=== PATIENT | female | born 1945 | race Caucasian/White ===

== ENCOUNTER → 2017-09-18 10:50 | Outpatient (CLI) | payer MEDICARE, SELFPAY ==
--- NOTE | 2017-09-18 10:55 | MM_ITS ---
MM Dig screening mamm BI w/CAD CAD Screening ORDERING PHYSICIAN : Giuseppe Ken MD PATIENT AGE: 72 years GENDER: Female COMPARISON: Previous mammograms: July 2015, June 2014, August 2016, June 2013 INDICATION: Routine screening. No hormones. No new complaints. Previous stereotactic biopsy left breast. Family history. Maternal grandmother breast cancer TECHNIQUE: Standard CC and MLO images were obtained. R2 CAD reviewed. FINDINGS: Moderate density breast for age. Fibroglandular elements most evident at the central breast extending superiorly. No dominant mass nor suspicious calcifications. No architectural distortion or significant interval change. Small vascular calcifications bilaterally typical for this age patient noted bilateral follow-up one year recommended IMPRESSION: Stable bilateral mammogram. No new areas of significant concern . Moderate breast density for age BI-RADS Category: 2 Benign Finding(s) RECOMMENDED FOLLOW-UP: 1YR - 1 YEAR FOLLOW-UP (A letter has been sent to the patient regarding results of the study.)
== END ==
PROVIDERS: PCP Internal Medicine Adolescent Medicine; Visit Provider Nurse Practitioner Obstetrics & Gynecology
DX: Z12.31 Encounter for screening mammogram for malignant neoplasm of breast (principal)
CPT/HCPCS: 77067

== ENCOUNTER 2018-01-13 21:37 | Observation (INO) ==
--- NOTE | 2018-01-13 22:01 | Emergency Department Note ---
ED Disposition Clinical Impression: Chest pain Qualifiers: Chest pain type: precordial pain Qualified Code(s): R07.2 - Precordial pain Disposition: Admitted as Observation Condition on Discharge: Good Referrals: Ren Armas MD [Primary Care Provider] - - Critical Care Critical Care Time: No Attestation: On 01/13/18, the high probability of a clinically significant, sudden or life threatening deterioration of the following system(s) required my full and direct attention, intervention and personal management. The time I documented below is in addition to time spent performing reported procedures but includes the following listed in this critical care notation. Medical Decision Making - Medical Records Medical records reviewed: Yes: I reviewed the patient's medical records. - Juan J Inquiry Pt receiving controlled substance: No Vital Signs: 01/13/18 21:39 Temperature 98.1 F Temperature Source Oral Pulse Rate [Left Radial] 61 Respiratory Rate 12 Blood Pressure [Right Arm] 156/83 Blood Pressure Mean [Right Arm] 107 Blood Pressure Source [Right Arm] Automatic Cuff Blood Pressure Position [Right Arm] Sitting 02 Sat by Pulse Oximetry 99 Oxygen Delivery Method Room Air - Lab Data Lab results reviewed: Yes: I reviewed the patient's lab results. Lab Results 01/13/18 22:27: WBC 5.7, RBC 4.23, Hgb 12.6, Hct 39.1, MCV 92.4, MCH 29.8, MCHC 32.3, RDW 13.4, Plt Count 311, MPV 6.8 L, Neut % (Auto) 68.9, Lymph % (Auto) 23.1, [place] % (Auto) 3.3, Eos % (Auto) 4.2, Baso % (Auto) 0.5, Neut # (Auto) 4.0 , Lymph # (Auto) 1.3, [place] # (Auto) 0.2, Eos # (Auto) 0.2, Baso # (Auto) 0.0 01/13/18 22:27: Sodium 137, Potassium 4.0, Chloride 102, Carbon Dioxide 29, Anion Gap 10.0, BUN 17, Creatinine 0.77, Estimated Creat Clear 41, Estimated GFR 74, Est GFR ( Amer) 89, Glucose 106, Calcium 9.0, Total Bilirubin 0.1 L, AST 20, ALT 20, Alkaline Phosphatase 67, Troponin I < 0.02, Total Protein 7.2, Albumin 3.1 L, Globulin 4.1 H, Albumin/Globulin Ratio 0.8 L, Amylase 35, Lipase 208 Result diagrams: 01/13/18 22:27 01/13/18 22:27 Orders (Tests/Meds): ED MEDICATIONS Generic Name Dose Route Start Last Admin Trade Name Freq PRN Reason Stop Dose Admin Nitroglycerin 0.4 mg 01/13/18 21:57 01/13/18 22:15 Nitrostat 0.4mg Sl Tablet SL 02/12/18 21:56 0.4 mg [id number] PRN Administration Chest Pain Discontinued Medications Generic Name Dose Route Start Last Admin Trade Name Freq PRN Reason Stop Dose Admin Aspirin 324 mg 01/13/18 21:57 01/13/18 22:26 Aspirin 81mg Chewable Tablet PO 01/13/18 21:58 324 mg ONCE ONE Administration Nitroglycerin 1 gm 01/13/18 22:35 01/13/18 22:40 Nitroglycerin 1 Inch Oint Udp TD 01/13/18 22:36 1 gm ONCE ONE Administration ORDERS Category Date Time Status XR chest portable Stat Exams 01/13/18 21:57 Ordered - ECG Data Tracing #1 I reviewed this ECG and interpreted as documented below: Normal Sinus Rhythm: Yes Ischemic changes: non-specific ST-T wave changes - Physician Consults Physician Consulted: tessie Reason -: Admission Chest Pain HPI - General Chief Complaint: Chest Pain Stated Complaint: chest pain Time Seen by Provider: 01/13/18 21:59 Mode of Arrival: Ambulatory Source of Information: Patient, Spouse, Medical Record Limitations: No Limitations Description of Symptoms (Recalled from ER Triage Doc. by RN): pt reports sternal pain intermittent since she woke up in the am. no aspirin, radiates to left shoulder - History of Present Illness HPI narrative: new onset of lt sided chest pain which has been intermittant today MD complaint: chest pain indicative of cardiac Onset (ago): day(s) Duration: intermittent Activity at onset: during rest Pain location: left chest Severity: moderate Quality: dull Pain radiation: LUE Treatments prior to or on arrival for Cardiac Chest Pain: none - LASHON Score Non-Stemi Age of patient: 65 yrs or more Number of risk factors for CAD: Presence of 3 or more Prior coronary artery stenosis(seen in coronary angiography): Less than 50% ST-Segment deviation on ECG (more than 1 min): Absent Prior aspirin intake: No ASA in the last 7 days Severe anginal chest pain: Two or more episodes in last 24 hours Elevated cardiac markers(CK-MB or troponin): Absent Non-Stemi Risk Score: 3 - Related Data Prior Cardiac Testing/Procedures: Stress Test On Oral Contraceptives: No Home Medications Medication Instructions Recorded Confirmed Duloxetine HCl [Cymbalta 30mg 1 tab PO DAILY 01/13/18 01/13/18 capsule] Ibuprofen [Ibuprofen 600mg Tab] 1 tab PO NEEDED PRN 01/13/18 01/13/18 LORazepam [Ativan 1mg tablet] 0.5 mg PO BID 01/13/18 01/13/18 Allergies Allergy/AdvReac Type Severity Reaction Status Date / Time iodine Allergy Unknown Verified 09/17/17 10:08 Anesthesia Allergy Unknown Uncoded 09/17/17 10:08 Penicillin Allergy Unknown Uncoded 09/17/17 10:08 sulfa drugs Allergy Unknown Uncoded 09/17/17 10:08 [facility] History I have reviewed the patient's past medical history: Yes Medical History: Denies:: Cancer, Diabetes Mellitus Type 1, Diabetes Mellitus Type 2, MRSA Amputation: No Fractures: No - Social History Smoking Status: Never smoker Alcohol Intake: current Alcohol Intake Frequency:: a few times a week - Psychiatric History Expresses thoughts of harming self/others: None Suicide Plan Description: No Plan ROS Obtained: Yes All systems reviewed & no additional complaints - Constitutional Constitutional: Denies fever(s) - Eyes Eyes: Denies change in vision - ENT Ears, Nose, Mouth, and Throat: Denies sore throat - Cardiovascular Cardiovascular: Reports chest pain, Denies dyspnea - Respiratory Respiratory: Yes cough - Gastrointestinal Gastrointestingal: Denies: abdominal pain - Genitourinary Female Genitourinary: Denies hematuria - Musculoskeletal Musculoskeletal: Denies joint pain - Integumentary/Breasts Skin/Breast: Denies rash - Neurologic Neurologic: Denies seizure-like activity Physical Exam - General General appearance: alert, in no apparent distress - Head Head exam: normocephalic - Eye Eye exam: Present: PERRL, EOMI - ENT ENT exam: Present: mucous membranes moist - Neck Neck exam: Present: trachea midline - Respiratory Respiratory exam: Present: normal lung sounds bilaterally, respiratory distress - Cardiovascular Cardiovascular exam: Present: regular rate, systolic murmur, +S4 - Abdominal Exam Abdominal exam: Present: soft - Extremities Exam Extremities exam: Present: normal inspection. Absent: pedal edema - Back Exam Back exam: Present: normal inspection - Neurological Exam Neurological exam: Present: alert, oriented X3, CN II-XII intact - Psychiatric Psychiatric exam: Present: normal affect - Skin Skin exam: Absent: rash
[2018-01-13 22:35] LABS: Basophils % 0.5 % (0.1-2.0); Eosinophils # 0.2 K/mm3 (0.0-0.4); Eosinophils % 4.2 % (0.1-12.0); Hematocrit 39.1 % (37.0-47.0); Hemoglobin 12.6 g/dL (12.2-16.2); Lymphocytes # 1.3 K/mm3 (0.7-4.5); Lymphocytes % 23.1 K/mm3 (10-50); Mean Corpuscular HGB Conc 32.3 g/dL (31.8-35.4); Mean Corpuscular Hemoglobin 29.8 pg (27.0-31.2); Mean Corpuscular Volume 92.4 fl (81-99); Mean Platelet Volume 6.8 fl (7.4-10.4); Monocytes # 0.2 K/mm3 (0.1-1.0); Monocytes % 3.3 % (1.7-9.3); Neutrophils % 68.9 % (37.0-80.0); Platelet Count 311 K/mm3 (142-424); Red Blood Count 4.23 M/mm3 (4.20-5.40); Red Cell Distribution Width 13.4 % (11.5-17.5); White Blood Count 5.7 K/mm3 (4.8-10.8)
[2018-01-13 22:52] LABS: Alanine Aminotransferase 20 U/L (12-78); Albumin Level 3.1 gm/dL (3.4-5.0); Albumin/Globulin Ratio 0.8 (1.1-1.8); Alkaline Phosphatase 67 U/L (46-116); Amylase 35 U/L (25-125); Aspartate Amino Transferase 20 U/L (15-37); Bilirubin,Total 0.1 mg/dL (0.2-1.0); Blood Urea Nitrogen 17 mg/dL (7-18); Carbon Dioxide 29 mmol/L (21.0-32.0); Chloride 102 mmol/L (98-107); Globulin 4.1 gm/dl (1.3-3.2); Glucose 106 mg/dL (74-106); Lipase 208 u/L (73-393); Sodium 137 mmol/L (136-145); Total Protein,Serum 7.2 gm/dL (6.4-8.2)
[2018-01-14 06:59] LABS: Anion Gap 7.9 mEq/L (5-15); Blood Urea Nitrogen 14 mg/dL (7-18); Carbon Dioxide 31 mmol/L (21.0-32.0); Chloride 107 mmol/L (98-107); Chol/HDL Ratio 2.8 (1-3.5); Cholesterol 164 mg/dL (140-200); Glucose 106 mg/dL (74-106); HDL Cholesterol 59 mg/dL (29-89); LDL Cholesterol 87 mg/dL (0-130); Potassium 3.9 mmoL/L (3.5-5.1); Sodium 142 mmol/L (136-145); Triglycerides 88 mg/dL (30-200); VLDL Cholesterol 18 mg/dL (0-40)
[2018-01-14 07:16] LABS: Basophils % 0.8 % (0.1-2.0); Eosinophils # 0.1 K/mm3 (0.0-0.4); Eosinophils % 3.3 % (0.1-12.0); Hematocrit 38.1 % (37.0-47.0); Hemoglobin 12.4 g/dL (12.2-16.2); Lymphocytes # 0.8 K/mm3 (0.7-4.5); Lymphocytes % 19.7 K/mm3 (10-50); Mean Corpuscular HGB Conc 32.4 g/dL (31.8-35.4); Mean Corpuscular Hemoglobin 30.2 pg (27.0-31.2); Mean Platelet Volume 6.6 fl (7.4-10.4); Monocytes # 0.2 K/mm3 (0.1-1.0); Monocytes % 4.2 % (1.7-9.3); Neutrophils # 2.7 K/mm3 (1.8-7.8); Platelet Count 295 K/mm3 (142-424); Red Cell Distribution Width 13.3 % (11.5-17.5); White Blood Count 3.8 K/mm3 (4.8-10.8)
--- NOTE | 2018-01-14 07:21 | Pharmacy Consult Notes ---
[facility] Pharmacy VTE Monitoring - Patient Demographics Admission date: 01/13/18 Report Date: 01/14/18 Time: 07:21 Allergies/Adverse Reactions: Patient Allergies etodolac [From Lodine] Allergy (Intermediate, Verified 01/13/18 23:53) iodine Allergy (Unknown, Verified 09/17/17 10:08) Anesthesia Allergy (Unknown, Uncoded 09/17/17 10:08) Penicillin Allergy (Unknown, Uncoded 09/17/17 10:08) sulfa drugs Allergy (Unknown, Uncoded 09/17/17 10:08) Height: 1.63 m Weight: 51.795 kg Patient Problems: Current Active Problems Chest pain (Acute) - VTE Risk Labs: VTE Related Lab Results Hgb 12.4 g/dL (12.2-16.2) 01/14/18 06:07 Hct 38.1 % (37.0-47.0) 01/14/18 06:07 Plt Count 295 K/mm3 (142-424) 01/14/18 06:07 BUN 14 mg/dL (7-18) 01/14/18 06:07 Creatinine 0.68 mg/dL (0.55-1.02) 01/14/18 06:07 Estimated Creat Clear 42 mL/min (0-300) 01/14/18 06:07 Was VTE Risk Assessment Performed: Yes VTE Score: 1 VTE Risk Level: Very Low Risk - Prophylaxis VTE Prophylaxis Ordered?: Yes Types of VTE Prophylaxis: TEDS Knee High Location of Applied Device: Bilateral Lower Extremeties - VTE Diagnosis Confirmed Treatment or plan recommended: Continue Current Treatment
--- NOTE | 2018-01-14 08:41 | History & Physical Report ---
*Admission Date: 01/13/18 *Chief complaint: Accelerating angina *History of present illness: 72-year-old white female with strong family history of cardiac disease who presented to the emergency department last night after having some chain with exertion that transitioned into some rest pain. Pain was left-sided, radiated to the shoulder and associated with some pressure. Relieved with nitroglycerin in the ER and has not returned since that time. This morning feels comfortable. [facility] History I have reviewed the patient's past medical history: Yes Medical History: Denies:: Cancer, Diabetes Mellitus Type 1, Diabetes Mellitus Type 2, MRSA Other Surgeries: Yes: Cholecystectomy Amputation: No Fractures: No - *Social History Educational Level: Completed College Smoking Status: Never smoker Alcohol Intake: current Alcohol Intake Frequency:: holidays/special occasions only Occupational Status: retired Housing: house Household Members: significant other - Psychiatric History Expresses thoughts of harming self/others: None Suicide Plan Description: No Plan *Family Hx:: Heart Attack Review of Systems - Review of Systems Review of systems:: pertinent systems reviewed and negative unless documented below - *Neurologic Denies seizure-like activity Meds Home Medications Medication Instructions Recorded Confirmed Type Duloxetine HCl [Cymbalta 30mg 30 mg PO HS 01/13/18 01/14/18 History capsule] LORazepam [Ativan 1mg tablet] 0.5 mg PO BID 01/13/18 01/14/18 History Ibuprofen [Ibu] 400 mg PO NEEDED PRN 01/14/18 01/14/18 History Allergies Allergy/AdvReac Type Severity Reaction Status Date / Time etodolac [From Lodine] Allergy Intermediate Verified 01/13/18 23:53 iodine Allergy Unknown Verified 09/17/17 10:08 Anesthesia Allergy Unknown Uncoded 09/17/17 10:08 Penicillin Allergy Unknown Uncoded 09/17/17 10:08 sulfa drugs Allergy Unknown Uncoded 09/17/17 10:08 Exam Vital signs and Labs for Last 24 Hours: Temp Pulse Resp BP Pulse Ox 98.0 F 60 18 133/58 95 01/14/18 07:45 01/14/18 07:45 01/14/18 07:45 01/14/18 07:45 01/14/18 07:45 Laboratory Results - last 24 hr 01/13/18 22:27: WBC 5.7, RBC 4.23, Hgb 12.6, Hct 39.1, MCV 92.4, MCH 29.8, MCHC 32.3, RDW 13.4, Plt Count 311, MPV 6.8 L, Neut % (Auto) 68.9, Lymph % (Auto) 23.1, [place] % (Auto) 3.3, Eos % (Auto) 4.2, Baso % (Auto) 0.5, Neut # (Auto) 4.0 , Lymph # (Auto) 1.3, [place] # (Auto) 0.2, Eos # (Auto) 0.2, Baso # (Auto) 0.0 01/13/18 22:27: Sodium 137, Potassium 4.0, Chloride 102, Carbon Dioxide 29, Anion Gap 10.0, BUN 17, Creatinine 0.77, Estimated Creat Clear 41, Estimated GFR 74, Est GFR ( Amer) 89, Glucose 106, Calcium 9.0, Total Bilirubin 0.1 L, AST 20, ALT 20, Alkaline Phosphatase 67, Troponin I < 0.02, Total Protein 7.2, Albumin 3.1 L, Globulin 4.1 H, Albumin/Globulin Ratio 0.8 L, Amylase 35, Lipase 208 01/13/18 23:54: Troponin I < 0.02 01/14/18 02:54: Troponin I < 0.02 01/14/18 06:07: WBC 3.8 L D, RBC 4.10 L, Hgb 12.4, Hct 38.1, MCV 93.0, MCH 30.2 , MCHC 32.4, RDW 13.3, Plt Count 295, MPV 6.6 L, Neut % (Auto) 72.0, Lymph % ( Auto) 19.7, [place] % (Auto) 4.2, Eos % (Auto) 3.3, Baso % (Auto) 0.8, Neut # (Auto ) 2.7, Lymph # (Auto) 0.8, [place] # (Auto) 0.2, Eos # (Auto) 0.1, Baso # (Auto) 0.0 01/14/18 06:07: Sodium 142, Potassium 3.9, Chloride 107, Carbon Dioxide 31, Anion Gap 7.9, BUN 14, Creatinine 0.68, Estimated Creat Clear 42, Estimated GFR 85, Est GFR ( Amer) 103, Glucose 106, Magnesium 2.2, Troponin I < 0.02, Triglycerides 88, Cholesterol 164, LDL Cholesterol 87, VLDL Cholesterol 18, HDL Cholesterol 59, Cholesterol/HDL Ratio 2.8 I & O for Last 24 hours: Intake & Output 01/11/18 01/12/18 01/13/18 01/14/18 11:59 11:59 11:59 11:59 Intake Total 0 / 0 Balance 0 / 0 Weight 114 lb 3.015 oz - Constitutional no acute distress - *Routine HEENT Exam Head: Present: normocephalic - *Routine Neck Exam Present: supple. Absent: JVD, carotid bruit - *Routine Respiratory Exam Present: CTA bilaterally. Absent: accessory muscle use - *Routine Cardiovascular Exam Present: RRR, Normal S1, Normal S2. Absent: murmur - *Routine Abdominal Exam Present: soft, normoactive bowel sounds - *Routine Extremities Exam Present: full ROM. Absent: cyanosis, clubbing, edema H&P: Result - Labs Labs: Short CBC 01/13/18 01/14/18 Range/Units 22:27 06:07 WBC 5.7 3.8 L D (4.8-10.8) K/mm3 Hgb 12.6 12.4 (12.2-16.2) g/dL Hct 39.1 38.1 (37.0-47.0) % Plt Count 311 295 (142-424) K/mm3 [facility] 01/13/18 01/14/18 22:27 06:07 Sodium 137 142 Potassium 4.0 3.9 Chloride 102 107 Carbon Dioxide 29 31 BUN 17 14 Creatinine 0.77 0.68 Glucose 106 106 Calcium 9.0 Cardiac Enzymes 01/13/18 01/13/18 01/14/18 Range/Units 22:27 23:54 02:54 Troponin I < 0.02 < 0.02 < 0.02 (0.00-0.06) ng/ml 01/14/18 Range/Units 06:07 Troponin I < 0.02 (0.00-0.06) ng/ml Liver Function 01/13/18 Range/Units 22:27 Total Bilirubin 0.1 L (0.2-1.0) mg/dL AST 20 (15-37) U/L ALT 20 (12-78) U/L Alkaline Phosphatase 67 (46-116) U/L Albumin 3.1 L (3.4-5.0) gm/dL Assessment and Plan (1) Chest pain Current visit: Yes Status: Acute Qualifiers: Chest pain type: precordial pain Qualified Code(s): R07.2 - Precordial pain Category: Medical Code(s): R07.9 - Chest pain, unspecified - Assessment and plan all Dx Assessment and Plan for all problems:: Significant risk factors. Close observation. Agree with admission for rule out NV. Cardiology consultation to evaluate for left heart cath.
--- NOTE | 2018-01-14 09:44 | Consult Report ---
History of Present Illness Consult date: 01/14/18 Requesting physician: Ren Armas Consult reason: chest pain Chief complaint: chest pain Additional Medical History:: 1. Irritable bowel syndrome with planned colonoscopy tomorrow 2. Chest pain, 01/13/18 History of present illness: 72-year-old white female with history of irritable bowel syndrome presented to the hospital after recurrent episodes of substernal chest discomfort/ indigestion with radiation of symptoms to the left shoulder and back that were worse with exertion and improved with rest. Antacids had no effect on the symptoms. The symptoms were different than her previous GI symptoms associated with her irritable bowel syndrome. She does have a strong family history of coronary artery disease in her siblings and her father. Patient denies tobacco use, diabetes, hypertension or hyperlipidemia. She was admitted for observation. She did receive sublingual nitroglycerin in the emergency department with gradual relief of symptoms thereafter. He does relate a great deal of stress due to her daughter undergoing chemotherapy for slow-growing brain tumor. EKG is sinus without acute changes. Troponins have remained within normal limits. Cardiology consulted for evaluation recommendations. [facility] History Medical History: Denies:: Cancer, Diabetes Mellitus Type 1, Diabetes Mellitus Type 2, MRSA Other Surgeries: Yes: Cholecystectomy Amputation: No Fractures: No - *Social History Educational Level: Completed College Smoking Status: Never smoker Alcohol Intake: current Alcohol Intake Frequency:: holidays/special occasions only Occupational Status: retired Housing: house Household Members: significant other - Psychiatric History Expresses thoughts of harming self/others: None Suicide Plan Description: No Plan *Family Hx:: Heart Attack Meds Home Medications Medication Instructions Recorded Confirmed Type Duloxetine HCl [Cymbalta 30mg 30 mg PO HS 01/13/18 01/14/18 History capsule] LORazepam [Ativan 1mg tablet] 0.5 mg PO BID 01/13/18 01/14/18 History Ibuprofen [Ibu] 400 mg PO NEEDED PRN 01/14/18 01/14/18 History Allergies Allergy/AdvReac Type Severity Reaction Status Date / Time etodolac [From Lodine] Allergy Intermediate Verified 01/13/18 23:53 iodine Allergy Unknown Verified 09/17/17 10:08 Anesthesia Allergy Unknown Uncoded 09/17/17 10:08 Penicillin Allergy Unknown Uncoded 09/17/17 10:08 sulfa drugs Allergy Unknown Uncoded 09/17/17 10:08 Review of Systems - *Cardiovascular Reports chest pain - *Respiratory Denies shortness of breath - *Gastrointestinal Denies abdominal pain - *Genitourinary Denies abnormal periods - *Musculoskeletal Denies abnormal walking - *Neurologic Denies seizure-like activity Exam Vital signs and Labs for Last 24 Hours: Temp Pulse Resp BP Pulse Ox 98.0 F 60 18 133/58 95 01/14/18 07:45 01/14/18 09:00 01/14/18 09:00 01/14/18 07:45 01/14/18 09:00 Laboratory Results - last 24 hr 01/13/18 22:27: WBC 5.7, RBC 4.23, Hgb 12.6, Hct 39.1, MCV 92.4, MCH 29.8, MCHC 32.3, RDW 13.4, Plt Count 311, MPV 6.8 L, Neut % (Auto) 68.9, Lymph % (Auto) 23.1, [place] % (Auto) 3.3, Eos % (Auto) 4.2, Baso % (Auto) 0.5, Neut # (Auto) 4.0 , Lymph # (Auto) 1.3, [place] # (Auto) 0.2, Eos # (Auto) 0.2, Baso # (Auto) 0.0 01/13/18 22:27: Sodium 137, Potassium 4.0, Chloride 102, Carbon Dioxide 29, Anion Gap 10.0, BUN 17, Creatinine 0.77, Estimated Creat Clear 41, Estimated GFR 74, Est GFR ( Amer) 89, Glucose 106, Calcium 9.0, Total Bilirubin 0.1 L, AST 20, ALT 20, Alkaline Phosphatase 67, Troponin I < 0.02, Total Protein 7.2, Albumin 3.1 L, Globulin 4.1 H, Albumin/Globulin Ratio 0.8 L, Amylase 35, Lipase 208 01/13/18 23:54: Troponin I < 0.02 01/14/18 02:54: Troponin I < 0.02 01/14/18 06:07: WBC 3.8 L D, RBC 4.10 L, Hgb 12.4, Hct 38.1, MCV 93.0, MCH 30.2 , MCHC 32.4, RDW 13.3, Plt Count 295, MPV 6.6 L, Neut % (Auto) 72.0, Lymph % ( Auto) 19.7, [place] % (Auto) 4.2, Eos % (Auto) 3.3, Baso % (Auto) 0.8, Neut # (Auto ) 2.7, Lymph # (Auto) 0.8, [place] # (Auto) 0.2, Eos # (Auto) 0.1, Baso # (Auto) 0.0 01/14/18 06:07: Sodium 142, Potassium 3.9, Chloride 107, Carbon Dioxide 31, Anion Gap 7.9, BUN 14, Creatinine 0.68, Estimated Creat Clear 42, Estimated GFR 85, Est GFR ( Amer) 103, Glucose 106, Magnesium 2.2, Troponin I < 0.02, Triglycerides 88, Cholesterol 164, LDL Cholesterol 87, VLDL Cholesterol 18, HDL Cholesterol 59, Cholesterol/HDL Ratio 2.8 I & O for Last 24 hours: Intake & Output 01/11/18 01/12/18 01/13/18 01/14/18 11:59 11:59 11:59 11:59 Intake Total 0 / 0 Output Total 1000 / 1000 Balance -1000 / -1000 Weight 114 lb 3.015 oz - *Routine Neck Exam Absent: JVD, carotid bruit - *Routine Respiratory Exam Present: CTA bilaterally. Absent: rhonchi, wheezes - *Routine Cardiovascular Exam Present: RRR. Absent: murmur, gallop - *Routine Abdominal Exam Present: soft. Absent: tenderness - *Routine Extremities Exam Absent: edema - *Routine Neurological Exam Present: alert, oriented X3, moving all extremities Assessment and Plan (1) Chest pain Current visit: Yes Status: Acute Qualifiers: Chest pain type: precordial pain Qualified Code(s): R07.2 - Precordial pain Category: Medical Code(s): R07.9 - Chest pain, unspecified (2) Family history of atherosclerosis Current visit: Yes Status: Acute Category: Medical Code(s): Z82.49 - Family history of ischemic heart disease and other diseases of the circulatory system - Assessment and plan all Dx Assessment and Plan for all problems:: 1. Recurrent chest pain resolved with sublingual nitroglycerin with a LASHON score of 2 with strong family history of coronary artery disease and a patient that we will need preop evaluation. Would recommend proceeding with left heart catheterization. 2. Further recommendations to follow.
--- NOTE | 2018-01-14 17:31 | Discharge Summary ---
General - General Admission date:: 01/13/18 Discharge date: 01/14/18 HPI HPI: 72-year-old white female with strong family history of cardiac disease who presented to the emergency department last night after having some chain with exertion that transitioned into some rest pain. Pain was left-sided, radiated to the shoulder and associated with some pressure. Relieved with nitroglycerin in the ER and has not returned since that time. This morning feels comfortable. Hospital Course Hospital Course: Patient was admitted to hospital, ruled out for myocardial infarction but given the accelerating nature of her pain she was subjected to left heart cath which revealed significant coronary disease and she received 2 stents. The interested reader is referred to the cardiology documentation for details. She tolerated the procedure well, the procedure was done through her right radial artery. She is doing well this afternoon, no further pain, interestingly her left shoulder pain is completely resolved. She will be discharged home on Brilinta, aspirin, atorvastatin and close follow- up. Objective Vital signs: Temp Pulse Resp BP Pulse Ox 98.0 F 62 18 149/80 97 01/14/18 07:45 01/14/18 17:10 01/14/18 17:10 01/14/18 17:10 01/14/18 17:10 Narrative: Alert, oriented 3. Lungs are clear. Heart rate regular. No edema. Radial cath site looks great no acute distress Results Labs on day of discharge: Labs from last 24 hours 01/14/18 01/14/18 01/14/18 12:40 12:24 06:07 WBC RBC Hgb Hct MCV MCH MCHC RDW Plt Count MPV Neut % (Auto) Lymph % (Auto) Addison % (Auto) Eos % (Auto) Baso % (Auto) Neut # (Auto) Lymph # (Auto) Addison # (Auto) Eos # (Auto) Baso # (Auto) Activated Clotting Time 272 H* 230 H* Sodium 142 Potassium 3.9 Chloride 107 Carbon Dioxide 31 Anion Gap 7.9 BUN 14 Creatinine 0.68 Estimated Creat Clear 42 Estimated GFR 85 Est GFR ( Amer) 103 Glucose 106 Calcium Magnesium 2.2 Total Bilirubin AST ALT Alkaline Phosphatase Troponin I < 0.02 Total Protein Albumin Globulin Albumin/Globulin Ratio Triglycerides 88 Cholesterol 164 LDL Cholesterol 87 VLDL Cholesterol 18 HDL Cholesterol 59 Cholesterol/HDL Ratio 2.8 Amylase Lipase 01/14/18 01/14/18 01/13/18 06:07 02:54 23:54 WBC 3.8 L D RBC 4.10 L Hgb 12.4 Hct 38.1 MCV 93.0 MCH 30.2 MCHC 32.4 RDW 13.3 Plt Count 295 MPV 6.6 L Neut % (Auto) 72.0 Lymph % (Auto) 19.7 Addison % (Auto) 4.2 Eos % (Auto) 3.3 Baso % (Auto) 0.8 Neut # (Auto) 2.7 Lymph # (Auto) 0.8 Addison # (Auto) 0.2 Eos # (Auto) 0.1 Baso # (Auto) 0.0 Activated Clotting Time Sodium Potassium Chloride Carbon Dioxide Anion Gap BUN Creatinine Estimated Creat Clear Estimated GFR Est GFR ( Amer) Glucose Calcium Magnesium Total Bilirubin AST ALT Alkaline Phosphatase Troponin I < 0.02 < 0.02 Total Protein Albumin Globulin Albumin/Globulin Ratio Triglycerides Cholesterol LDL Cholesterol VLDL Cholesterol HDL Cholesterol Cholesterol/HDL Ratio Amylase Lipase 01/13/18 01/13/18 22:27 22:27 WBC 5.7 RBC 4.23 Hgb 12.6 Hct 39.1 MCV 92.4 MCH 29.8 MCHC 32.3 RDW 13.4 Plt Count 311 MPV 6.8 L Neut % (Auto) 68.9 Lymph % (Auto) 23.1 Addison % (Auto) 3.3 Eos % (Auto) 4.2 Baso % (Auto) 0.5 Neut # (Auto) 4.0 Lymph # (Auto) 1.3 Addison # (Auto) 0.2 Eos # (Auto) 0.2 Baso # (Auto) 0.0 Activated Clotting Time Sodium 137 Potassium 4.0 Chloride 102 Carbon Dioxide 29 Anion Gap 10.0 BUN 17 Creatinine 0.77 Estimated Creat Clear 41 Estimated GFR 74 Est GFR ( Amer) 89 Glucose 106 Calcium 9.0 Magnesium Total Bilirubin 0.1 L AST 20 ALT 20 Alkaline Phosphatase 67 Troponin I < 0.02 Total Protein 7.2 Albumin 3.1 L Globulin 4.1 H Albumin/Globulin Ratio 0.8 L Triglycerides Cholesterol LDL Cholesterol VLDL Cholesterol HDL Cholesterol Cholesterol/HDL Ratio Amylase 35 Lipase 208 DS: Diagnosis - Discharge Diagnosis (1) Chest pain Status: Acute (2) Family history of atherosclerosis Status: Acute (3) Coronary atherosclerosis Status: Acute Discharge Plan - Patient Discharge Instructions ACTIVITY: Limited activity DIET: cardiac Patient Instructions: DI for Cardiac Catheterization, DI for Chest Pain - Follow up Plan Follow up with: Korey Menchaca MD [Staff Physician] - 1 week Ren Armas MD [Primary Care Provider] - 2 weeks Disposition: Home, Self-Shelter Medications: Home Medications Medication Instructions Recorded Confirmed Type Duloxetine HCl [Cymbalta 30mg 30 mg PO HS 01/13/18 01/14/18 History capsule] LORazepam [Ativan 1mg tablet] 0.5 mg PO BID 01/13/18 01/14/18 History Ibuprofen [Ibu] 400 mg PO NEEDED PRN 01/14/18 01/14/18 History Prescriptions/Medication Reconciliation: New Aspirin [Aspirin 81mg chewable tab] 81 mg PO DAILY #30 tab.chew Atorvastatin Calcium [Atorvastatin 40mg Tab] 40 mg PO DAILY 30 Days #30 tab Ticagrelor [Brilinta 90mg Tablet] 90 mg PO BID #60 tab Continue Duloxetine HCl [Cymbalta 30mg capsule] 30 mg PO HS Ibuprofen [Ibu] 400 mg PO NEEDED PRN PRN Reason: PAIN LORazepam [Ativan 1mg tablet] 0.5 mg PO BID
--- NOTE | 2018-01-14 21:48 | Cardiology Report ---
PROCEDURE: 2-D M-mode and color Doppler study INDICATIONS FOR THE TEST: Chest pain X COPD Heart Murmur Tobacco Smoking Palpitations Fatigue Syncope Edema Hypertension Diabetes Mellitus Rheumatic Fever SOB BAILEY Obesity Hyperlipidemia Family History HD Additional History PATIENT INFORMATION HEIGHT: 64 WEIGHT:112 GENDER: Female B/P:156/83 2-D/M-MODE INTERPRETATION: 2-D MEASUREMENTS OBSERVED VALUES IN CMS Right Ventricular Dimension (RVDd) 1.5 Interventricular Septum (Thickness)(IVsd) 1.0 Left Ventricular Internal Dimensions(LVIDd) 4.6 Left Ventricular Posterior Wall (Thickness)(LVPWd) 1.1 Aortic Root 2.8 Aortic Cusp Separation 1.8 Left Atrial Dimensions (LAD) 3.2 2D 1. Left atrium is mildly enlarged, left ventricle is normal size, mild concentric left ventricular hypertrophy, visually estimated ejection fraction 55% with no obvious regional wall motion abnormality. 2. The right atrium and right ventricle are normal size and contractility. 3. The aortic valve is minimally thickened and fibrosed. 4. 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 There is no mitral stenosis. 5. The tricuspid valve is grossly normal. 6. The pulmonic valve is poorly visualized 7. No significant pericardial effusion noted. DOPPLER INTERROGATION: Doppler interrogation of the aortic, mitral and tricuspid valvular presence of mild mitral and tricuspid regurgitation, tricuspid and jet velocity insufficient for calculation of the right ventricular systolic pressure, grade 1 diastolic dysfunction seen without tissue Doppler evidence of raised left atrial pressure. CONCLUSION: 1. Mildly enlarged left atrium, normal left ventricular size, mild concentric left ventricular hypertrophy, visually estimated ejection fraction 55% no signal wall motion abnormality, grade 1 diastolic dysfunction seen without tissue Doppler evidence of raised left atrial pressure. 2. 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 3. Mild tricuspid regurgitation 4. No significant pericardial effusion noted.
== END 2018-01-14 18:25 | disposition home or self-care (01) ==
LOC: ER 21:37 → 2ND 21:37
PROVIDERS: ADMIT Family Medicine; ATTEND Internal Medicine Adolescent Medicine

== ENCOUNTER 2018-01-22 14:00 | Outpatient (RCR) | payer MEDICARE, SELFPAY | END 2018-01-22 14:01 | disposition home or self-care (01) | LOC: PT 14:00 | PROVIDERS: PCP Internal Medicine Adolescent Medicine; Visit Provider Internal Medicine | DX: Z95.5 Presence of coronary angioplasty implant and graft (principal) | CPT/HCPCS: 93798 ==

== ENCOUNTER → 2018-04-23 10:33 | Outpatient (CLI) | payer MEDICARE, SELFPAY ==
[2018-04-23 10:37] LABS: Adenovirus F 40/41, stool Not Detected (NotDetected); Astrovirus Not Detected (NotDetected); Campylobacter Not Detected (NotDetected); Clostridium Difficile A/B, PCR Not Detected (NotDetected); Cryptosporidium Not Detected (NotDetected); Cyclospora Cayetanesis Not Detected (NotDetected); Entamoeba histolytica Not Detected (NotDetected); Enteroaggregative E coli Not Detected (NotDetected); Enterotoxigenic E coli Not Detected (NotDetected); Giardia lamblia Not Detected (NotDetected); Norovirus Not Detected (NotDetected); Plesimonas Shigalloides, PCR Not Detected (NotDetected); Rotavirus A Not Detected (NotDetected); Salmonella, PCR Not Detected (NotDetected); Sapovirus Not Detected (NotDetected); Shiga-like toxin E coli Not Detected (NotDetected); Shigella Enterovasive E coli Not Detected (NotDetected); Vibrio Cholerae Not Detected (NotDetected); Vibrio, PCR Not Detected (NotDetected); Yersinia Entercolitica, PCR Not Detected (NotDetected)
[2018-04-23 13:30] LABS: Enteropathogenic E coli Detected (NotDetected)
== END ==
PROVIDERS: Visit Provider Internal Medicine Gastroenterology
DX: R19.7 Diarrhea, unspecified (principal)
CPT/HCPCS: 87507

== ENCOUNTER → 2018-08-19 06:46 | Outpatient (CLI) | payer MEDICARE, SELFPAY ==
--- NOTE | 2018-08-19 06:48 | NM_ITS ---
History and Indications: Coronary artery disease, family history, chest pain and fatigue Procedure: Patient exercised on Vernon protocol 9 minutes and 30 seconds, resting heart rate was 60 bpm resting blood pressure 146/78, with exercise maximum heart rate achieved was 1 48 bpm which is greater than 85% of the maximum predicted heart rate and a blood pressure was 190/88. Test was started due to shortness of breath and fatigue patient denied any complained of chest pain. Patient has good exercise capacity achieved 10.1mets of workload on treadmill, the blood pressure response to exercise was adequate. Electrocardiogram: Resting electrocardiogram showed sinus rhythm, with exercise there is less than 1.[address] segment depression noted from the baseline EKG. Is no premature ventricular complexes were also present. The EKG portion of the exercise Myoview is negative for ischemia. Cardiac stress and resting SPECT images: Cardiac stress and resting SPECT images were obtained using technetium 99 Myoview 32.6 mCi stress and 10.5 mCi at rest. Gated SPECT further analysis of segmental wall motion and calculation of the ejection fraction also done. Cardiac stress and the suspect images show uniform myocardial activity without segmental perfusion abnormality, computer derived ejection fraction is over 65% with no regional wall motion abnormality, right ventricle is normal size and contractility. Conclusion: 1. The EKG portion of the exercise Myoview is negative for ischemia. Patient has good exercise capacity achieved 10.1 mets of workload on treadmill, the blood pressure response to exercise was adequate, there was no exercise-induced chest discomfort. 2. No scintigraphic evidence of reversible ischemia seen. Computer derived ejection fraction is over 65% with no regional wall motion abnormality, right ventricle is normal size and contractility. 3. Normal exercise Myoview study.
--- NOTE | 2018-08-19 07:18 | HMH.ITSHM ---
Current Home Medications as stated by this patient Elizabeth Bustamante (Betsy) or area representative. []PLAVIX ROSUVASTATIN ASA DOMPARDONE ADAVAN DULOXITINE
== END ==
PROVIDERS: PCP Internal Medicine Adolescent Medicine; Visit Provider Internal Medicine
DX: E78.5 Hyperlipidemia, unspecified (principal); I11.9 Hypertensive heart disease without heart failure; I25.10 Atherosclerotic heart disease of native coronary artery without angina pectoris; K21.9 Gastro-esophageal reflux disease without esophagitis; R07.89 Other chest pain; Z95.5 Presence of coronary angioplasty implant and graft
CPT/HCPCS: 78452; 93017; A9502

== ENCOUNTER → 2018-10-07 09:33 | Outpatient (CLI) | payer MEDICARE, SELFPAY ==
--- NOTE | 2018-10-07 09:36 | MM_ITS ---
MM Dig screening mamm BI w/CAD ORDERING PHYSICIAN : Giuseppe Ken MD PATIENT AGE: 73 years GENDER: Female COMPARISON: September 2017, August 2016, July 2015. INDICATION: Routine screening mammogram. No hormones. No new complaints. Previous percutaneous or stereotactic biopsy left breast. Family history. Maternal grandmother. TECHNIQUE: Standard CC and MLO images were obtained. R2 CAD reviewed. Additional axillary cc view bilaterally and CC nipple profile view bilateral FINDINGS: Fairly Dense breast bilaterally for this age patient but no dominant mass nor suspicious calcifications either breast. No new areas of significant concern.. Minimal vascular calcifications bilateral.. . IMPRESSION: . No new areas of concern. Stable mammogram. Moderately dense breasts for age Follow-up in one year suggested BI-RADS Category: 2 Benign Finding(s) RECOMMENDED FOLLOW-UP: 1YR 1 YEAR FOLLOW-UP (A letter has been sent to the patient regarding results of the study.)
== END ==
PROVIDERS: PCP Internal Medicine Adolescent Medicine; Visit Provider Nurse Practitioner Obstetrics & Gynecology
DX: Z12.31 Encounter for screening mammogram for malignant neoplasm of breast (principal)
CPT/HCPCS: 77067

== ENCOUNTER → 2019-01-17 08:47 | Outpatient (CLI) | payer MEDICARE, SELFPAY ==
--- NOTE | 2019-01-17 09:01 | XR_ITS ---
XR DEXA axial skeleton HISTORY: ITS.REASON: OSTEOPOROSIS ORDERING PHYSICIAN: Christen Shen APRN PATIENT AGE: 73 years COMPARISON: 10/23/2016 FINDINGS: The BMD measured at the Right femoral neck is 0.686 g/cm squared with a T score of -2.5. This is considered Osteoporotic according to the World Health Organization criteria. Fracture risk is High. Treatment is advised. The L1-L4 density has a T score of 0.3 decreased by 1%. The hip density has decreased by 3.4%. The scanogram images show moderate lumbar scoliosis convex left IMPRESSION: Osteoporosis with high fracture risk. Treatment is advised. Suggest follow-up examination january 2020
== END ==
PROVIDERS: PCP Internal Medicine Adolescent Medicine; Visit Provider Nurse Practitioner Family
DX: Z13.820 Encounter for screening for osteoporosis (principal); M81.0 Age-related osteoporosis without current pathological fracture
CPT/HCPCS: 77080

== ENCOUNTER → 2019-01-27 08:32 | Outpatient (CLI) | payer MEDICARE, SELFPAY ==
[2019-01-27 08:43] LABS: Basophils % 0.5 % (0.1-2.0); Eosinophils # 0.1 K/mm3 (0.0-0.4); Eosinophils % 2.1 % (0.1-12.0); Hematocrit 40.5 % (37.0-47.0); Hemoglobin 13.2 g/dL (12.2-16.2); Lymphocytes % 21.1 % (10-50); Mean Corpuscular HGB Conc 32.6 g/dL (31.8-35.4); Mean Corpuscular Hemoglobin 29.6 pg (27.0-31.2); Mean Corpuscular Volume 90.7 fl (81-99); Mean Platelet Volume 6.5 fl (7.4-10.4); Monocytes # 0.2 K/mm3 (0.1-1.0); Monocytes % 3.3 % (1.7-9.3); Neutrophils # 3.4 K/mm3 (1.8-7.8); Platelet Count 295 K/mm3 (142-424); Red Blood Count 4.47 M/mm3 (4.20-5.40); Red Cell Distribution Width 13.4 % (11.5-17.5); White Blood Count 4.7 K/mm3 (4.8-10.8)
[2019-01-27 10:53] LABS: Alanine Aminotransferase 23 U/L (12-78); Albumin Level 3.6 gm/dL (3.4-5.0); Albumin/Globulin Ratio 0.9 (1.1-1.8); Alkaline Phosphatase 71 U/L (46-116); Anion Gap 11.4 mEq/L (5-15); Aspartate Amino Transferase 16 U/L (15-37); Bilirubin,Total 0.3 mg/dL (0.2-1.0); Blood Urea Nitrogen 9 mg/dL (7-18); Calcium 8.8 mg/dL (8.5-10.1); Carbon Dioxide 28 mmol/L (21.0-32.0); Chloride 102 mmol/L (98-107); Chol/HDL Ratio 2.3 (1-3.5); Cholesterol 142 mg/dL (140-200); Creatinine,Serum 0.69 mg/dL (0.55-1.02); Estimated Glomerular Filt Rate 83 ml/min (>60); GFR (African American) 101 ML/MIN (>60); Globulin 4.2 gm/dl (1.3-3.2); Glucose 92 mg/dL (74-106); HDL Cholesterol 63 mg/dL (29-89); LDL Cholesterol 63 mg/dL (0-130); Potassium 4.4 mmoL/L (3.5-5.1); Sodium 137 mmol/L (136-145); Thyroid Stimulating Hormone 1.21 uIU/ml (0.358-3.740); Total Protein,Serum 7.8 gm/dL (6.4-8.2); Triglycerides 81 mg/dL (30-200); VLDL Cholesterol 16 mg/dL (0-40)
[2019-01-28 08:51] LABS: Vitamin B12 856 pg/mL (232-1245)
[2019-01-28 08:52] LABS: Vitamin D 25 Hydroxy 40.6 ng/mL (30.0-100.0)
== END ==
PROVIDERS: Visit Provider Nurse Practitioner Family
DX: I25.10 Atherosclerotic heart disease of native coronary artery without angina pectoris (principal); R53.81 Other malaise; M81.0 Age-related osteoporosis without current pathological fracture
CPT/HCPCS: 36415; 80053; 80061; 82607; 82652; 84443; 85025

== ENCOUNTER → 2019-02-04 13:36 | Outpatient (CLI) | payer MEDICARE, SELFPAY ==
[2019-02-06 15:19] LABS: Albumin 3.6 g/dL (2.9-4.4); Alpha-1-Globulin 0.3 g/dL (0.0-0.4); Alpha-2-Globulin 0.8 g/dL (0.4-1.0); Gamma Globulin 1.5 g/dL (0.4-1.8); Protein, Total 7.1 g/dL (6.0-8.5)
[2019-02-06 16:37] LABS: Albumin, U 19.8 % (.); Alpha-1-Globulin, U 5.8 % (.); Alpha-2-Globulin, U 18.3 % (.); Beta Globulin, U 28.2 % (.); Gamma Globulin, U 27.9 % (.); Protein,Total,Urine 14.7 mg/dL (Not Estab.)
[2019-02-07 07:32] LABS: M-Spike, % Comment: % (Not Observed)
== END ==
PROVIDERS: Visit Provider Internal Medicine Adolescent Medicine
DX: R77.9 Abnormality of plasma protein, unspecified (principal); D72.9 Disorder of white blood cells, unspecified
CPT/HCPCS: 36415; 84155; 84156; 84165; 84166

== ENCOUNTER → 2019-02-18 13:20 | Outpatient (POV) | payer MEDICARE, SELFPAY | PROVIDERS: Visit Provider Dermatology | DX: Z00.00 Encounter for general adult medical examination without abnormal findings (principal) ==

== ENCOUNTER 2019-03-05 13:15 | Outpatient (CLI) | payer MEDICARE, SELFPAY ==
[2019-03-05 13:14] VITALS: BMI 21.4
[2019-03-05 13:40] LABS: Albumin Level 3.5 gm/dL (3.4-5.0); Calcium 8.5 mg/dL (8.5-10.1); Creatinine Clearance Estimated 42 mL/min (50-200); Creatinine,Serum 0.71 mg/dL (0.55-1.02); Estimated Glomerular Filt Rate 81 ml/min (>60); GFR (African American) 98 ML/MIN (>60)
[2019-03-05 14:12] VITALS: BP 136/77; PULSE 77; RESP 16; O2SAT 97
[2019-03-05 14:35] VITALS: BP 151/71; PULSE 62; RESP 18; O2SAT 97
== END 2019-03-05 14:35 | disposition home or self-care (01) ==
LOC: INF 13:15
PROVIDERS: Visit Provider Nurse Practitioner Family
DX: M81.0 Age-related osteoporosis without current pathological fracture (principal)
CPT/HCPCS: 82040; 82310; 82565; 96374; J3489

== ENCOUNTER → 2019-09-11 11:45 | Outpatient (CLI) | payer MEDICARE, SELFPAY ==
[2019-09-11 14:18] LABS: Alanine Aminotransferase 18 U/L (12-78); Albumin Level 3.6 gm/dL (3.4-5.0); Alkaline Phosphatase 70 U/L (46-116); Anion Gap 14.4 mEq/L (5-15); Aspartate Amino Transferase 13 U/L (15-37); Bilirubin,Direct 0.1 mg/dL (0.0-0.2); Bilirubin,Indirect 0.1 mg/dL (0.0-0.9); Bilirubin,Total 0.2 mg/dL (0.2-1.0); Blood Urea Nitrogen 15 mg/dL (7-18); Calcium 8.9 mg/dL (8.5-10.1); Carbon Dioxide 27 mmol/L (21.0-32.0); Chloride 102 mmol/L (98-107); Chol/HDL Ratio 2.3 (1-3.5); Cholesterol 167 mg/dL (140-200); Creatine Kinase 64 U/L (26-192); Estimated Glomerular Filt Rate 98 ml/min (>60); GFR (African American) 118 ML/MIN (>60); Glucose 77 mg/dL (74-106); HDL Cholesterol 74 mg/dL (29-89); LDL Cholesterol 76 mg/dL (0-130); Potassium 4.4 mmoL/L (3.5-5.1); Sodium 139 mmol/L (136-145); Total Protein,Serum 7.4 gm/dL (6.4-8.2); Triglycerides 83 mg/dL (30-200); VLDL Cholesterol 17 mg/dL (0-40)
== END ==
PROVIDERS: Visit Provider Nurse Practitioner Family
DX: I25.10 Atherosclerotic heart disease of native coronary artery without angina pectoris (principal); E78.5 Hyperlipidemia, unspecified; I34.0 Nonrheumatic mitral (valve) insufficiency; R00.2 Palpitations; R42 Dizziness and giddiness
CPT/HCPCS: 36415; 80048; 80061; 80076; 82550

== ENCOUNTER → 2019-09-22 10:10 | Outpatient (CLI) | payer MEDICARE, SELFPAY ==
--- NOTE | 2019-09-22 10:11 | CA_ITS ---
APPROVED REPORT EXAM: Comprehensive 2D, Doppler, and color-flow Echocardiogram Diabetes Trainer: Eula Funez RT(R) Ht: 5 ft 3 in Wt: 114lbs BSA: 1.52 BP: 113/74 mmHg Indications: Mitral Valve Prolapse, Murmur, Palpitations, CAD, Hyperlipidemia, Hypertension/HDD 2D Dimensions LVOT 1.83 cm (M/F) 1.5-2.5 M-Mode Dimensions RVDd 2.36 cm (0.9-2.6) LVDd 4.27 cm (3.5-5.7) LVDs 2.89 cm (3.5-5.7) IVSd 0.85 cm (0.6-1.1) PWd 0.76 cm (0.6-1.1) EF (Teich) 61.00% FS 32.30% EDV (Teich) 81.70 mL ESV (Teich) 31.90 mL LV Diastology E/A Ratio 0.70 Mitral Valve MV A Velocity 101.00 (40-130 cm/s) Left Ventricle Left atrium is mildly enlarged, left ventricle is normal size, mild concentric left ventricular hypertrophy, septum is sigmoid configuration, visually estimated ejection fraction 55% with no regional wall motion abnormality. Grade 1 diastolic dysfunction seen without tissue Doppler evidence of raise left atrial pressure. Right Ventricle Right atrium and right ventricular normal size and contractility. Aortic Valve Aortic valve is minimally thickened and fibrosed, there is no aortic stenosis, there is trace aortic insufficiency. Mitral Valve Mitral valve is is minimally thickened, there is mild buckling of the both anterior and posterior mitral leaflet, without actual mitral valve prolapse. There is no mitral stenosis, there is mild mitral regurgitation. Tricuspid Valve Tricuspid valve is grossly normal, there is mild tricuspid regurgitation, tricuspid regurgitation jet velocity is inadequate for calculation of the right ventricular systolic pressure. Pulmonic Valve Pulmonic valve is poorly visualized. Great Vessels Aortic root is normal size. Pericardium No significant pericardial effusion noted. Conclusion 1. Mildly enlarged left atrium, normal left ventricular size, mild concentric left ventricular hypertrophy, septum is sigmoid configuration, visually estimated ejection fraction 55% with no regional wall motion abnormality, grade 1 diastolic dysfunction seen without tissue Doppler evidence of raise left atrial pressure. 2. Trace aortic, mild mitral and tricuspid regurgitation. 3. No significant pericardial effusion noted. Electronically signed by : Paco Castano, 09/23/2019 06:29:19
== END ==
PROVIDERS: PCP Internal Medicine Adolescent Medicine; Visit Provider Physician Assistant
DX: I25.10 Atherosclerotic heart disease of native coronary artery without angina pectoris (principal); I34.1 Nonrheumatic mitral (valve) prolapse; R00.2 Palpitations; R42 Dizziness and giddiness
CPT/HCPCS: 93306

== ENCOUNTER → 2019-10-17 10:10 | Outpatient (CLI) | payer MEDICARE, SELFPAY ==
--- NOTE | 2019-10-17 10:10 | MM_ITS ---
PROCEDURE: MM DIG SCREENING MAMM BI W/CAD CLINICAL INDICATION: Routine Screening Mammogram There is a history of breast cancer patient's maternal grandmother. COMPARISON: [facility] DIG MAMM-SCREEN [facility] from 08/22/2016 [facility] MM Dig screening mamm BI w/CAD from 09/18/2017 [facility] MM Dig screening mamm BI w/CAD from 10/07/2018 TECHNIQUE: Standard CC and MLO images and 3D Tomosynthesis was obtained. R2 CAD reviewed. FINDINGS: Moderate scattered fibroglandular densities are seen throughout both breasts and the findings of bilateral and symmetrical. There is no suspicious lesion in either breast and no suspicious microcalcifications. IMPRESSION: Fibrofatty parenchyma with no suspicious lesions seen BI-RAD Category: 1 Negative FOLLOW-UP: 1YR 1 Year Follow-up (A letter has been sent to the patient regarding results of the study.) Dictated by: Dr. Phil Nicole MD 10/20/2019 19:[address] Phil Nicole MD in [place] 10/20/2019 19:16
== END ==
PROVIDERS: PCP Internal Medicine Adolescent Medicine; Visit Provider Nurse Practitioner Obstetrics & Gynecology
DX: Z12.31 Encounter for screening mammogram for malignant neoplasm of breast (principal)
CPT/HCPCS: 77063; 77067

== ENCOUNTER → 2019-10-31 12:37 | Outpatient (CLI) | payer MEDICARE, SELFPAY ==
[2019-10-31 12:40] LABS: Adenovirus F 40/41, stool Not Detected (NotDetected); Astrovirus Not Detected (NotDetected); Campylobacter Not Detected (NotDetected); Clostridium Difficile A/B, PCR Not Detected (NotDetected); Cryptosporidium Not Detected (NotDetected); Cyclospora Cayetanesis Not Detected (NotDetected); Entamoeba histolytica Not Detected (NotDetected); Enteroaggregative E coli Not Detected (NotDetected); Enteropathogenic E coli Not Detected (NotDetected); Enterotoxigenic E coli Not Detected (NotDetected); Giardia lamblia Not Detected (NotDetected); Norovirus Not Detected (NotDetected); Plesimonas Shigalloides, PCR Not Detected (NotDetected); Rotavirus A Not Detected (NotDetected); Salmonella, PCR Not Detected (NotDetected); Sapovirus Not Detected (NotDetected); Shiga-like toxin E coli Not Detected (NotDetected); Shigella Enterovasive E coli Not Detected (NotDetected); Vibrio Cholerae Not Detected (NotDetected); Vibrio, PCR Not Detected (NotDetected); Yersinia Entercolitica, PCR Not Detected (NotDetected)
== END ==
PROVIDERS: Visit Provider Internal Medicine Gastroenterology
DX: R19.7 Diarrhea, unspecified (principal)
CPT/HCPCS: 87506

== ENCOUNTER → 2020-02-23 09:26 | Outpatient (CLI) | payer MEDICARE, SELFPAY ==
--- NOTE | 2020-02-23 09:46 | XR_ITS ---
PROCEDURE: XR DEXA AXIAL SKELETON CLINICAL HISTORY: OSTEOPOROSIS COMPARISON: No exams were available for comparison FINDINGS: Right hip density is 0.594 grams/centimeter sq with a T-score of -2.3, osteopenia Left hip density is 0.643 grams/centimeters sq with a T-score -2 point consistent with osteoporosis L1-L4 density is 1.004 grams/centimeters sq with a T-score of -0.4. This is within normal limits IMPRESSION: Osteoporosis with high fracture risk. Treatment advised. Recommend follow-up exam in 1 year Dictated by: Guido Aguilar MD 02/23/2020 16:26 Electronically signed by Guido Aguilar MD in [place] 02/23/2020 16:26
== END ==
PROVIDERS: PCP Internal Medicine Adolescent Medicine; Visit Provider Internal Medicine Adolescent Medicine
DX: M81.0 Age-related osteoporosis without current pathological fracture (principal)
CPT/HCPCS: 77080

== ENCOUNTER → 2020-02-26 07:13 | Outpatient (CLI) | payer MEDICARE, SELFPAY ==
--- NOTE | 2020-02-26 07:13 | NM_ITS ---
APPROVED REPORT Exam: Nuclear Stress Test Indication: Chest pain, Fatigue, CAD, Family history Patient Location: Outpatient Stress Tech: Ara Lara [place] Tech:Adejesus Hinson ARRT, RT (R)(N) Ht: 5 ft 2 in Wt: 112 lbs Bra Size: 36A HR: 74 bpm BP: 144/77 mmHg BSA: 1.49 m2 BMI: 20.4 History: Chest pain, Fatigue, CAD, Family history Procedure: Patient exercised on Vernon protocol 9:15 minutes and sec, resting heart rate 74 bpm, resting blood pressure 144/77 mmHg, with exercise maximum heart rate achived was 150 bpm which is % of the maximum predicted heart rate and blood pressure was 165/80 mmHg. Test was stopped due to SOA and fatigue. Patient denied any complaint of chest pain. Patient has exercise capacity, achieved 10.1 METs of workload on treadmill, the blood pressure response to exercise was . Cardiac Stress and Resting SPECT Images: Cardiac Stress and Resting SPECT images were obtained using technetium 99m Myoview 32.6 mCi stress and 10.32 mCi at rest. Ejection fraction is normal at 72% with no wall motion abnormalities apparent. There is decreased activity involving the inferoseptal region on the stress images becoming normal on the delayed images consistent with an area of ischemia.. No fixed defects Conclusion: Normal ejection fraction. Reversible region in the inferoseptal wall consistent with an area of ischemia Electronically signed by : Guido Aguilar MD 02/27/2020 15:01:35
--- NOTE | 2020-02-26 07:49 | HMH.ITSHM ---
Current Home Medications as stated by this patient Elizabeth Bustamante (Betsy) or environmental marketing representative. []DONPERIDONE CRESTOR ADAVAN ASA DULOXETINE
--- NOTE | 2020-02-26 09:00 | CA_ITS ---
APPROVED REPORT Exam: Exercise Treadmill Technologist: Ara Lara, Ht: 5 ft 2 in Wt: 112 lbs BSA: 1.49 m2 Indications: CP Medical History Medical History: Hyperlipidemia Medications: Lorazepam,,,,, Omeprazole,,,,, Aspirin,,,,, Ibuprofen,,,,, DulOXETINE,,,,, RoSUVASTATIN,,,,, Fluconazole,,,,, Nitrofurantion,,,,, Cardiac Risk Factors: Hyperlipidemia, FHX of CAD Stress Test Details Test: Vernon HR Resting HR: 81 bpm Max Heart Rate (APMHR): 146 bpm Max HR Achieved: 154 bpm Target HR (85% APMHR): 124 bpm % of APMHR: 105 BP Resting BP: 144/77 mmHg Max BP: 165/80 mmHg ECG Clinical Exercise duration: 09:15 min Highest Stage Achieved: Exercise capacity: 10.1 METs Stress ECG Conclusion Exercised 9:15 on Vernon Protocol No CP Occ PVC, .3 ventricular couplets in very early recovery, Occ fusion beat Allowing for motion artifact the ST response to exercise is within normal Normal GXT Myoview images reported separetely. Excellent exercise tolerance. Test Summary RECOVERY 04:00 0.0 0.0 89 . 161/ 61 . . REST . . . . . . . Sitting REST 03:43 0.0 0.0 81 . 144/ 77 . . Stage 1 01:00 10.0 1.7 90 . . . . Stage 1 02:00 10.0 1.7 94 . . . . Stage 1 03:00 10.0 1.7 99 . 156/ 80 . . Stage 2 01:00 12.0 2.5 115 . . . . Stage 2 02:00 12.0 2.5 115 . . . . Stage 2 03:00 12.0 2.5 120 . 165/ 80 . . Stage 3 01:00 14.0 3.4 138 . . . . Stage 3 02:00 14.0 3.4 142 . . . . Stage 3 . . . . . . . Cardiolite injected Stage 3 03:00 14.0 3.4 146 . . . . Stage 4 00:15 16.0 4.2 150 . . . Stop exercise at 09:15 RECOVERY 01:00 0.0 0.0 138 . . . . RECOVERY 02:00 0.0 0.0 110 . 156/ 81 . . RECOVERY 03:00 0.0 0.0 105 . 156/ 81 . . RECOVERY 04:00 0.0 0.0 89 . 161/ 61 . . RECOVERY 05:00 0.0 0.0 87 . 125/ 77 . . RECOVERY 05:30 0.0 0.0 87 . 137/ 77 . . Electronically signed by : Korey Menchaca, 02/27/2020 11:25:00
== END ==
PROVIDERS: PCP Internal Medicine Adolescent Medicine; Visit Provider Internal Medicine Cardiovascular Disease
DX: I34.1 Nonrheumatic mitral (valve) prolapse; I20.8 Other forms of angina pectoris
CPT/HCPCS: 78452; 93017; A9502

== ENCOUNTER 2020-03-02 08:44 | Day surgery (SDC) | payer MEDICARE, SELFPAY ==
[2020-03-02] VITALS (11 sets, daily range): BP systolic 98–142; BP diastolic 50–89; PULSE 62–86; RESP 16–20; TEMP 36.8; O2SAT 91–96; BMI 19.6
--- NOTE | 2020-03-02 | IR_ITS ---
APPROVED REPORT Patient Location: Outpatient PROCEDURES Left heart catheterization Left ventriculogram Selective coronary angiogram INDICATION Abnormal Myoview Informed consent was obtained prior to the procedure. COMPLICATIONS None Estimated Blood Loss: less than 10 ml TECHNIQUE One percent lidocaine used to anesthetize the right anterior aspect of the wrist. The right radial artery was accessed via the Seldinger technique. A 6 Greenlandic sheath was placed in the right radial artery. 2.5 mg of verapamil, 800 mcg of nitroglycerin, 1mg Lidocaine and 5000 U Heparin were given through the arterial sheath. The trap catheter was also used to perform left heart catheterization, left ventriculogram and selective coronary angiogram. At the end of the procedure the sheath was removed good hemostasis was achieved using Traclet band, patient was transferred to the postop holding area in stable condition. ANGIOGRAPHIC RESULTS The left main artery Normal The left anterior descending artery Normal The circumflex artery Normal The right coronary artery Dominant normal The CHISHOLM ventriculogram reveals Normal 65% The left ventricular end-diastolic pressure 10 mmHg IMPRESSION Normal coronary arteries Normal ejection fraction Normal left ventricular end-diastolic pressure PLAN 1. Medical management Electronically signed by : Korey Menchaca, 03/02/2020 13:24:59
[2020-03-02 09:29] LABS: Basophils % 0.8 % (0.1-2.0); Eosinophils # 0.1 K/mm3 (0.0-0.4); Hematocrit 43.4 % (37.0-47.0); Hemoglobin 14.5 g/dL (12.2-16.2); Lymphocytes # 1.1 K/mm3 (0.7-4.5); Mean Corpuscular HGB Conc 33.5 g/dL (31.8-35.4); Mean Corpuscular Hemoglobin 30.4 pg (27.0-31.2); Mean Corpuscular Volume 90.7 fl (81-99); Mean Platelet Volume 6.6 fl (7.4-10.4); Monocytes # 0.2 K/mm3 (0.1-1.0); Monocytes % 4.7 % (1.7-9.3); Neutrophils # 2.5 K/mm3 (1.8-7.8); Neutrophils % 63.4 % (37.0-80.0); Platelet Count 416 K/mm3 (142-424); Red Blood Count 4.78 M/mm3 (4.20-5.40); Red Cell Distribution Width 13.6 % (11.5-17.5); White Blood Count 3.9 K/mm3 (4.8-10.8)
[2020-03-02 09:36] LABS: Chloride 100 mmol/L (98-107); Potassium 3.4 mmoL/L (3.5-5.1); Sodium 138 mmol/L (136-145)
[2020-03-02 09:39] LABS: Anion Gap 12.4 mEq/L (5-15); Blood Urea Nitrogen 16 mg/dl (7-17); Carbon Dioxide 29 mmol/L (22.0-30.0); Creatinine Clearance Estimated 39 mL/min (50-200); Estimated Glomerular Filt Rate 70 ml/min (>60); GFR (African American) 85 ML/MIN (>60)
[2020-03-02 09:40] LABS: Calcium 9.3 mg/dl (8.4-10.2); Glucose 112 mg/dl (74-100)
== END 2020-03-02 16:13 | disposition home or self-care (01) ==
PROVIDERS: PCP Internal Medicine Adolescent Medicine; Visit Provider Internal Medicine
DX: I25.118 Atherosclerotic heart disease of native coronary artery with other forms of angina pectoris (principal); I11.9 Hypertensive heart disease without heart failure; I34.1 Nonrheumatic mitral (valve) prolapse; Z95.5 Presence of coronary angioplasty implant and graft; Z88.8 Allergy status to other drugs, medicaments and biological substances; Z88.0 Allergy status to penicillin; Z88.2 Allergy status to sulfonamides; Z79.899 Other long term (current) drug therapy
CPT/HCPCS: 80048; 85025; 93458; 99152; C1725; C1769; J1644; Q9967

== ENCOUNTER → 2020-04-06 10:43 | Outpatient (CLI) | payer MEDICARE, SELFPAY ==
[2020-04-06 11:35] LABS: Basophils % 0.4 % (0.1-2.0); Eosinophils % 0.6 % (0.1-12.0); Hematocrit 47.7 % (37.0-47.0); Hemoglobin 15.5 g/dL (12.2-16.2); Lymphocytes # 1.2 K/mm3 (0.7-4.5); Lymphocytes % 24.5 % (10-50); Mean Corpuscular HGB Conc 32.5 g/dL (31.8-35.4); Mean Corpuscular Hemoglobin 29.4 pg (27.0-31.2); Mean Corpuscular Volume 90.5 fl (81-99); Monocytes # 0.3 K/mm3 (0.1-1.0); Monocytes % 5.3 % (1.7-9.3); Neutrophils # 3.3 K/mm3 (1.8-7.8); Neutrophils % 69.1 % (37.0-80.0); Platelet Count 482 K/mm3 (142-424); Red Blood Count 5.27 M/mm3 (4.20-5.40); Red Cell Distribution Width 13.7 % (11.5-17.5); White Blood Count 4.8 K/mm3 (4.8-10.8)
[2020-04-06 12:26] LABS: Chloride 91 mmol/L (98-107)
[2020-04-06 12:27] LABS: Potassium 3.6 mmoL/L (3.5-5.1); Sodium 136 mmol/L (136-145)
[2020-04-06 12:29] LABS: Alanine Aminotransferase 15 U/L (12-78); Alkaline Phosphatase 86 U/L (38-126); Anion Gap 15.6 mEq/L (5-15); Aspartate Amino Transferase 27 U/L (14-36); Bilirubin,Total 0.4 mg/dl (0.2-1.3); Blood Urea Nitrogen 20 mg/dl (7-17); Carbon Dioxide 33 mmol/L (22.0-30.0); Estimated Glomerular Filt Rate 61 ml/min (>60); GFR (African American) 74 ML/MIN (>60)
[2020-04-06 12:30] LABS: Albumin Level 4.2 g/dl (3.5-5.0); Albumin/Globulin Ratio 1.3 (1.1-1.8); Calcium 10.2 mg/dl (8.4-10.2); Globulin 3.3 g/dL (1.3-3.2); Glucose 116 mg/dl (74-100); Iron 30 ug/dL (37-170); Total Protein,Serum 7.5 g/dl (6.3-8.2)
[2020-04-06 12:39] LABS: Total Iron Binding Capacity 291 ug/dL (265-497)
[2020-04-06 12:47] LABS: 25-OH Vitamin D, Total 46.6 ng/mL (30-100)
[2020-04-06 15:33] LABS: Adenovirus F 40/41, stool Not Detected (NotDetected); Astrovirus Not Detected (NotDetected); Campylobacter Not Detected (NotDetected); Clostridium Difficile A/B, PCR Not Detected (NotDetected); Cryptosporidium Not Detected (NotDetected); Cyclospora Cayetanesis Not Detected (NotDetected); Entamoeba histolytica Not Detected (NotDetected); Enteroaggregative E coli Not Detected (NotDetected); Enteropathogenic E coli Not Detected (NotDetected); Enterotoxigenic E coli Not Detected (NotDetected); Giardia lamblia Not Detected (NotDetected); Norovirus Not Detected (NotDetected); Plesimonas Shigalloides, PCR Not Detected (NotDetected); Rotavirus A Not Detected (NotDetected); Salmonella, PCR Not Detected (NotDetected); Sapovirus Not Detected (NotDetected); Shiga-like toxin E coli Not Detected (NotDetected); Shigella Enterovasive E coli Not Detected (NotDetected); Vibrio Cholerae Not Detected (NotDetected); Vibrio, PCR Not Detected (NotDetected); Yersinia Entercolitica, PCR Not Detected (NotDetected)
[2020-04-07 20:02] LABS: Vitamin B12 1273 pg/mL (232-1245)
== END ==
PROVIDERS: Visit Provider Internal Medicine Gastroenterology
DX: R19.7 Diarrhea, unspecified (principal); R11.0 Nausea; D50.9 Iron deficiency anemia, unspecified
CPT/HCPCS: 36415; 80053; 82306; 82607; 82728; 83540; 83550; 85025; 87205; 87506

== ENCOUNTER 2020-04-08 13:43 | Observation (INO) | payer MEDICARE, SELFPAY ==
[2020-04-08] VITALS (7 sets, daily range): BP systolic 115–136; BP diastolic 54–77; PULSE 69–88; RESP 17–20; TEMP 36.6–36.8; O2SAT 95–98; BMI 19.5; BMI 19.3
[2020-04-08 14:29] LABS: Basophils % 0.3 % (0.1-2.0); Eosinophils # 0.1 K/mm3 (0.0-0.4); Eosinophils % 0.6 % (0.1-12.0); Hematocrit 43.5 % (37.0-47.0); Hemoglobin 15.1 g/dL (12.2-16.2); Lymphocytes # 0.9 K/mm3 (0.7-4.5); Mean Corpuscular HGB Conc 34.8 g/dL (31.8-35.4); Mean Corpuscular Hemoglobin 30.6 pg (27.0-31.2); Mean Corpuscular Volume 88.2 fl (81-99); Mean Platelet Volume 7.1 fl (7.4-10.4); Monocytes # 0.3 K/mm3 (0.1-1.0); Monocytes % 4.5 % (1.7-9.3); Neutrophils # 6.2 K/mm3 (1.8-7.8); Neutrophils % 82.6 % (37.0-80.0); Platelet Count 568 K/mm3 (142-424); Red Blood Count 4.93 M/mm3 (4.20-5.40); Red Cell Distribution Width 13.4 % (11.5-17.5); White Blood Count 7.5 K/mm3 (4.8-10.8)
[2020-04-08 14:31] LABS: Chloride 88 mmol/L (98-107); Sodium 135 mmol/L (136-145)
[2020-04-08 14:34] LABS: Alanine Aminotransferase 23 U/L (12-78); Albumin Level 4.3 g/dl (3.5-5.0); Alkaline Phosphatase 126 U/L (38-126); Anion Gap 16.5 mEq/L (5-15); Aspartate Amino Transferase 33 U/L (14-36); Bilirubin,Total 0.4 mg/dl (0.2-1.3); Blood Urea Nitrogen 21 mg/dl (7-17); Calcium 10.7 mg/dl (8.4-10.2); Carbon Dioxide 33 mmol/L (22.0-30.0); Creatinine Clearance Estimated 38 mL/min (50-200); Estimated Glomerular Filt Rate 70 ml/min (>60); GFR (African American) 85 ML/MIN (>60); Globulin 4.1 g/dL (1.3-3.2); Glucose 106 mg/dl (74-100); Potassium 2.5 mmoL/L (3.5-5.1); Total Protein,Serum 8.4 g/dl (6.3-8.2)
--- NOTE | 2020-04-08 14:34 | PC.NURSE ---
MD aware of potassium 2.5.
[2020-04-08 14:35] LABS: Lipase 84 U/L (23-300)
--- NOTE | 2020-04-08 14:35 | CT_ITS ---
PROCEDURE: CT ABDOMEN PELVIS W CON CLINICAL INDICATION: abdominal pain Diarrhea for 2 weeks. COMPARISON: No exams were available for comparison TECHNIQUE: IV Contrast: 75ML OPTIRAY 350 Oral Contrast None Axial images obtained with sagittal and coronal reformats. All CT scans at the facility use one or more dose reduction, viz: automated exposure control, ma/kV adjustment per patient size (including targeted exams where dose is matched to indication, i.e. head), or iterative reconstruction technique. FINDINGS: LOWER THORAX: Lung bases: No acute finding. Posteriorly there is minimal dependent atelectasis. ABDOMEN & PELVIS: Hepatobiliary: The liver has a normal size with a smooth surface. The gallbladder is surgically absent. There is ex vacuo intrahepatic/extrahepatic mildly dilated biliary ductal system. Pancreas: There is decrease in visible pancreatic tissue, consistent with glandular atrophy. A mildly dilated pancreatic duct. Spleen: Multiple small calcified granulomata of the spleen. The spleen is not enlarged. Adrenals: The adrenal glands are normal. Kidneys, ureters and bladder: Both kidneys have a normal size and morphology. There is no enhancing renal mass or hydronephrosis. Both ureters have normal course and caliber. The urinary bladder is unremarkable. Gastrointestinal: The stomach appears normal. Gas and fluid filled up to 3.3 centimeter dilated small bowel loops are seen throughout the abdomen. Liquid stool is seen in the entire ascending, descending and rectosigmoid colon, consistent with diarrheal condition. There is no pericolonic inflammatory significant stranding is demonstrated. Reproductive organs: Atrophic anteverted uterus. Lymphatic system: No significant adenopathy demonstrated in the abdomen/pelvis. Vasculature: There is atherosclerotic elongation/tortuosity of the abdominal aorta but no aneurysm. Peritoneum: No free fluid or free intraperitoneal air is seen. Abdominal wall and musculoskeletal: Unremarkable soft tissues. There is a severe S-shaped thoracolumbar scoliosis with the lumbar dextroscoliosis. There is significant bilateral facet arthrosis with grade 1 L5 spondylolisthesis. Moderately advanced degenerative disc/endplate disease changes are seen at L4-L5 and L5-S1 levels. No acute bony abnormality noted. IMPRESSION: 1. Gas and fluid filled dilated small bowel loops are seen throughout the abdomen. Liquid stool is seen in the ascending, descending colon and mixed with formed stool in the rectosigmoid, compatible with enterocolitis/diarrheal state. 2. Severe scoliosis of the thoracolumbar spine. Grade 1 spondylolisthesis of L5. Moderately advanced degenerative spondylitic changes are seen at L4-L5 and L5-S1. Dictated by: Sherron Wyatt 04/08/2020 15:36 Electronically signed by Sherron Wyatt in [place] 04/08/2020 15:36
--- NOTE | 2020-04-08 14:37 | HMH.EDGENADL ---
ED Disposition Clinical Impression: Hypokalemia, Weakness, Dehydration Diarrhea Qualifiers: Diarrhea type: unspecified type Qualified Code(s): R19.7 - Diarrhea, unspecified Disposition: Admitted as Observation Condition on Discharge: Fair - Critical Care Critical Care Time: No Attestation: On 04/08/20, the high probability of a clinically significant, sudden or life threatening deterioration of the following system(s) required my full and direct attention, intervention and personal management. The time I documented below is in addition to time spent performing reported procedures but includes the following listed in this critical care notation. Medical Decision Making - Medical Records Medical records reviewed: Yes: I reviewed the patient's medical records. - Juan J Inquiry Pt receiving controlled substance: No Vital Signs: 04/08/20 13:45 04/08/20 15:30 04/08/20 16:18 Temperature 97.8 F Temperature Source Oral Pulse Rate Pulse Rate [Left Radial] 88 69 73 Respiratory Rate 18 20 20 Blood Pressure Blood Pressure [Right Arm] 127/74 115/54 L 136/76 Blood Pressure Mean [Right Arm] 91 74 96 Blood Pressure Source Blood Pressure Source [Right Arm] Automatic Cuff Automatic Cuff Automatic Cuff Blood Pressure Position Blood Pressure Position [Right Arm] Sitting Supine Supine 02 Sat by Pulse Oximetry 98 98 98 Oxygen Delivery Method Room Air Room Air Room Air 04/08/20 17:05 Temperature 98.1 F Temperature Source Oral Pulse Rate 73 Pulse Rate [Left Radial] Respiratory Rate 20 Blood Pressure 136/76 Blood Pressure [Right Arm] Blood Pressure Mean [Right Arm] Blood Pressure Source Automatic Cuff Blood Pressure Source [Right Arm] Blood Pressure Position Sitting Blood Pressure Position [Right Arm] 02 Sat by Pulse Oximetry Oxygen Delivery Method Room Air - Lab Data Lab Results 04/08/20 14:15: WBC 7.5 D, RBC 4.93, Hgb 15.1, Hct 43.5, MCV 88.2, MCH 30.6, MCHC 34.8, RDW 13.4, Plt Count 568 H, MPV 7.1 L, Neut % (Auto) 82.6 H, Lymph % (Auto) 12.0, [place] % (Auto) 4.5, Eos % (Auto) 0.6, Baso % (Auto) 0.3, Neut # (Auto) 6.2, Lymph # (Auto) 0.9, [place] # (Auto) 0.3, Eos # (Auto) 0.1, Baso # (Auto) 0.0 04/08/20 14:15: Sodium 135 L, Potassium 2.5 L* D, Chloride 88 L, Carbon Dioxide 33 H, Anion Gap 16.5 H, BUN 21 H, Creatinine 0.80, Estimated Creat Clear 38, Estimated GFR 70, Est GFR ( Amer) 85, Glucose 106 H, Calcium 10.7 H, Total Bilirubin 0.4, AST 33, ALT 23 D, Alkaline Phosphatase 126, Total Protein 8.4 H, Albumin 4.3, Globulin 4.1 H, Albumin/Globulin Ratio 1.0 L 04/08/20 14:15: Lipase 84 04/08/20 15:53: Urine Color Yellow, Urine Appearance Clear, Urine pH 7.0, Ur Specific [place] <= 1.005, Urine Protein Negative, Urine Glucose (UA) Negative, Urine Ketones Negative, Urine Blood Trace-i, Urine Nitrate Negative, Urine Bilirubin Negative, Urine Urobilinogen 0.2, Ur Leukocyte Esterase Negative, Urine WBC Occasional, Ur Squamous Epith Cells Occasional, Urine Bacteria Trace Result diagrams: 04/08/20 14:15 04/08/20 14:15 Orders (Tests/Meds): ED MEDICATIONS Generic Name Dose Route Start Last Admin Trade Name Freq PRN Reason Stop Dose Admin Aspirin 81 mg 04/09/20 09:00 Aspirin 81mg Chewable Tablet PO 05/09/20 08:59 DAILY STEVE Duloxetine HCl 30 mg 04/08/20 21:00 Cymbalta 30mg Capsule PO 05/08/20 20:59 HS STEVE Lactated Ringer's 1,000 mls @ 125 mls/hr 04/08/20 16:48 Lactated Ringer's 1000 Ml Bag IV 05/08/20 16:47 .Q8H STEVE Lorazepam 1 mg 04/08/20 21:00 Ativan 1mg Tablet PO 05/08/20 20:59 BID STEVE Non-Formulary Medication 40 mg 04/09/20 09:00 Omeprazole PO 05/09/20 08:59 DAILY STEVE Non-Formulary Medication 10 mg 04/09/20 09:00 Rosuvastatin Calcium PO 05/09/20 08:59 DAILY STEVE Non-Formulary Medication 650 mg 04/08/20 16:48 Acetaminophen [Acetaminophen Er] PO Q12H PRN pain Discontinued Medications Generic Name
--- NOTE | 2020-04-08 15:13 | ECG_ITS ---
APPROVED REPORT Exam: Resting ECG HR:73 bpm ECG Measurements Heart Rate 73 AXES [place] 178 P 55 QRSd 86 QRS -16 QT 430 T 95 QTc 473 <Conclusion> Normal sinus rhythm Nonspecific ST and T wave abnormality Prolonged QT Abnormal ECG Electronically signed by : Ren Armas, 04/11/2020 21:19:00
[2020-04-08 16:04] LABS: Microscopic, Urine URINE MICROSCOPIC (MICROSCOPIC)
[2020-04-08 16:10] LABS: Appearance,Urine CLEAR (Clear); Bilirubin,Urine Negative (Negative); Blood, Urine TRACE-I (Negative); Color,Urine YELLOW (Yellow); Glucose,Urine (UA) Negative (Negative); Ketones,Urine Negative (Negative); Leukocyte Esterase,Urine Negative (Negative); Nitrate,Urine Negative (Negative); Protein,Urine Negative (Negative); Specific Gravity, Urine <= 1.005 (1.005-1.030); Urobilinogen,Urine 0.2 EU/dl (0.2)
--- NOTE | 2020-04-08 16:18 | PC.NURSE ---
PAGING AT THIS TIME
--- NOTE | 2020-04-08 16:21 | PC.NURSE ---
ER DOC SPEAKING TO AT THIS TIME
--- NOTE | 2020-04-08 16:26 | PC.NURSE ---
SPOKE TO [employer]ITCHER FOR BED PLACEMENT
[2020-04-08 16:32] LABS: Bacteria,Urine Trace /lpf; Squamous Epithelial Cell,Urine Occasional #/hpf (0-5); WBC,Urine Occasional #/hpf (0-3)
--- NOTE | 2020-04-08 16:45 | PC.NURSE ---
PT ADMITTED TO 2ND FLOOR ROOM 217
--- NOTE | 2020-04-08 17:13 | PC.NURSE ---
Pt arrived to the floor at this time via w/c
--- NOTE | 2020-04-08 17:13 | PC.NURSE ---
Addendum entered by Eula Ruiz, ANISHA 04/08/20 17:14: at 4:58 Original Note: late entry; spoke with Miki in pre-op to notify her about consult on pt.
[2020-04-08 17:43] LABS: Lactic Acid 1.3 mmol/L (0.7-2.1)
--- NOTE | 2020-04-08 18:22 | HMH.HP ---
*Admission Date: 04/08/20 *Chief complaint: dehydration, diarrhea *History of present illness: Ms. Bustamante is a 75-year-old female who presented to the ER due to worsening fatigue, dizziness, near syncopal event after experiencing diarrhea for the past 2 to 3 weeks. She has a history of IBS and sees Dr. Bear for GI. She states 2 to 3 weeks ago she started having multiple loose stools a day. Denies any fever, vomiting, blood in her stool. Has had significant cramping of her abdomen. Has had work-up including recent stool sample that showed no infectious etiology. Initial lab work-up in the ER was significant for hypokalemia, hypochloremia, and left shift of her white cells. Vitals stable. Afebrile. CT of her abdomen concerning for enterocolitis, air and fluid-filled loops of small bowel. Presentation concerning for acute diarrheal illness, acute kidney injury, electrolyte derangement. I do have concern that patient's symptoms are not consistent with her traditional IBS but more indicative of an inflammatory or infectious process. She was admitted to medicine for further management. Initiated on IV fluids and electrolyte replacement. Consult for GI placed. Further management pending response to treatment and consult. [facility] History I have reviewed the patient's past medical history: Yes Medical History: Reports:: Coronary Artery Disease, Hyperlipidemia, Hypertension Denies:: Cancer, Diabetes Mellitus Type 1, Diabetes Mellitus Type 2, MRSA, Seizures *Have you ever received a pneumonia vaccine?: Yes *Have you received a flu vaccine this season?: Yes Other Surgeries: Yes: Cardiac Catheterization, Cholecystectomy, Coronary Stent Amputation: No Fractures: No - *Social History Last grade of school completed: Advanced degree Smoking Status: Never smoker Alcohol Intake: never Alcohol Intake Frequency:: holidays/special occasions only Substance Use Type: denies use *Occupational Status:: retired Housing: house Household Members: spouse *Travel in the last 8 weeks: None Family Hx:: Coronary Artery Disease, Heart Attack, Hyperlipidemia, Hypertension Review of Systems - Review of Systems Review of systems:: pertinent systems reviewed and negative unless documented below (14 point review of systems performed, pertinent positives and negatives as per HPI) - *Neurologic Reports weakness, Denies localized weakness, Denies frequent falls, Denies numbness Meds Home Medications Medication Instructions Recorded Confirmed Type Duloxetine HCl [Cymbalta 30mg 30 mg PO HS 01/13/18 04/08/20 History capsule] rosuvastatin 10 mg tablet 10 mg PO DAILY 30 Days #30 tab 08/12/18 04/08/20 History acetaminophen 650 mg 650 mg PO Q12H PRN 02/20/19 04/08/20 History tablet,extended release lorazepam 1 mg tablet 1 mg PO BID tab 02/20/20 04/08/20 History Aspirin [Aspirin 81mg chewable 81 mg PO DAILY 04/08/20 04/08/20 History tab] Omeprazole 40 mg PO DAILY 04/08/20 04/08/20 History Allergies Allergy/AdvReac Type Severity Reaction Status Date / Time etodolac [From [facility]] Allergy Intermediate Verified 03/01/20 10:13 Penicillins Allergy Unknown Verified 03/01/20 10:13 Sulfa (Sulfonamide Allergy Unknown Verified 03/01/20 10:13 Antibiotics) Exam Vital signs and Labs for Last 24 Hours: Temp Pulse Resp BP Pulse Ox 98.2 F 76 17 133/77 97 04/08/20 17:47 04/08/20 17:47 04/08/20 17:47 04/08/20 17:47 04/08/20 17:47 Laboratory Results - last 24 hr 04/08/20 14:15: WBC 7.5 D, RBC 4.93, Hgb 15.1, Hct 43.5, MCV 88.2, MCH 30.6, MCHC 34.8, RDW 13.4, Plt Count 568 H, MPV 7.1 L, Neut % (Auto) 82.6 H, Lymph % (Auto) 12.0, [place] % (Auto) 4.5, Eos % (Auto) 0.6, Baso % (Auto) 0.3, Neut # (Auto) 6.2, Lymph # (Auto) 0.9, [place] # (Auto) 0.3, Eos # (Auto) 0.1, Baso # (Auto) 0.0 04/08/20 14:15: Sodium 135 L, Potassium 2.5 L* D, Chloride 88 L, Carbon Dioxide 33 H, Anion Gap 16.5 H, BUN 21 H, Creatinine 0.80, Estimated Creat Clear 38, Est
[2020-04-08 20:50] LABS: Chloride 94 mmol/L (98-107); Sodium 135 mmol/L (136-145)
[2020-04-08 20:53] LABS: Blood Urea Nitrogen 16 mg/dl (7-17); Creatinine Clearance Estimated 38 mL/min (50-200); Estimated Glomerular Filt Rate 82 ml/min (>60); GFR (African American) 99 ML/MIN (>60)
[2020-04-08 20:54] LABS: Anion Gap 10.9 mEq/L (5-15); Carbon Dioxide 33 mmol/L (22.0-30.0); Glucose 118 mg/dl (74-100)
[2020-04-08 21:16] LABS: Adenovirus F 40/41, stool Not Detected (NotDetected); Astrovirus Not Detected (NotDetected); Campylobacter Not Detected (NotDetected); Clostridium Difficile A/B, PCR Not Detected (NotDetected); Cryptosporidium Not Detected (NotDetected); Cyclospora Cayetanesis Not Detected (NotDetected); Entamoeba histolytica Not Detected (NotDetected); Enteroaggregative E coli Not Detected (NotDetected); Enteropathogenic E coli Not Detected (NotDetected); Enterotoxigenic E coli Not Detected (NotDetected); Giardia lamblia Not Detected (NotDetected); Norovirus Not Detected (NotDetected); Plesimonas Shigalloides, PCR Not Detected (NotDetected); Rotavirus A Not Detected (NotDetected); Salmonella, PCR Not Detected (NotDetected); Sapovirus Not Detected (NotDetected); Shiga-like toxin E coli Not Detected (NotDetected); Shigella Enterovasive E coli Not Detected (NotDetected); Vibrio Cholerae Not Detected (NotDetected); Vibrio, PCR Not Detected (NotDetected); Yersinia Entercolitica, PCR Not Detected (NotDetected)
[2020-04-08 21:34] LABS: Potassium 2.9 mmoL/L (3.5-5.1)
[2020-04-08 22:00] LABS: Calcium 8.8 mg/dl (8.4-10.2)
--- NOTE | 2020-04-09 02:27 | PC.NURSE ---
2200 critical K+ of 2.9 called, Dr. Arana notified, new orders received, read back and verified
--- NOTE | 2020-04-09 02:29 | PC.NURSE ---
0215 pt called out requesting something for multiple loose stools, Dr. Arana notified, new orders received and carried out
--- NOTE | 2020-04-09 03:01 | PC.NURSE ---
2200 received negative diarrhea panel results, isolation removed, pt placed in standard precautions
[2020-04-09 04:00] VITALS: BP 112/53; PULSE 74; RESP 16; TEMP 37; O2SAT 93
[2020-04-09 05:00] VITALS: BMI 19.8
[2020-04-09 05:47] LABS: Basophils % 0.7 % (0.1-2.0); Eosinophils # 0.1 K/mm3 (0.0-0.4); Eosinophils % 1.7 % (0.1-12.0); Hematocrit 35.5 % (37.0-47.0); Lymphocytes % 26.2 % (10-50); Mean Corpuscular HGB Conc 32.5 g/dL (31.8-35.4); Mean Corpuscular Hemoglobin 29.7 pg (27.0-31.2); Mean Corpuscular Volume 91.3 fl (81-99); Mean Platelet Volume 6.9 fl (7.4-10.4); Monocytes # 0.2 K/mm3 (0.1-1.0); Monocytes % 6.4 % (1.7-9.3); Neutrophils # 2.4 K/mm3 (1.8-7.8); Platelet Count 391 K/mm3 (142-424); Red Blood Count 3.89 M/mm3 (4.20-5.40); Red Cell Distribution Width 13.6 % (11.5-17.5); White Blood Count 3.7 K/mm3 (4.8-10.8)
[2020-04-09 05:51] LABS: Chloride 101 mmol/L (98-107); Sodium 134 mmol/L (136-145)
[2020-04-09 05:52] LABS: Potassium 3.2 mmoL/L (3.5-5.1)
[2020-04-09 05:53] LABS: Hemoglobin 11.6 g/dL (12.2-16.2)
[2020-04-09 05:54] LABS: Alanine Aminotransferase 13 U/L (12-78); Albumin Level 2.9 g/dl (3.5-5.0); Alkaline Phosphatase 71 U/L (38-126); Anion Gap 5.2 mEq/L (5-15); Aspartate Amino Transferase 20 U/L (14-36); Bilirubin,Total 0.2 mg/dl (0.2-1.3); Blood Urea Nitrogen 10 mg/dl (7-17); Calcium 8.5 mg/dl (8.4-10.2); Carbon Dioxide 31 mmol/L (22.0-30.0); Creatinine Clearance Estimated 39 mL/min (50-200); Estimated Glomerular Filt Rate 97 ml/min (>60); GFR (African American) 118 ML/MIN (>60); Globulin 2.9 g/dL (1.3-3.2); Glucose 99 mg/dl (74-100); Total Protein,Serum 5.8 g/dl (6.3-8.2)
[2020-04-09 05:55] LABS: Magnesium 2.3 mg/dl (1.6-2.3)
--- NOTE | 2020-04-09 07:06 | HMH.ACPN2 ---
Internal Medicine - PN: Subj *Date: 04/09/20 *Time: 08:14 Interval history: Patient did well overnight. No acute events. Fluids and electrolytes replaced. Multiple loose watery stools overnight. No usama blood or melena in her stools. Cramping better however. Denies nausea, shortness of breath, palpitations, fever. P.o. at this time pending GI consult Exam Vital signs and Labs for Last 24 Hours: Temp Pulse Resp BP Pulse Ox 98.6 F 74 16 112/53 L 93 L 04/09/20 04:00 04/09/20 04:00 04/09/20 04:00 04/09/20 04:00 04/09/20 04:00 Laboratory Results - last 24 hr 04/08/20 14:15: WBC 7.5 D, RBC 4.93, Hgb 15.1, Hct 43.5, MCV 88.2, MCH 30.6, MCHC 34.8, RDW 13.4, Plt Count 568 H, MPV 7.1 L, Neut % (Auto) 82.6 H, Lymph % (Auto) 12.0, [place] % (Auto) 4.5, Eos % (Auto) 0.6, Baso % (Auto) 0.3, Neut # (Auto) 6.2, Lymph # (Auto) 0.9, [place] # (Auto) 0.3, Eos # (Auto) 0.1, Baso # (Auto) 0.0 04/08/20 14:15: Sodium 135 L, Potassium 2.5 L* D, Chloride 88 L, Carbon Dioxide 33 H, Anion Gap 16.5 H, BUN 21 H, Creatinine 0.80, Estimated Creat Clear 38, Estimated GFR 70, Est GFR ( Amer) 85, Glucose 106 H, Calcium 10.7 H, Total Bilirubin 0.4, AST 33, ALT 23 D, Alkaline Phosphatase 126, Total Protein 8.4 H, Albumin 4.3, Globulin 4.1 H, Albumin/Globulin Ratio 1.0 L 04/08/20 14:15: Lipase 84 04/08/20 15:53: Urine Color Yellow, Urine Appearance Clear, Urine pH 7.0, Ur Specific [place] <= 1.005, Urine Protein Negative, Urine Glucose (UA) Negative, Urine Ketones Negative, Urine Blood Trace-i, Urine Nitrate Negative, Urine Bilirubin Negative, Urine Urobilinogen 0.2, Ur Leukocyte Esterase Negative, Urine WBC Occasional, Ur Squamous Epith Cells Occasional, Urine Bacteria Trace 04/08/20 17:25: Lactate 1.3 04/08/20 20:35: Sodium 135 L, Potassium 2.9 L*, Chloride 94 L, Carbon Dioxide 33 H, Anion Gap 10.9, BUN 16, Creatinine 0.70, Estimated Creat Clear 38, Estimated GFR 82, Est GFR ( Amer) 99, Glucose 118 H, Calcium 8.8 D 04/08/20 21:00: Stl Aeromonas (PCR) Not detected, Stl C. cayetanensis PCR Not detected, Stool Rotavirus (PCR) Not detected, Stl Adenov F 40/41 PCR Not detected, Stool Astrovirus (PCR) Not detected, Stool Campylobacter PCR Not detected, Stl C.difficile Tox PCR Not detected, Stool Cryptosporidium PCR Not detected, Stl E.coli Shiga Tox PCR Not detected, Stool E coli O157 PCR Not detected, Stl Enterotoxigenic E PCR Not detected, Stool EPEC (PCR) Not detected, Stool EAEC (PCR) Not detected, Stl E. histolytica PCR Not detected, Stool Giardia Lamblia PCR Not detected, Stool Salmonella PCR Not detected, Stool Sapovirus (PCR) Not detected, Stl P. shigelloides PCR Not detected, Stl Shigella/EIEC PCR Not detected, St Y.enterocolitica PCR Not detected, Stool Vibrio (PCR) Not detected, Stl Vibrio cholerae PCR Not detected, Stl Norovirus GI/GII PCR Not detected 04/09/20 05:36: WBC 3.7 L D, RBC 3.89 L, Hgb 11.6 L D, Hct 35.5 L, MCV 91.3, MCH 29.7, MCHC 32.5, RDW 13.6, Plt Count 391 D, MPV 6.9 L, Neut % (Auto) 65.0, Lymph % (Auto) 26.2, [place] % (Auto) 6.4, Eos % (Auto) 1.7, Baso % (Auto) 0.7, Neut # (Auto) 2.4, Lymph # (Auto) 1.0, [place] # (Auto) 0.2, Eos # (Auto) 0.1, Baso # (Auto) 0.0 04/09/20 05:36: Sodium 134 L, Potassium 3.2 L, Chloride 101, Carbon Dioxide 31 H, Anion Gap 5.2, BUN 10 D, Creatinine 0.60, Estimated Creat Clear 39, Estimated GFR 97, Est GFR ( Amer) 118, Glucose 99, Calcium 8.5, Magnesium 2.3, Total Bilirubin 0.2, AST 20 D, ALT 13 D, Alkaline Phosphatase 71, Total Protein 5.8 L D, Albumin 2.9 L D, Globulin 2.9, Albumin/Globulin Ratio 1.0 L I & O for Last 24 hours: Intake & Output 04/06/20 04/07/20 04/08/20 04/09/20 23:59 23:59 23:59 23:59 Intake Total 1266 / 1266 Output Total Balance 1261 / 1261 Weight 49.583 kg 50.859 kg Narrative: - Constitutional no acute distress - *Routine HEENT Exam Head: Present: normocephalic Eye: Present: EOMI, PERRL ENT: Present: mucous membranes moist - *Routine Neck E
[2020-04-09 07:30] LABS: Erythrocyte Sedimentation Rate 63 mm/hr (0-30)
--- NOTE | 2020-04-09 07:44 | P.CONPHA_ITS ---
[facility] Pharmacy VTE Monitoring - Patient Demographics Admission date: 04/08/20 Report Date: 04/09/20 Time: 07:44 Allergies/Adverse Reactions: Patient Allergies etodolac [From [place]] Allergy (Intermediate, Verified 03/01/20 10:13) Penicillins Allergy (Unknown, Verified 03/01/20 10:13) Sulfa (Sulfonamide Antibiotics) Allergy (Unknown, Verified 03/01/20 10:13) Height: 1.6 m Weight: 50.859 kg Patient Problems: Current Active Problems Hypokalemia (Acute) Diarrhea (Acute) Weakness (Acute) Dehydration (Acute) Hypochloremia (Acute) Anemia (Acute) - VTE Risk Labs: VTE Related Lab Results Hgb 11.6 g/dL (12.2-16.2) L D 04/09/20 05:36 Hct 35.5 % (37.0-47.0) L 04/09/20 05:36 Plt Count 391 K/mm3 (142-424) D 04/09/20 05:36 BUN 10 mg/dl (7-17) D 04/09/20 05:36 Creatinine 0.60 mg/dl (0.52-1.04) 04/09/20 05:36 Estimated Creat Clear 39 mL/min (50-200) 04/09/20 05:36 Was VTE Risk Assessment Performed: Yes VTE Score: 2 VTE Risk Level: Very Low Risk Clinical Trial Participant: No - Prophylaxis VTE Prophylaxis Ordered?: Yes Types of VTE Prophylaxis: TEDS Knee High
[2020-04-09 08:00] VITALS: BP 97/56; PULSE 70; RESP 19; TEMP 36.9; O2SAT 95
--- NOTE | 2020-04-09 14:11 | PC.NURSE ---
PT IS RESTING IN BED. NO COMPLAINTS OF DISCOMFORT. PT IS STILL WAITING TO SEE . POTASSIUM IS RUNNING CONCURRENT WITH IVF AT THIS TIME. IV ACCESS NOTED TO RFA. LUNG SOUNDS CLEAR. BOWEL SOUNDS NORMAL. PT HAS HAD 1 LOOSE STOOL SINCE DOSE OF IMMODIUM THIS MORNING. SHOWER AND BED CHANGE THIS SHIFT. WILL CONTINUE TO MONITOR.
--- NOTE | 2020-04-09 15:06 | P.CONS_ITS ---
Gastroenterology Consult Consult:: S: Mrs. Bustamante is a well-known 75-year-old female with a long history of lymphocytic (microscopic) colitis and irritable bowel syndrome. She does controlled the colitis with Entocort. She did run out of this 10 days ago when she was out of town. She developed more significant diarrhea. This was associated with crampy abdominal discomfort. She did call our office and did have a stool panel that was PCR negative. She had negative C. difficile as well as other microbial pathogens. Her lab work showed a slightly increased anion gap but no hypokalemia. Her fecal leukocytes were negative. She did however have evidence of early iron deficiency with an iron level of 30 and an iron saturation of 10.3. She does not have a history of iron deficiency. The patient states that she has had some chills, weakness and cramps. She reports no rectal bleeding or fever. She does note mucus with her bowel movements. Her CT scan of the abdomen on arrival showed liquid filled loops of small and large intestine consistent with enterocolitis. She also had hypokalemia. She is still having diarrhea but her pain is improved. O: Physical Examination: Gen.: The patient is a well-developed well-nourished individual in no acute distress HEENT: Normocephalic/atraumatic extraocular movements are intact anicteric Neck: Supple no lymphadenopathy Chest: Clear to auscultation Cardiovascular: Regular rate and rhythm Abdomen: Normoactive bowel sounds, possibly mildly hyperactive with tenderness in the mid and lower quadrants, nondistended, no masses, no rebound or guarding no hepatosplenomegaly Extremities: No edema Labs/CT scan: See chart A/P: 1. Acute on chronic diarrhea with marked electrolyte disturbances. The patient also has thrombocytosis and low iron levels. Her CAT scan showed evidence of enterocolitis but her PCR panel was negative. I am concerned that she has either exacerbation with inflammatory bowel disease or she has an acute self- limited colitis. I am going to initiate prednisone 40 mg with tapering. As an outpatient I will have her transition to Entocort. I would like to obtain fecal calprotectin and fecal lactoferrin. I am also going to do fecal Hemoccult. The patient's last colonoscopy was July 2018 and was normal but the biopsies of the colon were consistent with lymphocytic colitis. In addition to the prednisone, I am going to add Cipro and Flagyl empirically with the addition of probiotic (Florastor). I am going to have her undergo diagnostic colonoscopy as an outpatient. I will try to advance to low residue diet.
[2020-04-09 15:23] VITALS: BMI 19.9
[2020-04-09 16:00] VITALS: BP 96/57; PULSE 68; RESP 20; TEMP 36.8; O2SAT 97
[2020-04-09 17:07] LABS: Occult Blood,Stool Positive (Negative)
--- NOTE | 2020-04-09 19:12 | PC.NURSE ---
report given to lisandro
[2020-04-09 20:00] VITALS: BP 94/52; PULSE 73; RESP 20; TEMP 36.9; O2SAT 99
[2020-04-09 23:58] VITALS: BP 101/52
--- NOTE | 2020-04-10 03:37 | PC.NURSE ---
Pt has rested well this shift. was at bedside at beginning of shift but has since gone home. Reports he will be back first thing in the morning. Call light placed within reach. No complaints at this time. Will continue to monitor.
[2020-04-10 03:54] VITALS: BP 106/51; PULSE 63; RESP 16; TEMP 36.4; O2SAT 95
[2020-04-10 05:00] VITALS: BMI 20.2
[2020-04-10 06:39] LABS: Basophils % 0.2 % (0.1-2.0); Eosinophils % 0.7 % (0.1-12.0); Hematocrit 33.8 % (37.0-47.0); Lymphocytes # 0.6 K/mm3 (0.7-4.5); Lymphocytes % 15.8 % (10-50); Mean Corpuscular HGB Conc 32.6 g/dL (31.8-35.4); Mean Corpuscular Hemoglobin 29.6 pg (27.0-31.2); Mean Corpuscular Volume 90.7 fl (81-99); Mean Platelet Volume 7.3 fl (7.4-10.4); Monocytes # 0.1 K/mm3 (0.1-1.0); Monocytes % 2.4 % (1.7-9.3); Neutrophils # 2.8 K/mm3 (1.8-7.8); Neutrophils % 80.9 % (37.0-80.0); Platelet Count 383 K/mm3 (142-424); Red Blood Count 3.73 M/mm3 (4.20-5.40); Red Cell Distribution Width 13.4 % (11.5-17.5); White Blood Count 3.5 K/mm3 (4.8-10.8)
[2020-04-10 07:05] LABS: Chloride 103 mmol/L (98-107); Potassium 3.7 mmoL/L (3.5-5.1); Sodium 137 mmol/L (136-145)
[2020-04-10 07:07] LABS: Alanine Aminotransferase 41 U/L (12-78); Aspartate Amino Transferase 51 U/L (14-36); Blood Urea Nitrogen 9 mg/dl (7-17); Creatinine Clearance Estimated 40 mL/min (50-200); Estimated Glomerular Filt Rate 156 ml/min (>60); GFR (African American) 188 ML/MIN (>60)
[2020-04-10 07:08] LABS: Albumin Level 2.7 g/dl (3.5-5.0); Albumin/Globulin Ratio 1.1 (1.1-1.8); Alkaline Phosphatase 151 U/L (38-126); Anion Gap 7.7 mEq/L (5-15); Bilirubin,Total 0.2 mg/dl (0.2-1.3); Calcium 8.1 mg/dl (8.4-10.2); Carbon Dioxide 30 mmol/L (22.0-30.0); Globulin 2.5 g/dL (1.3-3.2); Glucose 110 mg/dl (74-100); Magnesium 2.2 mg/dl (1.6-2.3); Total Protein,Serum 5.2 g/dl (6.3-8.2)
[2020-04-10 08:00] VITALS: BP 118/74; PULSE 79; RESP 19; TEMP 36.6; O2SAT 95
--- NOTE | 2020-04-10 09:05 | HMH.DCSUM ---
General - General Admission date:: 04/08/20 Discharge date: 04/10/20 HPI HPI: Ms. Bustamante is a 75-year-old female who presented to the ER due to worsening fatigue, dizziness, near syncopal event after experiencing diarrhea for the past 2 to 3 weeks. She has a history of IBS and sees Dr. Bear for GI. She states 2 to 3 weeks ago she started having multiple loose stools a day. Denies any fever, vomiting, blood in her stool. Has had significant cramping of her abdomen. Has had work-up including recent stool sample that showed no infectious etiology. Initial lab work-up in the ER was significant for hypokalemia, hypochloremia, and left shift of her white cells. Vitals stable. Afebrile. CT of her abdomen concerning for enterocolitis, air and fluid-filled loops of small bowel. Presentation concerning for acute diarrheal illness, acute kidney injury, electrolyte derangement. I do have concern that patient's symptoms are not consistent with her traditional IBS but more indicative of an inflammatory or infectious process. She was admitted to medicine for further management. Initiated on IV fluids and electrolyte replacement. Consult for GI placed. Further management pending response to treatment and consult. Hospital Course Hospital Course: Ms. Bustamante is a 75-year-old lady who was admitted for hypokalemia, mild dehydration, persistent watery diarrhea suspected to be secondary to infectious versus microscopic colitis. Responded well to fluid repletion and electrolyte replacement. GI was consulted with the following recommendations: I am concerned that she has either exacerbation with inflammatory bowel disease or she has an acute self-limited colitis. I am going to initiate prednisone 40 mg with tapering. As an outpatient I will have her transition to Entocort. I would like to obtain fecal calprotectin and fecal lactoferrin. I am also going to do fecal Hemoccult. The patient's last colonoscopy was July 2018 and was normal but the biopsies of the colon were consistent with lymphocytic colitis. In addition to the prednisone, I am going to add Cipro and Flagyl empirically with the addition of probiotic (Florastor). I am going to have her undergo diagnostic colonoscopy as an outpatient. I will try to advance to low residue diet. Stool study was performed that showed no infectious etiology. Additional stool labs were obtained, calprotectin and lactoferrin are both send outs so they are not back at this time however stool occult was positive. Electrolytes resolved/normalized. Anemia stable. Tolerating oral intake with a low residue diet and oral therapy with steroids and antibiotics. Plan to continue this course with close follow-up with GI for further management in the outpatient setting. Meeting criteria for going home. Denies abdominal pain, nausea, vomiting. Stools improved to less than 4 a day. Afebrile and hemodynamically stable Objective Vital signs: Temp Pulse Resp BP Pulse Ox 97.8 F 79 19 118/74 95 04/10/20 08:00 04/10/20 08:00 04/10/20 08:00 04/10/20 08:00 04/10/20 08:00 Narrative: - Constitutional no acute distress - *Routine HEENT Exam Head: Present: normocephalic Eye: Present: EOMI, PERRL ENT: Present: mucous membranes moist - *Routine Neck Exam Present: supple. Absent: lymphadenopathy - *Routine Respiratory Exam Present: CTA bilaterally - *Routine Cardiovascular Exam Present: RRR - *Routine Abdominal Exam Present: soft. Absent: tenderness Comments: Hyperactive bowel sounds - *Routine Extremities Exam Absent: cyanosis, clubbing, edema - *Routine Skin Exam Present: warm. Absent: rash - *Routine Neurological Exam Present: alert, oriented X3 Results Labs on day of discharge: Labs from last 24 hours 04/10/20 04/10/20 04/09/20 05:55 05:55 17:00 WBC 3.5 L RBC 3.73 L Hgb 11.0 L Hct 33.8 L MCV 90.7 MCH 29.6 MCHC 32.6 RDW 1
--- NOTE | 2020-04-10 10:17 | HMH.PHAINT ---
DISCHARGE COUNSELING COMPLETED ON PATIENT. NEW PRESCRIPTIONS INCLUDE A PROBIOTIC, BUDESONIDE, CIPROFLOXACIN, IMODIUM, AND FLAGYL. ALL NEW PRESCRIPTIONS WERE SENT TO CLINIC PHARMACY. PATIENT IS TO CONTINUE ALL OTHER HOME MEDICATIONS. PATIENT AND PATIENT'S VERBALIZED UNDERSTANDING AND HAD NO QUESTIONS AT THIS TIME. -ROSARIO OVERTON, LAURIED
[2020-04-20 09:35] LABS: Calprotectin, Fecal 572 ug/g (0-120); Lactoferrin, Fecal, Quant. 73.65 ug/mL(g) (0.00-7.24)
== END 2020-04-10 11:14 | disposition home or self-care (01) ==
LOC: ER 14:09 → 2ND 17:11
PROVIDERS: Internal Medicine Gastroenterology; Admitting Provider Internal Medicine Adolescent Medicine; Emergency Provider Emergency Medicine; PCP Internal Medicine Adolescent Medicine; Referring Provider Internal Medicine Adolescent Medicine; Visit Provider Internal Medicine Adolescent Medicine
DX: E86.0 Dehydration (principal); K52.9 Noninfective gastroenteritis and colitis, unspecified; E87.8 Other disorders of electrolyte and fluid balance, not elsewhere classified; E87.6 Hypokalemia; I10 Essential (primary) hypertension; E78.5 Hyperlipidemia, unspecified; Z95.5 Presence of coronary angioplasty implant and graft; I25.10 Atherosclerotic heart disease of native coronary artery without angina pectoris; Z79.899 Other long term (current) drug therapy; Z79.82 Long term (current) use of aspirin; Z88.0 Allergy status to penicillin; Z88.2 Allergy status to sulfonamides
CPT/HCPCS: 36415; 74177; 80048; 80053; 81001; 82272; 83605; 83630; 83690; 83735; 83993; 85025; 85651; 87507; 93005; 96365; 96367; 96375; 99285; G0328; G0378; J2405; Q9967

== ENCOUNTER → 2020-04-27 10:08 | Outpatient (CLI) | payer MEDICARE, SELFPAY ==
[2020-04-27 10:29] LABS: Basophils % 0.8 % (0.1-2.0); Eosinophils # 0.1 K/mm3 (0.0-0.4); Eosinophils % 2.1 % (0.1-12.0); Hemoglobin 13.8 g/dL (12.2-16.2); Lymphocytes # 1.1 K/mm3 (0.7-4.5); Lymphocytes % 23.4 % (10-50); Mean Corpuscular HGB Conc 32.8 g/dL (31.8-35.4); Mean Corpuscular Hemoglobin 30.3 pg (27.0-31.2); Mean Corpuscular Volume 92.4 fl (81-99); Mean Platelet Volume 6.8 fl (7.4-10.4); Monocytes # 0.2 K/mm3 (0.1-1.0); Monocytes % 3.3 % (1.7-9.3); Neutrophils # 3.3 K/mm3 (1.8-7.8); Neutrophils % 70.4 % (37.0-80.0); Platelet Count 319 K/mm3 (142-424); Red Blood Count 4.54 M/mm3 (4.20-5.40); Red Cell Distribution Width 14.3 % (11.5-17.5); White Blood Count 4.7 K/mm3 (4.8-10.8)
[2020-04-27 10:59] LABS: Alanine Aminotransferase 16 U/L (12-78); Albumin Level 4.3 g/dl (3.5-5.0); Albumin/Globulin Ratio 1.4 (1.1-1.8); Alkaline Phosphatase 101 U/L (38-126); Anion Gap 13.5 mEq/L (5-15); Aspartate Amino Transferase 30 U/L (14-36); Bilirubin,Total 0.4 mg/dl (0.2-1.3); Blood Urea Nitrogen 16 mg/dl (7-17); Calcium 9.4 mg/dl (8.4-10.2); Carbon Dioxide 27 mmol/L (22.0-30.0); Chloride 100 mmol/L (98-107); Erythrocyte Sedimentation Rate 18 mm/hr (0-30); Estimated Glomerular Filt Rate 97 ml/min (>60); GFR (African American) 118 ML/MIN (>60); Globulin 3.1 g/dL (1.3-3.2); Glucose 102 mg/dl (74-100); Magnesium 2.4 mg/dl (1.6-2.3); Potassium 4.5 mmoL/L (3.5-5.1); Sodium 136 mmol/L (136-145); Total Protein,Serum 7.4 g/dl (6.3-8.2)
== END ==
PROVIDERS: Visit Provider Internal Medicine Adolescent Medicine
DX: D64.9 Anemia, unspecified (principal)
CPT/HCPCS: 36415; 80053; 83735; 85025; 85651

== ENCOUNTER → 2020-04-29 09:17 | Outpatient (CLI) | payer MEDICARE, SELFPAY ==
[2020-04-29 10:41] LABS: Coronavirus 19 IgG Antibody Negative (Negative); Coronavirus 19 IgM Antibody Negative (Negative)
== END ==
PROVIDERS: Visit Provider Internal Medicine Gastroenterology
DX: Z01.818 Encounter for other preprocedural examination (principal); Z12.11 Encounter for screening for malignant neoplasm of colon
CPT/HCPCS: 36415; 86328

== ENCOUNTER 2020-04-30 09:07 | Day surgery (SDC) | payer MEDICARE, SELFPAY ==
[2020-04-28 14:27] VITALS: BMI 19.5
[2020-04-30] VITALS (7 sets, daily range): BP systolic 81–128; BP diastolic 52–86; PULSE 57–75; RESP 18; TEMP 36.2–36.9; O2SAT 96–98
--- NOTE | 2020-04-30 10:03 | HMH.ANESCL ---
[facility] Anesthesia Checklist - Patient Identification Patient Identification: Arm Band - Structural Data Admitted From: Home Planned Operative Procedure/s: egd/colonoscopy Consent for Planned Operative Procedure(s) Verified: Yes Verified Documents: Surgical Consent, History and Physical - NPO Status Verified Time NPO: 00:00 - Additional verifications Anesthesia Reactions: No - Airway Assessment C-Spine Mobility Assessed: Yes (mp2) TMJ Mobility Assessed: Yes Dentition: Good Dentition - Neurological Assessment Level of Consciousness: Awake, Alert - Anesthesia Plan Anesthesia Risk discussed: Yes Anesthesia Plan: Verified ASA Class: III Anesthesia Type: MAC [facility] History I have reviewed the patient's past medical history: Yes Medical History: Reports:: Coronary Artery Disease, Hyperlipidemia, Hypertension Denies:: Cancer, Diabetes Mellitus Type 1, Diabetes Mellitus Type 2, Internal Pacemaker, MRSA, Seizures *Have you ever received a pneumonia vaccine?: Yes *Have you received a flu vaccine this season?: No (2019) Anesthesia experience/problems:: nac Other Surgeries: Yes: Cardiac Catheterization, Cholecystectomy, Coronary Stent. No: Pacemaker Amputation: No Fractures: No - *Social History Last grade of school completed: Advanced degree Smoking Status: Never smoker Alcohol Intake: current Alcohol Intake Frequency:: holidays/special occasions only Substance Use Type: denies use *Occupational Status:: retired Housing: house Household Members: spouse *Travel in the last 8 weeks: None Family Hx:: Unable to obtain
--- NOTE | 2020-04-30 10:16 | HMH.PROC ---
[facility] Procedure Note Procedure Note:: Upper Endoscopy Procedure Report: Esophagogastroduodenoscopy with cold biopsies Endoscopost: Lele Bear II, MD Referring Physician: Ren Armas M.D. Date of Procedure: April 30, 2020 Equipment: Olympus GIF 180 standard upper endoscope Sedation: MAC sedation Indications: Mrs. Bustamante is a 75-year-old female who recently was admitted to [facility] with enterocolitis. She had a CAT scan that showed fluid-filled loops of small and large intestine with mild dilation of the small intestine. She also had iron deficiency anemia. She had been taking some Advil. She was placed on prednisone and antibiotics (Cipro and Flagyl). The Flagyl resulted in some headaches which prompted her to use Advil. She is markedly improved. Her last upper endoscopy was several years ago. The patient reports no heartburn, reflux, dyspepsia or dysphagia. Procedure: Prior to the procedure, a history and physical exam was performed, and patient's medications and allergies were reviewed. The risks, benefits and alternatives of the sedation and procedure were discussed with the patient. All questions were answered and informed consent was obtained. The patient was brought to the procedure room. Patient identification and proposed procedure were verified by the physician and the nurse. The patient was placed in a left lateral decubitus position and the scope was passed under direct vision. Throughout the procedure, the patient's blood pressure, pulse, and oxygen saturations were monitored continuously. The upper GI endoscopy was accomplished without difficulty. The patient tolerated the procedure well. Findings: The scope was passed directly into the upper esophagus and advanced to the third portion of the duodenum. The post bulbar duodenum and duodenal bulb were normal with normal mucosa and conniventes. Cold biopsies were obtained from the post bulbar duodenum and duodenal bulb. The scope was withdrawn through a normal duodenal bulb and pylorus into the stomach. There was bile reflux with mild to moderate linear reactive gastropathy of the antrum and body of the stomach. The remainder of the antrum, body and fundus of the stomach were grossly normal. Upon retroflexion there was a very small sliding hiatal hernia. 2 biopsies were taken in the antrum and along the lesser curvature for histology to rule out gastritis and/or H pylori. There was a small fundic polyp at the cardia region of the stomach that was also biopsied. The scope was then withdrawn into the esophagus. There was no evidence of reflux esophagitis or Sheridan's. The remainder of the esophageal mucosa was normal. Impression: 1. Bile reflux with linear reactive gastropathy Plan: I will follow-up the biopsies and proceed with colonoscopy for further evaluation. I will discuss the findings with the patient and family.
--- NOTE | 2020-04-30 10:45 | P.PCN_ITS ---
[facility] Procedure Note Procedure Note:: Colonoscopy Procedure Report: Colonoscopy with cold biopsies Endoscopist: Lele Bear II, MD Referring physician: Ren Armas M.D. Date of Procedure: April 30, 2020 Equipment: Olympus 180 variable stiffness pediatric colonoscope Sedation: MAC sedation Indication: Mrs. Bustamante is a 75-year-old female who is here for diagnostic colonoscopy. She does have a long history of microscopic (lymphocytic) colitis and irritable bowel syndrome. Her lymphocytic colitis is controlled with Entocort. She recently was hospitalized at [facility] with acute enterocolitis. She did have anemia with iron deficiency. Her iron saturation was 10.3. She also was Hemoccult positive. She did have negative PCR gastrointestinal panel. She was treated with prednisone and antibiotics. She had used Advil briefly. Her stool studies showed no fecal leukocytes. Her last colonoscopy was July 23, 2018 and was essentially normal. She reports no family history of colon cancer. The patient is markedly improved presently from her hospitalization. She does state that when she takes higher doses of Entocort, she develops constipation. Procedure: Prior to the procedure, a history and physical exam was performed, and patient's medications and allergies were reviewed. The risks, benefits and alternatives of the sedation and procedure were discussed with the patient. All questions were answered and informed consent was obtained. The patient was brought to the procedure room. Patient identification and proposed procedure were verified by the physician and the nurse. The patient was placed in a left lateral decubitus position and the scope was passed under direct vision. Throughout the procedure, the patient's blood pressure, pulse, and oxygen saturations were monitored continuously. The colonoscopy was accomplished without difficulty. The patient tolerated the procedure well. Findings: On digital rectal examination there was normal rectal tone. There were no external hemorrhoids. The colonoscope was introduced through the anal canal to the rectum and advanced to the cecum. The ileocecal valve and appendiceal orifice were identified. The scope was advanced a short distance into the ileum which appeared grossly normal. The scope was then withdrawn into the colon. The cecum, ascending, transverse, descending, sigmoid and rectum were grossly normal. There was some colonic redundancy/colonic dysmotility. Cold biopsies were taken from the right colon to rule out microscopic colitis. There were no mucosal abnormalities identified. Upon retroflexion within the rectum there were grade 1 internal hemorrhoids.The preparation was excellent throughout with [place] Preparation Score of 9. The cecal time was 12 minutes. Impression: 1. Normal colonoscopy with intubation of the terminal ileum 2. Grade 1 internal hemorrhoids Plan: The patient does have longstanding microscopic/lymphocytic colitis and I would continue Entocort as maintenance therapy. She also has longstanding IBS which can sometimes alternate. I will discuss the findings with the patient and family. There was no etiology for the patient's iron deficiency anemia or Hemoccult positive stool. I would consider repeating Hemoccult testing.
== END 2020-04-30 11:45 | disposition home or self-care (01) ==
LOC: OUTP 09:09
PROVIDERS: PCP Internal Medicine Adolescent Medicine; Visit Provider Internal Medicine Gastroenterology
PROC: 0DJ08ZZ Inspection of Upper Intestinal Tract, Via Natural or Artificial Opening Endoscopic (ICD-10-PCS; CPT 43235; principal; 2020-04-30 10:00)
DX: K64.0 First degree hemorrhoids (principal); Z87.19 Personal history of other diseases of the digestive system; D50.9 Iron deficiency anemia, unspecified; K52.9 Noninfective gastroenteritis and colitis, unspecified; Z79.899 Other long term (current) drug therapy; K21.9 Gastro-esophageal reflux disease without esophagitis; K31.9 Disease of stomach and duodenum, unspecified; I25.10 Atherosclerotic heart disease of native coronary artery without angina pectoris; Z95.818 Presence of other cardiac implants and grafts; I10 Essential (primary) hypertension; E78.5 Hyperlipidemia, unspecified; Z90.49 Acquired absence of other specified parts of digestive tract
CPT/HCPCS: 43239; 45380; 88305

== ENCOUNTER 2020-06-15 09:55 | Outpatient (CLI) | payer MEDICARE, SELFPAY ==
[2020-06-15 09:57] VITALS: BMI 20.5
[2020-06-15 10:00] VITALS: BP 112/63; PULSE 70; RESP 20; TEMP 36.9; O2SAT 97
[2020-06-15 10:20] VITALS: BP 112/63; PULSE 68; RESP 20; TEMP 36.9; O2SAT 95
[2020-06-15 10:21] LABS: Albumin Level 4.1 g/dl (3.5-5.0); Calcium 9.6 mg/dl (8.4-10.2); Creatinine Clearance Estimated 39 mL/min (50-200); Estimated Glomerular Filt Rate 70 ml/min (>60); GFR (African American) 85 ML/MIN (>60)
== END 2020-06-15 10:45 | disposition home or self-care (01) ==
LOC: INF 09:55
PROVIDERS: Visit Provider Internal Medicine Adolescent Medicine
DX: M81.0 Age-related osteoporosis without current pathological fracture (principal)
CPT/HCPCS: 82040; 82310; 82565; 96365; J3489

== ENCOUNTER → 2020-07-15 15:13 | Outpatient (CLI) | payer MEDICARE, SELFPAY ==
--- NOTE | 2020-07-15 15:18 | XR_ITS ---
PROCEDURE: XR MULTIPLE SPINE 6+V CLINICAL INDICATION: LOW BACK PAIN COMPARISON: No exams were available for comparison FINDINGS: Multilevel degenerative changes are present in the thoracic spine with levoscoliosis at 22 degrees. Degenerative changes thoracolumbar junction with thoracolumbar scoliosis convex right at 30 degrees. Degenerative disc disease is present in the mid and lower thoracic spine and within the lumbar spine. There is 8 mm anterolisthesis of L5 on S1. Multilevel facet arthritic changes are present from L3-S1. There is degenerative disc disease at C5-C6 and C6-C7. No definite fracture or dislocation. No lytic or blastic change. IMPRESSION: Multilevel thoracic and lumbar spondylosis with scoliosis. Dictated by: Guido Aguilar MD 07/15/2020 15:54 Guido Aguilar MD in [place] 07/15/2020 15:54
== END ==
PROVIDERS: PCP Internal Medicine Adolescent Medicine; Visit Provider Internal Medicine Adolescent Medicine
DX: M54.5 Low back pain (principal)
CPT/HCPCS: 72084

== ENCOUNTER → 2020-08-23 09:00 | Outpatient (POV) | payer MEDICARE, SELFPAY ==
[2020-08-23 09:14] VITALS: BP 143/77; PULSE 74; RESP 18; TEMP 36.8; O2SAT 98; BMI 20.1
--- NOTE | 2020-08-23 12:38 | HMH.PMCON ---
Assessment and Plan (1) Degenerative disc disease Status: Chronic Qualifiers: Spinal region: lumbar Qualified Code(s): M51.36 - Other intervertebral disc degeneration, lumbar region Category: Medical (2) Sacroiliitis Status: Chronic Category: Medical Code(s): M46.1 - Sacroiliitis, not elsewhere classified - Assessment and plan all Dx Assessment and Plan for all problems:: We will schedule the patient for right SI joint injection. I believe given her symptomology that this will be beneficial for her I will follow-up with her afterwards reassess her symptoms at that time she has been instructed to call the office if she has any issues prior to her next appointment. Dr. Alan has reviewed this note and agrees with this plan of care. This note was dictated using voice recognition software and may contain errors or omissions HPI - Data of Consult Patient: new to practice Consult date: 08/23/20 Requesting Physician: Leigh Charles APRN Primary Care Provider: Ren Armas MD - Consult Narrative Reason for consult: Back pain History of present illness: Ms. Bustamante is a 75 year old female who presents today for consultation regards her low back pain. Patient has right-sided low back pain. Patient has a positive Arlene sign SI joint compression sign and Nancy's test along with a positive distraction test on the right side. Patient and I discussed SI joint dysfunction and SI joint pain. Patient is interested in interventional means of treatment. She has tried and failed physical therapy and anti-inflammatories. The pain is now causing her to have issues with her activity level. She likes to do yoga, walking. Patient rates her pain a 4 out of 10 today. Patient has done both physical therapy and massage therapy with minimal relief. CC: Leigh Charles APRN [facility] History I have reviewed the patient's past medical history: Yes Medical History: Reports:: Coronary Artery Disease, Hyperlipidemia, Hypertension Denies:: Cancer, Diabetes Mellitus Type 1, Diabetes Mellitus Type 2, Internal Pacemaker, MRSA, Seizures *Have you ever received a pneumonia vaccine?: Yes *Have you received a flu vaccine this season?: Yes Other Medical History: Reports: Arthritis Other Surgeries: Yes: Cardiac Catheterization, Cholecystectomy, Coronary Stent. No: Pacemaker Amputation: No Fractures: No - *Social History Smoking Status: Never smoker Alcohol Intake: never Alcohol Intake Frequency:: holidays/special occasions only Substance Use Type: denies use *Occupational Status:: other Housing: house Household Members: other *Travel in the last 8 weeks: None Family Hx:: Unable to obtain Review of Systems - Review of Systems ROS General: no recent weight change, no fever, no sleep disturbances Respiratory: no cough, no shortness of air, no recurring pulmonary infections Cardiovascular/Peripheral Vascular: No chest pain, No palpitations, no edema, no shortness of breath. Gastrointestinal: no new onset incontinence, normal bowel movements reported Genitourinary: no new onset incontinence Musculoskeletal: [SI joint pain on the right side Psychiatric: normal mood/ affect, Neurological: [denies new onset weakness in extremities], [denies new onset balance issues] Meds Home Medications Medication Instructions Recorded Confirmed Type Duloxetine HCl [Cymbalta 30mg 30 mg PO HS 01/13/18 06/15/20 History capsule] rosuvastatin 10 mg tablet 10 mg PO HS 30 Days #30 tab 08/12/18 06/15/20 History lorazepam 1 mg tablet 1 mg PO BID tab 02/20/20 06/15/20 History Aspirin [Aspirin 81mg chewable 81 mg PO DAILY 04/08/20 06/15/20 History tab] Omeprazole 40 mg PO DAILY 04/08/20 06/15/20 History Budesonide [Entocort EC] 9 mg PO DAILY 04/28/20 06/15/20 History L. Acidophilus/Strept/LA P-Brian 1 cap PO AC 04/28/20 06/15/20 History [Susu-Q Probiotic Capsule] Allergies Allergy/AdvReac Type Severity Reacti
== END ==
PROVIDERS: PCP Internal Medicine Adolescent Medicine; Visit Provider Clinical Nurse Specialist Family Health
DX: M51.36 Other intervertebral disc degeneration, lumbar region (principal); M46.1 Sacroiliitis, not elsewhere classified
CPT/HCPCS: 99202

== ENCOUNTER 2020-08-30 14:58 | Day surgery (SDC) | payer MEDICARE, SELFPAY ==
[2020-08-30 15:00] VITALS: BP 146/60; PULSE 71; RESP 18; TEMP 36.6; O2SAT 98; BMI 20.1
[2020-08-30 15:36] VITALS: BP 112/74; PULSE 85; RESP 18
[2020-08-30 15:37] VITALS: BP 116/74; PULSE 85; RESP 18; O2SAT 98
--- NOTE | 2020-08-30 15:40 | HMH.PMPROC ---
- Procedure Date: 08/30/20 Time: 15:40 Anesthesiologist:: Leigh Charles APRN Complications:: None Pre-procedure Diagnosis:: Sacroiliitis Post-procedure Diagnosis:: Same Indications for Procedure:: Patient is a pleasant 75-year-old white female presents today for a right SI joint injection. Patient is a positive Arlene sign, SI joint compression sign, Nancy's, positive distraction test on the right side. Patient states that since her last visit she has been able to look into sacroiliitis and has been doing much better. She likes to do yoga and walking. She rates her pain today 4 out of 10. She is done physical therapy and massage therapy with minimal relief. Procedure Details:: Informed consent was obtained and the risks and benefits of the procedure were explained to the patient. Patient was taken to the procedure room. Patient was placed prone on the procedure table. The [right] hip was prepped using ChloraPrep as a cleansing solution. The skin and subcutaneous tissues were anesthetized using lidocaine. Using fluoroscopic guidance I placed a 22-gauge spinal needle into the inferior aspect of the [right] SI joint. After this I injected 5 mL bupivacaine 0.25% and Depo-Medrol 40 mg into the [right] SI joint. The patient tolerated the procedure well with no complication. Plan and Disposition:: I will follow-up with the patient several weeks reassess her symptoms at that time she has been instructed to call the office if she has any issues prior to her next appointment. Dr. Alan has reviewed this note and agrees with this plan of care. This note was dictated using voice recognition software and may contain errors or omissions
[2020-08-30 15:50] VITALS: BP 158/70; PULSE 66; RESP 20; O2SAT 97
== END 2020-08-30 15:51 | disposition home or self-care (01) ==
LOC: SC.PAINP 15:00
PROVIDERS: PCP Internal Medicine Adolescent Medicine; Visit Provider Clinical Nurse Specialist Family Health
DX: M46.1 Sacroiliitis, not elsewhere classified (principal)
CPT/HCPCS: 27096; G0260; J1040; Q9966

== ENCOUNTER → 2020-09-23 14:42 | Outpatient (POV) | payer MEDICARE, SELFPAY ==
[2020-09-23 14:49] VITALS: BP 123/65; PULSE 71; RESP 18; TEMP 36.8; O2SAT 98; BMI 20.5
--- NOTE | 2020-09-23 15:21 | P.CONS_ITS ---
[facility] Pain Management SOAP Note Subjective:: Patient is a pleasant 75-year-old white female who presents today for follow-up after right SI joint injection. Patient is doing extremely well she rates her pain a 1 out of 10 her only complaint is some stiffness in the morning. She is starting to resume her normal activity. Overall patient is doing well. ROS General: no recent weight change, no fever, no sleep disturbances Respiratory: no cough, no shortness of air, no recurring pulmonary infections Cardiovascular/Peripheral Vascular: No chest pain, No palpitations, no edema, no shortness of breath. Gastrointestinal: no new onset incontinence, normal bowel movements reported Genitourinary: no new onset incontinence Musculoskeletal: SI joint pain at times Psychiatric: normal mood/ affect Neurological: [denies new onset weakness in extremities], [denies new onset balance issues] Objective:: Physical Exam General: Alert and oriented x3, no acute distress, pleasant and cooperative, [on room air] Lungs: Resps E/U, Symmetrical chest expansion, Eyes: PERRL Musculoskeletal: Flexion and extension of lumbar spine somewhat guarded secondary to pain, deep tendon reflexes normal, strength in upper and lower extremities [5/5], normal gait noted Neurological: speech clear, professor 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 Dr. Alan has reviewed this note and agrees with this plan of care. This note was dictated using voice recognition software and may contain errors or omissions [facility] History I have reviewed the patient's past medical history: Yes Medical History: Reports:: Coronary Artery Disease, Hyperlipidemia, Hypertension, Valvular Heart Disease Denies:: Cancer, Diabetes Mellitus Type 1, Diabetes Mellitus Type 2, Internal Pacemaker, MRSA, Seizures *Have you ever received a pneumonia vaccine?: Yes *Have you received a flu vaccine this season?: Yes Other Medical History: Reports: Arthritis. Denies: Blood Transfusion Reaction Other Surgeries: Yes: Cardiac Catheterization, Cholecystectomy, Coronary Stent. No: Pacemaker Amputation: No Fractures: No - *Social History Smoking Status: Never smoker Alcohol Intake: never Alcohol Intake Frequency:: holidays/special occasions only Substance Use Type: denies use *Occupational Status:: other Housing: house Household Members: spouse *Travel in the last 8 weeks: None Family Hx:: Unable to obtain
== END ==
PROVIDERS: PCP Internal Medicine Adolescent Medicine; Visit Provider Clinical Nurse Specialist Family Health
DX: M46.1 Sacroiliitis, not elsewhere classified (principal)
CPT/HCPCS: 99212; G0463

== ENCOUNTER → 2020-12-20 09:24 | Outpatient (POV) | payer MEDICARE, SELFPAY ==
[2020-12-20 10:08] VITALS: BP 118/69; PULSE 68; RESP 18; O2SAT 98; BMI 22.4
--- NOTE | 2020-12-20 10:13 | P.CONS_ITS ---
[facility] Pain Management SOAP Note Subjective:: Patient is a pleasant 75-year-old white female who presents today for follow-up. Patient had a right SI joint injection over 3 months ago. Her pain is beginning to return she rates it a 5 out of 10 over her right SI. She has a positive Arlene test Nancy's test SI joint compression test and distraction test on that side. Patient also wanted to discuss medications for her arthritis flares. Patient overall doing well. Patient was able to go to [place] and play tennis on her return her pain begins to return. Patient had 80% relief for over 3 months. ROS General: no recent weight change, no fever, no sleep disturbances Respiratory: no cough, no shortness of air, no recurring pulmonary infections Cardiovascular/Peripheral Vascular: No chest pain, No palpitations, no edema, no shortness of breath. Gastrointestinal: no new onset incontinence, normal bowel movements reported Genitourinary: no new onset incontinence Musculoskeletal: SI joint pain Psychiatric: normal mood/ affect, [denies depression], [denies anxiety] Neurological: [denies new onset weakness in extremities], [denies new onset balance issues] Objective:: Physical Exam General: Alert and oriented x3, no acute distress, pleasant and cooperative, Lungs: Resps E/U, Symmetrical chest expansion, Eyes: PERRL Musculoskeletal: Flexion and extension of lumbar spine somewhat guarded secondary to pain, deep tendon reflexes normal, strength in upper and lower extremities [5/5], slightly antalgic gait noted Neurological: speech clear, processing spec equal, no gross sensory deficits Assessment:: Sacroiliitis Plan:: We will start her on Celebrex 200 mg daily if needed. I discussed with her not taking additional NSAIDs with this. Patient understands and agrees. She does take ibuprofen but will not take it with this medication. We will also set her up for an repeat right SI joint injection given the efficacy of this in the past I do believe it would benefit her. She has been instructed to call the office if she has any issues prior to her next appointment. Dr. Alan has reviewed this note and agrees with this plan of care. This note was dictated using voice recognition software and may contain errors or omissions [facility] History I have reviewed the patient's past medical history: Yes Medical History: Reports:: Coronary Artery Disease, Hyperlipidemia, Hypert ension, Valvular Heart Disease Denies:: Cancer, Diabetes Mellitus Type 1, Diabetes Mellitus Type 2, Internal Pacemaker, MRSA, Seizures *Have you ever received a pneumonia vaccine?: Yes *Have you received a flu vaccine this season?: Yes Other Medical History: Reports: Arthritis. Denies: Blood Transfusion Reaction Other Surgeries: Yes: Cardiac Catheterization, Cholecystectomy, Coronary Stent. No: Pacemaker Amputation: No Fractures: No - *Social History Smoking Status: Never smoker Alcohol Intake: never Alcohol Intake Frequency:: holidays/special occasions only Substance Use Type: denies use *Occupational Status:: other Housing: house Household Members: spouse *Travel in the last 8 weeks: None Family Hx:: Unable to obtain
== END ==
PROVIDERS: PCP Internal Medicine Adolescent Medicine; Visit Provider Clinical Nurse Specialist Family Health
DX: M46.1 Sacroiliitis, not elsewhere classified (principal)
CPT/HCPCS: 99212; G0463

== ENCOUNTER 2020-12-31 09:10 | Day surgery (SDC) | payer MEDICARE, SELFPAY ==
[2020-12-31 09:14] VITALS: BP 140/74; PULSE 69; RESP 18; TEMP 36.6; O2SAT 98; BMI 19.8
[2020-12-31 09:31] VITALS: BP 163/85; PULSE 72; RESP 18; TEMP 36.8; O2SAT 98
[2020-12-31 09:33] VITALS: BP 160/88; PULSE 77; RESP 18; O2SAT 99
--- NOTE | 2020-12-31 09:37 | HMH.PMPROC ---
- Procedure Date: 12/31/20 Time: 09:37 Anesthesiologist:: Romeo Alan MD Complications:: None Pre-procedure Diagnosis:: Sacroiliitis Post-procedure Diagnosis:: Same Indications for Procedure:: Patient is a pleasant 75-year-old white female who we have been treating for right-sided hip pain. She has been tender over the right SI joint. She has a positive Nancy's test on the right side. She is positive Arlene test on the right side. She is positive SI joint compression test on the right side. She has positive distraction test on the right side. We will plan a right SI joint injections under fluoroscopy to help with her pain symptoms. She did have a previous right SI joint injection which gave her 80% relief for 3 to 4 months. Procedure Details:: Right SI joint injection under fluoroscopy Informed consent was obtained and the risks and benefits of the procedure was going to the patient. Patient was taken to the procedure room. Patient was placed prone on the procedure table. The right hip was prepped using ChloraPrep. The skin and subcutaneous tissues were anesthetized using lidocaine. I placed a 22-gauge spinal needle into the inferior aspect of the right SI joint. Needle placement was confirmed with dye. After this we injected 5 mL bupivacaine 0.25% and Depo-Medrol 40 mg into the right SI joint. The patient tolerated the procedure well with no complication. Plan and Disposition:: We will follow-up with her in 2 weeks. Will reevaluate symptoms at that time.
[2020-12-31 09:45] VITALS: BP 128/71; PULSE 70; RESP 20; O2SAT 98
== END 2020-12-31 09:46 | disposition home or self-care (01) ==
LOC: SC.PAINP 09:11
PROVIDERS: PCP Internal Medicine Adolescent Medicine; Visit Provider Anesthesiology
DX: M46.1 Sacroiliitis, not elsewhere classified (principal); I25.10 Atherosclerotic heart disease of native coronary artery without angina pectoris; I10 Essential (primary) hypertension; M19.90 Unspecified osteoarthritis, unspecified site; Z88.0 Allergy status to penicillin; Z88.2 Allergy status to sulfonamides; Z88.8 Allergy status to other drugs, medicaments and biological substances; Z79.82 Long term (current) use of aspirin; Z79.899 Other long term (current) drug therapy
CPT/HCPCS: 27096; G0260; J1040; Q9966

== ENCOUNTER → 2021-01-20 09:34 | Outpatient (POV) | payer MEDICARE, SELFPAY ==
[2021-01-20 10:33] VITALS: BP 132/74; PULSE 74; RESP 18; O2SAT 98; BMI 19.8
--- NOTE | 2021-01-24 08:33 | P.CONS_ITS ---
[facility] Pain Management SOAP Note Subjective:: Patient is a pleasant 75-year-old white female who presents today for follow-up after right SI joint injection. Patient states that she did not get much relief from it. She is quite disheartened today. She rates her pain a 5 out of 10. Patient and I did discuss potential facet joint injections however she would like to be more conservative in her treatment. We discussed a chiropractor. She would like to move forward with seeing 1 prior to making a decision about injective therapy. Patient is using compounding cream. ROS General: no recent weight change, no fever, no sleep disturbances Respiratory: no cough, no shortness of air, no recurring pulmonary infections Cardiovascular/Peripheral Vascular: No chest pain, No palpitations, no edema, no shortness of breath. Gastrointestinal: no new onset incontinence, normal bowel movements reported Genitourinary: no new onset incontinence Musculoskeletal: Back pain, SI joint pain Psychiatric: normal mood/ affect Neurological: [denies new onset weakness in extremities], [denies new onset balance issues] Objective:: Physical Exam General: Alert and oriented x3, no acute distress, pleasant and cooperative, [on room air] Lungs: Resps E/U, Symmetrical chest expansion, Eyes: PERRL Musculoskeletal: Flexion and extension of lumbar spine somewhat guarded secondary to pain, deep tendon reflexes normal, strength in upper and lower extremities [5/5], antalgic gait noted Neurological: speech clear, manager technical sales equal, no gross sensory deficits Assessment:: Facet arthropathy, sacroiliitis Plan:: We will continue the patient's compounding cream. We will also move forward with sending her to a chiropractor. We will follow up with her afterwards reassess her symptoms at that time she has been instructed to call the office if she has any issues prior to her next appointment. Dr. Alan has reviewed this note and agrees with this plan of care. This note was dictated using voice recognition software and may contain errors or omissions [facility] History I have reviewed the patient's past medical history: Yes Medical History: Reports:: Coronary Artery Disease, Hyperlipidemia, Hypertensio n, Valvular Heart Disease Denies:: Cancer, Diabetes Mellitus Type 1, Diabetes Mellitus Type 2, Internal Pacemaker, MRSA, Seizures *Have you ever received a pneumonia vaccine?: Yes *Have you received a flu vaccine this season?: Yes Other Medical History: Reports: Arthritis. Denies: Blood Transfusion Reaction Other Surgeries: Yes: Cardiac Catheterization, Cholecystectomy, Coronary Stent. No: Pacemaker Amputation: No Fractures: No - *Social History Smoking Status: Never smoker Alcohol Intake: never Alcohol Intake Frequency:: holidays/special occasions only Substance Use Type: denies use *Occupational Status:: other Housing: house Household Members: spouse *Travel in the last 8 weeks: None Family Hx:: Unable to obtain
== END ==
PROVIDERS: PCP Internal Medicine Adolescent Medicine; Visit Provider Clinical Nurse Specialist Family Health
DX: M54.00 Panniculitis affecting regions of neck and back, site unspecified (principal); M46.1 Sacroiliitis, not elsewhere classified
CPT/HCPCS: 99212; G0463

== ENCOUNTER 2021-01-28 14:24 | Day surgery (SDC) | payer MEDICARE, SELFPAY ==
[2021-01-28 14:49] VITALS: BP 148/68; PULSE 78; RESP 18; TEMP 36.4; O2SAT 95; BMI 19.8
[2021-01-28 15:11] VITALS: BP 133/74; PULSE 74
[2021-01-28 15:12] VITALS: BP 139/85; PULSE 92; RESP 18; O2SAT 98
--- NOTE | 2021-01-28 15:14 | HMH.PMPROC ---
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 She did not get much relief from the right SI joint injection. She does have significant scoliosis concave to the right. She does have significant facet arthropathy of L4-5 and L5-S1. We will do right-sided L4-5 and L5-S1 medial branch blocks today to see if this gives her relief of her pain symptoms. Procedure Details:: Lumbar medial branch block Informed consent was obtained and the risks and benefits of the procedure was explained to the patient. The back was prepped using ChloraPrep. The skin and subcutaneous tissues were anesthetized using lidocaine. I placed 22-gauge spinal needles into the facet joint/medial branches of L4-L5 and L5-S1 on the right side. Needle placement was confirmed with dye. After this we injected 3 mL bupivacaine 0.25% and Depo-Medrol 20 mg into each facet joint/medial branch of L3-L4, L4-L5 on the right side. We used a total of 40 mg Depo-Medrol for both levels on the right side. The patient tolerated the procedure well with no complications. Plan and Disposition:: We will follow-up with her in 2 weeks. Will reevaluate symptoms at that time.
[2021-01-28 15:27] VITALS: BP 138/71; PULSE 68; RESP 18; O2SAT 95
== END 2021-01-28 15:28 | disposition home or self-care (01) ==
LOC: SC.PAINP 14:25
PROVIDERS: PCP Internal Medicine Adolescent Medicine; Visit Provider Anesthesiology
DX: M51.36 Other intervertebral disc degeneration, lumbar region (principal); M54.06 Panniculitis affecting regions of neck and back, lumbar region; M41.9 Scoliosis, unspecified; I25.10 Atherosclerotic heart disease of native coronary artery without angina pectoris; I10 Essential (primary) hypertension; E78.5 Hyperlipidemia, unspecified; K21.9 Gastro-esophageal reflux disease without esophagitis; F41.9 Anxiety disorder, unspecified; K58.9 Irritable bowel syndrome, unspecified; Z95.818 Presence of other cardiac implants and grafts; Z88.0 Allergy status to penicillin; Z88.2 Allergy status to sulfonamides
CPT/HCPCS: 64493; 64494; J1040; Q9966

== ENCOUNTER → 2021-02-17 13:30 | Outpatient (POV) | payer MEDICARE, SELFPAY ==
[2021-02-17 14:00] VITALS: BP 120/74; PULSE 75; RESP 18; O2SAT 97; BMI 23.8
--- NOTE | 2021-02-17 16:55 | HMH.PAINSOAP ---
[facility] Pain Management SOAP Note Subjective:: Patient is a 75-year-old white female who presents today after lumbar medial branch block. She has been treated for degenerative disc disease lumbar spine with lumbar radiculopathy symptoms as well as facet arthropathy and scoliosis. Patient has had medial branch block as well as SI injections in the past. She complains of pain primarily in her low back area bilaterally radiating into her bilateral buttock, hips and groin. Patient says that the pain is intense in nature and worsens with standing and walking. The pain is also radiating down into bilateral legs intermittently now. Patient says after her last injection of lumbar medial branch block, she had severe numbness for which she did have to contact Dr. Vela. She is very concerned because she was not aware of the side effects of corticosteroids. She also reported to have a severe headache along with dizziness and right foot numbness. Those symptoms have subsided. She is currently seeing a chiropractor and has undergone physical therapy in the past. We did discuss returning to physical therapy which she would like to do. She has tried anti-inflammatories of ibuprofen which she says she takes 3 times a day and that has helped with her pain significantly. Today she rates her pain as 7 out of 10. She is very tearful because she feels that she has not been heard in the clinic . She feels that no one has taken time to really discuss or explain injections or procedures to her. Review of Systems General: No recent weight changes, no fever, no sleep disturbances Respiratory: No cough, no shortness of air, no recurring pulmonary infections Cardiovascular/peripheral vascular: No chest pain, no palpitations, no edema, no shortness of breath Gastrointestinal: No new onset incontinence, normal bowel movements reported Genitourinary: No new onset incontinence Musculoskeletal: Bilateral low back pain with radiation into bilateral buttock, bilateral hips and groin, and intermittent radiation into bilateral lower extremities Psychiatric: Normal mood/affect Neurological: [Denies weakness in extremities], [denies balance issues] Objective:: Physical exam General: Alert and oriented x3, no acute distress, pleasant and cooperative, [on room air] Lungs: Respirations even and unlabored, symmetrical chest expansion Eyes: PERRL Musculoskeletal: Flexion and extension of lumbar spine somewhat guarded secondary to pain, deep tendon reflexes normal, strength in upper and lower extremities [5/5], [abnormal gait noted], positive Nancy's test, positive distraction test, positive compression test Neurological: Speech clear, administrative library assistant equal, no gross sensory deficit Assessment:: Degenerative disc disease lumbar spine, sacroiliitis bilateral Plan:: Unfortunately, the patient did not get any relief with the medial branch block. She did have side effects to the corticosteroids. She reported to have severe numbness for which she did have to contact Dr. Vela due to concern. She also reported to have headaches, dizziness and right foot numbness after the procedure. Patient's pain is primarily in her bilateral low back with radiation into her hips, buttocks, and intermittently into her bilateral lower extremities. She does have some occasional paresthesia into her lower extremities. She is taking ibuprofen 3 times a day which is helped her about 30 to 40%. She is seeing a chiropractor as well. We discussed physical therapy after her injections. She would like to proceed with bilateral SI joint injections and then resume physical therapy once again to see if this gives her relief. We will see her back after her injections for reevaluation of her symptoms. At the patient's last visit with her injections, she felt that the provider did not thoroughly inform her of possible side effects. Patient has been reassured today and any questions that the patient had were a
== END ==
PROVIDERS: PCP Internal Medicine Adolescent Medicine; Visit Provider Clinical Nurse Specialist Family Health
DX: M51.36 Other intervertebral disc degeneration, lumbar region (principal); M46.1 Sacroiliitis, not elsewhere classified
CPT/HCPCS: 99212; G0463

== ENCOUNTER → 2021-02-18 09:09 | Day surgery (SDC) | payer MEDICARE, SELFPAY ==
[2021-02-18 09:38] VITALS: BP 135/63; PULSE 67; RESP 18; TEMP 36.1; O2SAT 97; BMI 19.8
[2021-02-18 10:03] VITALS: BP 148/65; PULSE 58; RESP 18; O2SAT 98
[2021-02-18 10:05] VITALS: BP 149/81; PULSE 67; RESP 18; O2SAT 98
--- NOTE | 2021-02-18 13:02 | HMH.PMPROC ---
- Procedure Date: 02/18/21 Time: 13:02 Anesthesiologist:: Sue Johnson MD Complications:: None Pre-procedure Diagnosis:: Sacroiliitis bilateral Post-procedure Diagnosis:: Same Indications for Procedure:: Is a very pleasant 75-year-old white female who presents today with low back pain. She has previously undergone a lumbar medial branch block with minimal pain relief. She has trialed and failed served of treatment including oral pain medications and her home stretching program. Plan for today is for her to undergo bilateral SI joint injections #1 Procedure Details:: Informed consent was obtained and the risks and benefits of the procedure was explained to the patient. The patient was taken to the procedure room and placed prone on the procedure table. The patient was prepped using ChloraPrep. The skin and subcutaneous tissues overlying the SI joints were anesthetized using lidocaine. I placed a 22-gauge needle first in the left SI joint and second in the right SI joint. Needle placement was confirmed with dye. After this we injected 5 mL bupivacaine 0.25% and Depo-Medrol 40 mg into each SI joint. Patient tolerated the procedure well with no complication. Plan and Disposition:: Follow-up with the patient in 2 weeks. Will reevaluate pain symptoms at that time.
== END ==
PROVIDERS: PCP Internal Medicine Adolescent Medicine; Visit Provider Anesthesiology Pain Medicine
DX: M46.1 Sacroiliitis, not elsewhere classified (principal)
CPT/HCPCS: 27096; G0260; J1030; Q9966

== ENCOUNTER → 2021-03-10 11:17 | Outpatient (POV) | payer MEDICARE, SELFPAY ==
[2021-03-10 11:30] VITALS: BP 130/63; PULSE 74; RESP 18; O2SAT 97; BMI 19.8
--- NOTE | 2021-03-10 13:05 | P.CONS_ITS ---
[facility] Pain Management SOAP Note Subjective:: Patient is a 75-year-old white female who presents today for follow-up after bilateral SI injections. Patient says that she got about 30 to 40% relief on the injections. She is being treated in the clinic for low back pain with sacroiliitis. Patient says that following the injection she did travel to [place]. She says that her pain has worsened since then. She has had medial branch blocks with minimal relief. She is also had bilateral SI injections. She did try and failed conservative therapies of oral pain medications as well as home stretching. Today she will be undergoing physical therapy. Patient says she has not had any recent imaging of her lumbar spine. She does rate her pain a 5 out of 10. Her pain previously was on the left side only, however, her pain is now right side. She says she has pain on the left side, however, it is at its worse on the right side. Review of Systems General: No recent weight changes, no fever, no sleep disturbances Respiratory: No cough, no shortness of air, no recurring pulmonary infections Cardiovascular/peripheral vascular: No chest pain, no palpitations, no edema, no shortness of breath Gastrointestinal: No new onset incontinence, normal bowel movements reported Genitourinary: No new onset incontinence Musculoskeletal: Low back pain, worse to right side Psychiatric: Normal mood/affect Neurological: [Denies weakness in extremities], [denies balance issues] Objective:: Physical exam General: Alert and oriented x3, no acute distress, pleasant and cooperative, [on room air] Lungs: Respirations even and unlabored, symmetrical chest expansion Eyes: PERRL Musculoskeletal: Flexion and extension of lumbar spine somewhat guarded secondary to pain, deep tendon reflexes normal, strength in upper and lower extremities [5/5], [abnormal gait noted] Neurological: Speech clear, nursing department chairperson equal, no gross sensory deficit Assessment:: Low back pain, sacroiliitis Plan:: We will schedule patient for an MRI of her lumbar spine. She has tried and freddy led conservative therapies of physical therapy which she is continuing with, home stretching, anti-inflammatories as well as opiates. The patient has also tried medial branch blocks and SI injections. We will see her back after her MRI to discuss a further plan of care. Patient has been instructed to contact the clinic with any concerns before the next appointment. Dr. Alan has reviewed this note and agrees with this plan of care. This note was dictated using voice recognition software and make contain errors or omissions. [facility] History I have reviewed the patient's past medical history: Yes Medical History: Reports:: Coronary Artery Disease, Hyperlipidemia, Hypertension, Valvular Heart Disease Denies:: Cancer, Diabetes Mellitus Type 1, Diabetes Mellitus Type 2, Internal Pacemaker, MRSA, Seizures *Have you ever received a pneumonia vaccine?: Yes *Have you received a flu vaccine this season?: Yes Other Medical History: Reports: Arthritis. Denies: Blood Transfusion Reaction Other Surgeries: Yes: Cardiac Catheterization, Cholecystectomy, Coronary Stent. No: Pacemaker Amputation: No Fractures: No - *Social History Smoking Status: Never smoker Alcohol Intake: never Alcohol Intake Frequency:: holidays/special occasions only Substance Use Type: denies use *Occupational Status:: unemployed Housing: house Household Members: spouse *Travel in the last 8 weeks: None Family Hx:: Unable to obtain
== END ==
PROVIDERS: Visit Provider Clinical Nurse Specialist Family Health
DX: M54.5 Low back pain (principal); M46.1 Sacroiliitis, not elsewhere classified
CPT/HCPCS: 99212; G0463

== ENCOUNTER → 2021-03-17 13:24 | Outpatient (CLI) | payer MEDICARE, SELFPAY ==
--- NOTE | 2021-03-17 13:32 | MR_ITS ---
PROCEDURE: MR LUMBAR SPINE WO CON CLINICAL INDICATION: BACK PAIN LBP xyrs. Rt leg pain. Hx back injections. No injury or trauma. No prior. COMPARISON: No exams were available for comparison TECHNIQUE: Standard multiplanar multiecho sequences are performed without contrast. 3-D MIP and myelographic images are also rendered and reviewed FINDINGS: Upper lumbar scoliosis convex right at 34 degrees. There is 9 mm right lateral translation of L2 on L3. The spinal cord ends at the L2-L3 level. T11-T12: Degenerative disc disease. Mild left-sided facet hypertrophic change with left-sided lateral recess and foraminal narrowing. T12-L1: Degenerative disc disease with mild concentric bulging disc. L1-L2: Degenerative disc disease with mild bulging disc and mild left lateral recess narrowing from facet hypertrophy. L2-L3: Degenerative disc disease with facet hypertrophic change and 9 mm right lateral translation of L2. Right lateral recess narrowing. L3-L4: Degenerative disc disease with mild right lateral recess narrowing from facet hypertrophy. L4-5: Degenerative disc disease with facet hypertrophy and severe right-sided foraminal narrowing and moderate left foraminal narrowing from the facet hypertrophy. L5-S1: 6 mm anterolisthesis of L5. Degenerative disc disease with bulging disc with canal stenosis. Severe facet hypertrophic changes. Severe right-sided foraminal narrowing from the facet hypertrophy and the spondylolisthesis with impingement upon the exiting L5 nerve root. Moderate to severe left-sided foraminal narrowing from the facet hypertrophy. 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 IMPRESSION: Scoliosis with multilevel lumbar spondylosis most severe at the L5-S1 level with lateral recess and foraminal narrowing and canal stenosis. Please see above for detailed description at each level. Dictated by: Guido Aguilar MD 03/18/2021 06:14 Guido Aguilar MD in [place] 03/18/2021 06:14
== END ==
PROVIDERS: PCP Internal Medicine Adolescent Medicine; Visit Provider Clinical Nurse Specialist Family Health
DX: M54.5 Low back pain (principal)
CPT/HCPCS: 72148; 76376

== ENCOUNTER 2021-04-08 14:00 | Outpatient (RCR) | payer MEDICARE, SELFPAY ==
--- NOTE | 2021-04-08 15:17 | HMH.RHREAS ---
Rehab Reassessment Rehab OP Re-assessment Start: 04/08/21 14:48 Freq: Status: Active Protocol: Document 04/08/21 14:48 ELVIA (Rec: 04/08/21 15:07 ELVIA [id number]) Electronically Signed By Barrington Soni, PT 04/08/21 14:48 Rehab Re-assessment Subjective Subjective Patient reports no significant improvement since start of care. I thought I was getting better the first couple of weeks, but now I'm back to where I was before. Objective Objective Notes AROM: WNL MMT: WNL TTP: R SIJ 2/4 Neuro: intermittent pain to L5 /S1 dermatomes R>L; DTR's WNL Pain: 5/10 today; 9/10 at worst over past week. Assessment Progress Assessment Slower Than Expected Assessment Notes Treatment has consisted of BLE /LS stretching, mechanical traction, dry needling, patient education and modalities for pain/anti- inflammatory purposes. Patient initially reacted with to introduction of stretching exercises and light mechanical traction. Then she began to revert to having same symptoms as prior to starting PT. She experiences intermittent symptom relief, usually followed by exacerbation the following day . SI special test in supine appear to be normal, but in standing the left illeum is elevated. Introduce heel lift today to assess if there were resultant improvements. Symptoms continue to cause functional limitations with all standing, ambulatory, bending and lifting activities . Patient goals met STG 1 Goals Not Met All others Revised Goals NA Plan Plan Continue with current POC. Frequency of Therapy 2x/week Duration of therapy 4 weeks Time and Billing Re-Eval Time
== END 2021-04-08 14:05 | disposition home or self-care (01) ==
LOC: PT 14:00
PROVIDERS: PCP Internal Medicine Adolescent Medicine; Visit Provider Anesthesiology Pain Medicine
DX: M54.5 Low back pain (principal); M25.552 Pain in left hip; M25.551 Pain in right hip
CPT/HCPCS: 20561; 97012; 97014; 97033; 97035; 97110; 97140; 97163; 97164; 97535; G0283

== ENCOUNTER → 2021-04-19 10:16 | Outpatient (CLI) | payer MEDICARE, SELFPAY ==
[2021-04-19 10:30] LABS: Adenovirus F 40/41, stool Not Detected (NotDetected); Astrovirus Not Detected (NotDetected); Campylobacter Not Detected (NotDetected); Clostridium Difficile A/B, PCR Not Detected (NotDetected); Cryptosporidium Not Detected (NotDetected); Cyclospora Cayetanesis Not Detected (NotDetected); Entamoeba histolytica Not Detected (NotDetected); Enteroaggregative E coli Not Detected (NotDetected); Enteropathogenic E coli Not Detected (NotDetected); Enterotoxigenic E coli Not Detected (NotDetected); Giardia lamblia Not Detected (NotDetected); Norovirus Not Detected (NotDetected); Plesimonas Shigalloides, PCR Not Detected (NotDetected); Rotavirus A Not Detected (NotDetected); Salmonella, PCR Not Detected (NotDetected); Sapovirus Not Detected (NotDetected); Shiga-like toxin E coli Not Detected (NotDetected); Shigella Enterovasive E coli Not Detected (NotDetected); Vibrio Cholerae Not Detected (NotDetected); Vibrio, PCR Not Detected (NotDetected); Yersinia Entercolitica, PCR Not Detected (NotDetected)
== END ==
PROVIDERS: Visit Provider Nurse Practitioner Family
DX: K52.89 Other specified noninfective gastroenteritis and colitis (principal)
CPT/HCPCS: 87506

== ENCOUNTER → 2021-04-19 10:50 | Outpatient (CLI) | payer MEDICARE, SELFPAY ==
[2021-04-19 12:10] LABS: Alanine Aminotransferase 12 U/L (12-78); Aspartate Amino Transferase 21 U/L (14-36)
[2021-04-19 12:11] LABS: Albumin Level 4.2 g/dl (3.5-5.0); Alkaline Phosphatase 80 U/L (38-126); Bilirubin,Direct 0.3 mg/dl (0.0-0.4); Bilirubin,Total 0.3 mg/dl (0.2-1.3); Chol/HDL Ratio 2.7 (1-3.5); Cholesterol 162 mg/dl (140-200); HDL Cholesterol 59 mg/dl (40-60); Total Protein,Serum 7.3 g/dl (6.3-8.2); Triglycerides 103 mg/dl (30-150); VLDL Cholesterol 21 mg/dL (0-40)
[2021-04-19 12:22] LABS: Direct LDL Cholesterol 65.61 mg/dL (100-129)
== END ==
PROVIDERS: Visit Provider Physician Assistant
DX: E78.5 Hyperlipidemia, unspecified (principal); I11.9 Hypertensive heart disease without heart failure; I25.10 Atherosclerotic heart disease of native coronary artery without angina pectoris; I34.1 Nonrheumatic mitral (valve) prolapse; R00.2 Palpitations; Z95.5 Presence of coronary angioplasty implant and graft; K52.89 Other specified noninfective gastroenteritis and colitis; R19.7 Diarrhea, unspecified
CPT/HCPCS: 36415; 80061; 80076; 87506

== ENCOUNTER 2021-07-24 10:47 | Emergency (ER) | payer MEDICARE, SELFPAY ==
[2021-07-24 11:00] VITALS: BP 165/74; BP 168/67; PULSE 76; PULSE 80; RESP 18; TEMP 37.5; O2SAT 95; O2SAT 96; BMI 19.5
[2021-07-24 11:12] LABS: Coronavirus 19, PCR Not Detected (NotDetected); Influenza A, PCR Not Detected (NotDetected); Influenza B, PCR Not Detected (NotDetected)
--- NOTE | 2021-07-24 11:38 | HMH.EDGENADL ---
ED Disposition Clinical Impression: Gastroenteritis, Viral syndrome Disposition: Home Health Service Condition on Discharge: Good Instructions: DI for Nausea -- Adult Prescriptions: Ondansetron [Zofran 4mg ODT] 4 mg PO BIDP PRN #10 tab PRN Reason: Nausea Transmission Status: Pending to Clinic Pharmacy [facility] Referrals: Ren Armas MD [Primary Care Provider] - - Critical Care Critical Care Time: No Attestation: On 07/24/21, the high probability of a clinically significant, sudden or life threatening deterioration of the following system(s) required my full and direct attention, intervention and personal management. The time I documented below is in addition to time spent performing reported procedures but includes the following listed in this critical care notation. Medical Decision Making - Medical Records Medical records reviewed: Yes: I reviewed the patient's medical records. - Juan J Inquiry Pt receiving controlled substance: No Vital Signs: 07/24/21 11:00 07/24/21 12:35 Temperature 99.5 F Temperature Source Oral Pulse Rate 76 107 H Pulse Rate [Right Radial] 80 Respiratory Rate 18 Blood Pressure 168/67 H 162/75 H Blood Pressure [Right Arm] 165/74 H Blood Pressure Mean [Right Arm] 104 Blood Pressure Source [Right Arm] Automatic Cuff Blood Pressure Position [Right Arm] Supine 02 Sat by Pulse Oximetry 96 91 L Oxygen Delivery Method Room Air - Lab Data Lab Results 07/24/21 10:58: SARS-CoV-2 (PCR) Not detected, Influenza A Untype (PCR) Not detected, Influenza Type B (PCR) Not detected 07/24/21 12:00: WBC 9.2, RBC 4.82, Hgb 14.2, Hct 44.9, MCV 93.1, MCH 29.5, MCHC 31.7 L, RDW 14.2, Plt Count 305, MPV 8.3, Neut % (Auto) 88.4 H, Lymph % (Auto) 7.1 L, Jasper % (Auto) 2.0, Eos % (Auto) 1.1, Baso % (Auto) 1.3, Neut # (Auto) 8.2 H, Lymph # (Auto) 0.7, Jasper # (Auto) 0.2, Eos # (Auto) 0.1, Baso # (Auto) 0.1, Total Counted 100, Neutrophils % (Manual) 89 H, Lymphocytes % (Manual) 7 L, Monocytes % (Manual) 2, Eosinophils % (Manual) 1, Basophils % (Manual) 1.0, Platelet Estimate Normal, RBC Morphology Normal 07/24/21 12:00: Sodium 135 L, Potassium 4.3, Chloride 99, Carbon Dioxide 28, Anion Gap 12.3, BUN 9, Creatinine 0.50 L, Estimated Creat Clear 38, Estimated GFR 120, Est GFR ( Amer) 145, Glucose 135 H, Calcium 9.3, Total Bilirubin 0.1 L, AST 68 H, ALT 36, Alkaline Phosphatase 95, Troponin I < 0.01, Total Protein 7.8, Albumin 4.5, Globulin 3.3 H, Albumin/Globulin Ratio 1.4 Result diagrams: 07/24/21 12:00 07/24/21 12:00 Orders (Tests/Meds): ED MEDICATIONS Discontinued Medications Generic Name Dose Route Start Last Admin Trade Name Freq PRN Reason Stop Dose Admin Acetaminophen 1,000 mg 07/24/21 11:15 07/24/21 11:26 Acetaminophen 500mg Tab PO 07/24/21 11:16 1,000 mg ONCE ONE Administration Sodium Chloride 1,000 mls @ 999 mls/hr 07/24/21 11:15 07/24/21 12:23 Sod Chlor 0.9% 1000ml Bag IV 07/24/21 12:15 999 mls/hr .Q1H1M STEVE Administration Promethazine HCl 25 mg 07/24/21 11:08 07/24/21 12:22 Promethazine Hcl 25mg/Ml 1ml Vial IV 07/24/21 11:09 25 mg ONCE ONE Administration Sodium Chloride 25 ml 07/24/21 11:08 07/24/21 12:22 Sodium Chloride 0.9% 25ml Bag IV 07/24/21 11:09 25 ml ONCE ONE Administration ORDERS Category Date Time Status Troponin I Q3H Lab 07/24/21 14:15 Ordered Troponin I Q3H Lab 07/24/21 17:15 Ordered - Radiology Data #1 Image(s): Chest Image Reviewed: Yes I reviewed the patient's radiology results, Yes I reviewed the patient's radiology image, Yes I have reviewed radiologist's interpretation Preliminary Findings: Normal/NAD - Reevaluation(s) Time: 13:44 Reevaluation #1: On reevaluation, the patient is feeling much better. She is now tolerating oral intake. Repeat abdominal examination is benign. Hemodynamically stable. Patient needs follow-up with PCP in 48 hours. Given strict return precautions
--- NOTE | 2021-07-24 11:45 | XR_ITS ---
PROCEDURE INFORMATION: Exam: XR Chest Exam date and time: 07/24/2021 11:45 AM Age: 76 years old Clinical indication: Cough TECHNIQUE: Imaging protocol: XR of the chest. Views: 1 view. COMPARISON: CT CXR1VP XR chest portable 01/13/2018 11:39 PM FINDINGS: Lungs: Unremarkable. No consolidation. Pleural spaces: Unremarkable. No pleural effusion. No pneumothorax. Heart/Mediastinum: Unremarkable. No cardiomegaly. Bones/joints: Unremarkable. IMPRESSION: No acute findings.
[2021-07-24 12:05] LABS: Basophils # 0.1 K/mm3 (0-0.2); Basophils % 1.3 % (0.1-2.0); Eosinophils # 0.1 K/mm3 (0.0-0.4); Eosinophils % 1.1 % (0.1-12.0); Hematocrit 44.9 % (37.0-47.0); Hemoglobin 14.2 g/dL (12.2-16.2); Lymphocytes # 0.7 K/mm3 (0.7-4.5); Lymphocytes % 7.1 % (10-50); Mean Corpuscular HGB Conc 31.7 g/dL (31.8-35.4); Mean Corpuscular Hemoglobin 29.5 pg (27.0-31.2); Mean Corpuscular Volume 93.1 fl (81-99); Mean Platelet Volume 8.3 fl (7.4-10.4); Monocytes # 0.2 K/mm3 (0.1-1.0); Neutrophils # 8.2 K/mm3 (1.8-7.8); Neutrophils % 88.4 % (37.0-80.0); Platelet Count 305 K/mm3 (142-424); Red Blood Count 4.82 M/mm3 (4.20-5.40); Red Cell Distribution Width 14.2 % (11.5-17.5); White Blood Count 9.2 K/mm3 (4.8-10.8)
[2021-07-24 12:11] LABS: MANUAL DIFFERENTIAL MANUAL DIFFERENTIAL (MANUAL DIFF)
[2021-07-24 12:17] LABS: Chloride 99 mmol/L (98-107); Potassium 4.3 mmoL/L (3.5-5.1); Sodium 135 mmol/L (136-145)
[2021-07-24 12:20] LABS: Alanine Aminotransferase 36 U/L (12-78); Albumin Level 4.5 g/dl (3.5-5.0); Albumin/Globulin Ratio 1.4 (1.1-1.8); Alkaline Phosphatase 95 U/L (38-126); Anion Gap 12.3 mEq/L (5-15); Aspartate Amino Transferase 68 U/L (14-36); Bilirubin,Total 0.1 mg/dl (0.2-1.3); Blood Urea Nitrogen 9 mg/dl (7-17); Carbon Dioxide 28 mmol/L (22.0-30.0); Creatinine Clearance Estimated 38 mL/min (50-200); Estimated Glomerular Filt Rate 120 ml/min (>60); GFR (African American) 145 ML/MIN (>60); Globulin 3.3 g/dL (1.3-3.2); Total Protein,Serum 7.8 g/dl (6.3-8.2)
[2021-07-24 12:21] LABS: Calcium 9.3 mg/dl (8.4-10.2); Glucose 135 mg/dl (74-100)
[2021-07-24 12:34] LABS: Eosinophils % 1 % (0-3); Lymphocytes % 7 % (10-50); Monocytes % 2 % (2-9); Neutrophils % 89 % (42-76); Total Cells Counted 100
[2021-07-24 12:35] VITALS: BP 162/75; PULSE 107; O2SAT 91
[2021-07-24 12:35] LABS: Platelet Estimate Normal; RBC Morphology Normal
[2021-07-24 12:51] LABS: Troponin I < 0.01 ng/ml (0.00-0.034)
[2021-07-24 13:00] VITALS: BP 168/83; RESP 18
[2021-07-24 13:31] VITALS: BP 142/77; RESP 18
[2021-07-24 14:39] VITALS: BP 139/56; PULSE 89; RESP 18; TEMP 37.9; O2SAT 94
== END 2021-07-24 14:39 | disposition home health service (06) ==
PROVIDERS: Emergency Provider Emergency Medicine; PCP Internal Medicine Adolescent Medicine
DX: K52.9 Noninfective gastroenteritis and colitis, unspecified (principal); B34.9 Viral infection, unspecified; Z20.822 Contact with and (suspected) exposure to COVID-19; I25.10 Atherosclerotic heart disease of native coronary artery without angina pectoris; E78.5 Hyperlipidemia, unspecified; I10 Essential (primary) hypertension
CPT/HCPCS: 71045; 80053; 84484; 85007; 85025; 96365; 99283; C9803; U0003; U0005

== ENCOUNTER → 2021-07-27 18:36 | Outpatient (CLI) | payer MEDICARE, SELFPAY | PROVIDERS: Visit Provider Internal Medicine Adolescent Medicine | DX: R10.30 Lower abdominal pain, unspecified (principal) | CPT/HCPCS: 87086 ==

== ENCOUNTER → 2021-07-30 10:16 | Outpatient (CLI) | payer MEDICARE, SELFPAY ==
[2021-07-30 10:41] LABS: Basophils # 0.1 K/mm3 (0-0.2); Basophils % 1.1 % (0.1-2.0); Eosinophils % 0.3 % (0.1-12.0); Hematocrit 41.1 % (37.0-47.0); Hemoglobin 13.3 g/dL (12.2-16.2); Lymphocytes % 16.8 % (10-50); Mean Corpuscular HGB Conc 32.4 g/dL (31.8-35.4); Mean Corpuscular Hemoglobin 29.1 pg (27.0-31.2); Mean Corpuscular Volume 89.7 fl (81-99); Mean Platelet Volume 7.9 fl (7.4-10.4); Monocytes # 0.2 K/mm3 (0.1-1.0); Monocytes % 2.9 % (1.7-9.3); Neutrophils # 4.8 K/mm3 (1.8-7.8); Neutrophils % 78.9 % (37.0-80.0); Platelet Count 478 K/mm3 (142-424); Red Blood Count 4.58 M/mm3 (4.20-5.40); Red Cell Distribution Width 14.2 % (11.5-17.5)
[2021-07-30 11:08] LABS: Chloride 98 mmol/L (98-107); Sodium 140 mmol/L (136-145)
[2021-07-30 11:09] LABS: Potassium 4.3 mmoL/L (3.5-5.1)
[2021-07-30 11:11] LABS: Alanine Aminotransferase 29 U/L (12-78); Alkaline Phosphatase 146 U/L (38-126); Anion Gap 14.3 mEq/L (5-15); Aspartate Amino Transferase 34 U/L (14-36); Bilirubin,Total 0.2 mg/dl (0.2-1.3); Blood Urea Nitrogen 10 mg/dl (7-17); Carbon Dioxide 32 mmol/L (22.0-30.0); Estimated Glomerular Filt Rate 97 ml/min (>60); GFR (African American) 118 ML/MIN (>60)
[2021-07-30 11:12] LABS: Albumin Level 3.8 g/dl (3.5-5.0); Albumin/Globulin Ratio 1.2 (1.1-1.8); Calcium 9.3 mg/dl (8.4-10.2); Globulin 3.3 g/dL (1.3-3.2); Glucose 105 mg/dl (74-100); Total Protein,Serum 7.1 g/dl (6.3-8.2)
[2021-07-30 11:17] LABS: C-Reactive Protein 261.2 mg/L (0-4)
[2021-07-30 11:42] LABS: Erythrocyte Sedimentation Rate 51 mm/hr (0-30)
[2021-08-01 13:09] LABS: EBV Ab VCA, IgG >600.0 U/mL (0.0-17.9); EBV Ab VCA, IgM <36.0 U/mL (0.0-35.9); EBV Nuclear Antigen Ab, IgG >600.0 U/mL (0.0-17.9)
== END ==
PROVIDERS: Visit Provider Internal Medicine Adolescent Medicine
DX: R50.9 Fever, unspecified (principal)
CPT/HCPCS: 36415; 80053; 85025; 85651; 86140; 86664; 86665; 87040

== ENCOUNTER → 2021-08-10 11:16 | Outpatient (CLI) | payer MEDICARE, SELFPAY ==
[2021-08-10 11:24] LABS: Microscopic, Urine URINE MICROSCOPIC (MICROSCOPIC)
[2021-08-10 11:58] LABS: Basophils % 0.8 % (0.1-2.0); Eosinophils # 0.1 K/mm3 (0.0-0.4); Hematocrit 41.1 % (37.0-47.0); Lymphocytes # 1.3 K/mm3 (0.7-4.5); Lymphocytes % 34.5 % (10-50); Mean Corpuscular HGB Conc 31.7 g/dL (31.8-35.4); Mean Corpuscular Hemoglobin 28.6 pg (27.0-31.2); Mean Corpuscular Volume 90.1 fl (81-99); Mean Platelet Volume 7.9 fl (7.4-10.4); Monocytes # 0.1 K/mm3 (0.1-1.0); Monocytes % 3.6 % (1.7-9.3); Neutrophils # 2.2 K/mm3 (1.8-7.8); Neutrophils % 59.1 % (37.0-80.0); Platelet Count 584 K/mm3 (142-424); Red Blood Count 4.56 M/mm3 (4.20-5.40); Red Cell Distribution Width 14.3 % (11.5-17.5); White Blood Count 3.8 K/mm3 (4.8-10.8)
[2021-08-10 12:27] LABS: Appearance,Urine CLEAR (Clear); Bilirubin,Urine Negative (Negative); Blood, Urine Negative (Negative); Color,Urine YELLOW (Yellow); Glucose,Urine (UA) Negative (Negative); Ketones,Urine Negative (Negative); Leukocyte Esterase,Urine Negative (Negative); Nitrate,Urine Negative (Negative); Protein,Urine Negative (Negative); Specific Gravity, Urine <= 1.005 (1.005-1.030); Urobilinogen,Urine 0.2 EU/dl (0.2)
[2021-08-10 13:05] LABS: Chloride 99 mmol/L (98-107); Potassium 4.5 mmoL/L (3.5-5.1); Sodium 136 mmol/L (136-145)
[2021-08-10 13:07] LABS: Blood Urea Nitrogen 12 mg/dl (7-17); Estimated Glomerular Filt Rate 97 ml/min (>60); GFR (African American) 118 ML/MIN (>60)
[2021-08-10 13:08] LABS: Alanine Aminotransferase 6 U/L (12-78); Albumin Level 4.1 g/dl (3.5-5.0); Albumin/Globulin Ratio 1.4 (1.1-1.8); Alkaline Phosphatase 98 U/L (38-126); Anion Gap 12.5 mEq/L (5-15); Aspartate Amino Transferase 25 U/L (14-36); Bilirubin,Total 0.3 mg/dl (0.2-1.3); Calcium 9.2 mg/dl (8.4-10.2); Carbon Dioxide 29 mmol/L (22.0-30.0); Glucose 91 mg/dl (74-100); Total Protein,Serum 7.1 g/dl (6.3-8.2)
[2021-08-10 14:28] LABS: Coronavirus 19 IgG Antibody Positive (Negative); Coronavirus 19 IgM Antibody Negative (Negative)
[2021-08-11 08:29] LABS: HIV Screen 4th Generation wRfx Non Reactive (Non Reactive)
[2021-08-11 09:16] LABS: Cytomegalovirus (CMV) Ab, IgG >10.00 U/mL (0.00-0.59); Cytomegalovirus (CMV) Ab, IgM <30.0 AU/mL (0.0-29.9)
== END ==
PROVIDERS: Visit Provider Internal Medicine Adolescent Medicine
DX: U07.1 COVID-19 (principal); R50.9 Fever, unspecified; J02.9 Acute pharyngitis, unspecified; R31.21 Asymptomatic microscopic hematuria; Z11.4 Encounter for screening for human immunodeficiency virus [HIV]
CPT/HCPCS: 36415; 80053; 81001; 85025; 86328; 86644; 86645; 86703; 87070; G0432

== ENCOUNTER → 2021-11-28 11:17 | Outpatient (CLI) | payer MEDICARE, SELFPAY ==
--- NOTE | 2021-11-28 11:24 | XR_ITS ---
FINAL REPORT CLINICAL HISTORY: POST OP FINDINGS: 4 views were obtained. There is posterior fusion of the lower lumbar spine. There is vacuum disc phenomenon at L3-L4. There is interbody fusion graft at L5-S1. There is no acute fracture. There is no malalignment. The disc spaces are maintained. There is 40 degrees of lumbar scoliosis convex to the right. IMPRESSION: Fusion of L5-S1. Reviewed, Interpreted and Dictated by Irvin Patterson MD Transcribed by Gael Kaplan Authenticated by Irvin Patterson MD on 11/28/2021 02:30:[address] [facility]
== END ==
PROVIDERS: PCP Internal Medicine Adolescent Medicine; Visit Provider Neurological Surgery
DX: Z98.890 Other specified postprocedural states (principal); M54.50 Low back pain, unspecified
CPT/HCPCS: 72110

== ENCOUNTER 2021-12-21 11:00 | Outpatient (RCR) | payer MEDICARE, SELFPAY | END 2021-12-21 11:05 | disposition home or self-care (01) | LOC: PT 11:00 | PROVIDERS: PCP Internal Medicine Adolescent Medicine; Visit Provider Neurological Surgery | DX: M54.50 Low back pain, unspecified (principal); Z98.890 Other specified postprocedural states | CPT/HCPCS: 97010; 97014; 97110; 97163; 97535; G0283 ==

== ENCOUNTER → 2022-01-20 10:52 | Outpatient (CLI) | payer MEDICARE, SELFPAY ==
--- NOTE | 2022-01-20 10:52 | MM_ITS ---
PROCEDURE INFORMATION: Exam: MG Bilateral Screening 3D Mammography Exam date and time: 01/20/2022 10:58 AM Age: 76 years old Clinical indication: Screening examination TECHNIQUE: Imaging protocol: Bilateral Screening tomosynthesis and 2D mammography including computer-aided detection (CAD) when performed. COMPARISON: 1. MG MM DIG SCREENING MAMM BI W/CAD 10/17/2019 10:25 AM 2. MG SCBI MM Dig screening mamm BI w/CAD 10/07/2018 9:46 AM FINDINGS: MAMMOGRAPHY: Breast composition: The breasts are heterogeneously dense, which may obscure small masses. Mass: None. Architectural distortion: None. Calcifications: No suspicious calcifications. Asymmetric density: None. Skin thickening: None. Axillary adenopathy: None. IMPRESSION: No mammographic evidence of malignancy. Annual screening is recommended unless otherwise clinically indicated. ASSESSMENT: BI-RADS Category 1: Negative
== END ==
PROVIDERS: PCP Internal Medicine Adolescent Medicine; Visit Provider Nurse Practitioner Obstetrics & Gynecology
DX: Z12.31 Encounter for screening mammogram for malignant neoplasm of breast (principal)
CPT/HCPCS: 77063; 77067

== ENCOUNTER → 2022-03-09 10:17 | Outpatient (CLI) | payer MEDICARE, SELFPAY ==
[2022-03-09 10:37] LABS: Basophils % 0.4 % (0.1-2.0); Hematocrit 42.3 % (37.0-47.0); Hemoglobin 13.5 g/dL (12.2-16.2); Lymphocytes # 1.2 K/mm3 (0.7-4.5); Lymphocytes % 26.4 % (10-50); Mean Corpuscular HGB Conc 31.9 g/dL (31.8-35.4); Mean Corpuscular Hemoglobin 27.8 pg (27.0-31.2); Mean Platelet Volume 6.3 fl (7.4-10.4); Monocytes # 0.2 K/mm3 (0.1-1.0); Neutrophils % 68.2 % (37.0-80.0); Platelet Count 364 K/mm3 (142-424); Red Blood Count 4.86 M/mm3 (4.20-5.40); White Blood Count 4.5 K/mm3 (4.8-10.8)
[2022-03-09 10:44] LABS: Chloride 103 mmol/L (98-107); Sodium 137 mmol/L (136-145)
[2022-03-09 10:47] LABS: Alanine Aminotransferase 16 U/L (12-78); Albumin Level 4.4 g/dl (3.5-5.0); Albumin/Globulin Ratio 1.3 (1.1-1.8); Alkaline Phosphatase 89 U/L (38-126); Anion Gap 8.7 mEq/L (5-15); Aspartate Amino Transferase 34 U/L (14-36); Bilirubin,Total 0.3 mg/dl (0.2-1.3); Blood Urea Nitrogen 14 mg/dl (7-17); Carbon Dioxide 30 mmol/L (22.0-30.0); Estimated Glomerular Filt Rate 81 ml/min (>60); GFR (African American) 98 ML/MIN (>60); Globulin 3.5 g/dL (1.3-3.2); Potassium 4.7 mmoL/L (3.5-5.1); Total Protein,Serum 7.9 g/dl (6.3-8.2)
[2022-03-09 10:48] LABS: Calcium 9.7 mg/dl (8.4-10.2); Glucose 119 mg/dl (74-100)
== END ==
PROVIDERS: PCP Nurse Practitioner Family; Visit Provider Nurse Practitioner Family
DX: K52.9 Noninfective gastroenteritis and colitis, unspecified (principal); R53.81 Other malaise; R53.83 Other fatigue
CPT/HCPCS: 36415; 80053; 85025

== ENCOUNTER → 2022-03-10 11:07 | Outpatient (CLI) | payer MEDICARE, SELFPAY ==
--- NOTE | 2022-03-10 11:12 | XR_ITS ---
FINAL REPORT TECHNIQUE: 3 views CLINICAL HISTORY: ARTHRODESIS STATUS,SPONDYLOLITHESIS COMPARISON: November 28, 2021 FINDINGS: LUMBAR SPINE Three views were obtained. There is no acute fracture. There has been fusion of L5-S1. There is stable mild anterolisthesis of L5 on S1. There are moderate degenerative changes. There is disc space narrowing that is worse at L4-L5. There is dextroscoliosis that is stable. There is no soft tissue abnormality. IMPRESSION: Stable mild anterolisthesis of L5 on S1 with fusion at this level. Disc space narrowing, worse at L4-L5. Moderate degenerative changes. Reviewed, Interpreted and Dictated by Lebron Kimball III, MD Transcribed by Hiral Henry Authenticated and . [facility]
== END ==
PROVIDERS: PCP Internal Medicine Adolescent Medicine; Visit Provider Neurological Surgery
DX: M43.16 Spondylolisthesis, lumbar region (principal); Z98.1 Arthrodesis status
CPT/HCPCS: 72100

== ENCOUNTER → 2022-03-15 15:01 | Outpatient (CLI) | payer MEDICARE, SELFPAY ==
[2022-03-15 15:07] LABS: Adenovirus F 40/41, stool Not Detected (NotDetected); Astrovirus Not Detected (NotDetected); Campylobacter Not Detected (NotDetected); Clostridium Difficile A/B, PCR Not Detected (NotDetected); Cryptosporidium Not Detected (NotDetected); Cyclospora Cayetanesis Not Detected (NotDetected); Entamoeba histolytica Not Detected (NotDetected); Enteroaggregative E coli Not Detected (NotDetected); Enteropathogenic E coli Not Detected (NotDetected); Enterotoxigenic E coli Not Detected (NotDetected); Giardia lamblia Not Detected (NotDetected); Norovirus Not Detected (NotDetected); Plesimonas Shigalloides, PCR Not Detected (NotDetected); Rotavirus A Not Detected (NotDetected); Salmonella, PCR Not Detected (NotDetected); Sapovirus Not Detected (NotDetected); Shiga-like toxin E coli Not Detected (NotDetected); Shigella Enterovasive E coli Not Detected (NotDetected); Vibrio Cholerae Not Detected (NotDetected); Vibrio, PCR Not Detected (NotDetected); Yersinia Entercolitica, PCR Not Detected (NotDetected)
[2022-03-19 20:10] LABS: Calprotectin, Fecal 210 ug/g (0-120)
== END ==
PROVIDERS: PCP Internal Medicine Adolescent Medicine; Visit Provider Internal Medicine Gastroenterology
DX: R19.7 Diarrhea, unspecified (principal); R15.2 Fecal urgency; K52.89 Other specified noninfective gastroenteritis and colitis
CPT/HCPCS: 83993; 87506

== ENCOUNTER → 2022-06-22 12:48 | Outpatient (CLI) | payer MEDICARE, SELFPAY ==
--- NOTE | 2022-06-22 12:57 | XR_ITS ---
FINAL REPORT CLINICAL HISTORY: S/P BACK SURGERY, AP, LATERAL , FLEXION AND EXTENSION COMPARISON: MARCH 2022 FINDINGS: Four views were obtained. There is 40 degrees of thoracolumbar scoliosis convex to the right. There is posterior fusion of l5-s1. There is grade 1 spondylolisthesis of l5 on s1. There is no abnormal movement with flexion or extension. IMPRESSION: Stable postoperative changes and scoliosis. Reviewed, Interpreted and Dictated by Irvin Patterson MD Transcribed by Gael Kaplan Authenticated and [facility]
== END ==
PROVIDERS: PCP Internal Medicine Adolescent Medicine; Visit Provider Neurological Surgery
DX: Z98.890 Other specified postprocedural states (principal)
CPT/HCPCS: 72110

== ENCOUNTER 2022-08-26 12:36 | Emergency (ER) | payer MEDICARE, SELFPAY ==
[2022-08-26 14:14] VITALS: BP 154/71; PULSE 77; RESP 16; TEMP 37.4; O2SAT 98; BMI 19.8
[2022-08-26 14:21] LABS: UTC Influenza A Antigen Negative (Negative); UTC Influenza B Antigen Negative (Negative)
--- NOTE | 2022-08-26 15:00 | EXP.UTC ---
Discharge Plan Disposition Patient Disposition: Home, Self-Care Condition: Good Prescriptions Prescriptions: New benzonatate 100 mg capsule 100 mg PO TID PRN (Reason: cough) Qty: 30 0RF loratadine 10 mg tablet 10 mg PO DAILY Qty: 30 0RF No Action rosuvastatin 10 mg tablet 10 mg PO HS 30 Days Qty: 30 gabapentin 100 mg capsule 100 mg PO DAILY PRN Label Comments: TAKE ONE CAPSULE BY MOUTH THREE TIMES DAILY MAY CAUSE DROWSINESS fluconazole [Diflucan] 150 mg tablet 150 mg PO ONCE Qty: 2 0RF Rx Instructions: may repeat second dose 72 hrs after first dose if symptoms persist nystatin 100,000 unit/gram cream 1 applic TP TID PRN (Reason: itching) Qty: 30 2RF omeprazole 20 mg capsule,delayed release(DR/EC) 20 mg PO DAILY Label Comments: TAKE ONE CAPSULE BY MOUTH EVERY DAY duloxetine 60 mg capsule,delayed release(DR/EC) 60 mg PO DAILY hydrocortisone 2.5 % cream 1 applic TP BID PRN (Reason: itching) Qty: 30 5RF estradiol [Estrace] 0.01 % (0.1 mg/gram) cream 1 gm VG DAILY Qty: 42.5 3RF doxycycline hyclate 100 mg capsule 100 mg PO BID 7 Days Qty: 14 0RF lorazepam 1 mg tablet 1 mg PO BID aspirin 81 MG tablet,chewable 81 mg PO DAILY budesonide 3 mg capsule,delayed,extend.release 3 mg PO DAILY Referrals Follow up/Referrals: Ren Armas MD [Primary Care Provider] - See instructions Clinical Impressions Clinical Impression: Upper respiratory tract infection Instructions Patient Instructions: DI for Viral Upper Respiratory Infection -- Adult Discharge ED Provider: Chayito Moreno [facility] General Stated complaint: headache,fever,cough Mode of Arrival: Ambulatory Source of Information: Patient Limitations: No Limitations Time Seen by Provider: 08/26/22 15:01 Description of Symptoms (Recalled from Triage Doc. by RN): pt comes in with c/o headache, cough, body aches, fever. symptoms began yesterday HEENT Symptoms (Recalled from RN notes): Yes Resp Symptoms (Recalled from RN notes): Yes Skin Symptoms (Recalled from RN notes): No MS Symptoms (Recalled from RN notes): No Functional Status (Recalled from RN notes): n/a History of Present Illness Provider Complaint: Pt reports that yesterday she started coughing and then today she woke up with a low grade fever, body aches, cough, and headache. She states that she has heard a whoosing sound in her ears like she did when she had Covid. Related Data Home Medications Medication Instructions Recorded Confirmed rosuvastatin 10 mg tablet 10 mg PO HS Cholesterol 30 days 08/12/18 06/28/22 #30 tabs lorazepam 1 mg tablet 1 mg PO BID Anxiety 02/20/20 06/28/22 aspirin 81 mg chewable tablet 81 mg PO DAILY heart health 04/08/20 06/28/22 budesonide 3 mg 3 mg PO DAILY stomach 10/19/20 06/28/22 capsule,delayed,extended release gabapentin 100 mg capsule 100 mg PO DAILY PRN 12/27/21 06/28/22 duloxetine 60 mg capsule,delayed 60 mg PO DAILY 04/24/22 06/28/22 release omeprazole 20 mg capsule,delayed 20 mg PO DAILY 04/24/22 06/28/22 release Previous Rx's Medication Instructions Recorded doxycycline hyclate 100 mg capsule 100 mg PO BID 7 days #14 caps 04/13/22 fluconazole 150 mg tablet 150 mg PO ONCE #2 tabs 04/21/22 (Diflucan) nystatin 100,000 unit/gram topical 1 applic topical TID PRN itching 04/21/22 cream #30 grams estradiol 0.01% (0.1 mg/gram) 1 gm vaginal DAILY vaginal atrophy 04/24/22 vaginal cream (Estrace) #42.5 grams hydrocortisone 2.5 % topical cream 1 applic topical BID PRN itching 04/24/22 #30 grams benzonatate 100 mg capsule 100 mg PO TID PRN cough #30 caps 08/26/22 loratadine 10 mg tablet 10 mg PO DAILY #30 tabs 08/26/22 Allergies Allergy/AdvReac Type Severity Reaction Status Date / Time etodolac [From [facility] [place]] Allergy Intermediate Verified 08/26/22 14:17 Penicillins Allergy Unknown Verified 08/26/22 14:17 Sulfa (Sulfonamide Allergy Unknown Ve
[2022-08-26 15:14] VITALS: BP 154/71; PULSE 77; RESP 16; TEMP 37.4
== END 2022-08-26 15:17 | disposition home or self-care (01) ==
PROVIDERS: Emergency Provider Nurse Practitioner Family; PCP Internal Medicine Adolescent Medicine
DX: U07.1 COVID-19 (principal)
CPT/HCPCS: 87804; 99212; C9803; G0463; U0003; U0005

== ENCOUNTER → 2022-09-13 06:54 | Outpatient (CLI) | payer MEDICARE, SELFPAY ==
--- NOTE | 2022-09-13 06:56 | CA_ITS ---
APPROVED REPORT Exam: Exercise Treadmill Technologist: Joanna Jean Baptiste Ht: 5 ft 3 in Wt: 112 lbs BSA: 1.51 m2 HR: 68 bpm BP: 139/64 mmHg Indications: Hypertension, Shortness of Air Medical History Medications: Lorazepam,,,,, Omeprazole,,,,, Aspirin,,,,, Gabapentin,,,,, DulOXETINE,,,,, LoraTidine,,,,, Estrodiol,,,,, RoSUVASTATIN,,,,, DOxycycline,,,,, Budesonide,,,,, NYstatin,,,,, Stress Test Details Test: Vernon HR Resting HR: 74 bpm Max Heart Rate (APMHR): 143.407019 bpm Max HR Achieved: 141 bpm Target HR (85% APMHR): 121.801464 bpm % of APMHR: 98.60 Recovery HR: 78 bpm BP Resting BP: 139.0/64.0 mmHg Max BP: 175.0/78.0 mmHg Recovery BP: 145.0/68.0 mmHg ECG Resting ECG: Normal sinus rhythm Clinical Exercise duration: 08:30 min Highest Stage Achieved: Exercise capacity: 10.1 METs Stress ECG Conclusion Patient walked 8:30 into stage III of Vernon Protocol. Test stopped due to shortness of air, fatigue. Symptoms: No chest pain. Arrhythmias/Ectopy: Occasional PVC, 2 ventricular couplets[address] Occasional PAC. ST-T Changes: 0.5-[address] depression laterally. Approximately 0.[address] depression inferiorly. Conclusion: Equivocal EKG changes. Myoview images reported separately. Test Summary REST . . . . . . . Resting REST . . . . . . . Standing REST 05:08 0.0 0.0 74 . 139/ 64 . . Stage 1 01:00 10.0 1.7 87 . . . . Stage 1 02:00 10.0 1.7 91 . . . . Stage 1 03:00 10.0 1.7 95 . 160/ 80 . . Stage 2 01:00 12.0 2.5 112 . . . . Stage 2 02:00 12.0 2.5 116 . . . . Stage 2 03:00 12.0 2.5 120 . 170/ 80 . . Stage 3 01:00 14.0 3.4 134 . . . . Stage 3 . . . . . . . Myoview Injected Stage 3 02:00 14.0 3.4 138 . . . . Stage 3 02:30 14.0 3.4 140 . . . Stop exercise at 08:30 RECOVERY 01:00 0.0 0.0 124 . . . . RECOVERY 02:00 0.0 0.0 102 . 175/ 78 . . RECOVERY 03:00 0.0 0.0 92 . 152/ 79 . . RECOVERY 04:00 0.0 0.0 84 . 152/ 79 . . RECOVERY 05:00 0.0 0.0 77 . 145/ 68 . . RECOVERY 05:36 0.0 0.0 80 . 145/ 68 . . Electronically signed by : Paco Castano MD 09/13/2022 20:43:55
--- NOTE | 2022-09-13 06:56 | CA_ITS ---
APPROVED REPORT EXAM: Comprehensive 2D, Doppler, and color-flow Echocardiogram Mission Assessment Specialist: Bela Whiting, MIRANDA, RVS Ht: 5 ft 3 in Wt: 112lbs BSA: 1.51 BP: 150/89 mmHg Indications: HTN, SOA, CAD-stent, MVP, Hx-covid, HHD 2D Dimensions IVSd 0.85 cm LVEF (Visual) 80.90 % PWd 0.99 cm LA Volume 31.40 mL LVDd 4.85 cm LA Volume Index 20.899366 mL/m2 (M/F) 16-34 LVDs 2.44 cm Aortic Root 2.58 cm Left Atrium 3.44 cm LVOT 1.86 cm (M/F) 1.5-2.5 M-Mode Dimensions LA Diam 3.46 cm (1.9-4.0) LVDd 3.57 cm (3.5-5.7) Ao Diam 3.03 cm (2.0-3.7) LVDs 2.22 cm (3.5-5.7) EF (Teich) 68.90% EPSs 0.20 cm FS 37.80% EDV (Teich) 53.30 mL TAPSE 1.90 (<1.7) ESV (Teich) 16.60 mL LV Diastology E Decel Time 257.00 (160-240 msec) E/A Ratio 0.67 MED E' 6.20 (< 7 cm/sec) MED A' 14.80 cm/s E'/MED E' Ratio 11.27 (>14) LAT E' 6.50 (<10 cm/sec) LAT A' 13.70 cm/s E/LAT E' Ratio 10.75 (>14) Aortic Valve LVOT Max 115.00 (70-110 cm/s) LVOT VTI 23.53 cm AoV Peak Bandar. 103.00 (50-130 cm/s) AO Peak GR. 4.30 mmHg AO Mean GR. 2.10 (<5 mmHg) AO VTI 20.98 (18-25 cm) LILLY (VTI) 3.05 (2.5-4.5 cm2) Mitral Valve MV A Velocity 104.00 (40-130 cm/s) E/A Ratio 0.67 MV Decel. Time 257.00 (160-240 ms) MV PHT 73.00 ms Pulmonary Valve PV Peak Velocity 73.00 (50-150 cm/s) MI End VMAX 158.00 cm/s Tricuspid Valve TR P. Velocity 217.00 cm/s RAP Estimate 10.00 mmHg RVSP 28.90 mmHg Left Ventricle Left atrium is mildly enlarged, left ventricle is normal size mild concentric left ventricular hypertrophy, estimated ejection fraction 55% with no regional wall motion abnormality, grade 1 diastolic dysfunction seen without tissue Doppler evidence of raise left atrial pressure. Right Ventricle Right atrium and right ventricle are normal size and contractility. Aortic Valve Aortic valve is minimally thickened and calcified without aortic stenosis or aortic insufficiency. Mitral Valve Mitral valve leaflets are minimally thickened, there is mild prolapse of the posterior mitral leaflet, there is no mitral stenosis, there is mild mitral regurgitation. Tricuspid Valve Tricuspid valve grossly normal, there is mild tricuspid regurgitation, tricuspid regurgitation jet velocity is inadequate for calculation of the right ventricular systolic pressure. Pulmonic Valve Pulmonic valve is poorly visualized. Great Vessels Aortic root is normal size. Inferior vena cava is poorly visualized. Pericardium No significant pericardial effusion noted. Conclusion 1. Mildly enlarged left atrium, normal left ventricular size mild concentric left ventricular hypertrophy, estimated ejection fraction 55% with no regional wall motion abnormality, grade 1 diastolic dysfunction seen without tissue Doppler evidence of raise left atrial pressure. 2. Mild prolapse of the posterior mitral leaflet associated with mild mitral regurgitation. 3. Mild tricuspid regurgitation. 4. No significant pericardial effusion. 5. Inferior vena cava is poorly visualized. Electronically signed by : Paco Castano MD 09/13/2022 20:12:52
--- NOTE | 2022-09-13 06:56 | NM_ITS ---
APPROVED REPORT Exam: Nuclear Stress Test Indication: CAD, HTN, Family history Patient Location: Outpatient Stress Tech: Joanna Jean Baptiste ID Tech:Ade Hinson, ARRT, RT (R)(N) Ht: 5 ft 2 in Wt: 111 lbs Bra Size: 34B HR: 74 bpm BP: 139/64 mmHg BSA: 1.49 m2 TID: 0.82 BMI: 20.2 History: CAD, HTN, Family history Procedure: Patient exercised on Vernon protocol 8:30 minutes and sec, resting heart rate 74 bpm, resting blood pressure 139/64 mmHg, with exercise maximum heart rate achived was 141 bpm which is 99 % of the maximum predicted heart rate and blood pressure was 175/78 mmHg. Test was stopped due to SOB. Patient denied any complaint of chest pain. Patient has Good exercise capacity, achieved 10.1 METs of workload on treadmill, the blood pressure response to exercise was Adequate. Electrocardiogram Resting electrocardiogram shows sinus rhythm, with exercise there is less than 1.[address] segment depression noted from the baseline EKG. The EKG portion of the exercise Myoview is negative for ischemia. Cardiac Stress and Resting SPECT Images: Cardiac Stress and Resting SPECT images were obtained using technetium 99m Myoview 32.2 mCi stress and 10.69 mCi at rest. Gated SPECT analysis of segmental wall motion and calculation of the ejection fraction also done. Prone images were also obtained. Cardiac stress and resting SPECT images show uniform myocardial activity without segmental perfusion abnormality, computer derived ejection fraction is over 65% with no regional wall motion abnormality, right ventricle is normal size and contractility. Conclusion: 1. The EKG portion of the exercise Myoview is negative for ischemia. Patient has good exercise capacity achieved 10.1 METs of workload on treadmill, the blood pressure response to exercise was adequate, there was no exercise-induced chest discomfort. 2. No scintigraphic evidence of reversible ischemia seen, computer derived ejection fraction is over 65% with no regional wall motion abnormality, right ventricle is normal size and contractility 3. Normal exercise Myoview study. Electronically signed by : Paco Castano MD 09/13/2022 20:46:40
--- NOTE | 2022-09-13 08:24 | HMH.ITSHM ---
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 []ROSUVASTATIN OMEPRAZOLE NYSTATIN LOSARTAN LORAZEPAM GABAPENTIN FLUCONAZOLE ESTRAIOL DULOXETINE DOXYCYCLINE BUDESONIDE ASA
== END ==
PROVIDERS: PCP Internal Medicine Adolescent Medicine; Visit Provider Nurse Practitioner
DX: E78.2 Mixed hyperlipidemia (principal); I11.9 Hypertensive heart disease without heart failure; I25.10 Atherosclerotic heart disease of native coronary artery without angina pectoris; Z95.5 Presence of coronary angioplasty implant and graft; R06.02 Shortness of breath; U09.9 Post COVID-19 condition, unspecified
CPT/HCPCS: 78452; 93017; 93306; A9502

== ENCOUNTER → 2022-09-18 09:25 | Outpatient (CLI) | payer MEDICARE, SELFPAY ==
[2022-09-18 09:56] LABS: Basophils # 0.1 K/mm3 (0-0.2); Basophils % 1.3 % (0.1-2.0); Eosinophils # 0.1 K/mm3 (0.0-0.4); Eosinophils % 1.5 % (0.1-12.0); Hematocrit 45.2 % (37.0-47.0); Hemoglobin 14.1 g/dL (12.2-16.2); Lymphocytes # 0.9 K/mm3 (0.7-4.5); Lymphocytes % 17.3 % (10-50); Mean Corpuscular HGB Conc 31.1 g/dL (31.8-35.4); Mean Corpuscular Hemoglobin 29.1 pg (27.0-31.2); Mean Corpuscular Volume 93.4 fl (81-99); Mean Platelet Volume 7.5 fl (7.4-10.4); Monocytes # 0.2 K/mm3 (0.1-1.0); Monocytes % 2.9 % (1.7-9.3); Neutrophils % 76.9 % (37.0-80.0); Platelet Count 345 K/mm3 (142-424); Red Blood Count 4.84 M/mm3 (4.20-5.40); Red Cell Distribution Width 14.4 % (11.5-17.5); White Blood Count 5.2 K/mm3 (4.8-10.8)
[2022-09-18 10:43] LABS: Alanine Aminotransferase 15 U/L (12-78); Albumin Level 4.1 g/dl (3.5-5.0); Alkaline Phosphatase 87 U/L (38-126); Anion Gap 7.8 mEq/L (5-15); Aspartate Amino Transferase 23 U/L (14-36); Bilirubin,Direct 0.1 mg/dl (0.0-0.4); Bilirubin,Indirect 0.1 mg/dL (0.0-0.9); Bilirubin,Total 0.2 mg/dl (0.2-1.3); Bilirubin,Unconjugated 0.1 mg/dL (0.0-1.1); Blood Urea Nitrogen 12 mg/dl (7-17); Calcium 8.7 mg/dl (8.4-10.2); Carbon Dioxide 28 mmol/L (22.0-30.0); Chloride 103 mmol/L (98-107); Chol/HDL Ratio 2.9 (1-3.5); Cholesterol 174 mg/dl (140-200); Estimated Glomerular Filt Rate 97 ml/min (>60); GFR (African American) 117 ML/MIN (>60); Glucose 94 mg/dl (74-100); HDL Cholesterol 59 mg/dl (40-60); Magnesium 2.3 mg/dl (1.6-2.3); Potassium 3.8 mmoL/L (3.5-5.1); Sodium 135 mmol/L (136-145); Total Protein,Serum 7.2 g/dl (6.3-8.2); Triglycerides 105 mg/dl (30-150); VLDL Cholesterol 21 mg/dL (0-40)
[2022-09-18 10:53] LABS: Direct LDL Cholesterol 70.37 mg/dL (100-129)
[2022-09-18 10:58] LABS: 25-OH Vitamin D, Total 25.1 ng/mL (30-100)
[2022-09-18 10:59] LABS: Free T4 (Free Thyroxine) 1.04 ng/dl (0.78-2.19)
[2022-09-18 11:55] LABS: Folate > 20.00 ng/mL
[2022-09-18 15:27] LABS: Thyroid Stimulating Hormone 1.42 uIU/mL (0.465-4.68)
[2022-09-18 15:46] LABS: Vitamin B12 801 pg/mL (239-931)
== END ==
PROVIDERS: PCP Internal Medicine Adolescent Medicine; Visit Provider Nurse Practitioner
DX: E78.2 Mixed hyperlipidemia (principal); I11.9 Hypertensive heart disease without heart failure; I25.10 Atherosclerotic heart disease of native coronary artery without angina pectoris; M79.10 Myalgia, unspecified site; R53.83 Other fatigue; U09.9 Post COVID-19 condition, unspecified; Z95.5 Presence of coronary angioplasty implant and graft; M81.0 Age-related osteoporosis without current pathological fracture
CPT/HCPCS: 36415; 80048; 80061; 80076; 82306; 82607; 82746; 83735; 84439; 84443; 85025

== ENCOUNTER → 2022-12-21 10:21 | Outpatient (CLI) | payer MEDICARE, SELFPAY ==
--- NOTE | 2022-12-21 10:25 | US_ITS ---
FINAL REPORT CLINICAL HISTORY: ABDOMINAL PAIN FINDINGS: Sonographic images were obtained of the area of interest in the right lower quadrant. A 3 cm structure was identified at the area of interest which likely represents an inguinal hernia. IMPRESSION: 3 cm structure in the right lower quadrant likely represents an inguinal hernia. Reviewed, Interpreted and Dictated by Lebron Kimball III, MD Transcribed by Ivelisse Hernández Authenticated and [facility]
--- NOTE | 2022-12-21 10:55 | US_ITS ---
FINAL REPORT CLINICAL HISTORY: LOWER ABD PAIN FINDINGS: Transabdominal sonographic images of the pelvis were obtained. The uterus is small and measures 5.1 x 3.2 x 1.3 cm. The endometrium measures 2 mm, which is within normal limits. No uterine mass is identified. The right ovary measures 1.8 cm in length and left ovary is not visualized. Normal blood flow seen to the ovaries. There is no evidence of free fluid. IMPRESSION: Uterus is small. Left ovary not visualized. Reviewed, Interpreted and Dictated by Lebron Kimball III, MD Transcribed by Ivelisse Hernández Authenticated and [facility]
== END ==
PROVIDERS: PCP Internal Medicine Adolescent Medicine; Visit Provider Nurse Practitioner Family
DX: R10.30 Lower abdominal pain, unspecified (principal); R10.32 Left lower quadrant pain
CPT/HCPCS: 76705; 76856

== ENCOUNTER → 2023-01-24 10:16 | Outpatient (CLI) | payer MEDICARE, SELFPAY ==
--- NOTE | 2023-01-24 10:16 | MM_ITS ---
PROCEDURE INFORMATION: Exam: MG Bilateral Screening 3D Mammography Exam date and time: 01/24/2023 10:35 AM Age: 77 years old Clinical indication: Screening mammogram TECHNIQUE: Imaging protocol: Bilateral Screening tomosynthesis and 2D mammography including computer-aided detection (CAD) when performed. COMPARISON: 1. MG MM DIG SCREENING MAMM BI W/CAD 01/20/2022 10:58 AM 2. MG MM DIG SCREENING MAMM BI W/CAD 10/17/2019 10:25 AM 3. MG SCBI MM Dig screening mamm BI w/CAD 10/07/2018 9:46 AM 4. MG SCBI MM Dig screening mamm BI w/CAD 09/18/2017 11:09 AM FINDINGS: MAMMOGRAPHY: Breast composition: The breast is heterogeneously dense, which may obscure small masses. Mass: None. Architectural distortion: No new or suspicious architectural distortion. Calcifications: No new or suspicious calcifications are present Asymmetric density: No new or suspicious asymmetric density is present Skin thickening: None. Axillary adenopathy: None. IMPRESSION: No mammographic evidence of malignancy. Recommend annual screening mammography unless otherwise clinically indicated. ASSESSMENT: BI-RADS category 1: Negative
== END ==
PROVIDERS: PCP Internal Medicine Adolescent Medicine; Visit Provider Nurse Practitioner Obstetrics & Gynecology
DX: Z12.31 Encounter for screening mammogram for malignant neoplasm of breast (principal)
CPT/HCPCS: 77063; 77067

== ENCOUNTER → 2023-06-12 14:47 | Outpatient (CLI) | payer MEDICARE, SELFPAY ==
[2023-06-12 15:18] LABS: Basophils % 0.4 % (0.1-2.0); Eosinophils # 0.1 K/mm3 (0.0-0.4); Eosinophils % 2.1 % (0.1-12.0); Hematocrit 40.2 % (37.0-47.0); Hemoglobin 12.2 g/dL (12.2-16.2); Lymphocytes # 1.6 K/mm3 (0.7-4.5); Lymphocytes % 37.5 % (10-50); Mean Corpuscular HGB Conc 30.3 g/dL (31.8-35.4); Mean Corpuscular Hemoglobin 27.3 pg (27.0-31.2); Mean Platelet Volume 7.6 fl (7.4-10.4); Monocytes # 0.1 K/mm3 (0.1-1.0); Monocytes % 2.8 % (1.7-9.3); Neutrophils # 2.4 K/mm3 (1.8-7.8); Neutrophils % 57.2 % (37.0-80.0); Platelet Count 356 K/mm3 (142-424); Red Blood Count 4.46 M/mm3 (4.20-5.40); Red Cell Distribution Width 14.7 % (11.5-17.5); White Blood Count 4.2 K/mm3 (4.8-10.8)
[2023-06-12 15:31] LABS: Chloride 103 mmol/L (98-107); Potassium 3.8 mmoL/L (3.5-5.1); Sodium 138 mmol/L (136-145)
[2023-06-12 15:34] LABS: Alanine Aminotransferase 20 U/L (12-78); Albumin Level 3.7 g/dl (3.5-5.0); Albumin/Globulin Ratio 1.1 (1.1-1.8); Alkaline Phosphatase 78 U/L (38-126); Anion Gap 8.8 mEq/L (5-15); Aspartate Amino Transferase 29 U/L (14-36); Blood Urea Nitrogen 12 mg/dl (7-17); Carbon Dioxide 30 mmol/L (22.0-30.0); Estimated Glomerular Filt Rate 81 ml/min (>60); GFR (African American) 98 ML/MIN (>60); Globulin 3.3 g/dL (1.3-3.2)
[2023-06-12 15:35] LABS: Bilirubin,Total 0.1 mg/dl (0.2-1.3); Calcium 9.1 mg/dl (8.4-10.2); Glucose 92 mg/dl (74-100)
[2023-06-12 16:05] LABS: Thyroid Stimulating Hormone 1.33 uIU/mL (0.465-4.68)
== END ==
PROVIDERS: PCP Nurse Practitioner Family; Visit Provider Nurse Practitioner Family
DX: R53.83 Other fatigue (principal)
CPT/HCPCS: 36415; 80053; 84443; 85025

== ENCOUNTER 2023-11-09 08:56 | Outpatient (CLI) | payer MEDICARE, SELFPAY ==
--- NOTE | 2023-11-09 09:01 | XR_ITS ---
FINAL REPORT TECHNIQUE: Bone densitometry calculations of the lumbar spine and left hip were obtained. CLINICAL HISTORY: SCREENING COMPARISON: 02/23/2020 FINDINGS: Using the right hip, the bone mineral density of the femoral neck is 0.555 g/cm?, corresponding to a T-score of -2.7 and a Z-score of -0.4. This is within the range of osteoporosis. Using the left hip, the bone mineral density of the femoral neck is 0.61 g/cm2, corresponding to a T-score of -2.2 and a Z-score of 0. This is within the range of osteoporosis. NOTE: T-score: Standard deviation compared with peak bone mass of young adult mean. *Following the recommendations of the International Society of Bone densitometry, classification of hip BMD is based on the lower of two T-scores; total hip or femoral neck. IMPRESSION: 1. Bone mineral density of the right femoral neck within the range of osteoporosis. 2. Bone mineral density of the left femoral neck within the range of osteoporosis. Reviewed, Interpreted and Dictated by Carmella Obrien MD Transcribed by Melba Estrada Authenticated and [facility]
== END 2023-11-09 23:59 ==
PROVIDERS: PCP Nurse Practitioner Family; Visit Provider Nurse Practitioner Family
DX: Z13.820 Encounter for screening for osteoporosis (principal); M81.0 Age-related osteoporosis without current pathological fracture
CPT/HCPCS: 77080

== ENCOUNTER 2023-11-26 10:58 | Outpatient (CLI) | payer MEDICARE, SELFPAY ==
[2023-11-26] MEDS: 0.9 % SODIUM CHLORIDE 50 ML 100 ML IV (11:14)
[2023-11-26] MEDS: ZOLEDRONIC ACID/MANNITOL-WATER 5 MG/100 ML PGGYBK.BTL 400 MG IV (11:14)
[2023-11-26 11:22] VITALS: BP 141/84; PULSE 66; RESP 17; O2SAT 98
[2023-11-26 11:50] VITALS: BP 153/79; PULSE 68; RESP 18; O2SAT 99
== END 2023-11-26 11:50 | disposition home or self-care (01) ==
PROVIDERS: PCP Nurse Practitioner Family; Visit Provider Nurse Practitioner Family
DX: M81.0 Age-related osteoporosis without current pathological fracture (principal)
CPT/HCPCS: 96374; J3489

== ENCOUNTER 2023-12-14 12:36 | Outpatient (CLI) | payer MEDICARE, SELFPAY ==
--- NOTE | 2023-12-14 12:39 | XR_ITS ---
FINAL REPORT CLINICAL HISTORY: Left foot pain FINDINGS: LEFT FOOT Three views of the left foot demonstrate no acute fracture or dislocation. There are mild degenerative changes. The soft tissues are unremarkable. IMPRESSION: No acute bony abnormality. Reviewed, Interpreted and Dictated by Lebron Kimball III, MD Transcribed by Nikki Franco Authenticated and [facility]
--- NOTE | 2023-12-14 12:39 | XR_ITS ---
FINAL REPORT CLINICAL HISTORY: foot pain, right worse than left. bone spur on top of foot FINDINGS: RIGHT FOOT 3 views of the right foot were obtained. There is no acute fracture. There is medial subluxation and angulation of the second digit at the metatarsophalangeal joint. Mild degenerative changes are noted. There are small plantar calcaneal spurs. Soft tissues are unremarkable. IMPRESSION: Degenerative changes. Medial subluxation and angulation of the second digit at the metatarsophalangeal joint. Reviewed, Interpreted and Dictated by Lebron Kimball III, MD Transcribed by Nikki Franco Authenticated and [facility]
== END 2023-12-14 23:59 ==
LOC: RAD 12:37
PROVIDERS: PCP Nurse Practitioner Family; Visit Provider Podiatrist
DX: M79.672 Pain in left foot (principal); M79.671 Pain in right foot
CPT/HCPCS: 73630

== ENCOUNTER 2024-02-06 10:52 | Outpatient (CLI) | payer MEDICARE, SELFPAY ==
--- NOTE | 2024-02-06 10:56 | MM_ITS ---
PROCEDURE INFORMATION: Exam: MG Bilateral Screening 3D Mammography Exam date and time: 02/06/2024 10:43 AM Age: 78 years old Clinical indication: Screening examination TECHNIQUE: Imaging protocol: Bilateral Screening tomosynthesis and 2D mammography including computer-aided detection (CAD) when performed. COMPARISON: 1. MG MM DIG SCREENING MAMM BI W/CAD 01/24/2023 10:35 AM 2. MG MM DIG SCREENING MAMM BI W/CAD 01/20/2022 10:58 AM FINDINGS: MAMMOGRAPHY: Breast composition: The breasts are heterogeneously dense, which may obscure small masses. Mass: None. Architectural distortion: None. Calcifications: No suspicious calcifications. Asymmetric density: None. Skin thickening: None. Axillary adenopathy: None. IMPRESSION: No mammographic evidence of malignancy. Annual screening is recommended unless otherwise clinically indicated. ASSESSMENT: BI-RADS Category 1: Negative
== END 2024-02-06 23:59 | disposition home or self-care (01) ==
LOC: RAD 10:52
PROVIDERS: PCP Internal Medicine Adolescent Medicine; Visit Provider Internal Medicine Adolescent Medicine
DX: Z12.31 Encounter for screening mammogram for malignant neoplasm of breast (principal)
CPT/HCPCS: 77063; 77067

== ENCOUNTER 2024-04-23 08:57 | Day surgery (SDC) | payer MEDICARE, SELFPAY ==
[2024-04-23] VITALS (12 sets, daily range): BP systolic 124–159; BP diastolic 67–75; PULSE 55–68; RESP 15–19; TEMP 36.9; O2SAT 93–98; BMI 19.1
--- NOTE | 2024-04-23 07:19 | IR_ITS ---
APPROVED REPORT Patient Location: Outpatient Exhibit Preparator: STEFFANIE Foy RT (R) PROCEDURES Left heart catheterization Left ventriculogram Selective coronary angiogram INDICATION Known coronary artery disease, Worsening angina pectoris, Informed consent was obtained prior to the procedure. COMPLICATIONS None Estimated Blood Loss: Less than 10 mls TECHNIQUE One percent lidocaine used to anesthetize the right anterior aspect of the wrist. The right radial artery was accessed via the Seldinger technique. A 6 Guyanese sheath was placed in the right radial artery. 2.5 mg of Verapamil, 800 mcg of nitroglycerin, 1mg Lidocaine and 5000 U Heparin were given through the arterial sheath. The papa catheter was also used to perform left heart catheterization, left ventriculogram and selective coronary angiogram. At the end of the procedure the sheath was removed good hemostasis was achieved using Traclet band, patient was transferred to the postop holding area in stable condition. ANGIOGRAPHIC RESULTS The left main artery Normal The left anterior descending artery Has a stent in the proximal segment which is widely patent free of in-stent restenosis with excellent proximal distal transitioning. There is a noncontiguous stent in the mid LAD which is also widely patent with mild 10 to 20% concentric in-stent restenosis with excellent proximal distal transitioning. The remaining LAD is widely patent. Large ramus intermedius is widely patent and normal. The circumflex artery Is nondominant yet still large caliber and normal The right coronary artery Dominant and normal The CHISHOLM ventriculogram reveals Normal 65% The left ventricular end-diastolic pressure 10 to 15 mmHg IMPRESSION Widely patent coronary arteries as described above Normal ejection fraction Normal LVEDP PLAN 1. Evaluation of noncardiac symptoms Electronically signed by : Korey Menchaca MD 04/23/2024 10:57:03
[2024-04-23 09:30] LABS: Basophils % 0.7 % (0.1-2.0); Eosinophils # 0.1 K/mm3 (0.0-0.4); Eosinophils % 2.8 % (0.1-12.0); Hematocrit 39.8 % (37.0-47.0); Lymphocytes % 23.9 % (10-50); Mean Corpuscular HGB Conc 30.2 g/dL (31.8-35.4); Mean Corpuscular Hemoglobin 27.6 pg (27.0-31.2); Mean Corpuscular Volume 91.5 fl (81-99); Mean Platelet Volume 7.3 fl (7.4-10.4); Monocytes # 0.1 K/mm3 (0.1-1.0); Monocytes % 2.6 % (1.7-9.3); Neutrophils # 2.9 K/mm3 (1.8-7.8); Platelet Count 321 K/mm3 (142-424); Red Blood Count 4.35 M/mm3 (4.20-5.40); Red Cell Distribution Width 15.2 % (11.5-17.5); White Blood Count 4.2 K/mm3 (4.8-10.8)
[2024-04-23 09:34] LABS: Chloride 107 mmol/L (98-107); Potassium 5.6 mmoL/L (3.5-5.1); Sodium 137 mmol/L (136-145)
[2024-04-23 09:37] LABS: Anion Gap 6.6 mEq/L (5-15); Blood Urea Nitrogen 20 mg/dl (7-17); Calcium 8.2 mg/dl (8.4-10.2); Carbon Dioxide 29 mmol/L (22.0-30.0); Creatinine Clearance Estimated 35 mL/min (50-200); Estimated Glomerular Filt Rate 96 ml/min (>60); GFR (African American) 117 ML/MIN (>60); Glucose 86 mg/dl (74-100)
[2024-04-23] MEDS: HEPARIN 1,000 UNITS/ML 10ML VIAL (CATH LAB) 10000 UNIT IV (10:24)
[2024-04-23] MEDS: VERAPAMIL 2.5MG/ML 2ML VIAL 2.5 MG IV (10:24)
[2024-04-23] MEDS: LIDOCAINE 1% 10ML MDV 20 ML IJ (10:24)
[2024-04-23] MEDS: HEPARIN 1,000 UNITS/500ML NS (CATH LAB) 3000 UNIT IV (10:24)
[2024-04-23] MEDS: diphenhydrAMINE 50MG/ML VIAL 50 MG IV (10:25)
[2024-04-23] MEDS: 0.9 % SODIUM CHLORIDE 500 ML 25 ML IV (10:25)
[2024-04-23] MEDS: MIDAZOLAM 2MG/2ML VIAL 1 MG IV (10:48)
[2024-04-23] MEDS: FENTANYL 100MCG/2ML VIAL 50 MCG IV (10:48)
[2024-04-23] MEDS: IOPAMIDOL-370 (76%);100ML BOTTLE 50 ML IV (11:18)
== END 2024-04-23 14:16 | disposition home or self-care (01) ==
PROVIDERS: PCP Internal Medicine Adolescent Medicine; Visit Provider Internal Medicine
DX: I25.118 Atherosclerotic heart disease of native coronary artery with other forms of angina pectoris (principal); M89.8X1 Other specified disorders of bone, shoulder; Z79.899 Other long term (current) drug therapy
CPT/HCPCS: 80048; 85025; 93458; 99152; C1725; C1769; J1200; J1644; J2250; J3010; Q9967

== ENCOUNTER 2025-01-13 18:34 | Emergency (ER) | payer MEDICARE, SELFPAY ==
--- NOTE | 2025-01-13 18:43 | ECG_ITS ---
APPROVED REPORT Exam: Resting ECG HR:69 bpm ECG Measurements Heart Rate 69 AXES MD 179 P 64 QRSd 76 QRS -3 QT 379 T 46 QTc 398 Conclusion Sinus rhythm No acute ischemic changes Electronically signed by : CONCHITA GRAY, 01/13/2025 23:10:56
[2025-01-13 18:45] VITALS: BP 197/86; PULSE 70; RESP 18; TEMP 36.9; O2SAT 98; BMI 20.5
--- NOTE | 2025-01-13 19:02 | HMH.EDGENADL ---
Discharge Plan Disposition Patient Disposition: Home, Self-Care Chief Complaint: Skin/Abscess/Foreign Body Prescriptions Prescriptions: No Action duloxetine 60 mg capsule,delayed release(DR/EC) 60 mg PO DAILY nitroglycerin 0.4 mg tablet, sublingual 0.4 mg sublingual Q5-15M PRN (Reason: chest pain) Qty: 30 1RF Rx Instructions: do not exceed 3 doses per episode losartan 50 mg tablet 50 mg PO DAILY Qty: 90 3RF lorazepam 1 mg tablet 1 mg PO BID PRN (Reason: pain, moderate) Qty: 60 5RF Rx Instructions: Please take 1 tablet p.o. twice daily as needed budesonide 3 mg capsule,delayed,extend.release 3 mg PO DAILY Qty: 90 6RF Rx Instructions: Take 3 capsules by mouth every night aspirin 81 MG tablet,chewable 81 mg PO DAILY Referrals Follow up/Referrals: Ren Armas MD [Primary Care Provider] - See instructions Activity Restrictions/Add. Instructions Additional Instructions/Restrictions: Call your family doctor to establish care for this visit to the emergency department and schedule follow-up within 48 hours to ensure improvement. If you have any worsening of your condition or any other concerning signs or symptoms, return to the emergency department or your primary care doctor for further evaluation. Take Tylenol 1000 mg every 6 hours (4 times daily) and ibuprofen 400 mg every 6 hours (4 times daily) as needed with food and water to prevent GI upset and kidney damage. Lidocaine ointment can be applied up to 4 times daily Clinical Impressions Clinical Impression: Superficial burn of back Qualifiers: Encounter type: initial encounter Qualified Code(s): T21.14XA - Burn of first degree of lower back, initial encounter Instructions Patient Instructions: DI for Skin Abscess Print Language Print Language: Romanian Discharge ED Provider: William Warren General Adult HPI General Chief complaint: Skin/Abscess/Foreign Body Stated complaint: Electric shock from back massager Time Seen by Provider: 01/13/25 18:40 Mode of Arrival: Ambulatory Source of Information: Patient Description of Symptoms (Recalled from ER Triage Doc. by RN): pt presents to ED with c/o right sided lower back burn . pt was using a portable back massager in her chair at home. pt reports that while she was using it she began to feeling a burning sensation in her back. pt reports extreme pain and sensitivity to the area. 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 History of Present Illness HPI narrative: Please note that above description of symptoms, in this electronic medical record under categorization of recalled from ER triage doctor by RN are reflective of an initial nursing assessment, however, is not reflective of my full history and physical exam that was personally taken and clarified. Consequentially, this preceding description of symptoms, which may include the patient's categorized chief complaint in the EMR, do not reflect my personal clinical impression, and the ultimate description of history of present illness and patient stated complaints should be deferred to this section of the note. Unless stated otherwise or congruent with this section of the note, additional signs, symptoms, or incongruence should be interpreted as inaccurate with my clinical impression. Related Data Home Medications ?Medication ?Instructions ?Recorded ?Confirmed aspirin 81 mg chewable tablet 81 mg PO DAILY heart health 04/08/20 12/30/24 duloxetine 60 mg capsule,delayed 60 mg PO DAILY 04/24/22 12/30/24 release Previous Rx's ?Medication ?Instructions ?Recorded nitroglycerin 0.4 mg sublingual 0.4 mg sublingual Q5-15M PRN chest 04/09/24 tablet pain #30 tabs losartan 50 mg tablet 50 mg PO DAILY #90 tabs 05/06/24 lorazepam 1 mg tablet 1 mg PO BID PRN pain, moderate #60 11/26/24 tabs budesonide 3 mg 3 mg PO DAILY #90 ea 12/22/24 capsule,delayed,extended release Allergies Allergy/AdvReac Type Severity Reaction Status Date / Time etodolac (From [facility]) Allergy Intermediate Verified 12/30/24 13:15 Penicillins Allergy Unknown Verified 12/30/24 13:15 Sulfa (Sulfonamide Allergy Unknown Verified 12/30/24 13:15 Antibiotics) [facility] Disclaimer: The information contained in this section may have been updated after the patient was seen, as this information can be updated by other users. Medical History Mitral valve prolapse Fatigue Shoulder blade pain Atypical angina Vaginal atrophy Gastroenteritis HLD (hyperlipidemia) Sacroiliitis Degenerative disc disease Colitis Suspected acute on chronic versus infectious. Continue antibiotics and steroids. Follow-up with GI in the outpatient setting. Hypochloremia Fatigue HHD (hypertensive heart disease) Coronary atherosclerosis Surgical History History of back surgery History of cholecystectomy Stented coronary artery Social History Smoking Status: Former smoker alcohol intake: never substance use type: denies use current occupational status: unemployed Travel in the last 8 weeks?: None household members: spouse housing: house current occupational exposures/hazards: No caffeine: Yes Have you lived/traveled outside US in past 30 days?: No Contact w/someone who lives/traveled outside US past 30 days?: No Exposure to someone with infectious disease in past 14 days?: No Do you have a fever (greater than 100.4 F or 38 C)?: No Have you tested positive for COVID-19?: No Exposed to someone with COVID-19 in past 14 days?: No Do you have a sore throat?: No Do you have a cough?: No Do you have any weakness?: No Do you have any diarrhea?: No Are you experiencing any unusual bleeding?: No Do you have any muscle aches/pain?: No Do you have any abdominal pain?: No Are you experiencing loss of taste or smell?: No Other Medical History Have you received the Flu Vaccine for this season: No Have you received the Pneumonia Vaccine: Yes ROS Obtained: Yes All systems reviewed & no additional complaints except as documented Physical Exam General General appearance: alert Head Head exam: atraumatic and normocephalic Eye Eye exam: Present normal appearance, PERRL and EOMI Neck Neck exam: Present normal inspection, full ROM and trachea midline Respiratory Respiratory exam: Absent respiratory distress, wheezes, stridor, accessory muscle use or prolonged expiratory phase Cardiovascular Cardiovascular exam: Present other (Pulses equal symmetric in upper and lower extremities) Abdominal Exam Abdominal exam: Present soft; Absent distention, tenderness or pulsatile mass Extremities Exam Extremities exam: Absent edema Back Exam Back exam: Present CVA tenderness (R) (Superficial CVA tenderness overlying the flank with associated erythema. No evidence of blistering or skin sloughing.); Absent CVA tenderness (L) Neurological Exam Neurological exam: Present alert, oriented X3 and CN II-XII intact; Absent motor sensory deficit Skin Skin exam: Present warm and dry; Absent diaphoresis or erythema Medical Decision Making Medical Records Medical records reviewed: Yes I reviewed the patient's medical records. Screening: Per USPSTF and CDC recommendations, given the prevalence of disease in our region, it is our hospital?s policy to screen for HIV and viral Hepatitis for all patients aged 18 and over and those with ongoing risk factors. Juan J Inquiry Pt receiving controlled substance: No Juan J was queried for this patient: No Vital Signs: 01/13/25 18:45 Temperature 98.4 F Temperature Source Oral Pulse Rate [Left Radial] 70 Respiratory Rate 18 Blood Pressure [Right Arm] 197/86 H Blood Pressure Mean [Right Arm] 123 02 Sat by Pulse Oximetry 98 Oxygen Delivery Method Room Air Orders (Tests/Meds): ED MEDICATIONS Discontinued Medications Generic Name Dose Route Start Last Admin Trade Name Freq PRN Reason Stop Dose Admin Dexamethasone 10 mg 01/13/25 18:51 01/13/25 19:09 Dexamethasone 4mg Tablet PO 01/13/25 18:52 10 mg ONCE ONE Administration Ketorolac Tromethamine 15 mg 01/13/25 18:51 01/13/25 19:09 Ketorolac 30mg/Ml Vial IV 01/13/25 18:52 15 mg ONCE ONE Administration Lidocaine 35 gm 01/13/25 18:51 01/13/25 19:30 Lidocaine 5% Ointment 35gm Tube TP 01/13/25 18:52 35 gm ONCE ONE Administration ORDERS Category Date Time Status HIV Combo Stat Lab 01/13/25 18:49 Ordered Hepatitis C Ab Qual. W/ RFX Stat Lab 01/13/25 18:49 Ordered Medical Decision Narrative: This is a 79-year-old female no relevant medical history presenting with concern for thermal versus electrical burn. She states that she was using a back massager that was not heating pad/heating device just prior to arrival. She felt a sudden/crescendo burning sensation in her right flank that was severe in intensity and rapid in onset. States that since that time it has been stabbing, burning, like knives, in her right flank. Made worse with motion. She tried to put ice on it and a wet rag. This seemed to make it worse. Tried to wait it out at home, but came in for further evaluation given continued pain. Never had anything like this before. Pain does not radiate, no palpitations, chest pain, lightheadedness, syncope, etc. History was obtained via conversation with patient and significant other. On arrival, patient hemodynamically stable, alert, oriented x4, appropriate, GCS 15, moving all extremities spontaneously, pupils equal and reactive to light. Full physical exam performed and significant for well-appearing female no acute distress, but she does appear to be in pain when moving about. Tearful when trying to stand up and change positions. She does have superficial erythema and tenderness on the right flank that does not radiate when applying pressure. No blistering, skin sloughing, blanching, etc. Appears to be very superficial. Differential includes thermal versus electrical burn, peripheral neuropathy, among others. Patient placed on continuous cardiac monitoring and continuous pulse ox with initial blood pressure 197/86, heart rate 70, saturation 98% on room air. Sinus rhythm 69 bpm with PA interval 179, QRS 76, QTc 398 with no acute ischemic change. Normal axis on independent interpretation of EKG. Patient was given lidocaine ointment, Toradol and Decadron for symptomatic management and correction of underlying abnormalities. On reevaluation, patient feeling moderately better. Still having pain with changes of motion and direct pressure, but states that she is feeling a lot better, able to mobilize better and feels comfortable going home. I feel this is likely the result of a thermal burn secondary to direct thermal contact versus potential electrical short in back massager. Because patient at baseline without signs or symptoms of clinical decompensation, deemed appropriate for discharge. Results were relayed to patient who voiced understanding and were agreeable to outpatient management and follow up. I discussed my clinical impression with patient and answered all questions. At this time, the evidence for any other entities in the differential is insufficient to warrant any further testing or ED observation. This was explained as well. Advisory was given that persistent or worsening symptoms require further evaluation. I confirmed the understanding of this discussion. Elder Counselor disclaimer Much of this encounter note is an electronic sports medicine specialist spoken language to printed text. Electronic sports medicine specialist of the spoken language may permit errors. Although I have reviewed the note, some errors may still exist. Critical Care Critical Care Time Critical Care Time: No
[2025-01-13] MEDS: DEXAMETHASONE 4MG TABLET 10 MG PO (19:09)
[2025-01-13] MEDS: KETOROLAC 30MG/ML VIAL 15 MG IV (19:09)
--- NOTE | 2025-01-13 19:14 | PC.NURSE ---
evelyn torre contacted and aware of need for topical lidocaine from another department
[2025-01-13] MEDS: LIDOCAINE 5% OINTMENT 35GM TUBE 35 GM TP (19:30)
--- NOTE | 2025-01-13 19:30 | PC.NURSE ---
small area of redness and tenderness noted to right lower back, no blisters noted.
[2025-01-13 20:32] VITALS: BP 171/89; PULSE 59; RESP 16; TEMP 36.6; O2SAT 98
== END 2025-01-13 20:33 | disposition home or self-care (01) ==
PROVIDERS: Emergency Provider Emergency Medicine; PCP Internal Medicine Adolescent Medicine
DX: T21.14XA Burn of first degree of lower back, initial encounter (principal); X19.XXXA Contact with other heat and hot substances, initial encounter
CPT/HCPCS: 93005; 96374; 99284; J1885; J8540

== ENCOUNTER 2025-02-19 16:13 | Outpatient (CLI) | payer MEDICARE, SELFPAY ==
--- OUTSIDE RECORDS SUMMARY | 2025-01-29 08:15 | XMS_ITS ---
Author Organization [facility] Address [address] [place] [address] Care Team Providers Care Manager Of Sustainability Name Role Phone Christen Shen Primary Care Provider CHRISTEN SHEN Unavailable Unavaila Ren Naylor Unavailable [phone] Allergies Allergen (clinical drug ingredient) Drug/Non Drug Allergy documented on EMR Reaction Allergy Type Onset Date Status SULFA DRUGS (uncoded) Unknown Allergy Active etodolac Lodine Unknown Drug Allergy Active Penicillin Unknown Drug Allergy Active REASON FOR VISIT got electric burn 2 wk ago seen at [facility] er, stomachache Medications Medication SIG (Take, Route, Frequency, Duration) Notes Start Date End Date Status Aspirin 81 MG 1 TAB(S) ORALLY ONCE A DAY *Please review and pick correct strength-formulati on from [employer] options. If intended option is not shown, discontinue and re-order from Quick Search* Active Multivitamin - 1 tab(s) orally once a day Active Linzess 72 MCG 1 capsule at least 30 minutes before the first meal of the day on an empty stomach Orally Once a day for 30 day(s) 01/07/2025 Active Ativan 1 MG 1 tab(s) orally bid 05/14/2013 Active Budesonide 3 MG 1 capsule Orally for 30 day(s) 01/07/2025 Active DULoxetine HCl 60 MG 1 cap(s) orally onc e a day for 30 day(s) Active Gabapentin 100 MG 1-2 caps Orally at bedtime for 30 days 01/29/2025 Active Rosuvastatin Calcium 10 MG 1 tab(s) orally once a day for 90 days Active Ubrelvy 100 MG 1 tab(s) orally once 11/05/2024 Active OSTEO-BIOFLEX 1 TAB ORALLY ONCE DAILY *Please review for potential replacement for e-prescription and drug interaction check* Active Reclast 5 MG/100ML as directed intravenously once yearly 02/26/2020 Active Losartan Potassium 100 MG 1 tab(s) orally daily for 90 days Active Vital Signs Temperature 98 degrees Fahrenheit 01/29/2025 Heart Rate 74 /min 01/29/2025 Blood pressure systolic 118 mm Hg 01/30/20 25 Blood pressure diastolic 78 mm Hg 025 Height 5 ft 2 in in 01/29/2025 Weight 113 lbs 01/29/2025 BMI 20.67 kg/m2 01/29/2025 Encounters Encounter Location Date Provider Diagnosis [facility] [address] [address] 01/29/2025 Ren Armas Electrocution and nonfatal effects of electric current, subsequent encounter T75.4XXD ; Epigastric pain R10.13 and Hospital discharge follow-up Z09 Assessments Encounter Date Diagnosis (ICD Code) Assessment Notes Treatment Notes Treatment Clinical Notes Section Notes 01/29/2025 Electrocution and nonfatal effects of electric current, subsequent encounter (ICD-10 - T75.4XXD) -120v shock w/o dermatologic burn -residual neuropathic pain for 1w in the region, now w/back pain as below -EKG in ED; no active palpitations, CP/shoulder pain, no exertional component -No change in vision or hearing -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, HTNsive afterward and they increased losartan to 100mg daily 01/29/2025 Epigastric pain (ICD-10 - R10.13) -Occuring ISO electric shock above -no GERD sx, denies exertional component, was not associated with shoulder/jaw pain nor chest pain or pressure (vasculopath w/2PCI in the past noted), minimal TTP, Tupelo negative, no N/V/hemoptysis -Atypical pain sensation per Pt- noted to have IBS and Microscopic colitis but sx do not feel like either -Primary concern for sequelae of electric shock- will trial gabapentin for diagnostic and therapeutic benefit w/close RTC 01/29/2025 Hospital discharge follow-up (ICD-10 - Z09) I reviewed ER notes available from emergency department. Reviewed labs, reviewed discharge plan, personally reconciled medication. Plan Of Treatment Medication Medication Name Sig Start Date Stop Date Notes Gabapentin 100 MG 1-2 caps Orally at bedtime for 30 days 0 01/29/2025 Treatment Notes Assessment Notes Electrocution and nonfatal e ffects of electric current, subsequent encounter -120v shock w/o dermatologic burn -residual neuropathic pain for 1w in the region, now w/back pain as below -EKG in ED; no active palpitations, CP/shoulder pain, no exertional component -No change in vision or hearing -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, HTNsive afterward and they increased losartan to 100mg daily Epigastric pain -Occuring ISO electric shock above -no GERD sx, denies exertional component, was not associated with shoulder/jaw pain nor chest pain or pressure (vasculopath w/2PCI in the past noted), minimal TTP, Tupelo negative, no N/V/hemoptysis -Atypical pain sensation per Pt- noted to have IBS and Microscopic colitis but sx do not feel like either -Primary concern for sequelae of electric shock- will trial gabapentin for diagnostic and therapeutic benefit w/close RTC Hospital discharge follow-up I reviewed ER notes available from emergency department. Reviewed labs, reviewed discharge plan, personally reconciled medication. Next Appt Details Follow Up: prn, Reason: Provider Name:Ren Armas, 03/09/2025 12:15:00 PM, [address] [facility] [address] [facility], [address], [place], [address], Progress Notes * Elizabeth AGUILAR MDOB:1944 (79 yo F)Acc No.[id number]:01/29/2025 Progress Notes Patient: Elizabeth MEJIA Provider: Ortiz Armas MD :1945 A ge:79 Y S ex:Female Date:01/29/2025 Address:[address] [place] [address], [place], [id number] Pcp:Christen Shen Subjective: * Chief Complaints: * 1 . got electric burn 2 wk ago seen at [facility] er. 2. Stomachache. * HPI: g en: Pt states that she was in a massage chair at home and received electric shock 2w prior Notes that she felt a burning sensation deep to the back that made her jump up--had a sweatshirt on and experienced 120v shock Had minimal erythema but severe burning pain ED concerned for a superficial burn--HTN noted on admit--doubled losartan to 100mg via cards NO visual chnages, no cardiac change, no hearing change Pain was neuropathic in character--has had ongoing abdominal pain since; intermittent epigatric pain; f luctuating sensation; different than her IBS sensation. Has been fatigued, and sore. Aching, strong sharp pain. Since pain onset, BMs have been regular requiring miralax and off budesonide. Lidocaine gel helped some. * Medical History: I rritable bowel syndrome, Low back pain, Microscopic colitis, colonoscopy January 2015 with hyperplastic polyp - repeated 07/28 and was normal. Again normal C-scope in 04/29, Osteoporosis -takes calcium with D daily and Reclast started 2013 - DEXA repeated in February 2020 - continued reclast recommended, Mitral Valve Prolapse, 2 cardiac stents, January 2018, Anxiety, SBO with EGD 04/2020 with bile reflux - o/w normal egd, Normal mammogram 01/2023 and 03/03, Dyspepsia. * Medications: T aking Ativan 1 MG Tablet 1 tab(s) orally bid , Taking Aspirin 81 MG TABLET 1 TAB(S) ORALLY ONCE A DAY , Notes to Pharmacist: *Please review and pick correct strength-formulation from [employer] options. If intended option is not shown, discontinue and re-order from Quick Search*, Taking Multivitamin - Tablet 1 tab(s) orally once a day , Taking OSTEO-BIOFLEX 1 TAB ORALLY ONCE DAILY , Notes to Pharmacist: *Please review for potential replacement for e-prescription and drug interaction check*, Taking Reclast 5 MG/100ML Solution as directed intravenously once yearly , Taking Losartan Potassium 100 MG Tablet 1 tab(s) orally daily , Taking Ubrelvy 100 MG Tablet 1 tab(s) orally once , Taking Rosuvastatin Calcium 10 MG Tablet 1 tab(s) orally once a day , Taking DULoxetine HCl 60 MG Capsule Delayed Release Particles 1 cap(s) orally once a day , Taking Linzess 72 MCG Capsule 1 capsule at least 30 minutes before the first meal of the day on an empty stomach Orally Once a day , Taking Budesonide 3 MG Capsule Delayed Release Particles 1 capsule Orally , Discontinued Ciprofloxacin-dexAMETHasone 0.3-0.1 % Suspension 4 gtt in each affected ear 2 times a day , Medication List reviewed and reconciled with the patient * Allergies: S ULFA DRUGS, Lodine, Penicillin. Objective: * Vitals: N urse: dw, Pain: 0, Temp: 98, RR: 18, HR: 74, BP: 118/78, Ht: 5 ft 2 in, Wt: 113, BMI:20.67. * Examination: G eneral Examination: General P leasant and Cooperative, NAD on RA,. Lungs: L CTAB, No wheezes, crackles or rhonchi, Good air movement,. Abdomen: M inimal TTP overlying epigastrium; Tupelo Neg, costochondral pain under LUQ. Neurologic Exam: n o focal signs,, normal sensation, , Alert and oriented x 3. Skin: M inor TTP overlying the R paraspinal region at site of shock, no rash.. Psych N ormal Mood/Affect. Assessment: * Assessment: 1. E lectrocution and nonfatal effects of electric current, subsequent encounter - T75.4XXD (Primary) 2 . E pigastric pain - R10.13 3 . H ospital discharge follow-up - Z09 Plan: * Treatment: 2. E pigastric pain Notes: -Occuring ISO electric shock above -no GERD sx, denies exertional component, was not associated with shoulder/jaw pain nor chest pain or pressure (vasculopath w/2PCI in the past noted), minimal TTP, Tupelo negative, no N/V/hemoptysis -Atypical pain sensation per Pt- noted to have IBS and Microscopic colitis but sx do not feel like either -Primary concern for sequelae of electric shock- will trial gabapentin for diagnostic and therapeutic benefit w/close RTC 3. H ospital discharge follow-up Notes: I reviewed ER notes available from emergency department. Reviewed labs, reviewed discharge plan, personally reconciled medication. * Follow Up: p rn * * Sign off status: Completed true * Provider: Ortiz Armas MD Date: 0 01/29/2025 Generated for Darya mei/Betsy/Sumanitting on: 0 02/19/2025 04:16 PM EDT History and Physical Notes * HPI (History of Present Illness) Category Sub-Category Detail Notes Category Not es gen Pt states that she was in a massage chair at home and received electric shock 2w prior Notes that she felt a burning sensation deep to the back that made her jump up--had a sweatshirt on and experienced 120v shock Had minimal erythema but severe burning pain ED concerned for a superficial burn--HTN noted on admit--doubled losartan to 100mg via cards NO visual chnages, no cardiac change, no hearing change Pain was neuropathic in character--has had ongoing abdominal pain since; intermittent epigatric pain; fluctuating sensation; different than her IBS sensation. Has been fatigued, and sore. Aching, strong sharp pain. Since pain onset, BMs have been regular requiring miralax and off budesonide. Lidocaine gel helped some. Examination Category Sub-Category Detail Notes Category Not es General Examination Lungs: LCTAB, No wh eezes, crackles or rhonchi, Good air movement, Abdomen: Minimal TTP overlyin g epigastrium; Tupelo Neg, costochondral pain under LUQ Skin: Minor TTP overlying the R paraspinal region at site of shock, no rash. Neurologic Exam: no focal signs,, nor mal sensation, , Alert and oriented x 3 General Pleasant and Coopera tive, NAD on RA, Psych Normal Mood/Affect
--- OUTSIDE RECORDS SUMMARY | 2025-02-09 07:00 | XMS_ITS ---
Author Organization formerly [facility] Address [address] [place] [address] Care Team Providers Care Electrical Continuity Tester Name Role Phone Merna Shen Primary Care Provider [phone] MERNA SHEN Unavailable UnavailRen Camacho Unavailable [phone] Allergies Allergen (clinical drug ingredient) Drug/Non Drug Allergy documented on EMR Reaction Allergy Type Onset Date Status SULFA DRUGS (uncoded) Unknown Allergy Active etodolac Lodine Unknown Drug Allergy Active Penicillin Unknown Drug Allergy Active REASON FOR VISIT Discuss Medication Medications Medication SIG (Take, Route, Frequency, Duration) Notes Start Date End Date Status Reclast 5 MG/100ML as directed intravenously once yearly 02/26/2020 Active Losartan Potassium 100 MG 1 tab(s) orally daily for 90 days Active Ubrelvy 100 MG 1 tab(s) orally once 11/05/2024 Not-Taking Rosuvastatin Calcium 10 MG 1 tab(s) orally once a day for 90 days Active DULoxetine HCl 60 MG 1 cap(s) orally once a day for 30 day(s) Active OSTEO-BIOFLEX 1 TAB ORALLY ONCE DAILY *Please review for potential replacement for e-prescription and drug interaction check* Active Ativan 1 MG 1 tab(s) orally bid 05/14/2013 Active Pantoprazole Sodium 20 MG 1 tablet 1/2 to 1 hour before morning meal Orally Once a day for 30 day(s) 02/09/2025 Active Aspirin 81 MG 1 TAB(S) ORALLY ONCE A DAY *Please review and pick correct strength-formulat ion from Medispan options. If intended option is not shown, discontinue and re-order from Quick Search* Active Multivitamin - 1 tab(s) orally once a day Active Linzess 72 MCG 1 capsule at least 30 minutes before the first meal of the day on an empty stomach Orally Once a day for 30 day(s) 01/07/2025 Not-Taking Budesonide 3 MG 1 capsule Orally for 30 day(s) 01/07/2025 Active Gabapentin 300 MG 1 cap Orally at bedtime for 30 days 02/09/2025 Active Vital Signs Temperature 97.7 degrees Fahrenheit 02/10/20 25 Heart Rate 70 /min 02/09/2025 Blood pressure systolic 100 mm Hg 02/10/20 25 Blood pressure diastolic 68 mm Hg 025 Height 5 ft 2 in in 02/09/2025 Weight 115 lbs 02/09/2025 BMI 21.03 kg/m2 02/09/2025 Encounters Encounter Location Date Provider Diagnosis [facility] [address] [place], [place] [address] 02/09/2025 Ren Armas Epigastric pain R10.13 Assessments Encounter Date Diagnosis (ICD Code) Assessment Notes Treatment Notes Treatment Clinical Notes Section Notes 02/09/2025 Epigastric pain (ICD-10 - R10.13) -Occuring ISO hx of IBS and microscopic colitis but worsened/change in quality following electric shock to mid back. 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 but w/o resolution- back continues to burn and ache intermittently and abdominal pain is largely epigastric but decribes as diffuse, states that overall she doesnt feel well/like herself -No evidence of Zoster/skin changes -Increase neurontin to 200mg qHS, cautioning on risks given BEERS criteria -Given epigastric regionality will also trial short course of PPI but will monitor closely- hx of osteoporosis and warned of side effects -RTC 1 mo- if sx continue/worsen may need to consider sending back to GI vs Neuro Plan Of Treatment Medication Medication Name Sig Start Date Stop Date Notes Pantoprazole Sodium 20 MG 1 tablet 1/2 t o 1 hour before morning meal Orally Once a day for 30 day(s) 02/09/2025 Gabapentin 300 MG 1 cap Orally at bedt cindy for 30 days 02/09/2025 Treatment Notes Assessment Notes Epigastric pain -Occuring ISO hx of IBS and microscopic colitis but worsened/change in quality following electric shock to mid back. 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 but w/o resolution- back continues to burn and ache intermittently and abdominal pain is largely epigastric but decribes as diffuse, states that overall she doesnt feel well/like herself -No evidence of Zoster/skin changes -Increase neurontin to 200mg qHS, cautioning on risks given BEERS criteria -Given epigastric regionality will also trial short course of PPI but will monitor closely- hx of osteoporosis and warned of side effects -RTC 1 mo- if sx continue/worsen may need to consider sending back to GI vs Neuro Next Appt Details Follow Up: prn, Reason: Provider Name:Ren Armas, 03/09/2025 12:15:00 PM, [address] [facility] [address], [place], [address], Progress Notes * Elizabeth AGUILAR MDOB:1944 (79 yo F)Acc No.[id number]:02/09/2025 Progress Notes Patient: Artur Elizabeth HARKINS Provider: Ortiz Armas MD :1945 A ge:79 Y S ex:Female Date:02/09/2025 Address:[address] [place] [address] [place], [place], [place] Pcp:Merna Shen Subjective: * Chief Complaints: * 1 . Discuss Medication. * HPI: g en: Following up after electric shock and subsequent abdominal pain that was concerning for neuropathic quality. Overall feels that her abdominal pain has overall improved on neurontin b ut has not resolved. Has had 3-4 days in the past 2 weeks where pain was back again but less severe than prior. Pain is generally diffuse, localized at epigastrium and boring through to abck occasionally. I t did seem to radiate along one rib once this week but otherwise has been fairly non specific. No clear associates, thought worse today after a cheeseburger last night and coffee this AM. No change in bowel patterns recently and abdominal pain continues to be atypical in character vs prior bouts of IBS and Microscopic colitis. * Medical History: I rritable bowel syndrome, [...] Normal mammogram 01/2023 and 03/03, Dyspepsia. * Surgical History: G all Bladder Removal 2000, 2 cardiac stents 01/2018, place removed lt side of face-dermatology 10/2018, back surgery 10/2021. * Hospitalization/Major Diagno stic Procedure: C hild , Viral infection , Kidney Infection , heart issues 01/2018, [facility]- colitis, hypokalemia, syncope 04/08/2020, back surgery 10/2021. * Family History: F ather: . M other: . P aternal Grand Father: . P aternal Grand Mother: . M aternal Grand Father: . M aternal Grand Mother: . Paternal uncle: . P aternal aunt: . S iblings: alive, 1 brother open heart surgery (3 by passes)another brother with stents. C hildren: alive, daughter-brain tumor.?2 brother(s) . 2 daughter(s) . . * Social History: S moking A re you a:: nonsmoker. R ecreational drug use: no. Exercise: no. Home smoke detector use: yes. Caffeine: yes, coffee 3-4 cups daily. Living Will: No. Alcohol: socially. Sexually active: yes. Travel outside [place]: no. Occupation: retired. * Medications: T aking Ativan 1 MG Tablet 1 tab(s) orally bid , Taking Aspirin 81 MG TABLET 1 TAB(S) ORALLY ONCE A DAY , Notes to Pharmacist: *Please review and pick correct strength-formulation from Medispan options. If intended option is not shown, [...] Tablet 1 tab(s) orally daily , Taking Rosuvastatin Calcium 10 MG Tablet 1 tab(s) orally once a day , Taking DULoxetine HCl 60 MG Capsule Delayed Release Particles 1 cap(s) orally once a day , Taking Budesonide 3 MG Capsule Delayed Release Particles 1 capsule Orally , Taking Gabapentin 100 MG Capsule 1-2 caps Orally at bedtime , Not-Taking Ubrelvy 100 MG Tablet 1 tab(s) orally once , Not-Taking Linzess 72 MCG Capsule 1 capsule at least 30 minutes before the first meal of the day on an empty stomach Orally Once a day , Medication List reviewed and reconciled with the patient * Allergies: S ULFA DRUGS, Lodine, Penicillin. Objective: * Vitals: N urse:sw, Pain:0, Temp:97.7, RR:18, HR:70, BP:100/68, Ht: 5 ft 2 in, Wt:115, BMI:21.03. * Examination: G eneral Examination: General P leasant and Cooperative, NAD on RA, thin, healthy appearing. Heart: R egular Rate and Rhythm, no murmur, rubs or gallops. Lungs: L CTAB, No wheezes, crackles or rhonchi, Good air movement. Abdomen: S oft, NTND. Peripheral pulses: n ormal (2+) bilaterally. Extremities: n ormal ROM,, no clubbing, no edema,, no foot lesions,. Psych N ormal Mood/Affect. Assessment: * Assessment: 1. E pigastric pain - R10.13 (Primary) Plan: * Treatment: * Follow Up: p rn * * Sign off status: Completed true * Provider: Ortiz Armas MD Date: 02/09/2025 Generated for Evangelinai sigifredo/Faxing/eTransmitting on: 0 02/19/2025 04:16 PM EDT History and Physical Notes * HPI (History of Present Illness) Category Sub-Category Detail Notes Category Not es gen Following up after electric shock and subsequent abdominal pain that was concerning for neuropathic quality. Overall feels that her abdominal pain has overall improved on neurontin but has not resolved. Has had 3-4 days in the past 2 weeks where pain was back again but less severe than prior. Pain is generally diffuse, localized at epigastrium and boring through to abck occasionally. It did seem to radiate along one rib once this week but otherwise has been fairly non specific. No clear associates, thought worse today after a cheeseburger last night and coffee this AM. No change in bowel patterns recently and abdominal pain continues to be atypical in character vs prior bouts of IBS and Microscopic colitis. Examination Category Sub-Category Detail Notes Category Not es General Examination Heart: Regular Rate and Rhythm, no murmur, rubs or gallops Lungs: LCTAB, No wheezes, c rackles or rhonchi, Good air movement Abdomen: Soft, NTND Extremities: normal ROM,, no club ana, no edema,, no foot lesions, Peripheral pulses: normal (2+) bilatera lly General Pleasant and Coopera tive, NAD on RA, thin, healthy appearing Psych Normal Mood/Affect
--- OUTSIDE RECORDS SUMMARY | 2025-02-10 07:51 | XMS_ITS ---
Author Organization [facility] Address [address] [place], [place] [address] Care Team Providers Care Commercial Makeup Artist Name Role Phone Christen Shen Primary Care Provider [phone] [place] [place] Unavailable Unavaila Ren Nalyor Unavailable [phone] REASON FOR VISIT mammogram order Encounters Encounter Location Date Provider Diagnosis [facility] [address] [place], [place] [address] 02/10/2025 Ren Armas Breast cancer screening by mammogram Z12.31 Assessments Encounter Date Diagnosis (ICD Code) Assessment Notes Treatment Notes Treatment Clinical Notes Section Notes 02/10/2025 Breast cancer screening by mammogram (ICD-10 - Z12.31) Plan Of Treatment Pending Test Test Name Order Date Mammogram : Bilateral 02/10/2025 Next Appt Details Provider Name:Ren Armas, 03/09/2025 12:15:00 PM, [address], [address], [place], [place], [address], Progress Notes * Elizabeth AGUILAR MDOB:1944 (79 yo F)Acc No.[id number]:02/10/2025 Patient: Elizabeth MEJIA :1945 A ge:79 Y S ex:Female Address:[address], [place] [address] Subjective: * Chief Complaints: * M ammogram order * Medical History: * Surgical History: * Hospitalization/Major Diagno stic Procedure: * Medications: Objective: * Vitals: * Physical Examination: Assessment: * Assessment: 1. B reast cancer screening by mammogram - Z12.31 Plan: * Treatment: * Procedure Codes: * true * Date: Generated for Darya mei/Betsy/Sumanitting on: 0 02/19/2025 04:16 PM EDT
--- OUTSIDE RECORDS SUMMARY | 2025-02-19 16:16 | XMS_ITS | Clinical Summary ---
Author Organization [facility] Address [address] [place] [address] Phone Care Team Providers Care Dot Etcher Name Role Phone Ren Armas MD Primary Care Provider [phone] Allergies Active Allergy Reactions Criticality Noted Date Comments Etodolac Rash 10/20/2021 Penicillins Itching 10/24/2021 Sulfa (Sulfonamide Antibiotics) Hives Medium 07/11 Medications DULoxetine (CYMBALTA) 60 mg Oral Capsule, Delayed Release(E.C.) Take 60 mg by mouth nightly. 1 Active LORazepam (ATIVAN) 1 mg Oral Tablet Take 1 mg by mouth 2 times daily. 1 Active budesonide (ENTOCORT EC) 3 mg Oral Capsule, Delayed & Ext.Release Take 3 mg by mouth nightly. 1 Active rosuvastatin (CRESTOR) 10 mg Oral Tablet Take 10 mg by mouth nightly. at bedtime 1 Active DOMPERIDONE, BULK, MISCIndications :1 tablet prior to meals by Misc.(Non-Drug; Combo Route) route. Indications: 1 tablet prior to meals Active CALCIUM-MAGNESI UM ORAL Take by mouth daily. Active multivit-min/fe rrous fumarate (MULTI VITAMIN ORAL) Take by mouth daily. Active glucosamine/cho ndr krishnamurthy A sod (OSTEO BI-FLEX ORAL)Indication s:RESUME ON 10/30/21 Take by mouth daily. Active aspirin 81 mg Oral Tablet, Chewable Take 81 mg by mouth daily. Active omeprazole (PRILOSEC) 20 mg Oral Capsule, Delayed Release(E.C.) Take by mouth every morning (before breakfast). Active methocarbamoL (ROBAXIN) 750 mg Oral Tablet Take 1 Tablet by mouth 4 times daily as needed. 2 Active Additional Information Patient not taking.Reason: Therapy Completed, Reported on 12/28/2023 losartan (COZAAR) 25 mg Oral Tablet Take 25 mg by mouth 2 times daily. 4 Active Active Problems Problem Noted Date Diagnosed Date Spondylolisthesis, lumbar region 10/24/2021 CAD (coronary artery disease) Hyperlipidemia Immunizations Immunization Administration Dates Next Due Tdap 12/28/2023 Surgical History Surgery Date Site/Laterality Comments CARDIAC SURGERY 01/08/2018 - 02/07/2018 stents CHOLECYSTECTOMY CARDIAC CATHETERIZATION COLONOSCOPY UPPER GASTROINTESTINAL ENDOSCOPY LUMBAR FUSION 10/24/2021 Right TRANSFORAMINAL LUMBAR INTERBODY FUSION AT L5-S1 ON THE RIGHT SIDE; Surgeon: Hector Lara MD; Location: [facility] MAIN OR; Service: Neurosurgery Medical devices from this surgery are in the Medical Devices section. Medical History Medical History Date Comments CAD (coronary artery disease) Heartburn Irritable bowel syndrome Hyperlipidemia Family History Medical History Relation Name Comments Heart Disease Father Stroke Father mom Mother natural causes Anesth Problems Neg Hx Relation Name Status Comments Father Mother Social History Tobacco Use Types Packs/Day Years Used Date Smoking Tobacco: Never Smokeless Tobacco: Never Alcohol Use Standard Drinks/Week Comments Yes 0 (1 standard drink = 0.6 oz pur e alcohol) occassionally Overall Financial Resource Strain (CARDIA) Answe r Date Recorded How hard is it for you to pa y for the very basics like food, housing, medical care, and heating? Not hard at all 10/25/2021 Hunger Vital Sign Answer Date Recorded Within the past 12 months, y ou worried that your food would run out before you got the money to buy more. Never true 10/25/19 22 Within the past 12 months, t he food you bought just didn't last and you didn't have money to get more. Never true 10/25/2021 PRAPARE - Transportation Answer Date Re corded In the past 12 months, has l ack of transportation kept you from medical appointments or from getting medications? No 10/11 In the past 12 months, has l ack of transportation kept you from meetings, work, or from getting things needed for daily living? No 10/25/2021 Comments No Sex and Gender Information Value Date Recorded Sex Assigned at Not on file Legal Sex Female 7:17 AM EDT Gender Identity Not on file Sexual Orientation Not on file Obstetrics History Last Filed Vital Signs Vital Sign Reading Time Taken Comments Blood Pressure 135/79 12/28/2023 4:00 PM EDT Pulse 68 12/28/2023 4:00 PM EDT Temperature 36.6 C (97.9 F) 12/28/2023 4:00 PM EDT Respiratory Rate 16 12/28/2023 4:00 PM EDT Oxygen Saturation 98% 12/28/2023 3:59 PM EDT Inhaled Oxygen Concentration - - Weight 49.4 kg (109 lb) 12/28/2023 4:00 PM EDT Height 157.5 cm (5' 2 ) 12/28/2023 4:00 PM EDT Body Mass Index 19.94 12/28/2023 4:00 PM EDT Plan of Treatment Health Maintenance Due Date Last Done Comments Wellness Exam Medicare 1948 Hepatitis C Screening 1963 Pneumococcal Vaccine 50+ (1 of 1 - PCV) 1995 Bone Density Screening 2010 Zoster (2 of 3) 07/27/2016 06/01/2016 RSV or 60+ (1 - 1-dose 75+ series) 2020 COVID-19 Vaccine ( - season) 2024 10/19/2020, 09/21/2020 Influenza Vaccine (Season Ended) 2025 07/17/2022, 08/31/2021, 07/15/2020, Additional history exists DTaP/TDaP/Td (2 - Td or Tdap) 12/27/2033 12/28/2023 Hepatitis B Vaccine Aged Out No longe r eligible based on patient's age to complete this topic Meningococcal B Vaccine Aged Out No l onger eligible based on patient's age to complete this topic Medical Devices Implanted Type Area Sr. Strategic Sourcing Manager Device Identifier Shelf Expiration Date Model / Serial / Lot Cardiac Stents Kt Graft 2.8ml Infs Sm Valentin Matrx 2-Tn Bnd 5ml Strl H2o - [id number] Implanted:Qty: 1 on 10/24/2021 by Hector Lara MD at [facility] Right: Spine Lumbar [employer]:SOFAM OR DANEK 05/10/2023 [id number] / / [id number] Cage Capstone 8mm X 22mm Vertestak - [id number] Implanted:Qty: 1 on 10/24/2021 by Hector Lara MD at [facility] Right: Spine Lumbar [employer]:SOFAM OR DANEK 02/10/2029 [id number] / / [id number] Screw Voyager Solera 6.5 X 35mm - 5.5/6.0 - [id number] Implanted:Qty: 2 on 10/24/2021 by Hector Lara MD at [facility] Right: Spine Lumbar [employer]:SOFAM OR DANEK [id number] / / Screw Voyager Solera 6.5 X 40mm - 5.5/6.0 - [id number] Implanted:Qty: 2 on 10/24/2021 by Hector Lara MD at [facility] Right: Spine Lumbar [employer]:SOFAM OR DANEK [id number] / / Set Screw 5.5/6.0 Solera Voyager - [id number] Implanted:Qty: 4 on 10/24/2021 by Hector Lara MD at [facility] Right: Spine Lumbar [employer]:SOFAM OR DANEK [id number] / / Xu Percutaneous 5.5mm X 35mm - [id number] Implanted:Qty: 1 on 10/24/2021 by Hector Lara MD at [facility] Right: Spine Lumbar [employer]:SOFAM OR DANEK [id number] / / Xu Percutaneous 5.5mm X 40mm - [id number] Implanted:Qty: 1 on 10/24/2021 by Hector Lara MD at [facility] Right: Spine Lumbar [employer]:SOFAM OR DANEK [id number] / / Cage Capstone 8mm X 22mm Vertestak - [id number] Implanted:Qty: 1 on 10/24/2021 by Hector Lara MD at [facility] Right: Spine Lumbar [employer]:JEFF OR JAYJAY [id number] / / Insurance MEDICARE [place] PART A AND B SUPPLEMENTAL MEDICARE [place] PART A [place] B SUPPLE[place]AL Advance Directives For more information, please contact: [phone] * Full Code (Latest Code Status on File) Date Activated Date Inactivated Comments 10/24/2021 1:57 PM 10/25/2021 7:16 PM Care Teams Dot Etcher Relationship Specialty Start Date End Date Ren Armas MD [address] [place] [phone] PCP - General Internal Medicine-Adolescent Medicine 07/20/21
--- NOTE | 2025-02-19 16:17 | MM_ITS ---
PROCEDURE INFORMATION: Exam: MG Bilateral Screening 3D Mammography Exam date and time: 02/19/2025 4:22 PM Age: 79 years old Clinical indication: Screening examination. Her maternal grandmother had breast cancer. TECHNIQUE: Imaging protocol: Bilateral Screening tomosynthesis and 2D mammography including computer-aided detection (CAD) when performed. COMPARISON: 1. MG MM DIG SCREENING MAMM BI W/CAD 02/06/2024 10:43 AM 2. MG MM DIG SCREENING MAMM BI W/CAD 01/24/2023 10:35 AM 3. MG MM DIG SCREENING MAMM BI W/CAD 01/20/2022 10:58 AM 4. MG MM DIG SCREENING MAMM BI W/CAD 10/17/2019 10:25 AM FINDINGS: MAMMOGRAPHY: Breast composition: The breasts are heterogeneously dense, which may obscure small masses. Mass: None. Architectural distortion: None. Calcifications: No suspicious calcifications. Asymmetric density: None. Skin thickening: None. Axillary adenopathy: None. IMPRESSION: No mammographic evidence of malignancy. Annual screening is recommended unless otherwise clinically indicated. ASSESSMENT: BI-RADS Category 1: Negative.
--- OUTSIDE RECORDS SUMMARY | 2025-02-19 16:17 | XMS_ITS | Clinical Summary ---
Author Organization [facility] Address [address] [place] [address] Care Team Providers Care It Application Support Analyst Name Role Phone Ren Armas MD Primary Care Provider [phone] Encounters Date Type Department Care Team Description 01/27/2025 Travel from Last 3 Months Social History Tobacco Use Types Packs/Day Years Used Date Smoking Tobacco: Never Assessed Comments Unknown Sex and Gender Information Value Date Recorded Sex Assigned at Not on file Legal Sex Female 8:37 PM EDT Gender Identity Not on file Sexual Orientation Not on file Plan of Treatment Upcoming Encounters Date Type Department Care Team (Late st Contact Info) Description 03/04/2026 11:00 AM EDT Ovarian Cancer Screening [facility] Gynecology [address] [place] [address] Health Maintenance Due Date Last Done Comments [facility]-Bone Density Scan 1945 [facility]-Depression Screening 1945 [facility]-Hepatitis C Screening 1945 [facility]-/Child/Adol SDOH Screenings 1945 [facility]- SDOH Screenings 1963 [facility]-Adult SDOH Screenings 1963 [facility]-Zoster Vaccines (2 of 3) 07/27/2016 06/01/2016 [facility]-RSV Vaccine: 60+ Years or (1 - 1-dose 75+ series) 2020 [facility]-MIZIC-34 Vaccine (3 - season) 2024 10/19/2020, 09/21/2020 [facility]-Influenza Vaccine (Season Ended) 2025 07/17/2022, 08/31/2021, 07/15/2020, Additional history exists [facility]-DTaP,Tdap,and Td Vaccines (3 - Td or Tdap) 12/27/2033 12/28/2023, 02/23/2015 [facility]-Pneumococcal Vaccine: 50+ Years Completed 08/09/2016, 08/20/2014 HPV Vaccines Aged Out No longer eligi ble based on patient's age to complete this topic [facility]-HIB Vaccines Aged Out No longer e ligible based on patient's age to complete this topic [facility]-Hepatitis A Vaccines Aged Out No longer eligible based on patient's age to complete this topic [facility]-IPV Vaccines Aged Out No longer e ligible based on patient's age to complete this topic [facility]-Rotavirus Vaccines Aged Out No lo nger eligible based on patient's age to complete this topic Insurance [facility] Care Teams It Application Support Analyst Relationship Specialty Start Date End Date Ren Armas MD [address] [place] [address] PCP - General 01/21/21
--- OUTSIDE RECORDS SUMMARY | 2025-02-19 16:17 | XMS_ITS | Encounter Summary ---
Author Organization [facility] Address [address] [place] [address] Care Team Providers Care Drum Carrier Name Role Phone Ren Armas MD Primary Care Provider [phone] Encounter Details Date Type Department Care Team (Latest Contact Info) Description 01/27/2025 Travel Social History Tobacco Use Types Packs/Day Years Used Date Smoking Tobacco: Never Assessed Comments Unknown Sex and Gender Information Value Date Recorded Sex Assigned at Not on file Legal Sex Female 8:37 PM EDT Gender Identity Not on file Sexual Orientation Not on file documented as of this encounter Plan of Treatment Upcoming Encounters Date Type Department Care Team (Late st Contact Info) Description 03/04/2026 11:00 AM EDT Ovarian Cancer Screening [facility] Gynecology [address] [facility] [facility] [place] [address] documented as of this encounter Visit Diagnoses Not on filedocumented in this encounter Care Teams Drum Carrier Relationship Specialty Start Date End Date Ren Armas MD [address] [place] [id number] PCP - General 01/21/21 documented as of this encounter
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
== END 2025-02-19 23:59 | disposition home or self-care (01) ==
LOC: RAD 16:14
PROVIDERS: PCP Internal Medicine Adolescent Medicine; Visit Provider Internal Medicine Adolescent Medicine
DX: Z12.31 Encounter for screening mammogram for malignant neoplasm of breast (principal); R92.333 Mammographic heterogeneous density, bilateral breasts; Z80.3 Family history of malignant neoplasm of breast
CPT/HCPCS: 77063; 77067

== ENCOUNTER 2025-04-15 15:35 | Emergency (ER) | payer MEDICARE, SELFPAY ==
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
[2025-04-15] VITALS (8 sets, daily range): BP systolic 124–157; BP diastolic 60–86; PULSE 65–76; RESP 16; TEMP 36.7–37; O2SAT 95–100; BMI 20.5
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
--- OUTSIDE RECORDS SUMMARY | 2025-04-15 15:45 | XMS_ITS | Clinical Summary ---
Author Organization [facility] Address [address] [place] [address] Phone Care Team Providers Care Associate Financial Analyst Name Role Phone Ren Armas MD Primary Care Provider [phone] Allergies Active Allergy Reactions Criticality Noted Date [...] RIGHT SIDE; Surgeon: Hector Lara MD; Location: [facility]; Service: Neurosurgery Medical devices from [...] - season) 2024 10/19/2020, 09/21/2020 Influenza Vaccine (#1) 2025 , 08/31/2021, 07/15/2020, Additional history exists DTaP/TDaP/Td (2 - Td or Tdap) 12/27/2033 12/28/2023 Hepatitis B Vaccine Aged Out No longe r eligible based on patient's age to complete this topic Meningococcal B Vaccine Aged Out No l onger eligible based on patient's age to complete this topic Medical Devices Implanted Type Area Speech Therapy Assistant Device Identifier Shelf Expiration Date Model / Serial / Lot Cardiac Stents Kt Graft 2.8ml Infs Sm Valentin Matrx 2-Tn Bnd 5ml Strl H2o - [id number] Implanted:Qty: 1 on 10/24/2021 by Hector Lara MD at [facility] Right: Spine Lumbar [employer]:SOFAM OR DANEK 05/10/2023 [id number] / / [id number] Cage Capstone 8mm X 22mm Vertestak - [id number] Implanted:Qty: 1 on 10/24/2021 by Hector Lara MD at [facility] Right: Spine Lumbar [employer]:SOFAM OR DANEK 02/10/2029 [id number] / / [id number] Screw Voyager Solera 6.5 X 35mm - 5.5/6.0 - [id number] Implanted:Qty: 2 on 10/24/2021 by Hector Lara MD at [facility] Right: Spine Lumbar [employer]:SOFAM OR DANEK [id number] / / Screw Voyager Solera 6.5 X 40mm - 5.5/6.0 - [id number] Implanted:Qty: 2 on 10/24/2021 by Hector Lara MD at [facility] Right: Spine Lumbar [employer]:SOFAM OR DANEK [id number] / / Set Screw 5.5/6.0 Solera Voyager - [id number] Implanted:Qty: 4 on 10/24/2021 by Hector Lara MD at [facility] Right: Spine Lumbar [employer]:SOFAM OR DANEK [id number] / / Xu Percutaneous 5.5mm X 35mm - [id number] Implanted:Qty: 1 on 10/24/2021 by Hector Lara MD at [facility] Right: Spine Lumbar [employer]:SOFAM OR DANEK [id number] / / Xu Percutaneous 5.5mm X 40mm - [id number] Implanted:Qty: 1 on 10/24/2021 by Hector Lara MD at [facility] Right: Spine Lumbar [employer]:SOFAM OR DANEK [id number] / / Cage Capstone 8mm X 22mm Vertestak - [id number] Implanted:Qty: 1 on 10/24/2021 by Hector Lara MD at [facility] Right: Spine Lumbar [employer]:JEFF OR JAYJAY [id number] / / Insurance MEDICARE [place] PART A [place] B SUPPLE[place]AL [place]ICARE [place] B [place]PPLE[place]AL Advance Directives For more information, please contact: [phone] * Full Code (Latest Code Status on File) Date Activated Date Inactivated Comments 10/24/2021 1:57 PM 10/25/2021 7:16 PM Care Teams Associate Financial Analyst Relationship Specialty Start Date End Date Ren Armas MD [address] [place] [id number] PCP - General Internal Medicine-Adolescent Medicine 07/20/21
--- OUTSIDE RECORDS SUMMARY | 2025-04-15 15:45 | XMS_ITS | Clinical Summary ---
Author Organization [facility] Address [address] [place] [address] Care Team Providers Care Abrasive Grinder Name Role Phone Ren Armas MD Primary Care Provider [phone] Encounters Date Type Department Care Team Description [...] 03/04/2026 11:00 AM EDT Ovarian Cancer Screening [facility] Gynecology [address] [place] [address] Health Maintenance Due Date Last Done Comments [facility]-Bone Density Scan 1945 [facility]-Depression Screening 1945 [facility]-/Child/Adol SDOH Screenings 1945 [facility]- SDOH Screenings 1963 [facility]-Adult SDOH Screenings 1963 [facility]-Zoster Vaccines (2 of 3) 07/27/2016 06/01/2016 [facility]-RSV Vaccine: 60+ Years or (1 - 1-dose 75+ series) 2020 [id number] Vaccine (3 - season) 2024 10/19/2020, 09/21/2020 [facility]-Influenza Vaccine (#1) 05/11/202507/17, 08/31/2021, 07/15/2020, Additional history exists [facility]-DTaP,Tdap,and Td [...] patient's age to complete this topic Insurance [facility] Care Teams Abrasive Grinder Relationship Specialty Start Date End Date Ren Armas MD [address] [place] [id number] PCP - General 01/21/21
--- OUTSIDE RECORDS SUMMARY | 2025-04-15 15:45 | XMS_ITS | Clinical Summary ---
Author Organization [facility] Address [address] [place] [address] Care Team Providers Care Executive Vice President Name Role Phone Provider, No Known Primary Care Provider Unavail able Social History Tobacco Use Types Packs/Day Years Used Date Smoking Tobacco: Never Assessed Abuse Screen Answer Date Recorded Unsafe at Home or Work/School Not on file Feels Threatened by Someone? Not on file 05/2023 Does Anyone Keep You from Co ntacting Others or Doint Things Outside the Home? Not on file 06/18/2023 Physical Sign of Abuse Present Not on file 1 Housing Stability Answer Date Recorded Current Living Arrangements Not on file 05/2023 Potentially Unsafe Housing Conditions Not on izzy e 06/18/2023 Family and Community Support Answer Nitish e Recorded Help with Day-to-Day Activities Not on file 06/18/2023 Lonely or Isolated Not on file 06/18/2023 Employment Answer Date Recorded Do you want help finding or keeping work or a jean-pierre b? Not on file 06/18/2023 Disabilities Answer Date Recorded Concentrating, Remembering, or Making Decisions Difficulty Not on file 06/18/2023 Doing Errands Independently Difficulty Not on fi le 06/18/2023 Education Answer Date Recorded Help with school or training? Not on file Preferred Language Not on file 06/18/2023 Comments Unknown Sex and Gender Information Value Date Recorded Sex Assigned at Not on file Legal Sex Female 10:08 AM EDT Gender Identity Not on file Sexual Orientation Not on file Plan of Treatment Health Maintenance Due Date Last Done Comments ANNUAL PHYSICAL 1945 DXA SCAN 1945 TDAP/TD VACCINES (1 - Tdap) 1964 Pneumococcal Vaccine 50+ (1 of 1 - PCV) 1995 ZOSTER VACCINE (1 of 2) 1995 RSV Vaccine - Adults (1 - 1-dose 75+ series) 0 COVID-19 Vaccine (2023- season) 2024 INFLUENZA VACCINE 06/10/2025 Care Teams Executive Vice President Relationship Specialty Start Date End Date Provider, [place] [address] PCP - General 04/22/15
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
--- NOTE | 2025-04-15 15:56 | CT_ITS ---
PROCEDURE INFORMATION: Exam: CT Lumbar Spine Without Contrast Exam date and time: 04/15/2025 4:13 PM Age: 80 years old Clinical indication: Injury or trauma; Fall; Blunt trauma (contusions or hematomas); Additional info: Fall, low back pain, HX of spine SX TECHNIQUE: Imaging protocol: Computed tomography of the lumbar spine without contrast. Radiation optimization: All CT scans at this facility use at least one of these dose optimization techniques: automated exposure control; mA and/or kV adjustment per patient size (includes targeted exams where dose is matched to clinical indication); or iterative reconstruction. COMPARISON: MR LUMBAR SPINE WO CON 03/17/2021 1:39 PM FINDINGS: Bones/joints: Moderate to severe thoracolumbar scoliosis. Grade 1 anterolisthesis of L5 on S1. Previous fusion at L5-S1. No acute fracture. Moderate prevertebral osteophytosis. Bilateral facet joint degenerative change. Multilevel disc space narrowing with degenerative endplate change and vacuum disc phenomena. Minimally displaced fracture of the left sacrum. Spinal cord: Central canal is suboptimally evaluated secondary to technique and artifact. No gross high-grade central canal stenosis. Multilevel foraminal stenoses. Gallbladder and biliary ducts: Previous cholecystectomy. Vasculature: Vascular calcification. Soft tissues: Unremarkable. IMPRESSION: 1. Minimally displaced left sacral fracture. 2. No acute lumbar spine fracture.
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
--- NOTE | 2025-04-15 15:57 | XR_ITS ---
PROCEDURE INFORMATION: Exam: XR Left Forearm Exam date and time: 04/15/2025 4:15 PM Age: 80 years old Clinical indication: Injury or trauma; Fall; Blunt trauma (contusions or hematomas); Wrist; Left; Additional info: Left arm pain after fall TECHNIQUE: Imaging protocol: Radiologic exam of the left forearm. Views: 2 views. COMPARISON: CR XR WRIST LT MIN 3V 04/15/2025 4:15 PM FINDINGS: Bones/joints: Comminuted and displaced fracture of the distal radius with probable intra-articular extension. Osteopenia. There are degenerative changes. Soft tissues: Normal. IMPRESSION: Comminuted and displaced fracture of the distal radius with probable intra-articular extension.
--- NOTE | 2025-04-15 15:57 | XR_ITS ---
PROCEDURE INFORMATION: Exam: XR Left Hip Exam date and time: 04/15/2025 4:15 PM Age: 80 years old Clinical indication: Injury or trauma; Fall; Blunt trauma (contusions or hematomas); Does not apply; Pelvic region; Additional info: Left hip pain/buttock pain after fall TECHNIQUE: Imaging protocol: Radiologic exam of the left hip. Views: 2 or 3 views hip with pelvis when performed. COMPARISON: CT ABDOMEN PELVIS W CON 04/08/2020 2:49 PM FINDINGS: Bones/joints: Osteopenia. Degenerative change. Postoperative change involving the lumbosacral spine. There is mildly displaced fracture of the left sacrum. Displaced fractures of the left sided pubic rami. Soft tissues: Unremarkable. IMPRESSION: 1. Fracture of the left sacrum. 2. Displaced fractures of the left superior and inferior pubic rami.
[2025-04-15] MEDS: HYDROCODONE/APAP 5/325 MG TABLET 1 TAB PO (16:04)
--- NOTE | 2025-04-15 17:06 | CT_ITS ---
PROCEDURE INFORMATION: Exam: CT Pelvis Without Contrast, Skeleton Exam date and time: 04/15/2025 5:56 PM Age: 80 years old Clinical indication: Injury or trauma; Fall; Other: Left sacral fracture, pubic rami fractures trauma TECHNIQUE: Imaging protocol: Computed tomography of the pelvis without contrast. Exam focused on the skeleton. Radiation optimization: All CT scans at this facility use at least one of these dose optimization techniques: automated exposure control; mA and/or kV adjustment per patient size (includes targeted exams where dose is matched to clinical indication); or iterative reconstruction. COMPARISON: CR XR HIP LT 2-3V W/PELVIS 04/15/2025 4:15 PM FINDINGS: Urinary bladder: Urinary bladder is distended. Bones/joints: There are degenerative and postoperative changes involving the lumbar spine. There is minimally displaced fracture involving the left sacral ala. there are displaced fractures involving the left superior and inferior pubic rami. There is mild hemorrhage adjacent to left-sided pelvic rami fractures. Soft tissues: Unremarkable. IMPRESSION: 1. Displaced fractures involving left superior and inferior pubic rami with mild adjacent hemorrhage. 2. Minimally displaced left sacral ala fracture.
--- NOTE | 2025-04-15 17:07 | CT_ITS ---
PROCEDURE INFORMATION: Exam: CT Head Without Contrast Exam date and time: 04/15/2025 5:49 PM Age: 80 years old Clinical indication: Injury or trauma; Fall; Other: Left sacral fracture, pubic rami fractures trauma; Additional info: Fall, head trauma TECHNIQUE: Imaging protocol: Computed tomography of the head without contrast. Radiation optimization: All CT scans at this facility use at least one of these dose optimization techniques: automated exposure control; mA and/or kV adjustment per patient size (includes targeted exams where dose is matched to clinical indication); or iterative reconstruction. COMPARISON: CT HEAD/BRAIN WO CON 04/15/2025 5:49 PM FINDINGS: Brain: Age-related volume loss. No acute intracranial hemorrhage, midline shift or significant intracranial effect. Mild decreased attenuation of the supratentorial white matter is likely secondary to chronic microvascular ischemia. Cerebral ventricles: No obstructive hydrocephalus. Paranasal sinuses: Visualized sinuses are unremarkable. No fluid levels. Mastoid air cells: Visualized mastoid air cells are well aerated. Bones: Unremarkable. No acute fracture. Soft tissues: Unremarkable. IMPRESSION: No acute intracranial abnormality.
--- NOTE | 2025-04-15 17:07 | CT_ITS ---
PROCEDURE INFORMATION: Exam: CT Cervical Spine Without Contrast Exam date and time: 04/15/2025 5:53 PM Age: 80 years old Clinical indication: Injury or trauma; Fall; Other: Left sacral fracture, pubic rami fractures trauma; Additional info: Fall/trauma TECHNIQUE: Imaging protocol: Computed tomography of the cervical spine without contrast. Radiation optimization: All CT scans at this facility use at least one of these dose optimization techniques: automated exposure control; mA and/or kV adjustment per patient size (includes targeted exams where dose is matched to clinical indication); or iterative reconstruction. COMPARISON: CR XR MULTIPLE SPINE 6+V 07/15/2020 3:21 PM FINDINGS: Limitations: Limited by artifact arising from metallic dental hardware/dental amalgam. Mild levoconvex curvature. Vertebral body heights are preserved. Grade 1 anterolisthesis of C3 on C4 and C4 on C5. Mild degenerative change about the dens. Mild to moderate prevertebral osteophytosis. Bilateral facet joint degenerative change. Multilevel disc space narrowing with degenerative endplate change. No acute cervical spine fracture. Bones: No acute fracture. Normal alignment. No significant disc bulge or herniation. No severe spinal canal stenosis. No significant neural foraminal narrowing. Lungs: Lung apices are normal. Soft tissues: Unremarkable. IMPRESSION: No acute cervical spine fracture.
--- NOTE | 2025-04-15 17:31 | PC.NURSE ---
Called for a patient transfer per LINDA Mcgovern. they are going to call back when a provider is ready to talk.
--- NOTE | 2025-04-15 17:40 | PC.NURSE ---
[facility] is on the phone with now
[2025-04-15 17:46] LABS: Hematocrit 35.3 % (37.0-47.0); Hemoglobin 11.0 g/dL (12.2-16.2); Immature Granulocytes % 0.9 %; Mean Corpuscular HGB Conc 31.2 g/dL (31.8-35.4); Mean Corpuscular Hemoglobin 26.5 pg (27.0-31.2); Mean Corpuscular Volume 85.1 fl (81-99); Nucleated Red Blood Cells % 0 %; Platelet Count 361 K/mm3 (142-424); Red Blood Count 4.15 M/mm3 (4.20-5.40); Red Cell Distribution Width-SD 48.6 fL; White Blood Count 9.2 K/mm3 (4.8-10.8)
[2025-04-15 17:58] LABS: Chloride 101 mmol/L (98-107)
[2025-04-15 17:59] LABS: Albumin Level 4.1 g/dl (3.5-5.0); Potassium 3.9 mmoL/L (3.5-5.1); Sodium 133 mmol/L (136-145)
[2025-04-15 18:01] LABS: Alanine Aminotransferase 22 U/L (12-78); Aspartate Amino Transferase 41 U/L (14-36); Blood Urea Nitrogen 14 mg/dl (7-17); Creatinine Clearance Estimated 36 mL/min (50-200); Creatinine,Serum 0.60 mg/dl (0.52-1.04); Estimated Glomerular Filt Rate 96 ml/min (>60); GFR (African American) 116 ML/MIN (>60)
[2025-04-15 18:02] LABS: Albumin/Globulin Ratio 1.2 (1.1-1.8); Alkaline Phosphatase 78 U/L (38-126); Anion Gap 8.9 mEq/L (5-15); Bilirubin,Total 0.3 mg/dl (0.2-1.3); Calcium 8.7 mg/dl (8.4-10.2); Carbon Dioxide 27 mmol/L (22.0-30.0); Globulin 3.4 g/dL (1.3-3.2); Glucose 95 mg/dl (74-100); Total Protein,Serum 7.5 g/dl (6.3-8.2)
--- NOTE | 2025-04-15 18:12 | PC.NURSE ---
Attempted call EMS to tell them about the transfer and got no answer.
--- NOTE | 2025-04-15 18:23 | PC.NURSE ---
Attempted to call EMS again to get the patient transfered to and no one picked up.
--- NOTE | 2025-04-15 18:34 | PC.NURSE ---
Called EMS again and they said that as soon as the other ambulance gets back then they will be up here to get the patient.
[2025-04-15 20:47] LABS: Hepatitis C Ab Qual. W/ RFX NEGATIVE (Negative)
== END 2025-04-15 19:17 | disposition other institution (70) ==
PROVIDERS: Physician Assistant; Emergency Provider Emergency Medicine; PCP Internal Medicine Adolescent Medicine
DX: S32.592A Other specified fracture of left pubis, initial encounter for closed fracture (principal); S32.512A Fracture of superior rim of left pubis, initial encounter for closed fracture; S32.10XA Unspecified fracture of sacrum, initial encounter for closed fracture; S52.352A Displaced comminuted fracture of shaft of radius, left arm, initial encounter for closed fracture; W19.XXXA Unspecified fall, initial encounter
CPT/HCPCS: 29125; 70450; 72125; 72131; 72192; 73090; 73110; 73502; 80053; 85025; 86803; 87389; 99285

== ENCOUNTER 2025-06-09 11:00 | Outpatient (RCR) | payer MEDICARE, SELFPAY ==
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
== END 2025-06-09 23:59 | disposition home or self-care (01) ==
LOC: OT 11:00
PROVIDERS: Visit Provider Nurse Practitioner Family
DX: S32.9XXD Fracture of unspecified parts of lumbosacral spine and pelvis, subsequent encounter for fracture with routine healing (principal); S52.502D Unspecified fracture of the lower end of left radius, subsequent encounter for closed fracture with routine healing; V89.9XXD Person injured in unspecified vehicle accident, subsequent encounter
CPT/HCPCS: 97010; 97110; 97140; 97166

== ENCOUNTER 2025-06-26 11:03 | Outpatient (CLI) | payer MEDICARE, SELFPAY ==
--- OUTSIDE RECORDS SUMMARY | 2025-04-20 08:15 | XMS_ITS ---
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 Name Role Phone Christen Shen Primary Care Provider [phone] CHRISTEN SHENSEY Unavailable UnavailRen Camacho [phone] REASON FOR VISIT 6 week f/u, ED FU d/c 04/15/2025 Encounters Encounter Location Date Provider Diagnosis [facility] [address] [place], [place] [address] 04/20/2025 Ren Armas Plan Of Treatment Next Appt Details Provider Name:Ren Armas, 07/01/2025 11:00:00 AM, [address], [address], [place], [place], [address], Progress Notes * Elizabeth AGUILAR MDOB:1944 (80 yo F)Acc No.[id number]:04/20/2025 Progress Notes Patient: Elizabeth MEJIA Provider: Ortiz Armas MD :1945 A ge:80 Y S ex:Female Date:04/20/2025 Address:[address], [place] Pcp:Christen Shen Subjective: * Chief Complaints: * 1 . 6 week f/u, ED FU d/c 04/15/2025. * Medical History: Objective: * Vitals: Assessment: Plan: * Treatment: * * Electronic signature of To Armas MD FAAP on 06/26/2025 at 11:09 AM EDT Sign off status: Pending * Provider: Ortiz Armas MD Date: 0 04/20/2025 Generated for Darya mei/Betsy/Sumanitting on: 1 11:09 AM EDT
--- OUTSIDE RECORDS SUMMARY | 2025-05-08 09:30 | XMS_ITS | Encounter Summary ---
Author Organization [facility] Address [address] [place] [address] Care Team Providers Care Legal Assistant Name Role Phone Ren Armas MD Primary Care Provider [phone] Reason for Visit * Reason Comments Follow-up Follow-up Encounter Details Date Type Department Care Team (Late st Contact Info) Description 05/08/2025 9:30 AM EDT Office Visit [facility] Orthopaedic Surgery & Sports Medicine [address], [address] [place] [address] Amelia Power, PA [address] [place] [address] Closed fracture of distal end of left radius with routine healing, unspecified fracture morphology, subsequent encounter (Primary Dx); Closed fracture of left inferior pubic ramus, initial encounter ([facility]) Social History Tobacco Use Types Packs/Day Years Used Date Smoking Tobacco: Never Smokeless Tobacco: Never Alcohol Use Standard Drinks/Week Comments Yes 0 (1 standard drink = 0.6 oz pur e alcohol) PHQ-2 Answer Date Recorded Patient Health Questionnaire-2 Score 2 05/08/2025 PHQ-9 Answer Date Recorded Patient Health Questionnaire-9 Score 11 05/08/2025 Humiliation, Afraid, Rape, and Kick questionnair e Answer Date Recorded Within the last year, have y ou been afraid of your partner or ex-partner? No 04/17/2025 Within the last year, have y ou been humiliated or emotionally abused in other ways by your partner or ex-partner? No Within the last year, have y ou been kicked, hit, slapped, or otherwise physically hurt by your partner or ex-partner? No 04/17/2025 Within the last year, have y ou been raped or forced to have any kind of sexual activity by your partner or ex-partner? No 04/17/2025 AUDIT-C Answer Date Recorded Q1: How often do you have a drink containing alc ohol? Monthly or less 04/16/2025 Q2: How many drinks containi ng alcohol do you have on a typical day when you are drinking? 1 or 2 04/16/2025 Q3: How often do you have si x or more drinks on one occasion? Never 04/16/2025 Hunger Vital Sign Answer Date Recorded Within the past 12 months, y ou worried that your food would run out before you got the money to buy more. Never true 04/17/20 25 Within the past 12 months, t he food you bought just didn't last and you didn't have money to get more. Never true 04/17/2025 PRAPARE - Transportation Answer Date Re corded In the past 12 months, has l ack of transportation kept you from medical appointments or from getting medications? No 04/2025 In the past 12 months, has l ack of transportation kept you from meetings, work, or from getting things needed for daily living? No 04/17/2025 Housing Stability Vital Sign Answer Nitish e Recorded In the last 12 months, was t here a time when you were not able to pay the mortgage or rent on time? No 04/17/2025 Number of Times Moved in the Last Year Not on fi le 04/17/2025 At any time in the past 12 m [facility], were you homeless or living in a jail (including now)? No 04/17/2025 Utilities Answer Date Recorded In the past 12 months has th e [employer], gas, oil, or water company threatened to shut off services in your home? No 04/17/2025 Comments Unknown Sex and Gender Information Value Date Recorded Sex Assigned at Not on file Legal Sex Female 8:37 PM EDT Gender Identity Not on file Sexual Orientation Not on file documented as of this encounter Last Filed Vital Signs Vital Sign Reading Time Taken Comments Blood Pressure 114/68 05/08/2025 9:18 AM EDT Pulse 83 05/08/2025 9:18 AM EDT Temperature 36.6 C (97.9 F) 05/08/2025 9:18 AM EDT Respiratory Rate - - Oxygen Saturation 97% 05/08/2025 9:18 AM EDT Inhaled Oxygen Concentration - - Weight 50.8 kg (112 lb) 05/08/2025 9:18 AM EDT Height 157.5 cm (5' 2 ) 05/08/2025 9:18 AM EDT Body Mass Index 20.49 05/08/2025 9:18 AM EDT documented in this encounter Functional Status * Over the past 2 weeks, how often have you been bothered by any of the following problems? Question Answer Date of Assessment Author Little interest or pleasure in doing things Several days 05/08/2025 9:23 AM Sebas Mccarthy Feeling down, depressed, or hopeless Several days 05/08/2025 9:23 AM Sebas Mccarthy Patient Health Questionnaire -2 Score 2 05/08/2025 9:23 AM Sebas Mccarthy * Question Answer Date of Assessment Author Trouble falling or staying asleep, or sleeping too much Nearly every day 05/08/2025 9:23 AM Sebas Mccarthy Feeling tired or having little energy Nearly every day 05/08/2025 9:23 AM Sebas Mccarthy Poor appetite or overeating Several days 05/08/2025 9: 23 AM Sebas Mccarthy Feeling bad about yourself - or that you are a failure or have let yourself or your family down Several days 05/08/2025 9:23 AM Sebas Mccarthy Trouble concentrating on things, such as reading the newspaper or watching television Several days 05/08/2025 9:23 AM Sebas Mccarthy Moving or speaking so slowly that other people could have noticed? Or the opposite - being so fidgety or restless that you have been moving around a lot more than usual. Not at all 05/08/2025 9:23 AM Sebas Mccarthy Thoughts that you would be better off or hurting yourself in some way Not at all 05/08/2025 9:23 AM Sebas Mccarthy Patient Health Questionnaire-9 Score 11 05/08/2025 9:23 AM Sebas Mccarthy * How difficult have these problems made it for you to do your work, take care of things at home, or get along with other people? Answer Date of Assessment Author Somewhat difficult 05/08/2025 9:23 AM Sebas Mccarthy * How difficult have these problems made it for you to do your work, take care of things at home, or get along with other people? Answer Date of Assessment Author Somewhat difficult 05/08/2025 9:23 AM Sebas Mccarthy documented as of this encounter Miscellaneous Notes * Progress Notes - Amelia Power PA - 05/08/2025 9:30 AM EDT Chief Complaint: Nonoperatively treated left distal radius fracture, L IPR, SPR pelvic ring injury 04/15/25 HPI: Elizabeth Bustamante is a 80 y.o. female who presents to clinic for follow up s/p the above stated procedure. Patient states that she is improving since last visit. States that she continues to have pain about the posterior hip that radiates down to the back of her knee. States that she also experiences pain with certain seated positions. Overall states that she is doing better. States that she has been well pain about the left wrist. States that she feels like the proximal aspect of her cast is irritating her skin per otherwise doing okay. States that she has been ambulating with a walker. States that she feels like she is overall deconditioned she is eager to get back to baseline. States that home health PT visit last week in which they recommended transitioning from a walker to a cane.States that they are going to start home exercises at next visit. Denies any numbness, tingling. Denies any further trauma or injury. Focused MSK Exam: Left upper extremity: Short-arm cast in place, no skin breakdown noted proximally or distally Motor: Fires FF, FE, Fabd, EPL, FPL Sensory: Sensation intact to light touch distal to the cast Vascular: Warm and well-perfused, cap refill less than 2 seconds Left lower extremity: Tender to palpation about the posterior hip Motor: 3/5 KF/KE/Habd/Hadd/EHL/FHL/GSC/TA Sensation: SILT s/s/sp/dp/t Vascular: WWP, +2 pt pulses XRAY: We ordered, reviewed, and interpreted the following images XR left wrist shows unchanged alignment the distal radius fracture with interval healing noted XR pelvis shows unchanged alignment of the IPR, SPR fractures compared to previous imaging, interval healing noted Assessment/Plan: 80 y.o. female who presents s/p above stated. Patient continues to have some pain about the left hip but overall feels like she is improving. Reviewed the x-rays with the patient andher showing unchanged in alignment of the pelvis fractures as well as unchanged alignment and interval healing about the left distal radius fracture. Patient overall feels like she is deconditioned. Had a lengthy discussion with the patient and her regarding physical therapy as she has home health PT visiting once a week. Discussed with patient that her pain about the posterior hip extending to her knee is likely due to deconditioning and gait discrepancy. Offered outpatient physical therapy to work on gait training and strengthening; patient and her would like to revisit this conversation at next visit as physical therapist we are going to start home exercises at next visit. Would not recommend heavy lifting at this point. Discussed with patient that we will likely transition her out of the short-arm cast into an Exos wrist brace at next appointment. - Continue WBAT with walker as needed - Continue NWB LUE in short arm cast - Keep cast in place, clean, dry - Recommend ice/elevation/OTC medications prn pain/swelling - Robaxin given for muscle soreness, discussed with patient that this can sometimes make people drowsy. Recommend patient taking before bed to hopefully help with left posterior hip pain - FU 2 weeks, with imaging, with RD The patient was given an opportunity to ask questions and all their questions were answered to their satisfaction. Jo Power PA-C Department of Orthopaedic Surgery and Sports Medicine documented in this encounter Plan of Treatment Upcoming Encounters Date Type Department Care Team (Late st Contact Info) Description 03/04/2026 11:00 AM EDT Ovarian Cancer Screening [facility] Gynecology [address] [place] [address] documented as of this encounter Results * XR Wrist Left 3+ Views (05/22/2025 9:15 AM EDT) Anatomical Region Laterality Modality Upper Extremities, Wrist Left Digital Radiography Impressions 05/22/2025 11:08 AM EDT Progressive healing of impacted distal radial fracture with similar alignment. Similar alignment of ulnar styloid fracture. Borderline widening of the scapholunate interval. Similar alignment of the comminuted fracture of the left superior and inferior pubic ramus and pubic body. CRITICAL RESULT: No. COMMUNICATION: Per this written report. By electronically signing this report, I, the attending physician, attest that I have personally reviewed the images/data for the above examination(s) and agree with the final edited report. Drafted by Jose Enrique MD on 05/22/2025 9:22 AM Final report signed by Juan A Doss MD on 05/22/2025 11:08 AM Narrative 05/22/2025 11:08 AM EDT CLINICAL INDICATION: pain TECHNIQUE: XR PELVIS 3+ VIEWS, XR WRIST LEFT 3+ VIEWS COMPARISON: Left wrist and pelvis radiographs 05/08/2025. FINDINGS: Left wrist: Overlying cast material obscures fine bony details. Similar appearance of the healing comminuted intra-articular distal radial fracture with no significant change in alignment with continued impaction. 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 Redemonstration of moderate osteoarthrosis of the STT joint, grossly unchanged from prior. Similar appearance of ulnar styloid fracture. Scapholunate interval is at the upper limits of normal. Pelvis: Similar appearance of the comminuted fracture of the left superior and inferior pubic ramus and pubic body with similar alignment. Similar appearance of the left sacral alar fracture. Redemonstration of moderate degenerative changes of the pubic symphysis. Redemonstration of L5-S1 posterior spinal fusion with no evidence of hardware failure or loosening. Similar alignment. Procedure Note Juan A Doss MD - 05/22/2025 CLINICAL INDICATION: pain TECHNIQUE: XR PELVIS 3+ VIEWS, XR WRIST LEFT 3+ VIEWS COMPARISON: Left wrist and pelvis radiographs 05/08/2025. FINDINGS: Left wrist: Overlying cast material obscures fine bony details. 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 Redemonstration of moderate osteoarthrosis ofthe STT joint, grossly unchanged from prior. Similar appearance of ulnarstyloid fracture. Scapholunate interval is at the upper limits ofnormal. Pelvis: Similar appearance of the comminuted fracture of the left superiorand inferior pubic ramus and pubic body with similar alignment. Similarappearance of the left sacral alar fracture. Redemonstration of moderatedegenerative changes of the pubic symphysis. Redemonstration of L5-S1 posterior spinal fusion with no evidence ofhardware failure or loosening. Similar alignment. IMPRESSION: Progressive healing of impacted distal radial fracture with similaralignment. Similar alignment of ulnar styloid fracture. Borderline widening of the scapholunate interval. Similar alignment of the comminuted fracture of the left superior andinferior pubic ramus and pubic body. CRITICAL RESULT: No. COMMUNICATION: Per this written report. By electronically signing this report, I, the attending physician, attjanellethat I have personally reviewed the images/data for the aboveexamination(s) and agree with the final edited report. Drafted by Jose Enrique MD on 05/22/2025 9:22 AM Final report signed by Juan A Doss MD on 05/22/2025 11:08 AM us Am[facility] IMG XR PROCEDURES Final Resu lt * XR Pelvis 3+ Views (05/22/2025 9:15 AM EDT) Anatomical Region Laterality Modality Body, Pelvis Digital Radiogra phy Impressions 05/22/2025 11:08 AM EDT Progressive healing of impacted distal radial fracture with similar alignment. Similar alignment of ulnar styloid fracture. Borderline widening of the scapholunate interval. Similar alignment of the comminuted fracture of the left superior and inferior pubic ramus and pubic body. CRITICAL RESULT: No. COMMUNICATION: Per this written report. By electronically signing this report, I, the attending physician, attest that I have personally reviewed the images/data for the above examination(s) and agree with the final edited report. Drafted by Jose Enrique MD on 05/22/2025 9:22 AM Final report signed by Juan A Doss MD on 05/22/2025 11:08 AM Narrative 05/22/2025 11:08 AM EDT CLINICAL INDICATION: pain TECHNIQUE: XR PELVIS 3+ VIEWS, XR WRIST LEFT 3+ VIEWS COMPARISON: Left wrist and pelvis radiographs 05/08/2025. FINDINGS: Left wrist: Overlying cast material obscures fine bony details. Similar appearance of the healing comminuted intra-articular distal radial fracture with no significant change in alignment with continued impaction. 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 Redemonstration of moderate osteoarthrosis of the STT joint, grossly unchanged from prior. Similar appearance of ulnar styloid fracture. Scapholunate interval is at the upper limits of normal. Pelvis: Similar appearance of the comminuted fracture of the left superior and inferior pubic ramus and pubic body with similar alignment. Similar appearance of the left sacral alar fracture. Redemonstration of moderate degenerative changes of the pubic symphysis. Redemonstration of L5-S1 posterior spinal fusion with no evidence of hardware failure or loosening. Similar alignment. Procedure Note Juan A Doss MD - 05/22/2025 CLINICAL INDICATION: pain TECHNIQUE: XR PELVIS 3+ VIEWS, XR WRIST LEFT 3+ VIEWS COMPARISON: Left wrist and pelvis radiographs 05/08/2025. FINDINGS: Left wrist: Overlying cast material obscures fine bony details. 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 Redemonstration of moderate osteoarthrosis ofthe STT joint, grossly unchanged from prior. Similar appearance of ulnarstyloid fracture. Scapholunate interval is at the upper limits ofnormal. Pelvis: Similar appearance of the comminuted fracture of the left superiorand inferior pubic ramus and pubic body with similar alignment. Similarappearance of the left sacral alar fracture. Redemonstration of moderatedegenerative changes of the pubic symphysis. Redemonstration of L5-S1 posterior spinal fusion with no evidence ofhardware failure or loosening. Similar alignment. IMPRESSION: Progressive healing of impacted distal radial fracture with similaralignment. Similar alignment of ulnar styloid fracture. Borderline widening of the scapholunate interval. Similar alignment of the comminuted fracture of the left superior andinferior pubic ramus and pubic body. CRITICAL RESULT: No. COMMUNICATION: Per this written report. By electronically signing this report, I, the attending physician, attjanellethat I have personally reviewed the images/data for the aboveexamination(s) and agree with the final edited report. Drafted by Jose Enrique MD on 05/22/2025 9:22 AM Final report signed by Juan A Doss MD on 05/22/2025 11:08 AM us [facility] IM[facility] XR PROCEDURES Final Resu lt * XR Wrist Left 3+ Views (05/08/2025 10:00 AM EDT) Anatomical Region Laterality Modality Upper Extremities, Wrist Left Digital Radiography Impressions 05/08/2025 10:37 AM EDT Redemonstration of left distal radial and ulnar fractures in unchanged alignment Redemonstration of left obturator ring fractures in grossly unchanged alignment. Left sacral ala fracture in grossly unchanged alignment.. CRITICAL RESULT: No. COMMUNICATION: Per this written report. Drafted by Dov Nuñez on 05/08/2025 10:34 AM Final report signed by Dov Nuñez on 05/08/2025 10:37 AM Narrative 05/08/2025 10:37 AM EDT CLINICAL INDICATION: pain TECHNIQUE: XR PELVIS 3+ VIEWS, XR WRIST LEFT 3+ VIEWS COMPARISON: April 24, 2025 FINDINGS: Left wrist: Redemonstration of comminuted intra-articular distal radial fracture in grossly unchanged alignment. Ulnar styloid fracture is grossly unchanged. 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 Casting material secures fine bony detail. Pelvis: Redemonstration of comminuted fracture of the left superior pubic ramus and pubic body as well as the left inferior pubic ramus. Irregularity of the left sacral ala likely representing known fracture in grossly unchanged alignment compared to prior. Osteoarthrosis of the pubic symphysis. Overall alignment is similar to prior. No newly visualized fractures. Femoral heads are well-seated within the acetabulum. L5-S1 posterior spinal fusion in unchanged alignment. Levocurvature centered at L4. Procedure Note Dov Nuñez MD - 05/08/2025 CLINICAL INDICATION: pain TECHNIQUE: XR PELVIS 3+ VIEWS, XR WRIST LEFT 3+ VIEWS COMPARISON: April 24, 2025 FINDINGS: Left wrist: Redemonstration of comminuted intra-articular distal radialfracture in grossly unchanged alignment. Ulnar styloid fracture is grosslyunchanged. Severe osteoarthrosis first carpal metacarpal joint andmetacarpophalangeal joints similar to prior. Moderate osteoporosis of thetriscaphe interval unchanged. Casting material secures fine bony detail. Pelvis: Redemonstration of comminuted fracture of the left superior pubicramus and pubic body as well as the left inferior pubic ramus.Irregularity of the left sacral ala likely representing known fracture ingrossly unchanged alignment compared to prior. Osteoarthrosis of the pubicsymphysis. Overall alignment is similar to prior. No newly visualizedfractures. Femoral heads are well-seated within the acetabulum. L5-[id number] spinal fusion in unchanged alignment. Levocurvature centered atL4. IMPRESSION: Redemonstration of left distal radial and ulnar fractures in unchangedalignment Redemonstration of left obturator ring fractures in grossly unchangedalignment. Left sacral ala fracture in grossly unchanged alignment.. CRITICAL RESULT: No. COMMUNICATION: Per this written report. Drafted by Dov Nuñez on 05/08/2025 10:34 AM Final report signed by Dov Nuñez on 05/08/2025 10:37 AM Amelia [facility] IMG XR PROCEDURES Final Resu lt documented in this encounter Visit Diagnoses Diagnosis Closed fracture of distal end of left radius with routine healing, unspecified fracture morphology, subsequent encounter- Primary Closed fracture of left inferior pubic ramus, initial encounter ([facility]) Closed fracture of distal end of left radius with routine healing, unspecified fracture morphology, subsequent encounter Pain in pelvis Closed fracture of left inferior pubic ramus, initial encounter ([facility]) Closed fracture of distal end of left radius with routine healing, unspecified fracture morphology, subsequent encounter documented in this encounter Additional Health Concerns Assessment Noted Time PHQ-9 Depression Total Score: 11 025 9:23 AM EDT A fall risk assessment has been complete d for the patient 05/08/2025 9:23 AM EDT A Body Mass Index follow-up plan has been documented for the patient 05/08/2025 10:53 AM EDT documented as of this encounter Care Teams Legal Assistant Relationship Specialty Start Date End Date Ren Armas MD [address] [place] [id number] PCP - General 01/21/21 documented as of this encounter
--- OUTSIDE RECORDS SUMMARY | 2025-05-08 09:31 | XMS_ITS | Encounter Summary ---
Author Organization [facility] Address [address] [place] [address] Care Team Providers Care Fitness/Wellness Director Name Role Phone Ren Armas MD Primary Care Provider [phone] Encounter Details Date Type Department Care Team (Latest Contact Info) Description 05/08/2025 9:31 AM EDT - 05/08/2025 11:59 PM EDT Hospital Encounter [place] [facility] [address], [address] [place] [address] Closed fracture of distal end of left radius with routine healing, unspecified fracture morphology, subsequent encounter; Pain in pelvis Discharge Disposition: Home or Self Care Social History Tobacco Use Types Packs/Day Years [...] any time in the past 12 m [facility], were you homeless or living in a correction (including now)? No 04/17/2025 Utilities Answer Date Recorded In the past 12 months has th e [employer], gas, oil, or water company threatened to shut off services in your home? No 04/17/2025 Comments Unknown Sex and Gender Information Value Date Recorded Sex Assigned at Not on file Legal Sex Female 8:37 PM EDT Gender Identity Not on file Sexual Orientation Not on file documented as of this encounter Functional Status * Over the past 2 weeks, how often have you been bothered by any of the following problems? Question Answer Date of Assessment Author Little interest or pleasure in doing things Several days 05/08/2025 9:23 AM EDT Sebas Burroughs Feeling down, depressed, or hopeless Several days [...] usual. Not at all 05/08/2025 9:23 AM Davi Mccarthy Thoughts that you would be better [...] Sebas Mccarthy documented as of this encounter Medications at Time of Discharge aspirin 81 MG EC tablet Take 1 tablet by mouth daily. budesonide EC (Entocort EC) 3 MG 24 hr capsule Take 3 capsules by mouth daily. CALCIUM-MAGNESIU M-VITAMIN D PO Take 1 tablet by mouth daily. DULoxetine (Cymbalta) [address] capsule Take 1 capsule by mouth daily. Do not crush or chew. LORazepam (Ativan) 1 MG tablet Take 1 tablet by mouth 2 times a day as needed. losartan (Cozaar) 100 MG tablet Take 1 tablet by mouth daily. methocarbamol (Robaxin) 500 MG tablet Take 0.5 tablets by mouth 3 times a day. 30 tablet 05/08/2025 Misc Natural Products (Iberogast) capsule Take 1 capsule by mouth as needed. Multiple Vitamin (multivitamin) tablet Take 1 tablet by mouth daily. naloxone (Narcan) 4 mg/0.1 mL nasal spray 1. Give 1 spray in nostril for no/slow breathing or cannot wake after opioid use 2. Call 911 3. Repeat in other nostril if symptoms continue 1 each 04/17/2025 oxyCODONE (Roxicodone) 5 MG immediate release tablet every 6 hours. 05/05/2025 rosuvastatin (Crestor) 5 MG tablet Take 1 tablet by mouth daily. simethicone (Mylicon) 80 MG chewable tablet Chew 1 tablet every 6 hours as needed for flatulence. 30 tablet 04/17/2025 traZODone (Desyrel) 100 MG tablet 1 (one) time each day at the same time. 05/05/2025 enoxaparin (Lovenox) 30 MG/0.3ML solution prefilled syringe Inject 0.3 mL under the skin 2 times a day for 25 days. 15 mL 04/17/2025 5 documented as of this encounter Plan of Treatment Upcoming Encounters Date Type Department Care Team (Late st Contact Info) Description 03/04/2026 11:00 AM EDT Ovarian Cancer Screening [facility] [address] [place] [phone] documented as of this encounter Procedures Procedure Name Priority Date/Time Associated Diagnosis Comments XR WRIST LEFT 3+ VIEWS Routine 05/08/2025 10:00 AM EDT Closed fracture of distal end of left radius with routine healing, unspecified fracture morphology, subsequent encounter XR PELVIS 3+ VIEWS Routine 05/08/2025 10 :00 AM EDT Pain in pelvis documented in this encounter Results * XR Pelvis 3+ Views (05/08/2025 10:00 AM EDT) Anatomical Region Laterality Modality Body, Pelvis Digital Radiogra phy Impressions 05/08/2025 10:37 AM EDT Redemonstration of [...] Femoral heads are well-seated within the acetabulum. L5-S7eiqrryrrw spinal fusion in unchanged alignment. Levocurvature centered atL4. IMPRESSION: Redemonstration of left distal radial and ulnar fractures in unchangedalignment Redemonstration of left obturator ring fractures in grossly unchangedalignment. Left sacral ala fracture in grossly unchanged alignment.. CRITICAL RESULT: No. COMMUNICATION: Per this written report. Drafted by Dov Nuñez on 05/08/2025 10:34 AM Final report signed by Dov Nuñez on 05/08/2025 10:37 AM us Jean Carlos Chambers MD IMG XR PROCEDURES Final Resu lt * [...] Femoral heads are well-seated within the acetabulum. L5-[id number] spinal fusion in unchanged alignment. Levocurvature centered [...] fracture morphology, subsequent encounter Pain in pelvis documented in this encounter Additional Health Concerns Assessment Noted Time PHQ-9 Depression Total Score: 11 025 9:23 AM EDT A fall risk assessment has been complete d for the patient 05/08/2025 9:23 AM EDT A Body Mass Index follow-up plan has been documented for the patient 05/08/2025 10:53 AM EDT documented as of this encounter Care Teams Fitness/Wellness Director Relationship Specialty Start Date End Date Ren Armas MD [address] [place] [address] PCP - General 01/21/21 documented as of this encounter
--- OUTSIDE RECORDS SUMMARY | 2025-05-13 07:00 | XMS_ITS ---
Author Organization [facility] Address [address] [place] [address] Care Team Providers Care Assistant Drafter Name Role Phone Merna Shen Primary Care Provider MERNA SHEN Unavailable Unavaila Ren Naylor Unavailable [phone] Allergies Allergen (clinical drug ingredient) Drug/Non Drug Allergy documented on EMR Reaction Allergy Type Onset Date Status SULFA DRUGS (uncoded) Unknown Allergy Active etodolac Lodine Unknown Drug Allergy Active Penicillin Unknown Drug Allergy Active Reason For Referral Reason Please set up Reclas t infusion at [facility]. Diagnosis 1 Osteoporosis (M81.0) Referral Organization [facility] Referring Provider First Name Ren Referring Provider Last Name Chanda Referring Provider Speciality Internal M edicine General Notes Maria E Dixon 12/2024 10:22:15 AM > faxed to [facility] infusions Referral Priority Routine Reason Please set up outpat ient PT evaluation in the next couple of weeks at [facility] or [facility] whichever faster Diagnosis 1 Closed nondisplaced fracture of pelvis with routine healing, unspecified part of pelvis, subsequent encounter (S32.9XXD) Referral Organization [facility] Referring Provider First Name Ren Referring Provider Last Name Chanda Referring Provider Speciality Internal M edicine Referred Organization [facility] Referred Address [address], [place],[address],[place] Referred Provider Specialty Occupational Therapy General Notes Jessica Vasquez 2024 12:22:14 PM >sent Referral Priority Routine REASON FOR VISIT 3 wk FU, wants to discuss getting on some type of pain med -maybe Tramadol, should she resume Reclast Infusion Medications Medication SIG (Take, Route, Frequency, Duration) Notes Start Date End Date Status Pantoprazole Sodium 20 MG 1 tablet 1/2 t o 1 hour before morning meal Orally Once a day; Duration: 30 day(s) 02/09/2025 Active Gabapentin 300 MG 1 cap Orally at bedt cindy; Duration: 30 days 02/09/2025 Active Budesonide 3 MG 1 capsule Orally; Duration: 30 day(s) 01/07/2025 Active Rosuvastatin Calcium 10 MG 1 tab(s) oral ly once a day; Duration: 90 days Active Reclast 5 MG/100ML as directed intraven ously once yearly 02/26/2020 Active traMADol HCl 50 MG 1-2 tabs Orally at bedtime; Duration: 30 days 05/13/2025 Activ e Ativan 1 MG 1 tab(s) orally bid 05/14/2013 Active OSTEO-BIOFLEX 1 TAB ORALLY ONCE DAILY Active Multivitamin - 1 tab(s) orally once a day Active Aspirin 81 MG 1 TAB(S) ORALLY ONCE A DAY Active DULoxetine HCl 60 mg TAKE ONE CAPSULE BY MOUTH EVERY DAY; Duration: 30 Active traZODone HCl 100 MG 1 tablet at bedtime Orally Once a day; Duration: 30 day(s) 05/05/2025 Active Vital Signs Temperature 96 degrees Fahrenheit 05/13/2025 Blood pressure systolic 110 mm Hg 05/13/20 25 Blood pressure diastolic 78 mm Hg 025 Heart Rate 94 /min 05/13/2025 Height 5 ft 2 in in 05/13/2025 Weight 109 lbs 05/13/2025 BMI 19.93 kg/m2 05/13/2025 Encounters Encounter Location Date Provider Diagnosis [facility] [address] [place] [address] 05/13/2025 Ren Armas Anxiety F41.9 ; Osteoporosis M81.0 and Closed nondisplaced fracture of pelvis with routine healing, unspecified part of pelvis, subsequent encounter S32.9XXD Assessments Encounter Date Diagnosis (ICD Code) Assessment Notes Treatment Notes Treatment Clinical Notes Section Notes 05/13/2025 Anxiety (ICD-10 - F41.9) Having increased anxiety and worsening mood symtpoms since after her fall. She does not want to take a medication like Paxil that could cause weight gain. Will continue to monitor. 05/13/2025 Osteoporosis (ICD-10 - M81.0) Had a t-score of -2.6 in 2023. Also has had a pathologic fracture in the interm. Will prescribe another Reclast infusion and and can repeat a DEXA in 2025 after resolution of her fractures. 05/13/2025 Closed nondisplaced fracture of pelvis with routine healing, unspecified part of pelvis, subsequent encounter (ICD-10 - S32.9XXD) Overall healing well. Following with orthopedic surgery. Done with LVX injections. Doing Home health PT/OT. Will complete outpatient PT/OT after. Doing mostly under control with Tylenol + IBU. Will prescribe Tramadol 50 mg for breakthrough pain at night. Plan Of Treatment Medication Medication Name Sig Start Date Stop Date Notes traMADol HCl 50 MG 1-2 tabs Orally at b edtime; Duration: 30 days 05/13/2025 Treatment Notes Assessment Notes Anxiety Having increased anx iety and worsening mood symtpoms since after her fall. She does not want to take a medication like Paxil that could cause weight gain. Will continue to monitor. Osteoporosis Had a t-score of -2. 6 in 2023. Also has had a pathologic fracture in the interm. Will prescribe another Reclast infusion and and can repeat a DEXA in 2025 after resolution of her fractures. Closed nondisplaced fracture of pelvis with routine healing, unspecified part of pelvis, subsequent encounter Overall healing well. Following with orthopedic surgery. Done with LVX injections. Doing Home health PT/OT. Will complete outpatient PT/OT after. Doing mostly under control with Tylenol + IBU. Will prescribe Tramadol 50 mg for breakthrough pain at night. Pending Test Test Name Order Date Occupational Therapy : Eval & Treatment 05/13/2025 Referrals Referral Date Details 05/13/2025 05/13/2025, Please s et up Reclast infusion at [facility]. 05/13/2025 05/13/2025, Please s et up outpatient PT evaluation in the next couple of weeks at [facility] or [facility] whichever faster, [address], [place], [address], Next Appt Details Follow Up: prn,4 Weeks, Reas on: Provider Name:Ren Garciaantonio, 07/01/2025 11:00:00 AM, [address], [place], [address], Progress Notes * Elizabeth AGUILAR MDOB:1944 (80 yo F)Acc No.[id number]:05/13/2025 Progress Notes Patient: Artur JUANISTANYA Clarissa Provider: Ortiz Armas MD :1945 A ge:80 Y S ex:Female Date:05/13/2025 Address:[address] [place] [address] [place], [place], [id number] Pcp:Merna Shen Subjective: * Chief Complaints: * 1 . 3 wk FU. 2. wants to discuss getting on some type of pain med -maybe Tramadol. 3. should she resume Reclast Infusion. * HPI: g en: Pain is better but not complete gone. She has seen the orthopedic doctor twice. Everything is stable and healing well. She now has a cast on her left forearm but she will be able to get it off next sunday. She is taking tylenol and IBU for pain. SHe finished her LVX last night. She is doing some PT at the house. SHe would like something in the middle of the night for pain. Her mood is doing okay. She does notice increased pain all over, less energy and less motivation than before. She does have some overall anxiety about her fall. * Medical History: I rritable bowel syndrome, [...] [facility]- colitis, hypokalemia, syncope 04/08/2020, back surgery 10/2021, [facility] 04/2025. * Family History: F ather: . M other: . P aternal Grand Father: . P aternal Grand Mother: . M aternal Grand Father: . M aternal Grand Mother: . Paternal uncle: . P aternal aunt: . S iblings: alive, 1 brother open heart surgery (3 by passes)another brother with stents. C vanidren: alive, daughter-brain tumor.?2 brother(s) . 2 daughter(s) [...] 1 TAB(S) ORALLY ONCE A DAY , Taking Multivitamin - Tablet 1 tab(s) orally once a day , Taking OSTEO-BIOFLEX 1 TAB ORALLY ONCE DAILY , Taking Reclast 5 MG/100ML Solution as directed intravenously once yearly , Taking Rosuvastatin Calcium 10 MG Tablet [...] ONE CAPSULE BY MOUTH EVERY DAY , Taking traZODone HCl 100 MG Tablet 1 tablet at bedtime Orally Once a day , Discontinued OxyCONTIN 10 MG Tablet ER 12 Hour Abuse-Deterrent 1 tablet Orally at bedtime , Discontinued oxyCODONE HCl 5 MG Tablet 1 tablet as needed Orally every 6 hrs As needed, Medication List reviewed and reconciled with the patient * Allergies: S ULFA DRUGS, Lodine, Penicillin. Objective: * Vitals: N frank: jl, Pain: 94, Temp: 96, RR: 18, HR: 94, BP: 110/78, Ht: 5 ft 2 in, Wt: 109, BMI:19.93. * Examination: G eneral Examination: General P leasant and Cooperative, NAD on RA,. Heart: R egular Rate and Rhythm, no murmur, rubs or gallops. Lungs: L CTAB, No wheezes, crackles or rhonchi, Good air movement,. Abdomen: S oft, NTND, BSNA, No organomegaly or peritoneal signs.. Extremities: H daniel Cast on Left Wrist. ? Assessment: * Assessment: 1. O steoporosis - M81.0 (Primary) 2 . A nxiety - F41.9 3 .?Closed nondisplaced fracture of pelvis with routine healing, unspecified part of pelvis, subsequent encounter - S32.9XXD Plan: * Treatment: 2. A nxiety Notes: Having increased anxiety and worsening mood symtpoms since after her fall. She does not want to take a medication like Paxil that could cause weight gain. Will continue to monitor. 3. C losed nondisplaced fracture of pelvis with routine healing, unspecified part of pelvis, subsequent encounter Start traMADol HCl Tablet, 50 MG, 1-2 tabs, Orally, at bedtime, 30 days, 30, Refills 1. I maging: Occupational Therapy : Eval & Treatment Notes: Overall healing well. Following with orthopedic surgery. Done with LVX injections. Doing Home health PT/OT. Will complete outpatient PT/OT after. Doing mostly under control with Tylenol + IBU.Will prescribe Tramadol 50 mg for breakthrough pain at night. ? Referral To: ?Reason:Please set up outpatient PT evaluation in the next couple of weeks at [facility] or [facility] whichever faster * Procedure Codes: G 2211 Complex e/m visit add on * Follow Up: p rn,4 Weeks * * Sign off status: Completed true * Provider: Ortiz Armas MD Date: 0 05/13/2025 Generated for Dayra mei/Betsy/eTransmitting on: 1 11:10 AM EDT History and Physical Notes * HPI (History of Present Illness) Category Sub-Category Detail Notes Category Not es gen Pain is better but not complete gone. She has seen the orthopedic doctor twice. Everything is stable and healing well. She now has a cast on her left forearm but she will be able to get it off next sunday. She is taking tylenol and IBU for pain. SHe finished her LVX last night. She is doing some PT at the house. SHe would like something in the middle of the night for pain. Her mood is doing okay. She does notice increased pain all over, less energy and less motivation than before. She does have some overall anxiety about her fall. Examination Category Sub-Category Detail Notes Category Not es General Examination Heart: Regular Rate and Rhythm, no murmur, rubs or gallops Lungs: LCTAB, No wheezes, c rackles or rhonchi, Good air movement, Abdomen: Soft, NTND, BSNA, No organomegaly or peritoneal signs. Extremities: Hard Cast on Left Wr ist General Pleasant and Coopera tive, NAD on RA, Consultation Request Notes Referral Date Referring Provider Referred Provider Not es 05/13/2025 Ren Armas , Please set u p Reclast infusion at [facility]. 05/13/2025 Ren Armas , Please set u p outpatient PT evaluation in the next couple of weeks at [facility] or [facility] whichever faster
--- OUTSIDE RECORDS SUMMARY | 2025-05-22 08:54 | XMS_ITS | Encounter Summary ---
Author Organization [facility] Address [address] [place] [address] Care Team Providers Care Site Identification Specialist Name Role Phone Ren Armas MD Primary Care Provider [phone] Giuseppe Ken MD Unavailable [phone] Encounter Details Date Type Department Care Team (Latest Contact Info) Description 05/22/2025 8:54 AM EDT - 05/22/2025 11:59 PM EDT Hospital Encounter [place] [facility] [address], [address] [place] [address] Closed fracture of left inferior pubic ramus, initial encounter ([facility]); Closed fracture of distal end of left radius with routine healing, unspecified fracture morphology, subsequent encounter Discharge Disposition: Home or Self Care Social [...] any time in the past 12 m [facility], were you homeless or living in a long term (including now)? No 04/17/2025 Utilities Answer Date Recorded In the past 12 months has th e [employer], gas, oil, or water company threatened to shut off services in your home? No 04/17/2025 Comments Unknown Sex and Gender Information Value Date Recorded Sex Assigned at Not on file Legal Sex Female 8:37 PM EDT Gender Identity Not on file Sexual Orientation Not on file documented as of this encounter Medications at [...] as needed for flatulence. 30 tablet 04/17/2025 traMADol (Ultram) 50 MG tablet 1-2 tabs Orally at bedtime; Duration: 30 days 05/13/2025 traZODone (Desyrel) 100 MG tablet 1 (one) time each day at the same time. 05/05/2025 documented as of this encounter Plan of Treatment Upcoming Encounters Date Type Department Care Team (Late st Contact Info) Description 03/04/2026 11:00 AM EDT Ovarian Cancer Screening [facility] [address] [place] [phone] documented as of this encounter Procedures Procedure Name Priority Date/Time Associated Diagnosis Comments XR WRIST LEFT 3+ VIEWS Routine 05/22/2025 9:15 AM EDT Closed fracture of distal end of left radius with routine healing, unspecified fracture morphology, subsequent encounter XR PELVIS 3+ VIEWS Routine 05/22/2025 9: 15 AM EDT Closed fracture of left inferior pubic ramus, initial encounter ([facility]) documented in this encounter Results * XR Wrist Left [...] 05/22/2025 9:22 AM Final report signed by uJan A Doss MD on 05/22/2025 11:08 AM [...] signing this report, I, the attending physician, lanaat I have personally reviewed the images/data for [...] signing this report, I, the attending physician, attestthat I have personally reviewed the images/data for the aboveexamination(s) and agree with the final edited report. Drafted by Jose Enrique MD on 05/22/2025 9:22 AM Final report signed by Juan A Doss MD on 05/22/2025 11:08 AM Amelia MCKEON IMG XR PROCEDURES Final Resu lt documented in this encounter Visit Diagnoses Diagnosis Closed fracture of left inferior pubic ramus, initial encounter ([facility]) Closed fracture of distal end of left radius with routine healing, unspecified fracture morphology, subsequent encounter documented in this encounter Additional Health Concerns Assessment Noted Time PHQ-9 Depression Total Score: 11 025 9:23 AM EDT A fall risk assessment has been complete d for the patient 05/22/2025 9:42 AM EDT A Body Mass Index follow-up plan has been documented for the patient 05/22/2025 10:48 AM EDT documented as of this encounter Care Teams Site Identification Specialist Relationship Specialty Start Date End Date Ren Armas MD [address] [place] [address] PCP - General 01/21/21 Giuseppe Ken MD [address] [place] [address] Referring Physician 05/22/25 documented as of this encounter
--- OUTSIDE RECORDS SUMMARY | 2025-05-22 09:40 | XMS_ITS | Encounter Summary ---
Author Organization [facility] Address [address] [place] [address] Care Team Providers Care Barker Peeler Name Role Phone Ren Armas MD Primary Care Provider [phone] Giuseppe Ken MD Unavailable [phone] Reason for Referral * Consultation (Routine) - Authorized Specialty Diagnoses / Procedures Referred By Rosario rodriguez Referred To Contact Physical Therapy Diagnoses Closed fracture of left inferior pubic ramus, initial encounter ([facility]) Closed fracture of distal end of left radius with routine healing, unspecified fracture morphology, subsequent encounter Jean Carlos Ramos MD [address] [facility] [address] [place] [address] Phone: tel: fax: Referral ID Status Reason Start Date Expiration Date Visits Requested Visits Authorized [id number] Authorized Consult and Treat 05/22/2025 11/21/2026 1 1 Scheduling Instructions General conditioning, strengthening, and gait training for pelvis fxs ROM for left distal radius out of exos splint. PWB on LUE Reason for Visit * Reason Comments Follow-up Follow-up Encounter Details Date Type Department Care Team (Late st Contact Info) Description 05/22/2025 9:40 AM EDT Office Visit [facility] [address] [place] [address] Jean Carlos Ramos MD [address] [facility] [address] [place] [id number] Closed fracture of left inferior pubic ramus, initial encounter ([facility]) (Primary Dx); Closed fracture of distal end of left radius with routine healing, unspecified fracture morphology, subsequent encounter Social History Tobacco Use Types Packs/Day Years [...] any time in the past 12 m [facility], were you homeless or living in a longterm (including now)? No 04/17/2025 Utilities Answer Date Recorded In the past 12 months has th e electric, gas, oil, or water company threatened to shut off services in your home? No 04/17/2025 Comments Unknown Sex and Gender Information Value Date Recorded Sex Assigned at Not on file Legal Sex Female 8:37 PM EDT Gender Identity Not on file Sexual Orientation Not on file documented as of this encounter Last Filed Vital Signs Vital Sign Reading Time Taken Comments Blood Pressure 135/86 05/22/2025 9:42 AM EDT Pulse 75 05/22/2025 9:42 AM EDT Temperature 36.8 C (98.2 F) 05/22/2025 9:42 AM EDT Respiratory Rate - - Oxygen Saturation 97% 05/22/2025 9:42 AM EDT Inhaled Oxygen Concentration - - Weight 47.6 kg (105 lb) 05/22/2025 9:42 AM EDT Height 157.5 cm (5' 2 ) 05/22/2025 9:42 AM EDT Body Mass Index 19.2 05/22/2025 9:42 AM EDT documented in this encounter Miscellaneous Notes * Progress Notes - Juan Chaudhry MD - 05/22/2025 9:40 AM EDT Trauma Clinic Note Chief Complaint: Follow-up nonoperatively treated left distal radius fracture, pelvic ring injury 04/15/25 HPI: Elizabeth Bustamante is a 80 y.o. female who presents for follow up of the above-mentioned injuries. She reports that she is doing well today. She has been ambulating with a cane and reports that thepain in her pelvis has significantly improved compared to prior. She has been working with home health which she feels that she no longer needs. She is hoping to get the cast off today. Physical Exam Gen: No acute distress Resp: non labored Cardiac: well perfused Focused Exam Left upper extremity: Short-arm cast in place, no skin breakdown noted proximally or distally Motor: Fires FF, FE, Fabd, EPL, FPL Sensory: Sensation intact to light touch distal to the cast Vascular: Warm and well-perfused, cap refill less than 2 seconds Left lower extremity: Tender to palpation about the posterior hip Motor: 01/12 KF/KE/Habd/Hadd/EHL/FHL/GSC/TA Sensation: SILT s/s/sp/dp/t Vascular: WWP, +2 pt pulses Imaging: My independent interpretation of the radiographs of the three views of the pelvis and fourviews of the left wrist which demonstrates stable fracture alignment with interval routine healing.No evidence of loss of reduction or fracture displacement. Assessment: Elizabeth Bustamante is a 80 y.o. female who presents for follow up of nonoperative managed left distal radius fracture and left sacral ala, SPR/IPR fractures. She is doing well today. She has been ambulating with a cane reports that her pain is much improved. Removed cast today and transitioned her to an Exos brace on the left upper extremity. We discussed that she is to wear the Exos brace at all times like a cast for 2 weeks except when doing therapy or bathing. After 2 weeks she may transition out of the Exos brace as tolerated and begin WBAT on the LUE. PT/OT referral provided for general strengthening and range of motion of the left wrist. She may return to clinic on an as needed basis Follow-up: PRN. Juan Chaudhry MD 05/22/25 9:47 AM Cosigned by Jean Carlos Ramos MD at 05/22/2025 10:42 AM EDT Associated attestation - Jean Carlos aRmos MD - 05/22/2025 10:42 AM EDT I saw and evaluated the patient. I discussed the case with the resident/fellow and agree with the findings and plan as documented. Jean Carlos Ramos MD Orthopaedic Trauma documented in this encounter Plan of Treatment Upcoming Encounters Date Type Department Care Team (Late st Contact Info) Description 03/04/2026 11:00 AM EDT Ovarian Cancer Screening [facility] Gynecology [address] [place] [address] Scheduled Referrals Name Type Priority Associated Diagnoses Orde r Schedule Physical Therapy (outgoing) Outpatient Referral Routine Closed fracture of left inferior pubic ramus, initial encounter ([facility]) Closed fracture of distal end of left radius with routine healing, unspecified fracture morphology, subsequent encounter 1 Occurrences starting 05/22/2025 until 11/23/2026 documented as of this encounter Visit Diagnoses Diagnosis Closed fracture of left inferior pubic ramus, initial encounter ([facility])- Primary Closed fracture of distal end of left [...] documented as of this encounter Care Teams Barker Peeler Relationship Specialty Start Date End Date Ren Armas MD [address] [place] [address] PCP - General 01/21/21 Giuseppe Ken MD [address] [place] [address] [place] [address] Referring Physician 05/22/25 documented as of this encounter
--- OUTSIDE RECORDS SUMMARY | 2025-05-26 06:00 | XMS_ITS ---
Author Organization [facility] Address [address] [place] [address] Care Team Providers Care Structural Draftsman Name Role Phone Merna Shen Primary Care Provider MERNA SHEN Unavailable Unavaila ble McMahendra, Mai Unavailable [phone] Allergies Allergen (clinical drug ingredient) Drug/Non Drug Allergy documented on EMR Reaction Allergy Type Onset Date Status SULFA DRUGS (uncoded) Unknown Allergy Active etodolac Lodine Unknown Drug Allergy Active Penicillin Unknown Drug Allergy Active Results Component Value Reference Range Notes Urinalysis Reviewed date:05/26/2025 12:02:42 PM Interpretation: Performing Lab: Notes/Report: Color/Clarity Yellow Leuk neg Nitrite neg Urobili 0.2 Protein neg pH 7.0 Blood neg Sp. Gr. 1.020 Ketone neg Bili neg Glucose neg CULTURE, URINE, ROUTINE (395 ) Reviewed date:05/28/2025 10:00:47 AM Interpretation: Performing Lab:[facility], [facility] [address], [id number] [place] Notes/Report: NON-FASTING CULTURE, URINE, ROUTINE SEE NOTE CULTURE, URINE, ROUTINE Micro Number: [id number] Test Status: Final Specimen Source: Urine, clean catch Specimen Quality: Adequate Result: Less than 10,000 CFU/mL of single Gram positive organism isolated. No further testing will be performed. If clinically indicated, recollection using a method to minimize contamination, with prompt transfer to Urine Culture Transport Tube, is recommended. REASON FOR VISIT uti symptoms-dysuria, itching in her private area (yeast)-takes her a while to start voiding Medications Medication SIG (Take, Route, Frequency, Duration) Notes Start Date End Date Status Diflucan 150 MG 1 tablet Orally once , repeat in 3 days; Duration: 3 days 05/26/2025 Active traMADol HCl 50 MG 1-2 tabs Orally at bedtime; Duration: 30 days 05/13/2025 Activ e traZODone HCl 100 MG 1 tablet at bedtime Orally Once a day; Duration: 30 day(s) 05/05/2025 Active Pantoprazole Sodium 20 MG 1 tablet 1/2 t o 1 hour before morning meal Orally Once a day; Duration: 30 day(s) 02/09/2025 Active OSTEO-BIOFLEX 1 TAB ORALLY ONCE DAILY Active Rosuvastatin Calcium 10 MG 1 tab(s) oral ly once a day; Duration: 90 days Active Reclast 5 MG/100ML as directed intraven ously once yearly 02/26/2020 Active Gabapentin 300 MG 1 cap Orally at bedt cindy; Duration: 30 days 02/09/2025 Active Budesonide 3 MG 1 capsule Orally; Duration: 30 day(s) 01/07/2025 Active Ativan 1 MG 1 tab(s) orally bid 05/14/2013 Active DULoxetine HCl 60 MG 1 capsule Orally at night Active Aspirin 81 MG 1 TAB(S) ORALLY ONCE A DAY Active Multivitamin - 1 tab(s) orally once a day Active Vital Signs Temperature 97.3 degrees Fahrenheit 05/26/20 25 Blood pressure systolic 118 mm Hg 05/26/20 25 Blood pressure diastolic 70 mm Hg 025 Heart Rate 80 /min 05/26/2025 Height 5 ft 2 in in 05/26/2025 Weight 110.2 lbs 05/26/2025 BMI 20.15 kg/m2 05/26/2025 Encounters Encounter Location Date Provider Diagnosis [facility] [address] [place] [address] 05/26/2025 Mai McNees Dysuria R30.0 and Acute vaginitis N76.0 Assessments Encounter Date Diagnosis (ICD Code) Assessment Notes Treatment Notes Treatment Clinical Notes Section Notes 05/26/2025 Dysuria (ICD-10 - R30.0) Reassurance, UA is normal. Dysuria likely related to yeast vaginitis. Treat as below. Increase oral fluid intake, will send for cx. 05/26/2025 Acute vaginitis (ICD-10 - N76.0) Plan Of Treatment Medication Medication Name Sig Start Date Stop Date Notes Diflucan 150 MG 1 tablet Orally once , repeat in 3 days; Duration: 3 days 05/26/2025 Treatment Notes Assessment Notes Dysuria Reassurance, UA is n ormal. Dysuria likely related to yeast vaginitis. Treat as below. Increase oral fluid intake, will send for cx. Next Appt Details Follow Up: prn, Reason: Provider Name:Ren Armas, 07/01/2025 11:00:00 AM, [address], [place], [address], Progress Notes * Elizabeth AGUILAR MDOB:1944 (80 yo F)Acc No.[id number]:05/26/2025 Progress Notes Patient: Elizabeth MEJIA Provider: Clarissa Waggoner APRN :1945 A ge:80 Y S ex:Female Date:05/26/2025 Address:[address] [place] [address], [place], [id number] Pcp:Merna Shen Subjective: * Chief Complaints: * 1 . Uti symptoms-dysuria, itching in her private area (yeast)-takes her a while to start voiding. * HPI: g en: 80 y/o female presents with dysuria that began 3-4 days ago. C/o bladder pressure and vulvovaginal pruritus. No hematuria. No flank or SP pain. No fevers. No N/V. No vaginal discharge. * ROS: C ONSTITUTIONAL: no L oss of appetite. n o F ever. D ERMATOLOGY: no R danica. G ASTROENTEROLOGY: no N ausea. n o V omiting. * Medical History: I rritable bowel syndrome, [...] 01/2023 and 03/03 and 03/04, Dyspepsia. * Social History: S moking A re you a:: nonsmoker. R ecreational drug use: no. Exercise: no. Home smoke detector use: yes. Caffeine: yes, coffee 3-4 cups daily. Living Will: No. Alcohol: socially. Sexually active: yes. Travel outside [place]: no. Occupation: retired. * Medications: T aking DULoxetine HCl 60 MG Capsule Delayed Release Particles 1 capsule Orally at night , Taking Ativan 1 MG Tablet 1 tab(s) orally [...] meal Orally Once a day , Taking traZODone HCl 100 MG Tablet 1 tablet at bedtime Orally Once a day , Taking traMADol HCl 50 MG Tablet 1-2 tabs Orally at bedtime , Discontinued PARoxetine HCl 20 MG Tablet 1 tab Orally in evening , Medication List reviewed and reconciled with the patient * Allergies: S ULFA DRUGS, Lodine, Penicillin. Objective: * Vitals: N urse: jl, Pain: 3, Temp: 97.3, RR: 16, HR: 80, BP: 118/70, Ht: 5 ft 2 in, Wt: 110.2, BMI:20.15. * Examination: G eneral Examination: General P leasant and Cooperative, NAD on RA,. Chest: n ormal shape and expansion. Heart: R egular Rate and Rhythm, no murmur, rubs or gallops. Lungs: L CTAB, No wheezes, crackles or rhonchi, Good air movement,. Psych N ormal Mood/Affect. Assessment: * Assessment: 1. D ysuria - R30.0 (Primary) 2 . A cute vaginitis - N76.0 Plan: * Treatment: Value Reference Range C ULTURE SEE NOTE - * Mai Waggoner 05/28/20 10:00:31 AM EDT > no indication for treatmentThis lab was reviewed by Mai Waggoner on 05/28/2025 at 10:00 AM EDT ?LAB: Urinalysis (Collection Date & Time - 05/26/2025)* Value Reference Range C olor/Clarity Yellow * L euk neg * N itrite neg * U robili 0.2 * P rotein neg * p H 7.0 * B lood neg * S p. Gr. 1.020 * K etone neg * B meng neg * G lucose neg Notes: Reassurance, UA is normal. Dysuria likely related to yeast vaginitis. Treat as below. Increase oral fluid intake, will send for cx.??2.?Acute vaginitis? Start Diflucan Tablet, 150 MG, 1 tablet, Orally, once, repeat in 3 days, 3 days, 2, Refills 0.?? * Procedure Codes: 8 1002 URINALYSIS, Modifiers: QW * Follow Up: p rn * * Sign off status: Completed true * Provider: Clarissa Waggoner APRN Date: 0 05/26/2025 Generated for Darya mei/Betsy/Sumanitting on: 1 11:10 AM EDT History and Physical Notes * HPI (History of Present Illness) Category Sub-Category Detail Notes Category Not es gen 80 y/o female p resents with dysuria that began 3-4 days ago. C/o bladder pressure and vulvovaginal pruritus. No hematuria. No flank or SP pain. No fevers. No N/V. No vaginal discharge. Examination Category Sub-Category Detail Notes Category Not es General Examination Heart: Regular Rate and Rhythm, no murmur, rubs or gallops Lungs: LCTAB, No wheezes, c rackles or rhonchi, Good air movement, Chest: normal shape and exp ansion General Pleasant and Coopera tive, NAD on RA, Psych Normal Mood/Affect
--- OUTSIDE RECORDS SUMMARY | 2025-05-26 10:37 | XMS_ITS ---
Author Organization [facility] Address [address] [facility] [address] [place], [place] [address] Care Team Providers Care Shellfish Bed Worker Name Role Phone Christen Shen Primary Care Provider CHRISTEN SHEN Unavailable Unavaila Mai Abrams [phone] REASON FOR VISIT Order Encounters Encounter Location Date Provider Diagnosis [facility] [address] [place], [place] [address] 05/26/2025 Mai Waggoner Closed nondisplaced fracture of pelvis with routine healing, unspecified part of pelvis, subsequent encounter S32.9XXD and Closed fracture of distal end of left radius with routine healing, unspecified fracture morphology, subsequent encounter S52.502D Assessments Encounter Date Diagnosis (ICD Code) Assessment Notes Treatment Notes Treatment Clinical Notes Section Notes 05/26/2025 Closed nondisplaced fracture of pelvis with routine healing, unspecified part of pelvis, subsequent encounter (ICD-10 - S32.9XXD) 05/26/2025 Closed fracture of distal end of left radius with routine healing, unspecified fracture morphology, subsequent encounter (ICD-10 - S52.502D) Plan Of Treatment Pending Test Test Name Order Date Physical Therapy 05/26/2025 Occupational Therapy : Eval & Treatment 05/26/2025 Next Appt Details Provider Name:Ren Armas, 07/01/2025 11:00:00 AM, [address], [place], [address], Progress Notes * Elizabeth AGUILAR MDOB:1944 (80 yo F)Acc No.[id number]:05/26/2025 Patient: Artur SHAHANA Elizabeth Romo :1945 A ge:80 Y S ex:Female Address:[facility] [place] [address] Subjective: * Chief Complaints: * O rder * Medical History: * Surgical History: * Hospitalization/Major Diagno stic Procedure: * Medications: Objective: * Vitals: * Physical Examination: Assessment: * Assessment: 1. C losed nondisplaced fracture of pelvis with routine healing, unspecified part of pelvis, subsequent encounter - S32.9XXD (Primary) 2 . C losed fracture of distal end of left radius with routine healing, unspecified fracture morphology, subsequent encounter - S52.502D? Plan: * Treatment: ?Imaging: Occupational Therapy : Eval & Treatment* 2.?Closed fracture of distal end of left radius with routine healing, unspecified fracture morphology, subsequent encounter?Imaging: Physical Therapy * ?Imaging: Occupational Therapy : Eval & Treatment* * Procedure Codes: * true * Date: Generated for Darya mei/Betsy/Sumanitting on: 1 11:10 AM EDT
--- OUTSIDE RECORDS SUMMARY | 2025-06-03 07:00 | XMS_ITS ---
Author Organization [facility] Address [address] [place] [address] Care Team Providers Care Squad Boss Name Role Phone Christen Shen Primary Care Provider CHRISTEN SHEN Unavailable Unavaila Ren Naylor Unavailable [phone] Allergies Allergen (clinical drug ingredient) Drug/Non Drug Allergy documented on EMR Reaction Allergy Type Onset Date Status SULFA DRUGS (uncoded) Unknown Allergy Active etodolac Lodine Unknown Drug Allergy Active Penicillin Unknown Drug Allergy Active REASON FOR VISIT 3 Week F/U, states that she just does not feel well-fatigued, having some pain in her buttocks area, still having some vaginal irritation-Antwon Waggoner did a UA and Urine Culture and both were fine, flu shot? Medications Medication SIG (Take, Route, Frequency, Duration) Notes Start Date End Date Status Ativan 1 MG 1 tab(s) orally bid 05/14/2013 Active Aspirin 81 MG 1 TAB(S) ORALLY ONCE A DAY Active Multivitamin - 1 tab(s) orally once a day Active OSTEO-BIOFLEX 1 TAB ORALLY ONCE DAILY Active Gabapentin 300 MG 1 cap Orally at bedt cindy; Duration: 30 days 02/09/2025 Active DULoxetine HCl 60 MG 1 capsule Orally at night; Duration: 90 days Active traMADol HCl 50 MG 1-2 tabs Orally at bedtime; Duration: 30 days 05/13/2025 Activ e Pantoprazole Sodium 20 MG 1 tablet 1/2 t o 1 hour before morning meal Orally Once a day; Duration: 30 day(s) 02/09/2025 Active traZODone HCl 100 MG 1 tablet at bedtime Orally Once a day; Duration: 30 day(s) 05/05/2025 Active Reclast 5 MG/100ML as directed intraven ously once yearly 02/26/2020 Active Rosuvastatin Calcium 10 MG 1 tab(s) oral ly once a day; Duration: 90 days Active Budesonide 3 MG 1 capsule Orally; Duration: 30 day(s) 01/07/2025 Active Immunizations Vaccine Route Administration Date Status Comme nts Fluzone High Dose IM Intramuscular 06/03/2025 Administered Vital Signs Temperature 97.6 degrees Fahrenheit 06/03/20 25 Blood pressure systolic 122 mm Hg 06/03/20 25 Blood pressure diastolic 80 mm Hg 025 Heart Rate 94 /min 06/03/2025 Height 5 ft 2 in in 06/03/2025 Weight 107.8 lbs 06/03/2025 BMI 19.71 kg/m2 06/03/2025 Encounters Encounter Location Date Provider Diagnosis [facility] [address] [facility] [address] [place] [address] 06/03/2025 Ren Armas Immunization(s) administered Z23 ; Closed nondisplaced fracture of pelvis with routine healing, unspecified part of pelvis, subsequent encounter S32.9XXD and Arthralgia of multiple joints M25.50 Assessments Encounter Date Diagnosis (ICD Code) Assessment Notes Treatment Notes Treatment Clinical Notes Section Notes 06/03/2025 Immunization(s) administered (ICD-10 - Z23) 06/03/2025 Closed nondisplaced fracture of pelvis with routine healing, unspecified part of pelvis, subsequent encounter (ICD-10 - S32.9XXD) Overall doing very nicely. Continues to improve on a daily basis. Recommended walking more every week with a walking stick or cane. Recommended trying to cut back on tramadol as I think this might be affecting her urine output and her chronic constipation issues. Discussed using Tylenol 3 times daily for pain control. 06/03/2025 Arthralgia of multiple joints (ICD-10 - M25.50) Add fish oil, Tylenol. Follow-up 4 weeks to reassess therapy and arthralgias. Plan Of Treatment Treatment Notes Assessment Notes Closed nondisplaced fracture of pelvis with routine healing, unspecified part of pelvis, subsequent encounter Overall doing very nicely. Continues to improve on a daily basis. Recommended walking more every week with a walking stick or cane. Recommended trying to cut back on tramadol as I think this might be affecting her urine output and her chronic constipation issues. Discussed using Tylenol 3 times daily for pain control. Arthralgia of multiple joints Add fish o il, Tylenol. Follow-up 4 weeks to reassess therapy and arthralgias. Next Appt Details Follow Up: 4 Weeks, Reason: Provider Name:Ren Armas, 07/01/2025 11:00:00 AM, [address], [address], [place], [address], Progress Notes * Elizabeth AGUILAR MDOB:1944 (80 yo F)Acc No.[id number]:06/03/2025 Progress Notes Patient: Elizabeth MEJIA Provider: Ortiz Armas MD :1945 A ge:80 Y S ex:Female Date:06/03/2025 Address:[address] [place] [address], [place], [id number] Pcp:Christen Shen Subjective: * Chief Complaints: * 1 . 3 Week F/U. 2. States that she just does not feel well-fatigued, having some pain in her buttocks area. 3. still having some vaginal irritation-Antwon Waggoner did a UA and Urine Culture and both were fine. 4. Flu shot?. * HPI: g en: Overall continue to improve in regards to functional status. Walking outside, for 5 or 10 minutes, wonders about getting distance. Is now doing OT for her hand at [facility]. Otherwise feels good, does have some hip pain and pelvic pain where her fractures occurred. * Medical History: I rritable bowel syndrome, [...] Tablet 1-2 tabs Orally at bedtime , Taking DULoxetine HCl 60 MG Capsule Delayed Release Particles 1 capsule Orally at night , Discontinued Diflucan 150 MG Tablet 1 tablet Orally once, repeat in 3 days , Medication List reviewed and reconciled with the patient * Allergies: S ULFA DRUGS, Lodine, Penicillin. Objective: * Vitals: N urse: jl, Pain: 5, Temp: 97.6, RR: 18, HR: 94, BP: 122/80, Ht: 5 ft 2 in, Wt: 107.8, BMI:19.71. * Examination: G eneral Examination: General P leasant and Cooperative, NAD on RA,. HEENT: p harynx and tonsils normal, TM's normal. Lungs: L CTAB, No wheezes, crackles or rhonchi, Good air movement,. Neurologic Exam: n o focal signs,, normal sensation, strength, tone and reflexes,, Alert and oriented x 3. W alks well without assistance in the office, can go back and forth in the room, can circumnavigated chair without holding on. Assessment: * Assessment: 1. C losed nondisplaced fracture of pelvis with routine healing, unspecified part of pelvis, subsequent encounter - S32.9XXD (Primary) 2 . I mmunization(s) administered - Z23? 3. A rthralgia of multiple joints - M25.50 Plan: * Treatment: 2. A rthralgia of multiple joints Notes: Add fish oil, Tylenol. Follow-up 4 weeks to reassess therapy and arthralgias. * Immunizations: Fluzone High Dose : 0.5 mL (Route: Intramuscular) given by ALEKSANDR De Souza on Left Deltoid (Immunization(s) administered) * Procedure Codes: 9 0662 Influenza High Dose Vaccine >65 Years Old, G0008 ADMINISTRATION-FLU VACCINE MEDICARE ONLY * Follow Up: 4 Weeks * * Sign off status: Completed true * Provider: Ortiz Armas MD Date: 0 06/03/2025 Generated for Darya mei/Betsy/eTransmitting on: 1 11:11 AM EDT History and Physical Notes * HPI (History of Present Illness) Category Sub-Category Detail Notes Category Not es gen Overall continue to improve in regards to functional status. Walking outside, for 5 or 10 minutes, wonders about getting distance. Is now doing OT for her hand at [facility]. Otherwise feels good, does have some hip pain and pelvic pain where her fractures occurred. Examination Category Sub-Category Detail Notes Category Not es General Examination HEENT: pharynx and tonsils normal, TM's normal Walks well without assistance in the office, can go back and forth in the room, can circumnavigated chair without holding on Lungs: LCTAB, No wheezes, c rackles or rhonchi, Good air movement, Neurologic Exam: no focal signs,, nor mal sensation, strength, tone and reflexes,, Alert and oriented x 3 General Pleasant and Coopera tive, NAD on RA,
--- OUTSIDE RECORDS SUMMARY | 2025-06-26 11:10 | XMS_ITS | Encounter Summary ---
Author Organization Healthcare Address [address] [place] [address] Care Team Providers Care Technical Supervisor Name Role Phone Ren Armas MD Primary Care Provider [phone] Encounter Details Date Type Department Care Team (Late st Contact Info) Description 04/24/2025 Abstract [facility] Orthopaedic Surgery & Sports Medicine [address], [address] [place] [address] Jean Carlos Chambers MD [address] [place] [address] Social History Tobacco Use Types Packs/Day Years Used Date Smoking Tobacco: Never Smokeless Tobacco: Never Alcohol Use Standard Drinks/Week Comments Yes 0 (1 standard drink = 0.6 oz pur e alcohol) Humiliation, Afraid, Rape, and Kick questionnair e [...] any time in the past 12 m [facility], were you homeless or living in a half-way (including now)? No 04/17/2025 Utilities Answer Date [...] 03/04/2026 11:00 AM EDT Ovarian Cancer Screening [facility] Gynecology [address] [facility], [address] [place] [address] documented as of this encounter Visit Diagnoses Not on filedocumented in this encounter Additional Health Concerns Assessment Noted Time A fall risk assessment has been complete d for the patient 04/24/2025 10:17 AM EDT A Body Mass Index follow-up plan has been documented for the patient 04/24/2025 12:24 PM EDT documented as of this encounter Care Teams Technical Supervisor Relationship Specialty Start Date End Date Ren Armas MD [address] [place] [address] PCP - General 01/21/21 documented as of this encounter
--- OUTSIDE RECORDS SUMMARY | 2025-06-26 11:10 | XMS_ITS | Encounter Summary ---
Author Organization Healthcare Address [address] [place] [address] Care Team Providers Care Brazer Resistance Name Role Phone Ren Armas MD Primary Care Provider [phone] Encounter Details Date Type Department Care Team (Late st Contact Info) Description 04/27/2025 Telephone [facility] [address], [address] [place] [address] Amelia Power PA [address] [place] [address] Social History Tobacco Use Types [...] any time in the past 12 m [facility], were you homeless or living in a [...] on file documented as of this encounter Miscellaneous Notes * Telephone Encounter - Sly Mercedes - 04/27/2025 2:29 PM EDT patient confirmed switch from 10:50 on 05/[address] Chambers to 9:30 on 05/08 with Marti Power documented in this encounter Plan of Treatment Upcoming Encounters Date Type Department Care Team (Late st Contact Info) Description 03/04/2026 11:00 AM EDT Ovarian Cancer Screening [facility] Gynecology [address] [place] [address] documented as of this encounter Visit Diagnoses Not on filedocumented in this encounter Additional Health Concerns Assessment Noted Time A fall risk assessment has been complete d for the patient 04/24/2025 10:17 AM EDT A Body Mass Index follow-up plan has been documented for the patient 04/24/2025 12:24 PM EDT documented as of this encounter Care Teams Brazer Resistance Relationship Specialty Start Date End Date Ren Armas MD [address] [place] [address] PCP - General 01/21/21 documented as of this encounter
--- OUTSIDE RECORDS SUMMARY | 2025-06-26 11:10 | XMS_ITS | Encounter Summary ---
Author Organization [facility] Address [address] [place] [address] Care Team Providers Care Marine Machinist Name Role Phone Ren Armas MD Primary Care Provider + [phone] Giuseppe Ken MD Unavailable [phone] Encounter Details Date Type Department Care Team (Latest Contact Info) Description 05/22/2025 Travel Social History Tobacco Use Types Packs/Day [...] any time in the past 12 m [facility], were you homeless or living in a [...] 03/04/2026 11:00 AM EDT Ovarian Cancer Screening [facility] Gynecology [address] [place] [address], [address] [place] [address] documented as of this encounter Visit Diagnoses Not on filedocumented in this encounter Additional Health Concerns Assessment Noted Time PHQ-9 Depression Total Score: 11 05/08/ 025 9:23 AM EDT A fall risk assessment has been complete d for the patient 05/22/2025 9:42 AM EDT A Body Mass Index follow-up plan has been documented for the patient 05/22/2025 10:48 AM EDT documented as of this encounter Care Teams Marine Machinist Relationship Specialty Start Date End Date Ren Armas MD [address] [place] [address] PCP - General 01/21/21 Giuseppe Ken MD [address] [place] [address] Referring Physician 05/22/25 documented as of this encounter
--- OUTSIDE RECORDS SUMMARY | 2025-06-26 11:10 | XMS_ITS | Encounter Summary ---
Author Organization [facility] Address [address] [place] [address] Care Team Providers Care Radiator Core Tester Name Role Phone Ren Armas MD Primary Care Provider [phone] Encounter Details Date Type Department Care Team (Latest Contact Info) Description 05/08/2025 Travel Social History Tobacco Use Types Packs/Day [...] any time in the past 12 m [facility], were you homeless or living in a [facility] (including now)? No 04/17/2025 Utilities Answer Date [...] Sebas Mccarthy documented as of this encounter Plan of Treatment Upcoming Encounters Date Type Department Care Team (Late st Contact Info) Description 03/04/2026 11:00 AM EDT Ovarian Cancer Screening [facility] Gynecology [address] [facility], [address] [place] [address] documented as of this encounter Visit Diagnoses [...] documented as of this encounter Care Teams Radiator Core Tester Relationship Specialty Start Date End Date Ren Armas MD [address] [place] [address] PCP - General 01/21/21 documented as of this encounter
--- OUTSIDE RECORDS SUMMARY | 2025-06-26 11:11 | XMS_ITS | Patient Health Record ---
Author Organization [facility] Address [address] [place] [address] Care Team Providers Care Landscape Technician Name Role Phone Merna Shen Primary Care Provider [phone] MERNA SHEN Unavailable Unavaila Ren Naylor Unavailable [phone] Mai Waggoner Unavailable [phone] Migration, Provider Unavailable Unavailable Allergies Allergen (clinical drug ingredient) Drug/Non Drug Allergy documented on EMR Reaction Allergy Type Onset Date Status SULFA DRUGS (uncoded) Unknown Allergy Active etodolac Lodine Unknown Drug Allergy Active Penicillin Unknown Drug Allergy Active Results Component Value Reference Range Notes VITAMIN D,25-OH,TOTAL,IA (17 306) Reviewed date:10/16/2024 03:26:26 PM Interpretation: Performing Lab:NIK, [facility], [facility] CenterSpozOA[address] [place] Notes/Report: NON-FASTING; NON-FASTING; NON-FASTING; NON-FASTING; NON-FAST VITAMIN D,25-OH,TOTAL,IA 40 30-100 ng/mL Insufficiency: 20 - 29 ng/mL Optimal: > or = 30 ng/mL For 25-OH Vitamin D testing on patients on D2-supplementation and patients for whom quantitation Vitamin D Status 25-OH Vitamin D: Deficiency: <20 ng/mL Note 1 For additional information, please refer to http://education.Click4Care.com/faq/QIN295 (This link is being provided for informational/ educational purposes only.) of D2 and D3 fractions is required, the QuestAssureD(TM) 25-OH VIT D, (D2,D3), LC/MS/MS is recommended: order code 29387 (patients >2yrs). See Note 1 VITAMIN B12/FOLATE, SERUM PA DELGADO (7065) Reviewed date:10/16/2024 03:26:26 PM Interpretation: Performing Lab:NIK Compring-Breeze, ArchivasFsmaWG[address] [place] Notes/Report: NON-FASTING; NON-FASTING; NON-FASTING; NON-FASTING; NON-FAST VITAMIN B12 552 040-6794 pg/mL FOLATE, SERUM 13.7 Reference Range Low: <3.4 Borderline: 3.4-5.4 Normal: >5.4 DHARMESH MULTIPLEX W/REFLEX 11 AB CASCADE (24499) Reviewed date:10/17/2024 09:07:14 AM Interpretation: Performing Lab:NIK Compring-MK2Media5 [employer], ArchivasEuhkLG[address] [place] Notes/Report: NON-FASTING; NON-FASTING; NON-FASTING; NON-FASTING; NON-FAST DHARMESH SCREEN, IMMUNOASSAY NEGATIVE NEGATIVE http://education.Adnexus/faq/KIE870 (This link is being provided for informational/ educational purposes only.) A negative DHARMESH Multiplex indicates the absence of detectable antibodies to component analytes consisting of double stranded DNA (dsDNA), chromatin, ribonucleoprotein (LPN CARE MANAGER), Hawthorne/LPN CARE MANAGER (Sm/LPN CARE MANAGER), Hawthorne (Sm), SS-A, SS-B, Allyssa-1, centromere B, Scl-70 and ribosomal P. A negative result should be interpreted in the context of the clinical and laboratory findings and does not rule out autoimmune disease characterized by other autoantibody specificities such as rheumatoid arthritis, autoimmune hepatitis, primary biliary cirrhosis, autoimmune thyroiditis, Kerr's disease, pernicious anemia, autoimmune neuropathies, vasculitis, celiac disease, and bullous disease. For additional information, please refer to C-REACTIVE PROTEIN (4420) Reviewed date:10/17/2024 02:21:58 PM Interpretation: Performing Lab:NIK Compring-CoreObjects Software355 [email or web address] A/S, ArchivasKnmiJB[address] [place] Notes/Report: NON-FASTING; NON-FASTING; NON-FASTING; NON-FASTING; NON-FAST C-REACTIVE PROTEIN 60.7 <8.0 mg/L SED RATE BY MODIFIED WESTERG DEEPALI (809) Reviewed date:10/16/2024 03:26:26 PM Interpretation: Performing Lab:NIK, Compring-NextInput [email or web address] [place].[employer]tel [employer], [facility] CenterWkbcKV[address] [place] Notes/Report: NON-FASTING; NON-FASTING; NON-FASTING; NON-FASTING; NON-FAST SED RATE BY MODIFIED RAQUELREN 28 < OR = 30 mm/h CBC (INCLUDES DIFF/PLT) (639 9) Reviewed date:10/16/2024 03:26:26 PM Interpretation: Performing Lab:NIK, Compring-NextInput [id number] [address] [employer], NextInput PdxqGS[address] [place] Notes/Report: NON-FASTING; NON-FASTING; NON-FASTING; NON-FASTING; [...] MPV 9.6 7.5-12.5 fL ABSOLUTE NEUTROPHILS 5920 4273-3659 cells/uL ABSOLUTE LYMPHOCYTES 427 551-8075 cells/uL ABSOLUTE MONOCYTES 262 200-950 cells/uL ABSOLUTE EOSINOPHILS 83 15-500 cells/uL ABSOLUTE BASOPHILS 28 0-200 cells/uL NEUTROPHILS 85.8 LYMPHOCYTES 8.8 MONOCYTES 3.8 EOSINOPHILS 1.2 BASOPHILS 0.4 CREATINE KINASE, TOTAL (374) Reviewed date:10/17/2024 09:06:56 AM Interpretation: Performing Lab:NIK, Compring-NextInput [id number] [address] [facility], [facility] CenterNbwoOQ[address] [place] Notes/Report: NON-FASTING; NON-FASTING; NON-FASTING; NON-FASTING; NON-FAST CREATINE KINASE, TOTAL 41 18-225 U/L COMPREHENSIVE METABOLIC PANE L (64055) Reviewed date:10/17/2024 09:07:14 AM Interpretation: Performing Lab:NIK Compring-NextInput [id number], [facility] CenterPoviVZ[address] [place] Notes/Report: NON-FASTING; NON-FASTING; NON-FASTING; NON-FASTING; [...] Reviewed date:10/17/2024 09:07:14 AM Interpretation: Performing Lab:NIK Trov Raew5024 [address] [facility], [facility] CenterGkgvSK[address] [place] Notes/Report: NON-FASTING; NON-FASTING; NON-FASTING; NON-FASTING; NON-FAST T3 UPTAKE 25 22-35 % T4 (THYROXINE), TOTAL 7.7 5.1-11.9 mcg/dL FREE T4 INDEX (T7) 1.9 1.4-3.8 TSH 1.37 0.40-4.50 mIU/L Rapid Covid/Flu A-B Combo Reviewed date:08/06/2024 01:38:10 PM Interpretation: Performing Lab: Notes/Report: Rapid Covid pos Flu A neg Flu B neg Urinalysis Reviewed date:05/26/2025 12:02:42 PM Interpretation: Performing Lab: Notes/Report: Color/Clarity Yellow Leuk neg Nitrite neg Urobili 0.2 Protein neg pH 7.0 Blood neg Sp. Gr. 1.020 Ketone neg Bili neg Glucose neg CULTURE, URINE, ROUTINE (395 ) Reviewed date:05/28/2025 10:00:47 AM Interpretation: Performing Lab:NIK Compring-Peyman Yadave1355 [address] [employer] [place] RdwpWI[address] [place] Notes/Report: NON-FASTING CULTURE, URINE, ROUTINE SEE NOTE CULTURE, URINE, ROUTINE Micro Number: [id number] Test Status: Final Specimen Source: Urine, clean catch Specimen Quality: Adequate Result: Less than 10,000 CFU/mL of single Gram positive organism isolated. No further testing will be performed. If clinically indicated, recollection using a method to minimize contamination, with prompt transfer to Urine Culture Transport Tube, is recommended. Mammogram : Bilateral Reviewed date:02/27/2025 02:18:23 PM Interpretation: Performing Lab: Notes/Report: CBC (INCLUDES DIFF/PLT) (639 9) Reviewed date:11/04/2024 01:44:51 PM Interpretation: Performing Lab:NIK Compring-Peyman [id number] [address] [facility] CenterHfkiYK[address] [place] Notes/Report: NON-FASTING; NON-FASTING; NON-FASTING; NON-FASTING [...] MPV 10.0 7.5-12.5 fL ABSOLUTE NEUTROPHILS 3014 4752-4573 cells/uL ABSOLUTE LYMPHOCYTES 5557 675-3874 cells/uL ABSOLUTE MONOCYTES 294 200-950 cells/uL ABSOLUTE EOSINOPHILS 123 15-500 cells/uL ABSOLUTE BASOPHILS 39 0-200 cells/uL NEUTROPHILS 61.5 LYMPHOCYTES 29.2 MONOCYTES 6.0 EOSINOPHILS 2.5 BASOPHILS 0.8 COMPREHENSIVE METABOLIC PANE L (12497) Reviewed date:11/04/2024 01:44:51 PM Interpretation: Performing Lab:NIK Compring-NextInput [id number] [employer], ArchivasKuevIW[address] [place] Notes/Report: NON-FASTING; NON-FASTING; NON-FASTING; NON-FASTING [...] 16 10-35 U/L ALT 12 6-29 U/L SED RATE BY MODIFIED CHELLYERG DEEPALI (809) Reviewed date:11/04/2024 01:44:52 PM Interpretation: Performing Lab:NIK Compring-NextInput [email or web address] [email or web address], YouBeQBVkwcDR[address] [place] Notes/Report: NON-FASTING; NON-FASTING; NON-FASTING; NON-FASTING SED RATE BY MODIFIED WESTERGREN 17 < OR = 30 mm/h C-REACTIVE PROTEIN (4420) Reviewed date:11/04/2024 04:01:34 PM Interpretation: Performing Lab:NIK, Compring-NextInput [id number] [address] [facility], [facility] CenterKtxlFI[address] [place] Notes/Report: NON-FASTING; NON-FASTING; NON-FASTING; NON-FASTING C-REACTIVE PROTEIN 5.5 <8.0 mg/L COMPREHENSIVE METABOLIC PANE L (26109) Reviewed date:12/12/2024 12:03:38 PM Interpretation: Performing Lab:NIK Compring-NextInput [email or web address] [email or web address] [facility], [place] WkwcQX[address] [place] Notes/Report: NON-FASTING; NON-FASTING; NON-FASTING; NON-FASTING; [...] Reviewed date:12/12/2024 12:03:38 PM Interpretation: Performing Lab:NIK Compring-NextInput [address], [facility] CenterEdhtOK[address] [place] Notes/Report: NON-FASTING; NON-FASTING; NON-FASTING; NON-FASTING; [...] MPV 9.6 7.5-12.5 fL ABSOLUTE NEUTROPHILS 3993 4451-6851 cells/uL ABSOLUTE LYMPHOCYTES 4280 866-8663 cells/uL ABSOLUTE MONOCYTES 259 200-950 cells/uL ABSOLUTE EOSINOPHILS 72 15-500 cells/uL ABSOLUTE BASOPHILS 22 0-200 cells/uL NEUTROPHILS 72.6 LYMPHOCYTES 21.0 MONOCYTES 4.7 EOSINOPHILS 1.3 BASOPHILS 0.4 SED RATE BY MODIFIED RAQUEL PALUMBO (809) Reviewed date:12/12/2024 12:03:39 PM Interpretation: Performing Lab:NIK, Compring-NextInput [id number], [facility] CenterPdypME[address] [place] Notes/Report: NON-FASTING; NON-FASTING; NON-FASTING; NON-FASTING; NON-FAST SED RATE BY MODIFIED ANIL 14 < OR = 30 mm/h C-REACTIVE PROTEIN (4420) Reviewed date:12/12/2024 12:03:39 PM Interpretation: Performing Lab:NIK Compring-NextInput Hejr30[address], [facility] CenterXdnpGO[address] [place] Notes/Report: NON-FASTING; NON-FASTING; NON-FASTING; NON-FASTING; NON-FAST C-REACTIVE PROTEIN 3.3 <8.0 mg/L DHARMESH MULTIPLEX W/REFLEX 11 AB CASCADE (73217) Reviewed date:12/12/2024 12:03:39 PM Interpretation: Performing Lab:NIK, [facility] [address], [facility] CenterNcvpUL[address] [place] Notes/Report: NON-FASTING; NON-FASTING; NON-FASTING; NON-FASTING; NON-FAST DHARMESH SCREEN, IMMUNOASSAY NEGATIVE NEGATIVE A negative DHARMESH Multiplex indicates the absence of detectable antibodies to component analytes consisting of double stranded DNA (dsDNA), chromatin, ribonucleoprotein (LPN CARE MANAGER), Hawthorne/LPN CARE MANAGER (Sm/LPN CARE MANAGER), Hawthorne (Sm), SS-A, SS-B, Allyssa-1, centromere B, Scl-70 and ribosomal P. A negative result should be interpreted in the context of the clinical and laboratory findings and does not rule out autoimmune disease characterized by other autoantibody specificities such as rheumatoid arthritis, autoimmune hepatitis, primary biliary cirrhosis, autoimmune thyroiditis, Kerr's disease, pernicious anemia, autoimmune neuropathies, vasculitis, celiac disease, and bullous disease. For additional information, please refer to http://education.Adnexus/faq/GJD155 (This link is being provided for informational/ educational purposes only.) Medications Medication SIG (Take, Route, Frequency, Duration) Notes Start Date End Date Status Reclast 5 MG/100ML as directed intraven ously once yearly 02/26/2020 Active Rosuvastatin Calcium 10 MG 1 tab(s) oral ly once a day; Duration: 90 days Active Budesonide 3 MG 1 capsule Orally; Duration: 30 day(s) 01/07/2025 Active Gabapentin 300 MG 1 cap Orally at bedt cindy; Duration: 30 days 02/09/2025 Active Ativan 1 MG 1 tab(s) orally bid 05/14/2013 Active DULoxetine HCl 60 MG 1 capsule Orally at night; Duration: 90 days Active Aspirin 81 MG 1 TAB(S) ORALLY ONCE A DAY Active Multivitamin - 1 tab(s) orally once a day Active OSTEO-BIOFLEX 1 TAB ORALLY ONCE DAILY Active traMADol HCl 50 mg TAKE 1 OR 2 TABLET(S ) BY MOUTH EVERY DAY AT BEDTIME; Duration: 30 06/08/2025 Active Pantoprazole Sodium 20 MG 1 tablet 1/2 t o 1 hour before morning meal Orally Once a day; Duration: 30 day(s) 02/09/2025 Active traZODone HCl 100 MG 1 tablet at bedtime Orally Once a day; Duration: 30 day(s) 05/05/2025 Active Immunizations Vaccine Route Administration Date Status [...] Fluzone High Dose IM Intramuscular 08/31/2021 Administered Fluzone High Dose IM Intramuscular 06/03/2025 Administered H1N1 Vaccine IM Intramuscular 10/01/2009 Administered Influenza-Fluzone 3+years (NON-MEDICARE) IM Intramuscular 08/18/2015 Administered Influenza-Fluzone 3+years (NON-MEDICARE) IM Intramuscular 07/17/2017 Administered Lot # [id number] Exp 02/08/18 Manuf Seqirus Pneumovax 23 Unknown 08/20/2014 Administered Prevnar PCV-13 (Pneumococcal conjugate 13) IM Intramuscular 08/09/2016 Administered Tetanus Toxoid IM Intramuscular 05/01/2012 Administered Zostavax (Shingles) SC Subcutaneous 06/01/2016 Administered Problems Problem Type SNOMED Code ICD Code Onset Dates Problem Status W/U Status Risk Notes Problem Mild recurrent major depression (18547668) Major depressive disorder, recurrent, mild (F33.0) Active confirmed Problem Primary insomnia (3820276) Primary insomnia (F51.01) Active confirmed Problem Irritable bowel syndrome with diarrhea (605201347) Irritable bowel syndrome with diarrhea (K58.0) Active confirmed Problem Acquired spondylolisthesis (561637106) Spondylolisthesis , 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) Active confirmed Problem Low back pain (751877354) Low back pain (M54.5) Active confirmed Problem Anxiety (87528679) Anxiety (F41.9) Active confi rmed Problem Osteoporosis (86413561) Osteoporosis (M81.0) Active confirmed Problem Essential hypertension (65985015) HTN (hypertension), benign (I10) Active confirmed Problem Hyperlipidemia (47040897) Hyperlipemia, idiopathic familial (E78.5) Active confirmed Problem Spasm of back muscles (121693983) Lumbar paraspinal muscle spasm (M62.830) Active confirmed Problem Chronic pain (33075939) Other chronic pain (G89.29) Active confirmed Problem 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, 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) Active confirmed Problem Atherosclerosis of coronary artery without angina pectoris (699245384203671) Atherosclerosis of shoshone-paiute coronary artery of shoshone-paiute heart without angina pectoris (I25.10) Active confirmed Problem Generalized anxiety disorder (92142146) NIKIA (generalized anxiety disorder) (F41.1) Active confirmed Problem Arthralgia of multiple joints (40127451) Arthralgia of multiple joints (M25.50) Active confirmed Problem Seborrheic dermatitis of scalp (211715545) Seborrheic dermatitis of scalp (L21.9) Active confirmed Problem Moderate recurrent major depression (42484872) Moderate episode of recurrent major depressive disorder (F33.1) Active confirmed Problem Sacroiliac instability (28268130) 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) Active confirmed Problem Irritable bowel syndrome characterized by constipation (914019888) Irritable bowel syndrome with constipation (K58.1) Active confirmed Problem Irritable bowel syndrome (34290807) Irritable bowel syndrome with both constipation and diarrhea (K58.2) Active confirmed Problem Somatic dysfunction of sacroiliac joint (finding) (090054498399) Sacroiliac joint dysfunction (M53.3) Active confirmed Problem Episodic migraine (626585131300031) Episodic migraine (G43.909) Active confirmed Problem Closed nondisplaced fracture of pelvis with routine healing, unspecified part of pelvis, subsequent encounter (S32.9XXD) Active confirmed Vital Signs Heart Rate 94 /min 06/03/2025 Temperature 97.6 degrees Fahrenheit 06/03/2025 Blood pressure diastolic 80 mm Hg 06/03/2025 Height 5 ft 2 in in 06/03/2025 Blood pressure systolic 122 mm Hg 06/03/2025 Weight 107.8 lbs 06/03/2025 BMI 19.71 kg/m2 06/03/2025 Encounters Encounter Location Date Provider Diagnosis [facility] [address] [facility] [address] [place], [place] [address] 11/03/2024 Ren Besson [facility] [address] [facility] [address] [place], [place] [address] 12/13/2024 Provider Migration [facility] [address] [facility] [address] [place], [place] [address] 08/06/2024 Merna Shen Body aches R52 and COVID-19 U07.1 [facility] [address] [facility] [address] [place], [place] [address] 08/18/2024 Merna Shen Acute non-recurrent frontal sinusitis J01.10 and Yeast vaginitis B37.31 [facility] [address] [facility] [address] [place], [place] [address] 10/15/2024 Ren Besson Myalgia M79.10 ; Arthritis, multiple joint involvement M12.9 and Osteoporosis M81.0 [facility] [address] [facility] [place], [place] [address] 10/22/2024 Ren Besson Myalgia, multiple sites M79.18 and Primary insomnia F51.01 [facility] [address] [facility] [place], [place] [address] 11/05/2024 Ren Besson Myalgia, multiple sites M79.18 and Episodic migraine G43.909 [facility] [address] [facility] [place] [address] 12/08/2024 Ren Besson Arthralgia of multiple joints M25.50 ; Myositis of upper arm, unspecified laterality, unspecified myositis type M60.9 and Routine medical exam Z00.00 [facility] [address] [facility] [place], [place] [address] 01/07/2025 Ren Besson Acute reactive otiti s externa of right ear H60.551 and Irritable bowel syndrome with constipation K58.1 [facility] [address] [address] 01/29/2025 Ren Besson Electrocution and nonfatal effects of electric current, subsequent encounter T75.4XXD ; Epigastric pain R10.13 and Hospital discharge follow-up Z09 [facility] [address] [place], [place] [address] 02/09/2025 Ren Chanda Epigastric pain R10.13 [facility] [address] [place], [place] [address] 03/09/2025 Ren Armas Neuralgia and neuritis, unspecified M79.2 and Other chronic pain G89.29 [facility] [address] [place], [place] [address] 04/22/2025 Ren Armas Closed nondisplaced fracture of pelvis with routine healing, unspecified part of pelvis, subsequent encounter S32.9XXD ; Closed fracture of distal end of left radius with routine healing, unspecified fracture morphology, subsequent encounter S52.502D and Hospital discharge follow-up Z09 [facility] [address] [place], [place] [address] 05/13/2025 Ren Besantonio Anxiety F41.9 ; Osteoporosis M81.0 and Closed nondisplaced fracture of pelvis with routine healing, unspecified part of pelvis, subsequent encounter S32.9XXD [facility] [address] [place], [place] [address] 05/26/2025 Mai McNees Dysuria R30.0 and Acute vaginitis N76.0 [facility] [address] [place], [place] [address] 06/03/2025 Ren Chanda Immunization(s) administered Z23 ; Closed nondisplaced fracture of pelvis with routine healing, unspecified part of pelvis, subsequent encounter S32.9XXD and Arthralgia of multiple joints M25.50 [facility] [address] [place] [address] 08/18/2024 Merna Shen Yeast vaginitis B37.31 [facility] [address] [place] [address] 12/12/2024 Merna Shen [facility] [address] [place] [address] 01/07/2025 Merna Hermelinda [facility] [address] [place] [address] 01/07/2025 Rne Besson [facility] [address] [place] [address] 01/23/2025 Merna Hermelinda [facility] [address] [place] [address] 02/10/2025 Ren Besson Breast cancer screening by mammogram Z12.31 [facility] [address] [place] [address] 04/16/2025 Merna Hermelinda [facility] [address] [facility] [place] [address] 04/20/2025 Merna Hermelinda [facility] [address] [facility] [address] [place] [address] 04/21/2025 Ren Besson [facility] [address] [place] [address] 05/05/2025 Ren Besson Closed nondisplaced fracture of pelvis with routine healing, unspecified part of pelvis, subsequent encounter S32.9XXD [facility] [address] [place] [address] 05/13/2025 Merna Hermelinda [facility] [address] [facility] [address] [place] [address] 05/26/2025 Mai Waggoner Closed nondisplaced fracture of pelvis with routine healing, unspecified part of pelvis, subsequent encounter S32.9XXD and Closed fracture of distal end of left radius with routine healing, unspecified fracture morphology, subsequent encounter S52.502D [facility] [address] [place] [address] 06/01/2025 Merna Hermelinda [facility] [address] [place] [address] 06/02/2025 Ren Besson Assessments Encounter Date Diagnosis (ICD Code) Assessment Notes Treatment Notes Treatment Clinical Notes Section Notes 08/06/2024 Body aches (ICD-10 - R52) 08/06/2024 [...] w/2PCI in the past noted), minimal TTP, Page negative, no N/V/hemoptysis -Atypical pain sensation per [...] component -No change in vision or hearing -Tree Sapper aware of event, HTNsive afterward and they [...] cancer screening by mammogram (ICD-10 - Z12.31) 04/22/2025 Closed fracture of distal end of left radius with routine healing, unspecified fracture morphology, subsequent encounter (ICD-10 - S52.502D) Home health involved. I performed a uymq-sq-slle evaluation on this patient today, and determined that this patient cannot leave home without significant difficulty based on pain, immobility and ataxia issues. They qualify for home health evaluation for PT/OT evaluation as well as nursing care, home safety and follow-up medical care. 04/22/2025 Closed nondisplaced fracture of pelvis with routine healing, unspecified part of pelvis, subsequent encounter (ICD-10 - S32.9XXD) Continue to follow up with your orthopedics on Sunday. Continue to take your bowel reg + LVX injections. Weight bearing per ortho. Will prescribe oxy 5 mg + oxy 10 mg ER for night. Recommend tylenol 1g q6 hours. Did set up home health PT. 05/05/2025 Closed nondisplaced fracture of pelvis with routine healing, unspecified part of pelvis, subsequent encounter (ICD-10 - S32.9XXD) 05/13/2025 Anxiety (ICD-10 - F41.9) Having increased [...] in 2025 after resolution of her fractures. 05/26/2025 Acute vaginitis (ICD-10 - N76.0) 05/26/2025 Dysuria (ICD-10 - R30.0) Reassurance, UA is normal. Dysuria likely related to yeast vaginitis. Treat as below. Increase oral fluid intake, will send for cx. 05/26/2025 Closed fracture of distal end of left radius with routine healing, unspecified fracture morphology, subsequent encounter (ICD-10 - S52.502D) 05/26/2025 Closed nondisplaced fracture of pelvis with routine healing, unspecified part of pelvis, subsequent encounter (ICD-10 - S32.9XXD) 06/03/2025 Immunization(s) administered (ICD-10 - Z23) 06/03/2025 [...] Tylenol 3 times daily for pain control. 03/09/2025 Neuralgia and neuritis, unspecified (ICD-10 - [...] not then she can stop the medicine. 06/03/2025 Arthralgia of multiple joints (ICD-10 - M25.50) Add fish oil, Tylenol. Follow-up 4 weeks to reassess therapy and arthralgias. 05/13/2025 Closed nondisplaced fracture of pelvis with routine healing, unspecified part of pelvis, subsequent encounter (ICD-10 - S32.9XXD) Overall healing well. Following with orthopedic surgery. Done with LVX injections. Doing Home health PT/OT. Will complete outpatient PT/OT after. Doing mostly under control with Tylenol + IBU. Will prescribe Tramadol 50 mg for breakthrough pain at night. 04/22/2025 Hospital discharge follow-up (ICD-10 - Z09) Personally reviewed H&P and discharge summary as available from hospital discharge documentation. Reviewed pertinent labs and test done in the hospital. Personally reconciled medication. 01/29/2025 Hospital discharge follow-up (ICD-10 - Z09) [...] vaccinations. Nonsmoker. 10/15/2024 Osteoporosis (ICD-10 - M81.0) Plan Of Treatment Pending Test Test Name Order Date N-CBC 08/14/2006 N-Amylase 08/14/2006 X ray : Spines, Lumbar 07/15/2020 DEXA Hip and Spine - Screening 0 N-CMP 08/14/2006 H. pylori 08/14/2006 Echocardiogram 06/04/2014 Holter Monitor, 24 Hour 06/04/2014 Physical Therapy 09/12/2013 Physical Therapy 01/18/2011 Physical Therapy 04/25/2016 Physical Therapy 06/17/2014 Physical Therapy 07/10/2016 Physical Therapy 12/15/2016 Physical Therapy 05/29/2017 Physical Therapy 10/03/2007 Physical Therapy 01/17/2019 Physical Therapy 04/29/2018 Physical Therapy 05/26/2025 Physical Therapy 06/24/2020 Physical Therapy 11/24/2015 Physical Therapy 02/09/2009 Physical Therapy 02/22/2012 Physical Therapy 05/24/2012 Occupational Therapy : Eval & Treatment 05/13/2025 Occupational Therapy : Eval & Treatment 05/26/2025 H-CBC with AUTO DIFF 09/13/2012 H-CBC with AUTO DIFF 04/28/2011 H-CBC with AUTO DIFF 11/26/2015 H-MISCELLANEOUS CULTURE 01/30/2013 H-URINE CULTURE 05/16/2013 H-FACTOR V ACTIVITY 09/13/2012 H-CMP 11/26/2015 H-CMP 04/28/2011 H-CMP 10/14/2009 H-CMP 09/13/2012 H-CMP 04/06/2008 H-LIPID PANEL 04/06/2008 H-LIPID PANEL 10/14/2009 H-LIPID PANEL 04/28/2011 H-LIPID PANEL 11/26/2015 H-LIPID PANEL 09/13/2012 H-TSH [...] 10/20/2016 Next Appt Details Provider Name:Ren Armas, 07/01/2025 11:00:00 AM, [address], [address], [place], [address], Insurance Providers Payer Name Payer Address Payer Phone Subscriber Number Group Number Insured Name Patient Relationship to Insured Coverage Start Date Coverage End Date [place] [address] [place] [address] [id number] Elizabeth Bustamante Self - patient is the insured [facility] [address] [place] [address] [id number] Elizabeth Bustamante Self - patient is the insured [employer] [address] [place] [address] ACL Elizabeth Bustamante Self - patient is [...] back surgery 10/2021 Hospitalization History Reason Date(Month/Year) [facility] and boke bones 04/2025 back surgery 10/2021 [facility]- colitis, hypokalemia, syncope 2019 heart issues 01/2018 Kidney Infection Viral infection Child
--- OUTSIDE RECORDS SUMMARY | 2025-06-26 11:11 | XMS_ITS | Clinical Summary ---
Author Organization [facility] Address [address] [place] [address] Phone Care Team Providers Care Geotechnicial Properties Technician Name Role Phone Ren Armas MD Primary Care Provider [phone] Allergies Active Allergy Reactions Criticality Noted Date [...] RIGHT SIDE; Surgeon: Hector Lara MD; Location: [facility]; Service: Neurosurgery Medical devices from [...] on file Sexual Orientation Not on file Last Filed Vital Signs Vital Sign Reading [...] - 1-dose 75+ series) 2020 COVID-19 Vaccine (3 - season) 2025 10/19/2020, 09/21/2020 Influenza Vaccine (#1) 2025 2, 08/31/2021, 07/15/2020, Additional history exists DTaP/TDaP/Td (2 - Td or Tdap) 12/27/2033 12/28/2023 Hepatitis B Vaccine Aged Out No longe r eligible based on patient's age to complete this topic Meningococcal B Vaccine Aged Out No l onger eligible based on patient's age to complete this topic Medical Devices Implanted Type Area Medical Fee Clerk Device Identifier Shelf Expiration Date Model / Serial / Lot Cardiac Stents Kt Graft 2.8ml Infs Sm Valentin Matrx 2-Tn Bnd 5ml Strl H2o - [id number] Implanted:Qty: 1 on 10/24/2021 by Hector Lara MD at [facility] Right: Spine Lumbar [employer]:SOFAM OR DANEK 05/10/2023 [id number] / / [id number] Cage Capstone 8mm X 22mm Vertestak - [id number] Implanted:Qty: 1 on 10/24/2021 by Hector Lara MD at [facility] Right: Spine Lumbar [employer]:SOFAM OR DANEK 02/10/2029 [id number] / / [id number] Screw Voyager Solera 6.5 X 35mm - 5.5/6.0 - [id number] Implanted:Qty: 2 on 10/24/2021 by Hector Lara MD at [facility] Right: Spine Lumbar [employer]:SOFAM OR DANEK [id number] / / Screw Voyager Solera 6.5 X 40mm - 5.5/6.0 - [id number] Implanted:Qty: 2 on 10/24/2021 by Hector Lara MD at [facility] Right: Spine Lumbar [employer]:SOFAM OR DANEK [id number] / / Set Screw 5.5/6.0 Solera Voyager - [id number] Implanted:Qty: 4 on 10/24/2021 by Hector Lara MD at [facility] Right: Spine Lumbar [employer]:SOFAM OR DANEK [id number] / / Xu Percutaneous 5.5mm X 35mm - [id number] Implanted:Qty: 1 on 10/24/2021 by Hector Lara MD at [facility] Right: Spine Lumbar [employer]:SOFAM OR DANEK [id number] / / Xu Percutaneous 5.5mm X 40mm - [id number] Implanted:Qty: 1 on 10/24/2021 by Hector Lara MD at [facility] Right: Spine Lumbar [employer]:SOFAM OR DANEK [id number] / / Cage Capstone 8mm X 22mm Vertestak - [id number] Implanted:Qty: 1 on 10/24/2021 by Hector Lara MD at [facility] Right: Spine Lumbar [employer]:JEFF OR JAYJAY [id number] / / Insurance MEDICARE [place] PART A AND B SUPPLE[place]AL MEDICARE [place] A [place] B SUPPLE[place]AL Advance Directives For more information, please contact: [phone] * Full Code (Latest Code Status on File) Date Activated Date Inactivated Comments 10/24/2021 1:57 PM 10/25/2021 7:16 PM Care Teams Geotechnicial Properties Technician Relationship Specialty Start Date End Date Ren Armas MD [address] [place] [phone] PCP - General Internal Medicine-Adolescent Medicine 07/20/21
--- OUTSIDE RECORDS SUMMARY | 2025-06-26 11:12 | XMS_ITS | Clinical Summary ---
Author Organization [facility] yste Address [address] [place] [address] Care Team Providers Care Neonatologist Name Role Phone Provider, No Known Primary [...] Adults (1 - 1-dose 75+ series) 0 INFLUENZA VACCINE 04/10/2025 COVID-19 Vaccine (2023- season) 2025 Care Teams Neonatologist Relationship Specialty Start Date End Date Provider, [place] [address] PCP - General 04/22/15
--- OUTSIDE RECORDS SUMMARY | 2025-06-26 11:13 | XMS_ITS | Clinical Summary ---
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 Ketones, Urine Trace(A) Negative mg/dL LAB URINALYSIS - AUTOMATED METHOD 04/16/2025 3:14 AM EDT [facility] Blood, Urine Negative Negative LAB URINALYSIS - AUTOMATED METHOD 04/16/2025 3:14 AM EDT [facility] Bilirubin, Urine Negative Negative LAB URINALYSIS - AUTOMATED METHOD 04/16/2025 3:14 AM EDT [facility] Urobilinogen, Urine 0.2 0.2 to 1.0 mg/dL LAB URINALYSIS - AUTOMATED METHOD 04/16/2025 3:14 AM EDT [facility] Leukocytes, Urine Negative Negative LAB URINALYSIS - AUTOMATED METHOD 04/16/2025 3:14 AM EDT [facility] Nitrite, Urine Negative Negative LAB URINALYSIS - AUTOMATED METHOD 04/16/2025 3:14 AM EDT [facility] Urine Urine specimen obtained by clean catch procedure / Unknown Non-blood Collection / Unknown 04/16/2025 2:47 AM EDT 04/16/2025 3:11 AM EDT us Chase Baxter MD LAB URINE ORDERABLES Final Re sult [facility] [address] [place] [address] * XR Knee Left 3 Views (04/16/2025 12:48 AM EDT) Anatomical Region Laterality Modality Lower Extremities, Knee Left Digital Radiography Impressions 04/16/2025 1:10 AM EDT Left wrist: Interval splinting of the distal radial fracture without significant interval change in alignment. Left lower extremity: Redemonstration of sacral and pubic fractures as above, better demonstrated on comparison CT. Moderate degenerative changes of the left knee. CRITICAL RESULT: No. COMMUNICATION: Per this written report. By electronically signing this report, I, the attending physician, attest that I have personally reviewed the images/data for the above examination(s) and agree with the final edited report. Drafted by Jean Carlos Charles MD on 04/16/2025 12:49 AM Final report signed by Nash Saavedra MD on 04/16/2025 1:10 AM Narrative 04/16/2025 1:10 AM EDT CLINICAL INDICATION: Trauma/Injury or Tenderness to Palpation on Exam TECHNIQUE: XR WRIST LEFT 3+ VIEWS, XR KNEE LEFT 3 VIEWS, XR FEMUR LEFT 2+ VIEWS, XR HIP LEFT 2 OR 3 VIEWS COMPARISON: Radiograph left wrist less than [address] bony pelvis same day FINDINGS: Left wrist: Interval splinting of a distal radial fracture without significant interval change in alignment. Left hip: Left sacral wing fracture and fractures of the left superior and inferior pubic rami are better evaluated on comparison CT bony pelvis. Gas-filled loops of large and small bowel are normal in caliber. Degenerative change of the pubic ramus. No widening of the sacroiliac joints. Posterior fusion hardware at the L5-S1 level. Bilateral hips are well approximated. No acute fracture or dislocation of the left hip. Left femur: No acute fracture or malalignment. Vascular calcifications. No significant soft tissue abnormality. Left knee: No acute fracture or malalignment. Moderate tricompartment joint space narrowing and degenerative change. No significant joint effusion or soft tissue swelling. Procedure Note Nash Saavedra MD - 04/16/2025 CLINICAL INDICATION: Trauma/Injury or Tenderness to Palpation on Exam TECHNIQUE: XR WRIST LEFT 3+ VIEWS, XR KNEE LEFT 3 VIEWS, XR FEMUR LEFT 2+ VIEWS, XRHIP LEFT 2 OR 3 VIEWS COMPARISON: Radiograph left wrist less than [address] bony pelvis same day FINDINGS: Left wrist: Interval splinting of a distal radial fracture without significantinterval change in alignment. Left hip: Left sacral wing fracture and fractures of the left superior and inferiorpubic rami are better evaluated on comparison CT bony pelvis. Gas-filledloops of large and small bowel are normal in caliber. Degenerative changeof the pubic ramus. No widening of the sacroiliac joints. Posterior fusionhardware at the L5-S1 level. Bilateral hips are well approximated. Noacute fracture or dislocation of the left hip. Left femur: No acute fracture or malalignment. Vascular calcifications. No significantsoft tissue abnormality. Left knee: No acute fracture or malalignment. Moderate tricompartment joint spacenarrowing and degenerative change. No significant joint effusion or softtissue swelling. IMPRESSION: Left wrist: Interval splinting of the distal radial fracture without significantinterval change in alignment. Left lower extremity: Redemonstration of sacral and pubic fractures as above, betterdemonstrated on comparison CT. Moderate degenerative changes of the left knee. CRITICAL RESULT: No. COMMUNICATION: Per this written report. By electronically signing this report, I, the attending physician, attestthat I have personally reviewed the images/data for the aboveexamination(s) and agree with the final edited report. Drafted by Jean Carlos Charles MD on 04/16/2025 12:49 AM Final report signed by Nash Saavedra MD on 04/16/2025 1:10 AM us Mike Caba MD IMG XR PROCEDURES Final Re sult * XR Femur Left 2+ Views (04/16/2025 12:48 AM EDT) Anatomical Region Laterality Modality Lower Extremities, Femur Left Digital Radiography Impressions 04/16/2025 1:10 AM EDT Left wrist: Interval splinting of the distal radial fracture without significant interval change in alignment. Left lower extremity: Redemonstration of sacral and pubic fractures as above, better demonstrated on comparison CT. Moderate degenerative changes of the left knee. CRITICAL RESULT: No. COMMUNICATION: Per this written report. By electronically signing this report, I, the attending physician, attest that I have personally reviewed the images/data for the above examination(s) and agree with the final edited report. Drafted by Jean Carlos Charles MD on 04/16/2025 12:49 AM Final report signed by Nash Saavedra MD on 04/16/2025 1:10 AM Narrative 04/16/2025 1:10 AM EDT CLINICAL INDICATION: Trauma/Injury or Tenderness to Palpation on Exam TECHNIQUE: XR WRIST LEFT 3+ VIEWS, XR KNEE LEFT 3 VIEWS, XR FEMUR LEFT 2+ VIEWS, XR HIP LEFT 2 OR 3 VIEWS COMPARISON: Radiograph left wrist less than [address] bony pelvis same day FINDINGS: Left wrist: Interval splinting of a distal radial fracture without significant interval change in alignment. Left hip: Left sacral wing fracture and fractures of the left superior and inferior pubic rami are better evaluated on comparison CT bony pelvis. Gas-filled loops of large and small bowel are normal in caliber. Degenerative change of the pubic ramus. No widening of the sacroiliac joints. Posterior fusion hardware at the L5-S1 level. Bilateral hips are well approximated. No acute fracture or dislocation of the left hip. Left femur: No acute fracture or malalignment. Vascular calcifications. No significant soft tissue abnormality. Left knee: No acute fracture or malalignment. Moderate tricompartment joint space narrowing and degenerative change. No significant joint effusion or soft tissue swelling. Procedure Note Nash Saavedra MD - 04/16/2025 CLINICAL INDICATION: Trauma/Injury or Tenderness to Palpation on Exam TECHNIQUE: XR WRIST LEFT 3+ VIEWS, XR KNEE LEFT 3 VIEWS, XR FEMUR LEFT 2+ VIEWS, XRHIP LEFT 2 OR 3 VIEWS COMPARISON: Radiograph left wrist less than [address] bony pelvis same day FINDINGS: Left wrist: Interval splinting of a distal radial fracture without significantinterval change in alignment. Left hip: Left sacral wing fracture and fractures of the left superior and inferiorpubic rami are better evaluated on comparison CT bony pelvis. Gas-filledloops of large and small bowel are normal in caliber. Degenerative changeof the pubic ramus. No widening of the sacroiliac joints. Posterior fusionhardware at the L5-S1 level. Bilateral hips are well approximated. Noacute fracture or dislocation of the left hip. Left femur: No acute fracture or malalignment. Vascular calcifications. No significantsoft tissue abnormality. Left knee: No acute fracture or malalignment. Moderate tricompartment joint spacenarrowing and degenerative change. No significant joint effusion or softtissue swelling. IMPRESSION: Left wrist: Interval splinting of the distal radial fracture without significantinterval change in alignment. Left lower extremity: Redemonstration of sacral and pubic fractures as above, betterdemonstrated on comparison CT. Moderate degenerative changes of the left knee. CRITICAL RESULT: No. COMMUNICATION: Per this written report. By electronically signing this report, I, the attending physician, attestthat I have personally reviewed the images/data for the aboveexamination(s) and agree with the final edited report. Drafted by Jean Carlos Charles MD on 04/16/2025 12:49 AM Final report signed by Nash Saavedra MD on 04/16/2025 1:10 AM Chase Baxter MD IMG XR PROCEDURES Final Resul t * XR Hip Left 2 or 3 Views (04/16/2025 12:48 AM EDT) Anatomical Region Laterality Modality Lower Extremities, Hip Left Digital R adiography Impressions 04/16/2025 1:10 AM EDT Left wrist: Interval splinting of the distal radial fracture without significant interval change in alignment. Left lower extremity: Redemonstration of sacral and pubic fractures as above, better demonstrated on comparison CT. Moderate degenerative changes of the left knee. CRITICAL RESULT: No. COMMUNICATION: Per this written report. By electronically signing this report, I, the attending physician, attest that I have personally reviewed the images/data for the above examination(s) and agree with the final edited report. Drafted by Jean Carlos Charles MD on 04/16/2025 12:49 AM Final report signed by Nash Saavedra MD on 04/16/2025 1:10 AM Narrative 04/16/2025 1:10 AM EDT CLINICAL INDICATION: Trauma/Injury or Tenderness to Palpation on Exam TECHNIQUE: XR WRIST LEFT 3+ VIEWS, XR KNEE LEFT 3 VIEWS, XR FEMUR LEFT 2+ VIEWS, XR HIP LEFT 2 OR 3 VIEWS COMPARISON: Radiograph left wrist less than [address] bony pelvis same day FINDINGS: Left wrist: Interval splinting of a distal radial fracture without significant interval change in alignment. Left hip: Left sacral wing fracture and fractures of the left superior and inferior pubic rami are better evaluated on comparison CT bony pelvis. Gas-filled loops of large and small bowel are normal in caliber. Degenerative change of the pubic ramus. No widening of the sacroiliac joints. Posterior fusion hardware at the L5-S1 level. Bilateral hips are well approximated. No acute fracture or dislocation of the left hip. Left femur: No acute fracture or malalignment. Vascular calcifications. No significant soft tissue abnormality. Left knee: No acute fracture or malalignment. Moderate tricompartment joint space narrowing and degenerative change. No significant joint effusion or soft tissue swelling. Procedure Note Nash Saavedra MD - 04/16/2025 CLINICAL INDICATION: Trauma/Injury or Tenderness to Palpation on Exam TECHNIQUE: XR WRIST LEFT 3+ VIEWS, XR KNEE LEFT 3 VIEWS, XR FEMUR LEFT 2+ VIEWS, XRHIP LEFT 2 OR 3 VIEWS COMPARISON: Radiograph left wrist less than [address] bony pelvis same day FINDINGS: Left wrist: Interval splinting of a distal radial fracture without significantinterval change in alignment. Left hip: Left sacral wing fracture and fractures of the left superior and inferiorpubic rami are better evaluated on comparison CT bony pelvis. Gas-filledloops of large and small bowel are normal in caliber. Degenerative changeof the pubic ramus. No widening of the sacroiliac joints. Posterior fusionhardware at the L5-S1 level. Bilateral hips are well approximated. Noacute fracture or dislocation of the left hip. Left femur: No acute fracture or malalignment. Vascular calcifications. No significantsoft tissue abnormality. Left knee: No acute fracture or malalignment. Moderate tricompartment joint spacenarrowing and degenerative change. No significant joint effusion or softtissue swelling. IMPRESSION: Left wrist: Interval splinting of the distal radial fracture without significantinterval change in alignment. Left lower extremity: Redemonstration of sacral and pubic fractures as above, betterdemonstrated on comparison CT. Moderate degenerative changes of the left knee. CRITICAL RESULT: No. COMMUNICATION: Per this written report. By electronically signing this report, I, the attending physician, attestthat I have personally reviewed the images/data for the aboveexamination(s) and agree with the final edited report. Drafted by Jean Carlos Charles MD on 04/16/2025 12:49 AM Final report signed by Nash Saavedra MD on 04/16/2025 1:10 AM us Mike S Moghadamian MD IMG XR PROCEDURES Final Re sult * CT Bony Pelvis (04/15/2025 9:26 PM EDT) Anatomical Region Laterality Modality Pelvis Computed Tomogra phy Impressions 04/15/2025 10:11 PM EDT Fractured left sacral wing. Fracture superior inferior left pubic ramus of the superior pubic ramus fracture extending medially into the pubic body. No diastases or dislocation. Mild stranding edema or minimal extraperitoneal blood anterior to the bladder. CRITICAL RESULT: No. COMMUNICATION: Per this written report. Drafted by Nash Saavedra MD on 04/15/2025 10:04 PM Final report signed by Nash Saavedra MD on 04/15/2025 10:11 PM Narrative 04/15/2025 10:11 PM EDT CLINICAL INDICATION: trauma alert TECHNIQUE: Multiple axial CT images of bony pelvis were obtained without contrast administration. Reformatted images in the coronal and/or sagittal plane(s) were generated from the axial data set to facilitate diagnostic accuracy and/or surgical planning. Total DLP (Dose-Length Product): 174.02 mGy.cm. Please note: The reported value represents the total of one or more individual components during the CT acquisition on this date and at this time, and as such, the same value may appear in more than one CT report depending on the interpreting/reporting physicians. COMPARISON: None. FINDINGS: Transpedicular godwin and screw fixation at the lumbosacral junction. Levoscoliosis at the level L4-L5 asymmetric degenerative changes in the right side. Mild degenerative changes in the joints. Calcified nodular focus right inguinal nonspecific but likely chronic. Possibly an old calcified lymph node. Measuring approximately 10 mm. Small high density focus in the mesentery with differential including a lymph node or diverticulum. Probably mild diverticula of the distal large bowel. Possible tiny fibroid in the uterus. Pelvic fractures: 1. There is fracture through the left sacral ulna with disruption of the anterior cortex and some marrow edema or fracture extending posteriorly paralleling the sacroiliac joint. 2. There is a fracture of the left inferior pubic ramus. There is a fracture of the left superior pubic ramus which is horizontal oblique fracture extending towards the pubic body and extending into the pubic body. Procedure Note Nash Saavedra MD - 04/15/2025 CLINICAL INDICATION: trauma alert TECHNIQUE: Multiple axial CT images of bony pelvis were obtained without contrastadministration. Reformatted images in the coronal and/or sagittal plane(s)were generated from the axial data set to facilitate diagnostic accuracyand/or surgical planning. Total DLP (Dose-Length Product): 174.02 mGy.cm. Please note: The reportedvalue represents the total of one or more individual components during theCT acquisition on this date and at this time, and as such, the same valuemay appear in more than one CT report depending on theinterpreting/reporting physicians. COMPARISON: None. FINDINGS: Transpedicular godwin and screw fixation at the lumbosacral junction. Levoscoliosis at the level L4-L5 asymmetric degenerative changes in theright side. Mild degenerative changes in the joints. Calcified nodular focus right inguinal nonspecific but likely chronic.Possibly an old calcified lymph node. Measuring approximately 10 mm. Smallhigh density focus in the mesentery with differential including a lymphnode or diverticulum. Probably mild diverticula of the distal large bowel. Possible tiny fibroid in the uterus. Pelvic fractures: 1. There is fracture through the left sacral ulna with disruption of theanterior cortex and some marrow edema or fracture extending posteriorlyparalleling the sacroiliac joint. 2. There is a fracture of the left inferior pubic ramus. There is afracture of the left superior pubic ramus which is horizontal obliquefracture extending towards the pubic body and extending into the pubicbody. IMPRESSION: Fractured left sacral wing. Fracture superior inferior left pubic ramus of the superior pubic ramusfracture extending medially into the pubic body. No diastases or dislocation. Mild stranding edema or minimal extraperitoneal blood anterior to thebladder. CRITICAL RESULT: No. COMMUNICATION: Per this written report. Drafted by Nash Saavedra MD on 04/15/2025 10:04 PM Final report signed by Nash Saavedra MD on 04/15/2025 10:11 PM Chase Brian Baxter MD IMG CT PROCEDURES Final Resul t * XR Hand 3+ Views Left (04/15/2025 9:17 PM EDT) Anatomical Region Laterality Modality Upper Extremities, Hand Left Digital Radiography Impressions 04/15/2025 9:47 PM EDT Comminuted intra-articular fracture of the distal radius. Ulnar styloid fracture. CRITICAL RESULT: No. COMMUNICATION: Per this written report. Preliminary report signed by Celestino Contreras DO on 04/15/2025 9:28 PM By electronically signing this report, I, the attending physician, attest that I have personally reviewed the images/data for the above examination(s) and agree with the final edited report. Drafted by Celestino Contreras DO on 04/15/2025 9:22 PM Final report signed by Shaji Mcallister MD on 04/15/2025 9:47 PM Narrative 04/15/2025 9:47 PM EDT CLINICAL INDICATION: trauma TECHNIQUE: XR ELBOW LEFT 3+ VIEWS, XR HAND LEFT 3+ VIEWS, XR WRIST LEFT 3+ VIEWS, XR FOREARM LEFT 2 VIEWS, XR HUMERUS LEFT 2+ VIEWS COMPARISON: Outside radiographs from 4 hours prior FINDINGS: Humerus: No acute fracture or dislocation. Moderate to severe glenohumeral osteoarthrosis. Elbow: No acute fracture or dislocation. No elbow joint effusion. Forearm/wrist: Comminuted intra-articular fracture of the distal radius with mild dorsal angulation. Minimally displaced ulnar styloid fracture. No acute fracture of the mid or proximal forearm. Mild degenerative changes of the wrist. No scapholunate interval widening. Positive ulnar variance. Severe thumb CMC joint osteoarthritis. Positive ulnar variance. Osteopenia. Mild scaphotrapezial joint osteoarthritis. Hand: No acute fracture or dislocation. Advanced degenerative changes of the first, second and third carpometacarpal joints. Procedure Note Shaji Mcallister MD - 04/15/2025 CLINICAL INDICATION: trauma TECHNIQUE: XR ELBOW LEFT 3+ VIEWS, XR HAND LEFT 3+ VIEWS, XR WRIST LEFT 3+ VIEWS, XRFOREARM LEFT 2 VIEWS, XR HUMERUS LEFT 2+ VIEWS COMPARISON: Outside radiographs from 4 hours prior FINDINGS: Humerus: No acute fracture or dislocation. Moderate to severe glenohumeralosteoarthrosis. Elbow: No acute fracture or dislocation. No elbow joint effusion. Forearm/wrist: Comminuted intra-articular fracture of the distal radiuswith mild dorsal angulation. Minimally displaced ulnar styloid fracture.No acute fracture of the mid or proximal forearm. Mild degenerativechanges of the wrist. No scapholunate interval widening. Positive ulnarvariance. Severe thumb CMC joint osteoarthritis. Positive ulnar variance.Osteopenia. Mild scaphotrapezial joint osteoarthritis. Hand: No acute fracture or dislocation. Advanced degenerative changes ofthe first, second and third carpometacarpal joints. IMPRESSION: Comminuted intra-articular fracture of the distal radius. Ulnar styloidfracture. CRITICAL RESULT: No. COMMUNICATION: Per this written report. Preliminary report signed by Celestino Contreras DO on 04/15/2025 9:28 PM By electronically signing this report, I, the attending physician, attestthat I have personally reviewed the images/data for the aboveexamination(s) and agree with the final edited report. Drafted by Celestino Contreras DO on 04/15/2025 9:22 PM Final report signed by Shaji Mcallister MD on 04/15/2025 9:47 PM us Chase Baxter MD IMG XR PROCEDURES Final Resul t * XR Forearm Left 2 Views (04/15/2025 9:17 PM EDT) Anatomical Region Laterality Modality Upper Extremities, Forearm Left Digit al Radiography Impressions 04/15/2025 9:47 PM EDT Comminuted intra-articular fracture of the distal radius. Ulnar styloid fracture. CRITICAL RESULT: No. COMMUNICATION: Per this written report. Preliminary report signed by Celestino Contreras DO on 04/15/2025 9:28 PM By electronically signing this report, I, the attending physician, attest that I have personally reviewed the images/data for the above examination(s) and agree with the final edited report. Drafted by Celestino Contreras DO on 04/15/2025 9:22 PM Final report signed by Shaji Mcallister MD on 04/15/2025 9:47 PM Narrative 04/15/2025 9:47 PM EDT CLINICAL INDICATION: trauma TECHNIQUE: XR ELBOW LEFT 3+ VIEWS, XR HAND LEFT 3+ VIEWS, XR WRIST LEFT 3+ VIEWS, XR FOREARM LEFT 2 VIEWS, XR HUMERUS LEFT 2+ VIEWS COMPARISON: Outside radiographs from 4 hours prior FINDINGS: Humerus: No acute fracture or dislocation. Moderate to severe glenohumeral osteoarthrosis. Elbow: No acute fracture or dislocation. No elbow joint effusion. Forearm/wrist: Comminuted intra-articular fracture of the distal radius with mild dorsal angulation. Minimally displaced ulnar styloid fracture. No acute fracture of the mid or proximal forearm. Mild degenerative changes of the wrist. No scapholunate interval widening. Positive ulnar variance. Severe thumb CMC joint osteoarthritis. Positive ulnar variance. Osteopenia. Mild scaphotrapezial joint osteoarthritis. Hand: No acute fracture or dislocation. Advanced degenerative changes of the first, second and third carpometacarpal joints. Procedure Note Shaji Mcallister MD - 04/15/2025 CLINICAL INDICATION: trauma TECHNIQUE: XR ELBOW LEFT 3+ VIEWS, XR HAND LEFT 3+ VIEWS, XR WRIST LEFT 3+ VIEWS, XRFOREARM LEFT 2 VIEWS, XR HUMERUS LEFT 2+ VIEWS COMPARISON: Outside radiographs from 4 hours prior FINDINGS: Humerus: No acute fracture or dislocation. Moderate to severe glenohumeralosteoarthrosis. Elbow: No acute fracture or dislocation. No elbow joint effusion. Forearm/wrist: Comminuted intra-articular fracture of the distal radiuswith mild dorsal angulation. Minimally displaced ulnar styloid fracture.No acute fracture of the mid or proximal forearm. Mild degenerativechanges of the wrist. No scapholunate interval widening. Positive ulnarvariance. Severe thumb CMC joint osteoarthritis. Positive ulnar variance.Osteopenia. Mild scaphotrapezial joint osteoarthritis. Hand: No acute fracture or dislocation. Advanced degenerative changes ofthe first, second and third carpometacarpal joints. IMPRESSION: Comminuted intra-articular fracture of the distal radius. Ulnar styloidfracture. CRITICAL RESULT: No. COMMUNICATION: Per this written report. Preliminary report signed by Celestino Contreras DO on 04/15/2025 9:28 PM By electronically signing this report, I, the attending physician, attestthat I have personally reviewed the images/data for the aboveexamination(s) and agree with the final edited report. Drafted by Celestino Contreras DO on 04/15/2025 9:22 PM Final report signed by Shaji Mcallister MD on 04/15/2025 9:47 PM us Chase Baxter MD IMG XR PROCEDURES Final Resul t * XR Elbow Left 3+ Views (04/15/2025 9:17 PM EDT) Anatomical Region Laterality Modality Upper Extremities, Elbow Left Digital Radiography Impressions 04/15/2025 9:47 PM EDT Comminuted intra-articular fracture of the distal radius. Ulnar styloid fracture. CRITICAL RESULT: No. COMMUNICATION: Per this written report. Preliminary report signed by Celestino Contreras DO on 04/15/2025 9:28 PM By electronically signing this report, I, the attending physician, attest that I have personally reviewed the images/data for the above examination(s) and agree with the final edited report. Drafted by Celestino Contreras DO on 04/15/2025 9:22 PM Final report signed by Shaji Mcallister MD on 04/15/2025 9:47 PM Narrative 04/15/2025 9:47 PM EDT CLINICAL INDICATION: trauma TECHNIQUE: XR ELBOW LEFT 3+ VIEWS, XR HAND LEFT 3+ VIEWS, XR WRIST LEFT 3+ VIEWS, XR FOREARM LEFT 2 VIEWS, XR HUMERUS LEFT 2+ VIEWS COMPARISON: Outside radiographs from 4 hours prior FINDINGS: Humerus: No acute fracture or dislocation. Moderate to severe glenohumeral osteoarthrosis. Elbow: No acute fracture or dislocation. No elbow joint effusion. Forearm/wrist: Comminuted intra-articular fracture of the distal radius with mild dorsal angulation. Minimally displaced ulnar styloid fracture. No acute fracture of the mid or proximal forearm. Mild degenerative changes of the wrist. No scapholunate interval widening. Positive ulnar variance. Severe thumb CMC joint osteoarthritis. Positive ulnar variance. Osteopenia. Mild scaphotrapezial joint osteoarthritis. Hand: No acute fracture or dislocation. Advanced degenerative changes of the first, second and third carpometacarpal joints. Procedure Note Shaji Mcallister MD - 04/15/2025 CLINICAL INDICATION: trauma TECHNIQUE: XR ELBOW LEFT 3+ VIEWS, XR HAND LEFT 3+ VIEWS, XR WRIST LEFT 3+ VIEWS, XRFOREARM LEFT 2 VIEWS, XR HUMERUS LEFT 2+ VIEWS COMPARISON: Outside radiographs from 4 hours prior FINDINGS: Humerus: No acute fracture or dislocation. Moderate to severe glenohumeralosteoarthrosis. Elbow: No acute fracture or dislocation. No elbow joint effusion. Forearm/wrist: Comminuted intra-articular fracture of the distal radiuswith mild dorsal angulation. Minimally displaced ulnar styloid fracture.No acute fracture of the mid or proximal forearm. Mild degenerativechanges of the wrist. No scapholunate interval widening. Positive ulnarvariance. Severe thumb CMC joint osteoarthritis. Positive ulnar variance.Osteopenia. Mild scaphotrapezial joint osteoarthritis. Hand: No acute fracture or dislocation. Advanced degenerative changes ofthe first, second and third carpometacarpal joints. IMPRESSION: Comminuted intra-articular fracture of the distal radius. Ulnar styloidfracture. CRITICAL RESULT: No. COMMUNICATION: Per this written report. Preliminary report signed by Celestino Contreras DO on 04/15/2025 9:28 PM By electronically signing this report, I, the attending physician, attestthat I have personally reviewed the images/data for the aboveexamination(s) and agree with the final edited report. Drafted by Celestino Contreras DO on 04/15/2025 9:22 PM Final report signed by Shaji Mcallister MD on 04/15/2025 9:47 PM us Chase Baxter MD IMG XR PROCEDURES Final Resul t * XR Humerus Left 2+ Views (04/15/2025 9:17 PM EDT) Anatomical Region Laterality Modality Upper Extremities, Humerus Left Digit al Radiography Impressions 04/15/2025 9:47 PM EDT Comminuted intra-articular fracture of the distal radius. Ulnar styloid fracture. CRITICAL RESULT: No. COMMUNICATION: Per this written report. Preliminary report signed by Celestino Contreras DO on 04/15/2025 9:28 PM By electronically signing this report, I, the attending physician, attest that I have personally reviewed the images/data for the above examination(s) and agree with the final edited report. Drafted by Celestino Contreras DO on 04/15/2025 9:22 PM Final report signed by Shaji Mcallister MD on 04/15/2025 9:47 PM Narrative 04/15/2025 9:47 PM EDT CLINICAL INDICATION: trauma TECHNIQUE: XR ELBOW LEFT 3+ VIEWS, XR HAND LEFT 3+ VIEWS, XR WRIST LEFT 3+ VIEWS, XR FOREARM LEFT 2 VIEWS, XR HUMERUS LEFT 2+ VIEWS COMPARISON: Outside radiographs from 4 hours prior FINDINGS: Humerus: No acute fracture or dislocation. Moderate to severe glenohumeral osteoarthrosis. Elbow: No acute fracture or dislocation. No elbow joint effusion. Forearm/wrist: Comminuted intra-articular fracture of the distal radius with mild dorsal angulation. Minimally displaced ulnar styloid fracture. No acute fracture of the mid or proximal forearm. Mild degenerative changes of the wrist. No scapholunate interval widening. Positive ulnar variance. Severe thumb CMC joint osteoarthritis. Positive ulnar variance. Osteopenia. Mild scaphotrapezial joint osteoarthritis. Hand: No acute fracture or dislocation. Advanced degenerative changes of the first, second and third carpometacarpal joints. Procedure Note Shaji Mcallister MD - 04/15/2025 CLINICAL INDICATION: trauma TECHNIQUE: XR ELBOW LEFT 3+ VIEWS, XR HAND LEFT 3+ VIEWS, XR WRIST LEFT 3+ VIEWS, XRFOREARM LEFT 2 VIEWS, XR HUMERUS LEFT 2+ VIEWS COMPARISON: Outside radiographs from 4 hours prior FINDINGS: Humerus: No acute fracture or dislocation. Moderate to severe glenohumeralosteoarthrosis. Elbow: No acute fracture or dislocation. No elbow joint effusion. Forearm/wrist: Comminuted intra-articular fracture of the distal radiuswith mild dorsal angulation. Minimally displaced ulnar styloid fracture.No acute fracture of the mid or proximal forearm. Mild degenerativechanges of the wrist. No scapholunate interval widening. Positive ulnarvariance. Severe thumb CMC joint osteoarthritis. Positive ulnar variance.Osteopenia. Mild scaphotrapezial joint osteoarthritis. Hand: No acute fracture or dislocation. Advanced degenerative changes ofthe first, second and third carpometacarpal joints. IMPRESSION: Comminuted intra-articular fracture of the distal radius. Ulnar styloidfracture. CRITICAL RESULT: No. COMMUNICATION: Per this written report. Preliminary report signed by Celestino Contreras DO on 04/15/2025 9:28 PM By electronically signing this report, I, the attending physician, attestthat I have personally reviewed the images/data for the aboveexamination(s) and agree with the final edited report. Drafted by Celestino Contreras DO on 04/15/2025 9:22 PM Final report signed by Shaji Mcallister MD on 04/15/2025 9:47 PM Chase Baxter MD IMG XR PROCEDURES Final Resul t * ED HIV 1/2 Antibody/Antigen Screen w/Reflex to HIV 1/2 Differentiation (04/15/2025 8:43 PM EDT) Pathologist [facility] HIV 1 & 2 Antibody/Antigen Screen Non Reactive Non Reactive 04/15/2025 9:52 PM EDT [facility] Comment:Screening for HIV 1 & 2 antibodies, and P24 antigen is NONREACTIVE. No confirmatory testing is required. Blood Venous blood specimen / Unknown Venipuncture / Unknown 04/15/2025 8:43 PM EDT 04/15/2025 8:54 PM EDT Chase Baxter MD LAB BLOOD ORDERABLES Final Re sult [facility] [address] [place] [address] * (ABNORMAL) Trauma shock panel blood gas (04/15/2025 8:43 PM EDT) pH, Venous 7.36 7.32 - 7.43 LAB HEMATOLOGY METHOD 04/15/2025 8:47 PM EDT [facility] Bicarbonate, Calculated, Venous 29(H) 22 - 26 mmol/L LAB HEMATOLOGY METHOD 04/15/2025 8:47 PM EDT [facility] Base Excess, Venous 2.6 -2.0 - 3.0 mmol/L LAB HEMATOLOGY METHOD 04/15/2025 8:47 PM EDT [facility] Lactate, Venous, Whole Blood 1.0 0.5 - 2.2 mmol/L LAB HEMATOLOGY METHOD 04/15/2025 8:47 PM EDT [facility] Blood Venous blood specimen / Unknown Venipuncture / Unknown 04/15/2025 8:43 PM EDT 04/15/2025 8:46 PM EDT Chase Baxter MD LAB BLOOD ORDERABLES Final Re sult Performing Organization Address City/[facility]/ZIP Co de Phone Number [facility] [address] [place] [address] * Ethyl Alcohol Plasma (04/15/2025 8:43 PM EDT) Ethanol Plasma <10 <10 mg/dL 04/15/2025 9:08 PM EDT [facility] Blood Venous blood specimen / Unknown Venipuncture / Unknown 04/15/2025 8:43 PM EDT 04/15/2025 8:46 PM EDT Narrative [facility] - 04/15/2025 9:08 PM EDT Enzymatic Assay: Performed on Mayra Abhay. Chase Baxter MD LAB BLOOD ORDERABLES Final Re sult Performing Organization Address City/[facility]/ZIP Co de Phone Number [facility] [address] [place] [address] * Hepatitis C Antibody - ED (04/15/2025 8:43 PM EDT) Hepatitis C Antibody Negative Negative 04/15/2025 9:52 PM EDT [facility] Blood Venous blood specimen / Unknown Venipuncture / Unknown 04/15/2025 8:43 PM EDT 04/15/2025 8:54 PM EDT Chase Baxter MD LAB BLOOD ORDERABLES Final Re sult Performing Organization Address City/[facility]/ZIP Co de Phone Number [facility] [address] [place] [address] * APTT (PTT) (04/15/2025 8:43 PM EDT) aPTT 25 25 - 35 sec 04/15/2025 9:03 PM EDT [facility] Blood Venous blood specimen / Unknown Venipuncture / Unknown 04/15/2025 8:43 PM EDT 04/15/2025 8:46 PM EDT Chase Baxter MD LAB BLOOD ORDERABLES Final Re sult Performing Organization Address [facility]/ZIP Co de Phone Number [facility] [address] [place] [address] * PT-INR (04/15/2025 8:43 PM EDT) Prothrombin Time 12.8 12.0 - 14.3 sec 04/15/2025 9:02 PM EDT [facility] INR 1.0 0.9 - 1.1 04/15/2025 9:02 PM EDT [facility] Blood Venous blood specimen / Unknown Venipuncture / Unknown 04/15/2025 8:43 PM EDT 04/15/2025 8:46 PM EDT Narrative [facility] - 04/15/2025 9:02 PM EDT OPTIMAL INR RANGES FOR PATIENT ON ORAL ANTICOAGULANT THERAPY Prevention of venous thromboembolism INR 2.0 to 3.0 In patients with heart disease: Atrial fibrillation INR 2.0 to 3.0 Valvular heart disease INR 2.0 to 3.0 Tissue heart valves INR 2.0 to 3.0 Mechanical prosthetic valves INR 2.5 to 3.5 Prevention of recurrent WA INR 2.5 to 3.5 Chase Baxter MD LAB BLOOD ORDERABLES Final Re sult Performing Organization Address City/[facility]/ZIP Co de Phone Number [facility] [address] [place] [address] * (ABNORMAL) CBC w/o diff (04/15/2025 8:43 PM EDT) WBC Count 8.48 3.70 - 10.30 10*3/uL LAB HEMATOLOGY METHOD 04/15/2025 8:50 PM EDT [facility] RBC Count 3.93 3.90 - 5.20 10*6/uL LAB HEMATOLOGY METHOD 04/15/2025 8:50 PM EDT [facility] HGB 10.4(L) 11.2 - 15.7 g/dL LAB HEMATOLOGY METHOD 04/15/2025 8:50 PM EDT [facility] HCT 32.9(L) 34.0 - 45.0 % LAB HEMATOLOGY METHOD 04/15/2025 8:50 PM EDT [facility] Platelet Count 314 155 - 369 10*3/uL LAB HEMATOLOGY METHOD 04/15/2025 8:50 PM EDT [facility] MCV 84 79 - 98 fL LAB HEMATOLOGY METHOD 04/15/2025 8:50 PM EDT [facility] MCH 26.5 26.0 - 32.0 pg LAB HEMATOLOGY METHOD 04/15/2025 8:50 PM EDT [facility] MCHC 31.6 30.7 - 35.5 g/dL LAB HEMATOLOGY METHOD 04/15/2025 8:50 PM EDT [facility] RDW 15.4(H) 11.5 - 14.5 % LAB HEMATOLOGY METHOD 04/15/2025 8:50 PM EDT [facility] MPV 8.6(L) 8.8 - 12.5 fL LAB HEMATOLOGY METHOD 04/15/2025 8:50 PM EDT [facility] nRBC 0.0 <=0.0 per 100 WBCs LAB HEMATOLOGY METHOD 04/15/2025 8:50 PM EDT [facility] Blood Venous blood specimen / Unknown Venipuncture / Unknown 04/15/2025 8:43 PM EDT 04/15/2025 8:46 PM EDT Chase Baxter MD LAB BLOOD ORDERABLES Final Re sult [facility] [address] [place] [address] * XR Pelvis 1 or 2 Views (04/15/2025 8:25 PM EDT) Anatomical Region Laterality Modality Body, Pelvis Digital Radiogra phy Impressions 04/15/2025 8:35 PM EDT No evidence of acute injury within the imaged chest. Pelvic fractures described above. CRITICAL RESULT: No. COMMUNICATION: Per this written report. Drafted by Shaji Mcallister MD on 04/15/2025 8:34 PM Final report signed by Shaji Mcallister MD on 04/15/2025 8:35 PM Narrative 04/15/2025 8:35 PM EDT CLINICAL INDICATION: trauma alert TECHNIQUE: Single AP view of the chest. Single view of the pelvis. COMPARISON: None. FINDINGS: Lungs are clear. Heart and mediastinal contours are within normal limits. No pneumothorax. No pleural effusion. Degenerative changes of the shoulders. No acute bone abnormality identified. At least moderate scoliosis of the thoracolumbar spine.. Left obturator ring fracture is acute. Right pubic body fracture is suspected. Left sacral fracture is suspected. Posterior lumbar spine fusion construct. Dextroscoliosis of the lumbar spine is significant. Mild right greater than left hip joint space narrowing. Bowel gas pattern is normal. Procedure Note Shaji Mcallister MD - 04/15/2025 CLINICAL INDICATION: trauma alert TECHNIQUE: Single AP view of the chest. Single view of the pelvis. COMPARISON: None. FINDINGS: Lungs are clear. Heart and mediastinal contours are within normal limits.No pneumothorax. No pleural effusion. Degenerative changes of theshoulders. No acute bone abnormality identified. At least moderatescoliosis of the thoracolumbar spine.. Left obturator ring fracture is acute. Right pubic body fracture issuspected. Left sacral fracture is suspected. Posterior lumbar spinefusion construct. Dextroscoliosis of the lumbar spine is significant. Mildright greater than left hip joint space narrowing. Bowel gas pattern isnormal. IMPRESSION: No evidence of acute injury within the imaged chest. Pelvic fractures described above. CRITICAL RESULT: No. COMMUNICATION: Per this written report. Drafted by Shaji Mcallister MD on 04/15/2025 8:34 PM Final report signed by Shaji Mcallister MD on 04/15/2025 8:35 PM Chase Baxter MD IMG XR PROCEDURES Final Resul t * XR Chest 1 View (04/15/2025 8:25 PM EDT) Anatomical Region Laterality Modality Chest Digital Radiogra phy Impressions 04/15/2025 8:35 PM EDT No evidence of acute injury within the imaged chest. Pelvic fractures described above. CRITICAL RESULT: No. COMMUNICATION: Per this written report. Drafted by Shaji Mcallister MD on 04/15/2025 8:34 PM Final report signed by Shaji Mcallister MD on 04/15/2025 8:35 PM Narrative 04/15/2025 8:35 PM EDT CLINICAL INDICATION: trauma alert TECHNIQUE: Single AP view of the chest. Single view of the pelvis. COMPARISON: None. FINDINGS: Lungs are clear. Heart and mediastinal contours are within normal limits. No pneumothorax. No pleural effusion. Degenerative changes of the shoulders. No acute bone abnormality identified. At least moderate scoliosis of the thoracolumbar spine.. Left obturator ring fracture is acute. Right pubic body fracture is suspected. Left sacral fracture is suspected. Posterior lumbar spine fusion construct. Dextroscoliosis of the lumbar spine is significant. Mild right greater than left hip joint space narrowing. Bowel gas pattern is normal. Procedure Note Shaji Mcallister MD - 04/15/2025 CLINICAL INDICATION: trauma alert TECHNIQUE: Single AP view of the chest. Single view of the pelvis. COMPARISON: None. FINDINGS: Lungs are clear. Heart and mediastinal contours are within normal limits.No pneumothorax. No pleural effusion. Degenerative changes of theshoulders. No acute bone abnormality identified. At least moderatescoliosis of the thoracolumbar spine.. Left obturator ring fracture is acute. Right pubic body fracture issuspected. Left sacral fracture is suspected. Posterior lumbar spinefusion construct. Dextroscoliosis of the lumbar spine is significant. Mildright greater than left hip joint space narrowing. Bowel gas pattern isnormal. IMPRESSION: No evidence of acute injury within the imaged chest. Pelvic fractures described above. CRITICAL RESULT: No. COMMUNICATION: Per this written report. Drafted by Shaji Mcallister MD on 04/15/2025 8:34 PM Final report signed by Shaji Mcallister MD on 04/15/2025 8:35 PM Chase Baxter MD IMG XR PROCEDURES Final Resul t * CT OUTSIDE IMAGES (04/15/2025 5:56 PM EDT) Only the most recent of4 resultswithin the time period is included. Anatomical Region Laterality Modality Computed Tomogra phy 04/15/2025 5:56 PM EDT [facility] IMG CT PROCEDURES Final Result * XR OUTSIDE IMAGES (04/15/2025 4:15 PM EDT) Only the most recent of3 resultswithin the time period is included. Anatomical Region Laterality Modality Radiographic Tamela ging 04/15/2025 4:15 PM EDT [facility] IMG XR PROCEDURES Final Result from Last 3 Months Insurance [facility]IC[facility] Advance Directives * Full Code (Latest Code Status on File) Date Activated Date Inactivated Comments 04/16/2025 1:31 AM 04/17/2025 8:23 PM Question Answer Comments I have reviewed the capacity from the link above and, if needed, have updated to appropriate status: Yes Care Teams Supervisor Dental Laboratory Relationship Specialty Start Date End Date Ren Armas MD [address] [place] [address] PCP - General 01/21/21 Giuseppe Ken MD [address] [place] [address] Referring Physician 05/22/25
--- NOTE | 2025-06-26 11:15 | CA_ITS ---
APPROVED REPORT EXAM: Comprehensive 2D, Doppler, and color-flow Echocardiogram Equal Employment Opportunity Officer: MIRANDA Arvizu, RVS Ht: 5 ft 3 in Wt: 109lbs BSA: 1.49 BP: 140/78 mmHg Indications: MVP, MR, CAD-2 stents, HTN, Murmurs 2D Dimensions LA Volume 51.80 mL LA Volume Index 34.927661 mL/m2 (M/F) 16-34 M-Mode Dimensions RVDd 1.26 cm (0.9-2.6) LA Diam 4.14 cm (1.9-4.0) LVDd 4.80 cm (3.5-5.7) LVDs 2.32 cm (3.5-5.7) IVSd 1.10 cm (0.6-1.1) PWd 1.07 cm (0.6-1.1) EF (Teich) 82.80% EPSs 0.31 cm FS 51.70% EDV (Teich) 107.50 mL TAPSE 1.95 (<1.7) ESV (Teich) 18.50 mL LV Diastology E Decel Time 227 (160-240 msec) E/A Ratio 0.79 MED A' 15.60 cm/s LAT A' 11.20 cm/s Aortic Valve AoV Peak Bandar. 114.0 (50-130 cm/s) AI PHT 442.00 ms AO Peak GR. 5.20 mmHg AO Mean GR. 2.60 (<5 mmHg) AO VTI 19.7 (18-25 cm) Mitral Valve MV A Velocity 108.0 (40-130 cm/s) E/A Ratio 0.79 Pulmonary Valve DC End VMAX 158.0 cm/s Tricuspid Valve TR P. Velocity 220.00 cm/s RAP Estimate 10.00 mmHg RVSP 29.40 mmHg Left Ventricle The left ventricle is normal size. Left ventricular systolic function is normal. The left ventricular ejection fraction is within the normal range. There is increased overall thickness. Proximal septal thickening is present. There is normal LV segmental wall motion. Transmitral Doppler flow pattern suggests impaired LV relaxation. LVEF is 60%. Right Ventricle The right ventricle is normal size. The right ventricular systolic function is normal. Atria The left atrium is moderately dilated. The right atrium is mildly dilated. There is no color Doppler evidence of interatrial shunt. Aortic Valve The aortic valve is mildly thickened. There is no hemodynamically significant aortic valvular stenosis. Mild aortic regurgitation is present. Mitral Valve There is bileaflet mitral valve prolapse present. No evidence of mitral valve stenosis. Mild mitral regurgitation is present. Tricuspid Valve The tricuspid valve leaflets are thin and pliable. Mild tricuspid regurgitation. RVSP is 20-25 mmHg. Pulmonic Valve The pulmonary valve is grossly normal in structure. Mild pulmonic valve regurgitation is present. Great Vessels The aortic root is normal in size. IVC is normal in size and collapses >50% with inspiration. Pericardium There is no pericardial effusion. Other Information Study Quality: Fair Conclusion Normal biventricular systolic function. Biatrial dilation. Bileaflet MV prolapse. Mild MR. Mild AI, mild TR, mild PI. Electronically signed by : Heather Hernandez MD 07/02/2025 12:33:50
== END 2025-06-26 23:59 | disposition home or self-care (01) ==
LOC: RT 11:04
PROVIDERS: PCP Internal Medicine Adolescent Medicine; Visit Provider Physician Assistant
DX: I08.8 Other rheumatic multiple valve diseases (principal); I11.9 Hypertensive heart disease without heart failure; I25.10 Atherosclerotic heart disease of native coronary artery without angina pectoris; Z95.5 Presence of coronary angioplasty implant and graft
CPT/HCPCS: 93306

== ENCOUNTER 2025-07-01 13:00 | Outpatient (RCR) | payer MEDICARE, SELFPAY ==
--- NOTE | 2025-07-01 14:09 | HMH.RHREAS ---
Rehab Reassessment Rehab OP Re-assessment Start: 06/15/25 12:59 Freq: Status: Active Protocol: Document 07/01/25 13:10 MARILOU (Rec: 07/01/25 14:09 MARILOU [id number]) E-signed By Marilyn Sloan OT QuickDASH Activities Please rate your ability to do the following activities in the last week by selecting the number below the appropriate response. 1. Open a tight or Moderate difficulty new jar. 2. 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 g., wash diaz, floors). 3. Carry a shopping Mild difficulty bag or briefcase. 4. Wash your back. Mild difficulty 5. Use a knife to Moderate difficulty cut food. 6. Recreational Severe difficulty activities in which you take some force or impact through your arm, shoulder, or hand (e.g., golf, hammering, tennis, etc.). 7. During the past Moderately week, to what extent has your arm, shoulder or hand problem interfered with your normal social activities with family, friends , neighbors or groups? 8. During the past Not limited at all week, were you limited in your work or other regular daily activites as a result of your arm, shoulder or hand problem? 9. Arm, shoulder or Moderate hand pain. 10. Tingling (pins None and needles) in your arm, shoulder or hand. 11. During the past Mild difficulty week, how much difficulty have you had sleeping because of the pain in your arm, shoulder or hand? Quick DASH 26 Rehab Re-assessment Subjective Subjective I think I am making some progress. Objective Objective Notes Pt is a 80 year old female being seen for skilled OP OT services and interventions to address functional limitations in L hand due to fall. Pt is currently 11 weeks post fall. Each session, Pt has been engaged in therapeutic exercises, manual stretching, e-stim, and modalities in order to address strength, range of motion, and endurance to address these deficits and improve optimal occupational performance. Assessment Progress Assessment Progressing as Expected Assessment Notes Pt is consistent with attending each session and is always pleasant and eager to engage in each session. Pt has demo improved improvement in ROM, endurance, and strength since initial OT evaluation on June 03. Pt has reported they have seen improvements in occupational performance, but still have limitations such as with lifting heavy objects, ROM, and pain. Pt has reported more pain in ulnar side that they describe as a shooting pain. 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 All LTG are updated/IP . OT Patient Goals OT Short Term 1. Pt will improve QuickDash Activites Score to 20 or Patient Goals below, Work Score to 9 or below, and Sports Score to 12 or below. IP 2. Pt will improve L wrist Flexion to 35 degrees. : MET 3. Pt will improve L wrist Extension to 10 degrees.: MET 4. Pt will improve L wrist RD and UD to 15 degrees. : MET 5. 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 :MET 6. Pt will report pain at worst at 4/10. :MET 7. Pt will be ind in HEP of theraputty exercises. :MET 8. Pt will tolerate L hand exercises for aprox 10 mins before rest. :IP OT Corrections Caseworker Patient 1. Pt will improve QuickDash Activites Score to 15 or Goals below, Work Score to 6 or below, and Sports Score to 8 or below. 2. Pt will improve L wrist Flexion to 60 degrees. 3. Pt will improve L wrist Extension to 55 degrees. 4. 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 5. Pt will report pain at worst at 2/10. 6. Pt will be ind in HEP of advanced hand strengthening and ROM exercises. 7. Pt will tolerate L hand exercises for aprox 20 mins before rest. Plan Plan continue OT POC at this time OT POC will include each session addressing above deficits with therapeutic exercises, PROM, e-stim, and therapeutic modalities to improve optimal occupational performance to reach PLOF. Frequency of Therapy 2x/wk Duration of Therapy 6 more wks Therapeutic Exercise Yes Including Home Exercise Program Manual Therapy Yes Techniques Neuromuscular Re- Yes education Therapeutic Yes Activities to Return to Previous Functional/Work Level ADL/Self Care Yes Education Thermal Modalities Yes Electrical Yes Stimulation Ultrasound/ Yes Phonophoresis Iontophoresis Yes Parrafin Yes Orthotics/Bracing/ Yes Splinting Group Therapy for Yes Medicare Eval/Re-Eval Yes Time and Billing Charge for OT No reassessment? PHYSICIAN CERTIFICATION: I certify the specified therapy services for fariba Shaikhe are required, authorized, and reviewed every 30 days.
== END 2025-07-01 23:59 | disposition home or self-care (01) ==
LOC: OT 13:00
PROVIDERS: Visit Provider Nurse Practitioner Family
DX: S32.9XXD Fracture of unspecified parts of lumbosacral spine and pelvis, subsequent encounter for fracture with routine healing (principal); S52.502D Unspecified fracture of the lower end of left radius, subsequent encounter for closed fracture with routine healing; W19.XXXD Unspecified fall, subsequent encounter
CPT/HCPCS: 97010; 97014; 97032; 97035; 97110; 97140; G0283

== ENCOUNTER 2025-07-01 14:00 | Outpatient (RCR) | payer MEDICARE, SELFPAY ==
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
== END 2025-07-01 23:59 | disposition home or self-care (01) ==
LOC: PT 14:00
PROVIDERS: Visit Provider Nurse Practitioner Family
DX: S52.502D Unspecified fracture of the lower end of left radius, subsequent encounter for closed fracture with routine healing (principal); S32.9XXD Fracture of unspecified parts of lumbosacral spine and pelvis, subsequent encounter for fracture with routine healing; V19.9XXD Pedal cyclist (driver) (passenger) injured in unspecified traffic accident, subsequent encounter
CPT/HCPCS: 97110; 97112; 97161; 97530

== ENCOUNTER 2025-07-14 14:01 | Outpatient (RCR) | payer MEDICARE, SELFPAY ==
--- NOTE | 2025-07-14 15:07 | HMH.RHREAS ---
Rehab Reassessment Rehab OP Re-assessment Start: 07/14/25 14:04 Freq: Status: Active Protocol: Document 07/14/25 14:07 TATIANAFAITH (Rec: 07/14/25 15:06 TONYA [id number]) E-signed By Casie Guy, PT Oswestry Index Section 1 Pain Intensity The pain is mild and does not vary much Section 2 Personal Care ( my way of washing or dressing even though it causes Washing,Dresing) some pain Section 3 Lifting lifting heavy weights off the floor, but I can manage light to medium Section 4 Walking I have some pain when walking but it does not increase with distance Section 5 Sitting I can sit in any chair for as long as I like Section 6 Standing I have some pain on standing, but it does not increase with time Section 7 Sleeping Because of my pain, my normal night's sleep is less than 6 hours sleep Section 8 Social Life My social life is normal and gives me no extra pain Section 9 Traveling I get extra pain while traveling, but it does not compel me to seek al Section 10 Changing Degreee of My pain is getting better Pain Score and Risk Level Oswestry Score 12 Oswestry Risk Level Mild Disability Rehab Re-assessment Subjective Subjective Pt reports she feels 80% improved since starting PT. Pt reports only mild left posterior hip pain rated 2-3/10 at worst on VAS that is dull in nature. Pt reports she is able to perform lower body dressing and perform all ADL/iADLs independently. Pt reports she has recently started walking 2x/week for exercises and performs her HEP sometimes. Objective Objective Notes L hip AROM: flex 112, IR 45, ER 45 LLE MMT: hip flex 4+/5, hip abd 4/5, hip add 4/5, hip ext 4/5, knee ext 5/5, knee flex 5/5 5x sit to stand: 11 Assessment Assessment Notes Pt has attended 4 PT treatment sessions consisting of aerobic exercise, hip mobility, LE stretching/ strengthening, balance/proprioception training and HEP with good tolerance. Pt demonstrated improved MARLENI score , subjective report of glover, L hip mobility, strength and 5x sit to stand outcome measure. Overall, the pt met all PT goals and is appropriate to discharge to independent HEP at this time. PT Patient Goals PT Short Term 3 weeks: Patient Goals 1. Verbalize compliance with HEP to assist with progress. -MET 2. Demonstrate proper gait mechanics to decrease fall risk. -MET 3. Demonstrate ability to don shoes/sock of LLE independently to decrease burden of care. -MET PT Mcfp Patient 6 weeks: Goals 1. Improve L hip AROM IR/ER to 35-40, flex 110-115 to assist with mobility and function. -MET 2. Improve LLE MMT to 4-4+/5 grossly to assist with function. -MET 3. Improve 5x sit to stand to 12 or less to decrease fall risk. -MET 4. Improve pain at worst to 3/10 to improve overall QOL /function. -MET 5. Improve MARLENI score to 17 or less to improve overall QOL/function. -MET Plan Plan Discharge to independent HEP Eval/Re-Eval Yes Time and Billing Re-Eval Time 12 Re-Eval Billing 0 Units Charge for PT No reassessment? PHYSICIAN CERTIFICATION: I certify the specified therapy services for Elizabeth Bustamante are required, authorized, and reviewed every 30 days.
== END 2025-07-14 23:59 | disposition home or self-care (01) ==
LOC: PT 14:01
PROVIDERS: PCP Internal Medicine Adolescent Medicine; Visit Provider Nurse Practitioner Family
DX: S32.9XXD Fracture of unspecified parts of lumbosacral spine and pelvis, subsequent encounter for fracture with routine healing (principal); S52.502D Unspecified fracture of the lower end of left radius, subsequent encounter for closed fracture with routine healing; X58.XXXD Exposure to other specified factors, subsequent encounter
CPT/HCPCS: 97112; 97530

== ENCOUNTER 2025-07-21 13:00 | Outpatient (RCR) | payer MEDICARE, SELFPAY | END 2025-07-21 23:59 | disposition home or self-care (01) | LOC: OT 13:00 | PROVIDERS: PCP Internal Medicine Adolescent Medicine; Visit Provider Nurse Practitioner Family | DX: S32.9XXD Fracture of unspecified parts of lumbosacral spine and pelvis, subsequent encounter for fracture with routine healing (principal); S52.502D Unspecified fracture of the lower end of left radius, subsequent encounter for closed fracture with routine healing; X58.XXXD Exposure to other specified factors, subsequent encounter | CPT/HCPCS: 97032; 97035; 97110; 97140 ==

== ENCOUNTER 2025-09-09 09:56 | Outpatient (CLI) | payer MEDICARE, SELFPAY ==
--- OUTSIDE RECORDS SUMMARY | 2025-07-01 06:00 | XMS_ITS ---
Author Organization [facility] Address [address] [place], [place] [address] Care Team Providers Care Speed Reading Teacher Name Role Phone Christen Shen Primary Care Provider CHRISTEN SHENSEY Unavailable UnavailRen Camacho [phone] REASON FOR VISIT 4 Week F/U Encounters Encounter Location Date Provider Diagnosis [facility] [address] [place] [address] 07/01/2025 Ren Armas Plan Of Treatment Next Appt Details Provider Name:Ren Armas, 09/16/2025 11:30:00 AM, [address], [place], [place], [address], Progress Notes * Elizabeth AGUILAR MDOB:1944 (80 yo F)Acc No.[id number]:07/01/2025 Progress Notes Patient: Elizabeth Rosa Provider: Ortiz Armas MD :1945 A ge:80 Y S ex:Female Date:07/01/2025 Address:[address], [place] Pcp:Christen Shen Subjective: * Chief Complaints: * 4 Week F/U Billing Information: * Procedure Codes: * Electronic signature of To Armas MD FAAP on 09/09/2025 at 09:59 AM EST Sign off status: Pending * Provider: Ortiz Armas MD Date: Generated for Darya mei/Betsy/Uyen on: 09:59 AM EST
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
--- OUTSIDE RECORDS SUMMARY | 2025-08-18 07:15 | XMS_ITS ---
Author Organization [facility] Address [address] [place] [address] Care Team Providers Care Cook Mess Name Role Phone Merna Shen Primary Care Provider MERNA SHEN Unavailable Unavaila ble Allergies Allergen (clinical drug ingredient) Drug/Non Drug Allergy documented on EMR Reaction Allergy Type Onset Date Status Substance with sulfonamide structure and antibacterial mechanism of action (substance) SULFA DRUGS (uncoded) Unknown Allergy Active etodolac Lodine Unknown Drug Allergy Active Penicillin Unknown Drug Allergy Active Results Component Value Reference Range Flag Notes COMPREHENSIVE METABOLIC MARIANNA Escobedo (62890) Reviewed date:08/22/2025 07:04:21 AM Interpretation: Performing Lab:CB, [facility] [address], [facility] HospitalMvreFY[address] [place] Notes/Report: NON-FASTING; NON-FASTING; NON-FASTING; NON-FASTING; NON-FAST GLUCOSE 81 65-99 mg/dL N Fasting reference interval UREA NITROGEN (BUN) 12 7-25 mg/dL N CREATININE 0.53 0.60-0.95 mg/dL L EGFR 93 > OR = 60 mL/min/1.73m2 N BUN/CREATININE RATIO 23 6-22 (calc) H SODIUM 139 135-146 mmol/L N POTASSIUM 4.0 3.5-5.3 mmol/L N CHLORIDE 101 98-110 mmol/L N CARBON DIOXIDE 29 20-32 mmol/L N CALCIUM 9.9 8.6-10.4 mg/dL N PROTEIN, TOTAL 7.5 6.1-8.1 g/dL N ALBUMIN 4.3 3.6-5.1 g/dL N GLOBULIN 3.2 1.9-3.7 g/dL (calc) N ALBUMIN/GLOBULIN RATIO 1.3 1.0-2.5 (calc) N BILIRUBIN, TOTAL 0.2 0.2-1.2 mg/dL N ALKALINE PHOSPHATASE 84 37-153 U/L N AST 15 10-35 U/L N ALT 11 6-29 U/L N MAGNESIUM (622) Reviewed date:08/22/2025 07:04:21 AM Interpretation: Performing Lab:[facility] [employer], [place]PI[address] [place] Notes/Report: NON-FASTING; NON-FASTING; NON-FASTING; NON-FASTING; NON-FAST MAGNESIUM 2.5 1.5-2.5 mg/dL N CREATINE KINASE, TOTAL (374) Reviewed date:08/22/2025 07:04:21 AM Interpretation: Performing Lab:[facility], ColoraderdamYlaiIR[address] [place] Notes/Report: NON-FASTING; NON-FASTING; NON-FASTING; NON-FASTING; NON-FAST CREATINE KINASE, TOTAL 48 16-215 U/L N CBC (INCLUDES DIFF/PLT) (639 9) Reviewed date:08/22/2025 07:04:21 AM Interpretation: Performing Lab:[facility] [employer], [place]aderdamPfsdHE[address] [place] Notes/Report: NON-FASTING; NON-FASTING; NON-FASTING; NON-FASTING; NON-FAST WHITE BLOOD CELL COUNT 5.6 3.8-10.8 Thousand/uL N RED BLOOD CELL COUNT 4.75 3.80-5.10 Million/uL N HEMOGLOBIN 12.2 11.7-15.5 g/dL N HEMATOCRIT 40.9 35.9-46.0 % N MCV 86.1 81.4-101.7 fL N MCH 25.7 27.0-33.0 pg L MCHC 29.8 31.6-35.4 g/dL L RDW 16.1 11.0-15.0 % H PLATELET COUNT 443 140-400 Thousand/uL H MPV 9.7 7.5-12.5 fL N ABSOLUTE NEUTROPHILS 4536 3791-6460 cells/uL N ABSOLUTE LYMPHOCYTES 158 102-5902 cells/uL L ABSOLUTE MONOCYTES 190 200-950 cells/uL L ABSOLUTE EOSINOPHILS 50 15-500 cells/uL N ABSOLUTE BASOPHILS 39 0-200 cells/uL N NEUTROPHILS 81 N LYMPHOCYTES 14.0 N MONOCYTES 3.4 N EOSINOPHILS 0.9 N BASOPHILS 0.7 N SED RATE BY MODIFIED WESTERG DEEPALI (809) Reviewed date:08/22/2025 07:04:22 AM Interpretation: Performing Lab:[facility], ColoraderdamNnhgZS[address] [place] Notes/Report: NON-FASTING; NON-FASTING; NON-FASTING; NON-FASTING; NON-FAST SED RATE BY MODIFIED WESTERGREN 6 < OR = 30 mm/h N C-REACTIVE PROTEIN (4420) Reviewed date:08/22/2025 07:04:22 AM Interpretation: Performing Lab:[facility], ColoraderdamTxvpEG[address] [place] Notes/Report: NON-FASTING; NON-FASTING; NON-FASTING; NON-FASTING; NON-FAST C-REACTIVE PROTEIN 9.6 <8.0 mg/L H VITAMIN B12 (927) Reviewed date:08/22/2025 07:04:23 AM Interpretation: Performing Lab:[facility], ColoraderdamJcjcLP[address] [place] Notes/Report: NON-FASTING; NON-FASTING; NON-FASTING; NON-FASTING; NON-FAST VITAMIN B12 644 126-3635 pg/mL N TSH W/REFLEX TO FT4 (08745) Reviewed date:08/22/2025 07:04:23 AM Interpretation: Performing Lab:[facility], [place]itorGawwKU[address] [place] Notes/Report: NON-FASTING; NON-FASTING; NON-FASTING; NON-FASTING; NON-FAST TSH W/REFLEX TO FT4 1.36 0.40-4.50 mIU/L N VITAMIN D,25-OH,TOTAL,IA (17 306) Reviewed date:08/22/2025 07:04:23 AM Interpretation: Performing Lab:NIK, [facility] [address] [facility], [place] PorrasLcegSQ[address] [place] Notes/Report: NON-FASTING; NON-FASTING; NON-FASTING; NON-FASTING; NON-FAST VITAMIN D,25-OH,TOTAL,IA 53 30-100 ng/mL N Vitamin D Status 25-OH Vitamin D: Deficiency: <20 ng/mL Insufficiency: 20 - 29 ng/mL Optimal: > or = 30 ng/mL For 25-OH Vitamin D testing on patients on D2-supplementation and patients for whom quantitation of D2 and D3 fractions is required, the Quest[facility]ure[facility](TM) 25-OH VIT D, (D2,D3), LC/MS/MS is recommended: order code 40644 (patients >2yrs). See Note 1 Note 1 For additional information, please refer to http://education.LaunchHear/faq/PZT190 (This link is being provided for informational/ educational purposes only.) REASON FOR VISIT Body aches, stomach cramps Medications Medication SIG (Take, Route, Frequency, Duration) Notes Start Date End Date Status traMADol HCl 50 mg Tablet TAKE 1 OR 2 TA BLET(S) BY MOUTH EVERY DAY AT BEDTIME; Duration: 30 08/17/2025 Active traZODone HCl 100 MG Tablet 1 tablet at bedtime Orally Once a day; Duration: 30 day(s) 05/05/2025 Active DULoxetine HCl 60 MG Capsule Delayed Release Particles 1 capsule Orally at night; Duration: 90 days Active Rosuvastatin Calcium 10 mg Tablet TAKE ONE TABLET BY MOUTH EVERY DAY; Duration: 90 Active Ativan 1 MG Tablet 1 tab(s) orally bid 05/14/2013 Active Aspirin 81 MG TABLET 1 TAB(S) ORALLY ONC E A DAY Active Multivitamin - Tablet 1 tab(s) orally on ce a day Active OSTEO-BIOFLEX 1 TAB ORALLY ONCE DAILY Active Budesonide 3 MG Capsule Delayed Release Particles 1 capsule Orally; Duration: 30 day(s) 01/07/2025 Active Losartan Potassium 100 MG Tablet 1 tablet Orally Once a day Active Problems Problem Type SNOMED Code ICD Code Onset Dates Problem Status W/U Status Risk Notes Problem Essential hypertension ([id number]) Essential hypertension (I10) Active confirmed Vital Signs Temperature 97.7 degrees Fahrenheit 08/18/20 25 Blood pressure systolic 172 mm Hg 08/18/20 25 Blood pressure diastolic 92 mm Hg 025 Heart Rate 64 /min 08/18/2025 Height 5 ft 2 in in 08/18/2025 Weight 107 lbs 08/18/2025 BMI 19.57 kg/m2 08/18/2025 Encounters Encounter Location Date Provider Diagnosis [facility] [address] [facility] [address] [place] [address] 08/18/2025 Merna Shen Recurrent abdominal pain R10.9 ; Body aches R52 and Essential hypertension I10 Assessments Encounter Date Diagnosis (ICD Code) Assessment Notes Treatment Notes Treatment Clinical Notes Section Notes 08/18/2025 Recurrent abdominal pain (ICD-10 - R10.9) Discussed possible exacerbation of underlying colitis, SIBO, etc. Certainly could have some constitutional symptoms with some of these things. Recommend that she take at least 2 budesonide every night for the next couple of weeks and then wean back to once a day if her symptoms have improved. Recommend labs as noted. Follow-up based on results/response. Could also consider a round of Xifaxan but would be less likely for SIBO, as opposed to colitis, to have constitutional symptoms 08/18/2025 Body aches (ICD-10 - R52) 08/18/2025 Essential hypertension (ICD-10 - I10) Elevated today although she has just come from an appointment with podiatry and had an injection in her foot. She has not been monitoring her blood pressure at home. I encouraged her to use to let us know if that is persistently elevated. Plan Of Treatment Next Appt Details Follow Up: prn, Reason: Provider Name:Ren Armas, 09/16/2025 11:30:00 AM, [address] [facility] [address] [facility], [address], [place], [address], History and Physical Notes * Examination Category Sub-Category Detail Notes Category Not es General Examination Heart: Regular Rate and Rhythm, no murmur, rubs or gallops Lungs: clear to auscultatio n, Abdomen: soft, mild tendernes s in the RLQ, ND, BS present Skin: without acute rashes Oral cavity: Moist membranes neck supple,, no thyromeg feliciano,, no lymphadenopathy, General Pleasant and Coopera tive, NAD on RA, Psych Normal Mood/Affect Progress Notes * Elizabeth AGUILAR MDOB:1944 (80 yo F)Acc No.[id number]:08/18/2025 Progress Notes Patient: Sandra MEJIAth Clarissa Provider: LUNA Nesbitt :1945 A ge:80 Y S ex:Female Date:08/18/2025 Address:[facility] [address] , [place], [id number] Subjective: * Chief Complaints: * 1 . Body aches. 2. Stomach cramps. * HPI: g en: 80-year-old female with history of microscopic colitis treated with oral budesonide, also a history of SIBO, presents with a couple of different episodes in the past 3 to 4 weeks of painful abdominal cramps and loose stool. Each of these episodes has improved over several days but are followed by bodyaches, malaise. No fevers, blood or mucus in stool. She has tried some [id number] Gas-X for a sensation of abdominal distention/bloating without a lot of improvement. She has still been able to eat drink. She denies any obvious triggering events but has had some pretty significant stressors over the past several weeks as well. She did try taking higher dose budesonide but only for a day or 2 at a time. * ROS: C ONSTITUTIONAL: See HPI Y es. D ERMATOLOGY: no R danica. G ASTROENTEROLOGY: See HPI Y es. U ROLOGY: no D ifficulty urinating. n o B lood in urine. * Medical History: * Medications: T aking Losartan Potassium 100 MG Tablet 1 tablet Orally Once a day , Taking Ativan 1 MG Tablet 1 tab(s) orally bid , Taking Aspirin 81 MG TABLET 1 TAB(S) ORALLY ONCE A DAY , Taking Multivitamin - Tablet 1 tab(s) orally once a day , Taking OSTEO- BIOFLEX 1 TAB ORALLY ONCE DAILY , Taking Budesonide 3 MG Capsule Delayed Release Particles 1 capsule Orally , Taking traZODone HCl 100 MG Tablet 1 tablet at bedtime Orally Once a day , Taking DULoxetine HCl 60 MG Capsule Delayed Release Particles 1 capsule Orally at night , Taking Rosuvastatin Calcium 10 mg Tablet TAKE ONE TABLET BY MOUTH EVERY DAY , Taking traMADol HCl 50 mg Tablet TAKE 1 OR 2 TABLET(S) BY MOUTH EVERY DAY AT BEDTIME , Discontinued Reclast 5 MG/100ML Solution as directed intravenously once yearly , Medication List reviewed and reconciled with the patient * Allergies: S ULFA DRUGS, Lodine, Penicillin. Objective: * Vitals: N urse: be, Pain: 2, Temp: 97.7, RR: 14, HR: 64, BP: 172/92, Ht: 5 ft 2 in, Wt: 107, BMI:19.57, Repeat BP: 142/90. * Examination: G eneral Examination: General P leasant and Cooperative, NAD on RA,. Oral cavity: M oist membranes. Heart: R egular Rate and Rhythm, no murmur, rubs or gallops. Lungs: c lear to auscultation,. Abdomen: s oft, mild tenderness in the RLQ, ND, BS present.? Skin: w ithout acute rashes. neck s upple,, no thyromegaly,, no lymphadenopathy,. Psych N ormal Mood/Affect. Assessment: * Assessment: 1. R ecurrent abdominal pain - R10.9 (Primary) 2 . B alesia aches - R52 ? 3 . E ssential hypertension - I10 Plan: * Treatment: Value Reference Range G LUCOSE 81 65-99 - mg/dL * U SETH NITROGEN (BUN) 12 7-25 - mg/dL * C REATININE 0.53 L 0.60-0.95 - mg/dL * B UN/CREATININE RATIO 23 H 6-22 - (calc) * S ODIUM 139 135-146 - mmol/L * P OTASSIUM 4.0 3.5-5.3 - mmol/L * C HLORIDE 101 98-110 - mmol/L * C ARBON DIOXIDE 29 20-32 - mmol/L * C ALCIUM 9.9 8.6-10.4 - mg/dL * P ROTEIN, TOTAL 7.5 6.1-8.1 - g/dL * A LBUMIN 4.3 3.6-5.1 - g/dL * G LOBULIN 3.2 1.9-3.7 - g/dL (calc ) * A LBUMIN/GLOBULIN RATIO 1.3 1.0-2.5 - (calc) * B ILIRUBIN, TOTAL 0.2 0.2-1.2 - mg/dL * A LKALINE PHOSPHATASE 84 37-153 - U/L * A ST 15 10-35 - U/L * A LT 11 6-29 - U/L * E GFR 93 > OR = 60 - mL/min/1 .73m2 * Karla Hutchins 08/21/2025 03:39:46 PM EST > Patient informed. Said she is maybe feeling a little better. Told her to call back if she needs anything.This lab was reviewed by Merna Shen on 08/22/2025 at 07:04 AM EST ?LAB: MAGNESIUM (622)* Value Reference Range M AGNESIUM 2.5 1.5-2.5 - mg/dL * Karla Hutchins 08/21/2025 03:39:46 PM EST > Patient informed. Said she is maybe feeling a little better. Told her to call back if she needs anything.This lab was reviewed by Merna Shen on 08/22/2025 at 07:04 AM EST ?LAB: CREATINE KINASE, TOTAL (374)* Value Reference Range C REATINE KINASE, TOTAL 48 16-215 - U/L * Karla Hutchins 08/21/2025 03:39:46 PM EST > Patient informed. Said she is maybe feeling a little better. Told her to call back if she needs anything.This lab was reviewed by Merna Shen on 08/22/2025 at 07:04 AM EST ?LAB: CBC (INCLUDES DIFF/PLT) (6399)* Value Reference Range W DEVIN BLOOD CELL COUNT 5.6 3.8-10.8 - Thousan d/uL * R ED BLOOD CELL COUNT 4.75 3.80-5.10 - Million/ uL * H EMOGLOBIN 12.2 11.7-15.5 - g/dL * H EMATOCRIT 40.9 35.9-46.0 - % * M CV 86.1 81.4-101.7 - fL * M CH 25.7 L 27.0-33.0 - pg * M CHC 29.8 L 31.6-35.4 - g/dL * R DW 16.1 H 11.0-15.0 - % * P LATELET COUNT 443 H 140-400 - Thousand/u L * N EUTROPHILS 81 - % * A BSOLUTE NEUTROPHILS 4536 3163-9803 - cells/uL * L YMPHOCYTES 14.0 - % * A BSOLUTE LYMPHOCYTES 784 L 850-3900 - cells/uL * M ONOCYTES 3.4 - % * A BSOLUTE MONOCYTES 190 L 200-950 - cells/uL * E OSINOPHILS 0.9 - % * A BSOLUTE EOSINOPHILS 50 15-500 - cells/uL * B ASOPHILS 0.7 - % * A BSOLUTE BASOPHILS 39 0-200 - cells/uL * M PV 9.7 7.5-12.5 - fL * Karla Hutchins 08/21/2025 03:39:46 PM EST > Patient informed. Said she is maybe feeling a little better. Told her to call back if she needs anything.This lab was reviewed by Merna Shen on 08/22/2025 at 07:04 AM EST ?LAB: SED RATE BY MODIFIED WESTERGREN (809)* Value Reference Range S ED RATE BY MODIFIED 6 < OR = 30 - mm/h * Karla Hutchins 08/21/2025 03:39:46 PM EST > Patient informed. Said she is maybe feeling a little better. Told her to call back if she needs anything.This lab was reviewed by Merna Shen on 08/22/2025 at 07:04 AM EST ?LAB: C-REACTIVE PROTEIN (4420)* Value Reference Range C -REACTIVE PROTEIN 9.6 H <8.0 - mg/L * Karla Hutchins 08/21/2025 03:39:46 PM EST > Patient informed. Said she is maybe feeling a little better. Told her to call back if she needs anything.This lab was reviewed by Merna Shen on 08/22/2025 at 07:04 AM EST ?LAB: VITAMIN B12 (927)* Value Reference Range V ITAMIN B12 839 360-4299 - pg/mL * Karla Hutchins 08/21/2025 03:39:46 PM EST > Patient informed. Said she is maybe feeling a little better. Told her to call back if she needs anything.This lab was reviewed by Merna Shen on 08/22/2025 at 07:04 AM EST ?LAB: TSH W/REFLEX TO FT4 (21557)* Value Reference Range T SH W/REFLEX TO FT4 1.36 0.40-4.50 - mIU/L * Karla Hutchins Gregg 08/21/2025 03:39:46 PM EST > Patient informed. Said she is maybe feeling a little better. Told her to call back if she needs anything.This lab was reviewed by Merna Shen on 08/22/2025 at 07:04 AM EST ?LAB: VITAMIN D,25-OH,TOTAL,IA (30583)* Value Reference Range V ITAMIN D,25-OH,TOTAL,IA 53 30-100 - ng/mL * Karla Hutchins 08/21/2025 03:39:46 PM EST > Patient informed. Said she is maybe feeling a little better. Told her to call back if she needs anything.This lab was reviewed by Merna Shen on 08/22/2025 at 07:04 AM EST Clinical Notes: Discussed possible exacerbation of underlying colitis, SIBO, etc. Certainly could have some constitutional symptoms with some of these things. Recommend that she take at least 2 budesonide every night for the next couple of weeks and then wean back to once a day if her symptoms haveimproved. Recommend labs as noted. Follow-up based on results/response. Could also consider a round of Xifaxan but would be less likely for SIBO, as opposed to colitis, tohave constitutional symptoms??2.?Body aches?LAB: COMPREHENSIVE METABOLIC PANEL (88497)* Value Reference Range G LUCOSE 81 65-99 - mg/dL * U SETH NITROGEN (BUN) 12 7-25 - mg/dL * C REATININE 0.53 L 0.60-0.95 - mg/dL * B UN/CREATININE RATIO 23 H 6-22 - (calc) * S ODIUM 139 135-146 - mmol/L * P OTASSIUM 4.0 3.5-5.3 - mmol/L * C HLORIDE 101 98-110 - mmol/L * C ARBON DIOXIDE 29 20-32 - mmol/L * C ALCIUM 9.9 8.6-10.4 - mg/dL * P ROTEIN, TOTAL 7.5 6.1-8.1 - g/dL * A LBUMIN 4.3 3.6-5.1 - g/dL * G LOBULIN 3.2 1.9-3.7 - g/dL (calc ) * A LBUMIN/GLOBULIN RATIO 1.3 1.0-2.5 - (calc) * B ILIRUBIN, TOTAL 0.2 0.2-1.2 - mg/dL * A LKALINE PHOSPHATASE 84 37-153 - U/L * A ST 15 10-35 - U/L * A LT 11 6-29 - U/L * E GFR 93 > OR = 60 - mL/min/1 .73m2 * Karla Hutchins 08/21/2025 03:39:46 PM EST > Patient informed. Said she is maybe feeling a little better. Told her to call back if she needs anything.This lab was reviewed by Merna Shen on 08/22/2025 at 07:04 AM EST ?LAB: MAGNESIUM (622)* Value Reference Range M AGNESIUM 2.5 1.5-2.5 - mg/dL * Karla Hutchins 08/21/2025 03:39:46 PM EST > Patient informed. Said she is maybe feeling a little better. Told her to call back if she needs anything.This lab was reviewed by Menra Shen on 08/22/2025 at 07:04 AM EST ?LAB: CREATINE KINASE, TOTAL (374)* Value Reference Range C REATINE KINASE, TOTAL 48 16-215 - U/L * Karla Hutchins 08/21/2025 03:39:46 PM EST > Patient informed. Said she is maybe feeling a little better. Told her to call back if she needs anything.This lab was reviewed by Merna Shen on 08/22/2025 at 07:04 AM EST ?LAB: CBC (INCLUDES DIFF/PLT) (6399)* Value Reference Range W DEVIN BLOOD CELL COUNT 5.6 3.8-10.8 - Thousan d/uL * R ED BLOOD CELL COUNT 4.75 3.80-5.10 - Million/ uL * H EMOGLOBIN 12.2 11.7-15.5 - g/dL * H EMATOCRIT 40.9 35.9-46.0 - % * M CV 86.1 81.4-101.7 - fL * M CH 25.7 L 27.0-33.0 - pg * M CHC 29.8 L 31.6-35.4 - g/dL * R DW 16.1 H 11.0-15.0 - % * P LATELET COUNT 443 H 140-400 - Thousand/u L * N EUTROPHILS 81 - % * A BSOLUTE NEUTROPHILS 4536 5392-0141 - cells/uL * L YMPHOCYTES 14.0 - % * A BSOLUTE LYMPHOCYTES 784 L 850-3900 - cells/uL * M ONOCYTES 3.4 - % * A BSOLUTE MONOCYTES 190 L 200-950 - cells/uL * E OSINOPHILS 0.9 - % * A BSOLUTE EOSINOPHILS 50 15-500 - cells/uL * B ASOPHILS 0.7 - % * A BSOLUTE BASOPHILS 39 0-200 - cells/uL * M PV 9.7 7.5-12.5 - fL * Karla Hutchins 08/21/2025 03:39:46 PM EST > Patient informed. Said she is maybe feeling a little better. Told her to call back if she needs anything.This lab was reviewed by Merna Shen on 08/22/2025 at 07:04 AM EST ?LAB: SED RATE BY MODIFIED WESTERGREN (809)* Value Reference Range S ED RATE BY MODIFIED 6 < OR = 30 - mm/h * Karla Hutchins 08/21/2025 03:39:46 PM EST > Patient informed. Said she is maybe feeling a little better. Told her to call back if she needs anything.This lab was reviewed by Merna Shen on 08/22/2025 at 07:04 AM EST ?LAB: C-REACTIVE PROTEIN (4420)* Value Reference Range C -REACTIVE PROTEIN 9.6 H <8.0 - mg/L * Karla Hutchins 08/21/2025 03:39:46 PM EST > Patient informed. Said she is maybe feeling a little better. Told her to call back if she needs anything.This lab was reviewed by Merna Shen on 08/22/2025 at 07:04 AM EST ?LAB: VITAMIN B12 (927)* Value Reference Range V ITAMIN B12 295 778-5279 - pg/mL * Karla Hutchins 08/21/2025 03:39:46 PM EST > Patient informed. Said she is maybe feeling a little better. Told her to call back if she needs anything.This lab was reviewed by Merna Shen on 08/22/2025 at 07:04 AM EST ?LAB: TSH W/REFLEX TO FT4 (88201)* Value Reference Range T SH W/REFLEX TO FT4 1.36 0.40-4.50 - mIU/L * Karla Hutchins 08/21/2025 03:39:46 PM EST > Patient informed. Said she is maybe feeling a little better. Told her to call back if she needs anything.This lab was reviewed by Merna Shen on 08/22/2025 at 07:04 AM EST ?LAB: VITAMIN D,25-OH,TOTAL,IA (07554)* Value Reference Range V ITAMIN D,25-OH,TOTAL,IA 53 30-100 - ng/mL * Karla Hutchins 08/21/2025 03:39:46 PM EST > Patient informed. Said she is maybe feeling a little better. Told her to call back if she needs anything.This lab was reviewed by Merna Shen on 08/22/2025 at 07:04 AM EST 3.?Essential hypertension? Clinical Notes: Elevated today although she has just come from an appointment with podiatry and hadan injection in her foot. She has not been monitoring her blood pressure at home. I encouraged her to use to let us know if that is persistently elevated.?? * Follow Up: p rn * * Sign off status: Completed true * Provider: LUNA Nesbitt Date: 10/19/2024 Generated for Darya mei/Betsy/Uyen on: 09:58 AM EST
--- OUTSIDE RECORDS SUMMARY | 2025-09-09 09:59 | XMS_ITS | Patient Health Record ---
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 Phone Merna Shen Primary Care Provider [phone] MERNA SHEN Unavailable Unavaila Ren Naylor Unavailable [phone] Mai Waggoner Unavailable [phone] Migration, Provider Unavailable Unavailable Allergies Allergen (clinical drug ingredient) Drug/Non Drug Allergy documented on EMR Reaction Allergy Type Onset Date Status Substance with sulfonamide structure and antibacterial mechanism of action (substance) SULFA DRUGS (uncoded) Unknown Allergy Active etodolac Lodine Unknown Drug Allergy Active Penicillin Unknown Drug Allergy Active Results Component Value Reference Range Flag Notes COMPREHENSIVE METABOLIC PANE L (20595) Reviewed date:08/22/2025 07:04:21 AM Interpretation: Performing Lab:NIK, [facility] Mafe5813 [facility] [place], [facility] CenterNveeMI[address] [place] Notes/Report: NON-FASTING; NON-FASTING; NON-FASTING; NON-FASTING; [...] Reviewed date:08/22/2025 07:04:21 AM Interpretation: Performing Lab:NIK [address], Sagacity MediaSjqpAU[address] [place] Notes/Report: NON-FASTING; NON-FASTING; NON-FASTING; NON-FASTING; NON-FAST MAGNESIUM 2.5 1.5-2.5 mg/dL N CREATINE KINASE, TOTAL (374) Reviewed date:08/22/2025 07:04:21 AM Interpretation: Performing Lab:NIK [address], TNG PharmaceuticalsIwfbXI[address] [place] Notes/Report: NON-FASTING; NON-FASTING; NON-FASTING; NON-FASTING; NON-FAST CREATINE KINASE, TOTAL 48 16-215 U/L N CBC (INCLUDES DIFF/PLT) (639 9) Reviewed date:08/22/2025 07:04:21 AM Interpretation: Performing Lab:NIK [address], Sagacity MediaFawoIZ[address] [place] Notes/Report: NON-FASTING; NON-FASTING; NON-FASTING; NON-FASTING; [...] 9.7 7.5-12.5 fL N ABSOLUTE NEUTROPHILS 4536 8983-0897 cells/uL N ABSOLUTE LYMPHOCYTES 242 214-6765 cells/uL L ABSOLUTE MONOCYTES 190 200-950 cells/uL L ABSOLUTE EOSINOPHILS 50 15-500 cells/uL N ABSOLUTE BASOPHILS 39 0-200 cells/uL N NEUTROPHILS 81 N LYMPHOCYTES 14.0 N MONOCYTES 3.4 N EOSINOPHILS 0.9 N BASOPHILS 0.7 N SED RATE BY MODIFIED WESTERG DEEPALI (809) Reviewed date:08/22/2025 07:04:22 AM Interpretation: Performing Lab:NIK SENSIMED-[address], [place] HqjnRP[address] [place] Notes/Report: NON-FASTING; NON-FASTING; NON-FASTING; NON-FASTING; NON-FAST SED RATE BY MODIFIED WESTERGREN 6 < OR = 30 mm/h N C-REACTIVE PROTEIN (4420) Reviewed date:08/22/2025 07:04:22 AM Interpretation: Performing Lab:NIK SENSIMED-[address], [facility] CenterTcgkXQ[address] [place] Notes/Report: NON-FASTING; NON-FASTING; NON-FASTING; NON-FASTING; NON-FAST C-REACTIVE PROTEIN 9.6 <8.0 mg/L H VITAMIN B12 (927) Reviewed date:08/22/2025 07:04:23 AM Interpretation: Performing Lab:NIK SENSIMED-[address], [place] GotyQA[address] [place] Notes/Report: NON-FASTING; NON-FASTING; NON-FASTING; NON-FASTING; NON-FAST VITAMIN B12 097 661-7377 pg/mL N TSH W/REFLEX TO FT4 (41349) Reviewed date:08/22/2025 07:04:23 AM Interpretation: Performing Lab:NIK SENSIMED-[employer] [address], [place] RpdaFT[address] [place] Notes/Report: NON-FASTING; NON-FASTING; NON-FASTING; NON-FASTING; NON-FAST TSH W/REFLEX TO FT4 1.36 0.40-4.50 mIU/L N VITAMIN D,25-OH,TOTAL,IA (17 306) Reviewed date:08/22/2025 07:04:23 AM Interpretation: Performing Lab:[facility]ED[facility] Int[facility] TherapeuticsteInspira [facility] [place], [facility] CenterRxteSU[address] [place] Notes/Report: NON-FASTING; NON-FASTING; NON-FASTING; NON-FASTING; [...] D, (D2,D3), LC/MS/MS is recommended: order code 43853 (patients >2yrs). See Note 1 Note 1 For additional information, please refer to http://education.[employer]/faq/XFE566 (This link is being provided for informational/ educational purposes only.) CULTURE, URINE, ROUTINE (395 ) Reviewed date:05/28/2025 10:00:47 AM Interpretation: Performing Lab:NIK SENSIMED-[facility]1355 Int[address] [email or web address] [facility], [facility] CenterGhddVI[address] [place] Notes/Report: NON-FASTING CULTURE, URINE, ROUTINE SEE NOTE CULTURE, URINE, ROUTINE Micro Number: [id number] Test Status: Final Specimen Source: Urine, clean catch Specimen Quality: Adequate Result: Less than 10,000 CFU/mL of single Gram positive organism isolated. No further testing will be performed. If clinically indicated, recollection using a method to minimize contamination, with prompt transfer to Urine Culture Transport Tube, is recommended. Urinalysis Reviewed date:05/26/2025 12:02:42 PM Interpretation: Performing Lab: Notes/Report: Color/Clarity Yellow Leuk neg Nitrite neg Urobili 0.2 Protein neg pH 7.0 Blood neg Sp. Gr. 1.020 Ketone neg Bili neg Glucose neg VITAMIN D,25-OH,TOTAL,IA (31 306) Reviewed date:10/16/2024 03:26:26 PM Interpretation: Performing Lab:NIK SENSIMED-[employer] [id number] [employer], Sagacity MediaJimrUL[address] [place] Notes/Report: NON-FASTING; NON-FASTING; NON-FASTING; NON-FASTING; NON-FAST VITAMIN D,25-OH,TOTAL,IA 40 30-100 ng/mL N Insufficiency: 20 - 29 ng/mL Optimal: > or = 30 ng/mL For 25-OH Vitamin D testing on patients on D2-supplementation and patients for whom quantitation Vitamin D Status 25-OH Vitamin D: Deficiency: <20 ng/mL Note 1 For additional information, please refer to http://BrightLine.[employer]/faq/QED993 (This link is being provided for informational/ educational purposes only.) of D2 and D3 fractions is required, the QuestAssureD(TM) 25-OH VIT D, (D2,D3), LC/MS/MS is recommended: order code 71100 (patients >2yrs). See Note 1 VITAMIN B12/FOLATE, SERUM PA DELGADO (7065) Reviewed date:10/16/2024 03:26:26 PM Interpretation: Performing Lab:NIK SENSIMED-[facility] [id number] [address] [facility], TNG PharmaceuticalsAtovHH[address] [place] Notes/Report: NON-FASTING; NON-FASTING; NON-FASTING; NON-FASTING; NON-FAST VITAMIN B12 372 785-5842 pg/mL N FOLATE, SERUM 13.7 N Reference Range Low: <3.4 Borderline: 3.4-5.4 Normal: >5.4 DHARMESH MULTIPLEX W/REFLEX 11 AB CASCADE () Reviewed date:10/17/2024 09:07:14 AM Interpretation: Performing Lab:NIK SENSIMED-[facility] [employer]se13[address] Int[facility] TherapeuticsteInspira [facility], Sagacity MediaBbocDO[address] [place] Notes/Report: NON-FASTING; NON-FASTING; NON-FASTING; NON-FASTING; NON-FAST DHARMESH SCREEN, IMMUNOASSAY NEGATIVE NEGATIVE N http://[employer]/faq/QMK917 (This link is being provided for informational/ educational purposes only.) A negative DHARMESH Multiplex indicates the absence of detectable antibodies to component analytes consisting of double stranded DNA (dsDNA), chromatin, ribonucleoprotein (HEEL SEAT SANDER), Hawthorne/HEEL SEAT SANDER (Sm/HEEL SEAT SANDER), Hawthorne (Sm), SS-A, SS-B, Allyssa-1, centromere B, Scl-70 and ribosomal P. A negative result should be interpreted in the context of the clinical and laboratory findings and does not rule out autoimmune disease characterized by other autoantibody specificities such as rheumatoid arthritis, autoimmune hepatitis, primary biliary cirrhosis, autoimmune thyroiditis, Union's disease, pernicious anemia, autoimmune neuropathies, vasculitis, celiac disease, and bullous disease. For additional information, please refer to C-REACTIVE PROTEIN (4420) Reviewed date:10/17/2024 02:21:58 PM Interpretation: Performing Lab:NIK SENSIMED-[employer] [employer]steTab[address], Sagacity MediaYayiNX[address] [place] Notes/Report: NON-FASTING; NON-FASTING; NON-FASTING; NON-FASTING; NON-FAST C-REACTIVE PROTEIN 60.7 <8.0 mg/L H SED RATE BY MODIFIED WESTERG DEEPALI (809) Reviewed date:10/16/2024 03:26:26 PM Interpretation: Performing Lab:NIK SENSIMED-[facility] [address], Sagacity MediaQceqGK[address] [place] Notes/Report: NON-FASTING; NON-FASTING; NON-FASTING; NON-FASTING; NON-FAST SED RATE BY MODIFIED WESTERGREN 28 < OR = 30 mm/h N CBC (INCLUDES DIFF/PLT) (639 9) Reviewed date:10/16/2024 03:26:26 PM Interpretation: Performing Lab:NIK SENSIMED-[employer] [employer]se[address] Titan Pharmaceuticalsvd, Sagacity MediaLjwgIO[address] [place] Notes/Report: NON-FASTING; NON-FASTING; NON-FASTING; NON-FASTING; NON-FAST WHITE BLOOD CELL COUNT 6.9 3.8-10.8 Thousand/uL N RED BLOOD CELL COUNT 4.54 3.80-5.10 Million/uL N HEMOGLOBIN 12.0 11.7-15.5 g/dL N HEMATOCRIT 38.1 35.0-45.0 % N MCV 83.9 80.0-100.0 fL N MCH 26.4 27.0-33.0 pg L MCHC 31.5 32.0-36.0 g/dL L For adults, a slight decrease in the calculated MCHC value (in the range of 30 to 32 g/dL) is most likely not clinically significant; however, it should be interpreted with caution in correlation with other red cell parameters and the patient's clinical condition. RDW 14.0 11.0-15.0 % N PLATELET COUNT 404 140-400 Thousand/uL H MPV 9.6 7.5-12.5 fL N ABSOLUTE NEUTROPHILS 5920 2490-4447 cells/uL N ABSOLUTE LYMPHOCYTES 885 979-4644 cells/uL L ABSOLUTE MONOCYTES 262 200-950 cells/uL N ABSOLUTE EOSINOPHILS 83 15-500 cells/uL N ABSOLUTE BASOPHILS 28 0-200 cells/uL N NEUTROPHILS 85.8 N LYMPHOCYTES 8.8 N MONOCYTES 3.8 N EOSINOPHILS 1.2 N BASOPHILS 0.4 N CREATINE KINASE, TOTAL (374) Reviewed date:10/17/2024 09:06:56 AM Interpretation: Performing Lab:NIK SENSIMED-[facility] [employer], Sagacity MediaNhdaVH[address] [place] Notes/Report: NON-FASTING; NON-FASTING; NON-FASTING; NON-FASTING; NON-FAST CREATINE KINASE, TOTAL 41 18-225 U/L N COMPREHENSIVE METABOLIC PANE L (90149) Reviewed date:10/17/2024 09:07:14 AM Interpretation: Performing Lab:NIK SENSIMED-[facility] [id number], Sagacity MediaMfqwXZ[address] [place] Notes/Report: NON-FASTING; NON-FASTING; NON-FASTING; NON-FASTING; NON-FAST GLUCOSE 83 65-99 mg/dL N Fasting reference interval UREA NITROGEN (BUN) 20 7-25 mg/dL N CREATININE 0.69 0.60-1.00 mg/dL N EGFR 88 > OR = 60 mL/min/1.73m2 N BUN/CREATININE RATIO SEE NOTE: 6-22 (calc) Not Reported: BUN and Creatinine are within reference range. SODIUM 139 135-146 mmol/L N POTASSIUM 4.4 3.5-5.3 mmol/L N CHLORIDE 103 98-110 mmol/L N CARBON DIOXIDE 25 20-32 mmol/L N CALCIUM 9.3 8.6-10.4 mg/dL N PROTEIN, TOTAL 7.0 6.1-8.1 g/dL N ALBUMIN 4.0 3.6-5.1 g/dL N GLOBULIN 3.0 1.9-3.7 g/dL (calc) N ALBUMIN/GLOBULIN RATIO 1.3 1.0-2.5 (calc) N BILIRUBIN, TOTAL 0.3 0.2-1.2 mg/dL N ALKALINE PHOSPHATASE 69 37-153 U/L N AST 17 10-35 U/L N ALT 12 6-29 U/L N THYROID PANEL WITH TSH (7444 ) Reviewed date:10/17/2024 09:07:14 AM Interpretation: Performing Lab:NIK SENSIMED-[facility] [id number], Sagacity MediaZnbzZN[address] [place] Notes/Report: NON-FASTING; NON-FASTING; NON-FASTING; NON-FASTING; NON-FAST T3 UPTAKE 25 22-35 % N T4 (THYROXINE), TOTAL 7.7 5.1-11.9 mcg/dL N FREE T4 INDEX (T7) 1.9 1.4-3.8 N TSH 1.37 0.40-4.50 mIU/L N COMPREHENSIVE METABOLIC PANE L (07457) Reviewed date:12/12/2024 12:03:38 PM Interpretation: Performing Lab:NIK SENSIMED-[facility] [id number], Sagacity MediaAgxmMT[address] [place] Notes/Report: NON-FASTING; NON-FASTING; NON-FASTING; NON-FASTING; NON-FAST GLUCOSE 82 65-99 mg/dL N Fasting reference interval UREA NITROGEN (BUN) 18 7-25 mg/dL N CREATININE 0.62 0.60-1.00 mg/dL N EGFR 91 > OR = 60 mL/min/1.73m2 N BUN/CREATININE RATIO SEE NOTE: 6-22 (calc) Not Reported: BUN and Creatinine are within reference range. SODIUM 137 135-146 mmol/L N POTASSIUM 4.3 3.5-5.3 mmol/L N CHLORIDE 100 98-110 mmol/L N CARBON DIOXIDE 29 20-32 mmol/L N CALCIUM 9.7 8.6-10.4 mg/dL N PROTEIN, TOTAL 7.3 6.1-8.1 g/dL N ALBUMIN 4.3 3.6-5.1 g/dL N GLOBULIN 3.0 1.9-3.7 g/dL (calc) N ALBUMIN/GLOBULIN RATIO 1.4 1.0-2.5 (calc) N BILIRUBIN, TOTAL 0.2 0.2-1.2 mg/dL N ALKALINE PHOSPHATASE 69 37-153 U/L N AST 16 10-35 U/L N ALT 12 6-29 U/L N CBC (INCLUDES DIFF/PLT) (639 9) Reviewed date:12/12/2024 12:03:38 PM Interpretation: Performing Lab:NIK SENSIMED-[facility] [id number], Sagacity MediaFxyzPW[address] [place] Notes/Report: NON-FASTING; NON-FASTING; NON-FASTING; NON-FASTING; NON-FAST WHITE BLOOD CELL COUNT 5.5 3.8-10.8 Thousand/uL N RED BLOOD CELL COUNT 4.54 3.80-5.10 Million/uL N HEMOGLOBIN 12.0 11.7-15.5 g/dL N HEMATOCRIT 38.3 35.0-45.0 % N MCV 84.4 80.0-100.0 fL N MCH 26.4 27.0-33.0 pg L MCHC 31.3 32.0-36.0 g/dL L For adults, a slight decrease in the calculated MCHC value (in the range of 30 to 32 g/dL) is most likely not clinically significant; however, it should be interpreted with caution in correlation with other red cell parameters and the patient's clinical condition. RDW 14.4 11.0-15.0 % N PLATELET COUNT 386 140-400 Thousand/uL N MPV 9.6 7.5-12.5 fL N ABSOLUTE NEUTROPHILS 3993 1970-6137 cells/uL N ABSOLUTE LYMPHOCYTES 2690 823-4876 cells/uL N ABSOLUTE MONOCYTES 259 200-950 cells/uL N ABSOLUTE EOSINOPHILS 72 15-500 cells/uL N ABSOLUTE BASOPHILS 22 0-200 cells/uL N NEUTROPHILS 72.6 N LYMPHOCYTES 21.0 N MONOCYTES 4.7 N EOSINOPHILS 1.3 N BASOPHILS 0.4 N SED RATE BY MODIFIED RAQUEL PALUMBO (809) Reviewed date:12/12/2024 12:03:39 PM Interpretation: Performing Lab:NIK SENSIMED-[facility] [id number], [place] DnxaMD[address] [place] Notes/Report: NON-FASTING; NON-FASTING; NON-FASTING; NON-FASTING; NON-FAST SED RATE BY MODIFIED WESTERGREN 14 < OR = 30 mm/h N C-REACTIVE PROTEIN (4420) Reviewed date:12/12/2024 12:03:39 PM Interpretation: Performing Lab:NIK SENSIMEDTNG Pharmaceuticalse1ZweemieteInspira Medical Center [place], [facility] CenterOuemDM[address] [place] Notes/Report: NON-FASTING; NON-FASTING; NON-FASTING; NON-FASTING; NON-FAST C-REACTIVE PROTEIN 3.3 <8.0 mg/L N DHARMESH MULTIPLEX W/REFLEX 11 AB CASCADE () Reviewed date:12/12/2024 12:03:39 PM Interpretation: Performing Lab:NIK SENSIMEDTrioMed Innovations [facility], [facility] CenterBljcMS[address] [place] Notes/Report: NON-FASTING; NON-FASTING; NON-FASTING; NON-FASTING; NON-FAST DHARMESH SCREEN, IMMUNOASSAY NEGATIVE NEGATIVE N A negative DHARMESH Multiplex indicates the absence of detectable antibodies to component analytes consisting of double stranded DNA (dsDNA), chromatin, ribonucleoprotein (HEEL SEAT SANDER), Hawthorne/HEEL SEAT SANDER (Sm/HEEL SEAT SANDER), Hawthorne (Sm), SS-A, SS-B, Allyssa-1, centromere B, [...] disease. For additional information, please refer to http://education.[employer]/faq/NXO563 (This link is being provided for informational/ educational purposes only.) CBC (INCLUDES DIFF/PLT) (639 9) Reviewed date:11/04/2024 01:44:51 PM Interpretation: Performing Lab:NIK SENSIMEDTNG Pharmaceuticalse1355 [address]el [facility], [place] XvudQQ[address] [place] Notes/Report: NON-FASTING; NON-FASTING; NON-FASTING; NON-FASTING WHITE BLOOD CELL COUNT 4.9 3.8-10.8 Thousand/uL N RED BLOOD CELL COUNT 4.30 3.80-5.10 Million/uL N HEMOGLOBIN 11.2 11.7-15.5 g/dL L HEMATOCRIT 36.0 35.0-45.0 % N MCV 83.7 80.0-100.0 fL N MCH 26.0 27.0-33.0 pg L MCHC 31.1 32.0-36.0 g/dL L For adults, a slight decrease in the calculated MCHC value (in the range of 30 to 32 g/dL) is most likely not clinically significant; however, it should be interpreted with caution in correlation with other red cell parameters and the patient's clinical condition. RDW 13.9 11.0-15.0 % N PLATELET COUNT 415 140-400 Thousand/uL H MPV 10.0 7.5-12.5 fL N ABSOLUTE NEUTROPHILS 3014 5036-1130 cells/uL N ABSOLUTE LYMPHOCYTES 7084 018-6224 cells/uL N ABSOLUTE MONOCYTES 294 200-950 cells/uL N ABSOLUTE EOSINOPHILS 123 15-500 cells/uL N ABSOLUTE BASOPHILS 39 0-200 cells/uL N NEUTROPHILS 61.5 N LYMPHOCYTES 29.2 N MONOCYTES 6.0 N EOSINOPHILS 2.5 N BASOPHILS 0.8 N COMPREHENSIVE METABOLIC PANE L (09447) Reviewed date:11/04/2024 01:44:51 PM Interpretation: Performing Lab:NIK, [facility] [id number] [facility] CentralPeymanIewkHB[address] [place] Notes/Report: NON-FASTING; NON-FASTING; NON-FASTING; NON-FASTING GLUCOSE 88 65-99 mg/dL N Fasting reference interval UREA NITROGEN (BUN) 13 7-25 mg/dL N CREATININE 0.59 0.60-1.00 mg/dL L EGFR 92 > OR = 60 mL/min/1.73m2 N BUN/CREATININE RATIO 22 6-22 (calc) N SODIUM 140 135-146 mmol/L N POTASSIUM 3.7 3.5-5.3 mmol/L N CHLORIDE 103 98-110 mmol/L N CARBON DIOXIDE 28 20-32 mmol/L N CALCIUM 9.2 8.6-10.4 mg/dL N PROTEIN, TOTAL 7.1 6.1-8.1 g/dL N ALBUMIN 4.0 3.6-5.1 g/dL N GLOBULIN 3.1 1.9-3.7 g/dL (calc) N ALBUMIN/GLOBULIN RATIO 1.3 1.0-2.5 (calc) N BILIRUBIN, TOTAL 0.3 0.2-1.2 mg/dL N ALKALINE PHOSPHATASE 79 37-153 U/L N AST 16 10-35 U/L N ALT 12 6-29 U/L N SED RATE BY MODIFIED WESTJOHNNY DEEPALI (809) Reviewed date:11/04/2024 01:44:52 PM Interpretation: Performing Lab:NIK, SENSIMED-[facility] [id number] [address] TherapeuticsteTabber, Sagacity MediaNnazWC[address] [place] Notes/Report: NON-FASTING; NON-FASTING; NON-FASTING; NON-FASTING SED RATE BY MODIFIED WESTSOILA 17 < OR = 30 mm/h N C-REACTIVE PROTEIN (4420) Reviewed date:11/04/2024 04:01:34 PM Interpretation: Performing Lab:NIK SENSIMED-[facility] [id number], Sagacity MediaUbksAY[address] [place] Notes/Report: NON-FASTING; NON-FASTING; NON-FASTING; NON-FASTING C-REACTIVE PROTEIN 5.5 <8.0 mg/L N Mammogram : Bilateral Reviewed date:02/27/2025 02:18:23 PM Interpretation: Performing Lab: Notes/Report: Medications Medication SIG (Take, Route, Frequency, Duration) Notes Start Date End Date Status traMADol HCl 50 mg Tablet TAKE 1 OR 2 TA BLET(S) BY MOUTH EVERY DAY AT BEDTIME; Duration: 30 08/17/2025 Active Fluconazole 150 MG Tablet 1 tablet Orall y once now and repeat in 3 days if needed; Duration: 3 days 08/26/2025 Active Losartan Potassium 100 MG Tablet 1 tablet Orally Once a day Active Ativan 1 MG Tablet 1 tab(s) orally bid 05/14/2013 Active Xifaxan 550 MG Tablet 1 tablet Orally 3 times a day; Duration: 14 days 08/26/2025 Active Aspirin 81 MG TABLET 1 TAB(S) ORALLY ONC E A DAY Active Multivitamin - Tablet 1 tab(s) orally on ce a day Active OSTEO-BIOFLEX 1 TAB ORALLY ONCE DAILY Active Budesonide 3 MG Capsule Delayed Release Particles 1 capsule Orally; Duration: 30 day(s) 01/07/2025 Active traZODone HCl 100 MG Tablet 1 tablet at bedtime Orally Once a day; Duration: 30 day(s) 05/05/2025 Active DULoxetine HCl 60 MG Capsule Delayed Release Particles 1 capsule Orally at night; Duration: 90 days Active Rosuvastatin Calcium 10 mg Tablet TAKE ONE TABLET BY MOUTH EVERY DAY; Duration: 90 Active Immunizations Vaccine Route Administration Date Status [...] (NON-MEDICARE) IM Intramuscular 07/17/2017 Administered Lot # [id number] Exp 02/08/18 Manuf Seqirus Pneumovax 23 Unknown 08/20/2014 Administered Prevnar PCV-13 (Pneumococcal conjugate 13) IM Intramuscular 08/09/2016 Administered Tetanus Toxoid IM Intramuscular 05/01/2012 Administered Zostavax (Shingles) SC Subcutaneous 06/01/2016 Administered Social History Social History Additional Details Category Social Info Options Details Social History Occupation: retired Travel outside [place]: no Alcohol: socially Sexually active: yes Recreational drug use: no Exercise: no Home smoke detector use: yes Caffeine: yes coffee 3-4 cups daily Living Will No Problems Problem Type SNOMED Code ICD Code Onset Dates Problem Status W/U Status Risk Notes Problem Mild recurrent major depression (93866196) Major depressive disorder, recurrent, mild (F33.0) Active confirmed Problem Primary insomnia (6229105) Primary insomnia (F51.01) Active confirmed Problem Irritable bowel syndrome with diarrhea (280279039) Irritable bowel syndrome with diarrhea (K58.0) Active confirmed Problem Acquired spondylolisthesis (191008757) Spondylolisthesis , 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) Active confirmed Problem Low back pain (594115034) Low back pain (M54.5) Active confirmed Problem Anxiety (92530702) Anxiety (F41.9) Active confi rmed Problem Osteoporosis (45718532) Osteoporosis (M81.0) Active confirmed Problem Essential hypertension (01821564) Essential hypertension (I10) Active confirmed Problem Hyperlipidemia (92430570) Hyperlipemia, idiopathic familial (E78.5) Active confirmed Problem Spasm of back muscles (076755231) Lumbar paraspinal muscle spasm (M62.830) Active confirmed Problem Chronic pain (42031328) Other chronic pain (G89.29) Active confirmed Problem 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, 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) Active confirmed Problem Atherosclerosis of coronary artery without angina pectoris (806486533242782) Atherosclerosis of [place] coronary artery of [place] heart without angina pectoris (I25.10) Active confirmed Problem Generalized anxiety disorder (81505407) NIKIA (generalized anxiety disorder) (F41.1) Active confirmed Problem Arthralgia of multiple joints (66146119) Arthralgia of multiple joints (M25.50) Active confirmed Problem Seborrheic dermatitis of scalp (716444136) Seborrheic dermatitis of scalp (L21.9) Active confirmed Problem Moderate recurrent major depression (67392038) Moderate episode of recurrent major depressive disorder (F33.1) Active confirmed Problem Sacroiliac instability (28430411) 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) Active confirmed Problem Irritable bowel syndrome characterized by constipation (935815571) Irritable bowel syndrome with constipation (K58.1) Active confirmed Problem Irritable bowel syndrome (60673760) Irritable bowel syndrome with both constipation and diarrhea (K58.2) Active confirmed Problem Somatic dysfunction of sacroiliac joint (finding) (413965864721) Sacroiliac joint dysfunction (M53.3) Active confirmed Problem Episodic migraine (484616987236295) Episodic migraine (G43.909) Active confirmed Problem Closed nondisplaced fracture of pelvis with routine healing, unspecified part of pelvis, subsequent encounter (S32.9XXD) Active confirmed Vital Signs Heart Rate 64 /min 08/18/2025 Temperature 97.7 degrees Fahrenheit 08/18/2025 Blood pressure diastolic 92 mm Hg 08/18/2025 Height 5 ft 2 in in 08/18/2025 Blood pressure systolic 172 mm Hg 08/18/2025 Weight 107 lbs 08/18/2025 BMI 19.57 kg/m2 08/18/2025 Encounters Encounter Location Date Provider Diagnosis [facility] [address] [facility] [address] [place], [place] [address] 11/03/2024 Ren Besson [facility] [address] [facility] [address] [place] [address] 12/13/2024 Provider Migration [facility] [address] [facility] [address] [place], [place] [address] 10/15/2024 Ren Besson Myalgia M79.10 ; Arthritis, multiple joint involvement M12.9 and Osteoporosis M81.0 [facility] [address] [facility] [address] [place], [place] [address] 10/22/2024 Ren Besson Myalgia, multiple sites M79.18 and Primary insomnia F51.01 [facility] [address] [facility] [address] [place] [address] 11/05/2024 Ren Besson Myalgia, multiple sites M79.18 and Episodic migraine G43.909 [facility] [address] [facility] [address] [place], [place] [address] 12/08/2024 Ren Besson Arthralgia of multiple joints M25.50 ; Myositis of upper arm, unspecified laterality, unspecified myositis type M60.9 and Routine medical exam Z00.00 [facility] [address] [facility] [address] [place] [address] 01/07/2025 Ren Besson Acute reactive otiti s externa of right ear H60.551 and Irritable bowel syndrome with constipation K58.1 [facility] [address] [place] [address] 01/29/2025 Ren Besson Electrocution and nonfatal effects of electric current, subsequent encounter T75.4XXD ; Epigastric pain R10.13 and Hospital discharge follow-up Z09 [facility] [address] [facility] [place] [address] 02/09/2025 Ren Armas Epigastric pain R10.13 [facility] [address] [place], [place] [address] 03/09/2025 Ren Armas Neuralgia and neuritis, unspecified M79.2 and Other chronic pain G89.29 [facility] [address] [place], [place] [address] 04/22/2025 Ren Armas Closed nondisplaced fracture of pelvis with routine healing, unspecified part of pelvis, subsequent encounter S32.9XXD ; Closed fracture of distal end of left radius with routine healing, unspecified fracture morphology, subsequent encounter S52.502D and Hospital discharge follow-up Z09 [facility] [address] [place], [place] [address] 05/13/2025 Ren Armas Anxiety F41.9 ; Osteoporosis M81.0 and Closed nondisplaced fracture of pelvis with routine healing, unspecified part of pelvis, subsequent encounter S32.9XXD [facility] [address] [place] [address] 05/26/2025 Mai McNees Dysuria R30.0 and Acute vaginitis N76.0 [facility] [address] [place] [address] 06/03/2025 Ren Armas Immunization(s) administered Z23 ; Closed nondisplaced fracture of pelvis with routine healing, unspecified part of pelvis, subsequent encounter S32.9XXD and Arthralgia of multiple joints M25.50 [facility] [address] [facility] [place], [place] [address] 07/13/2025 Ren Armas Spondylolisthesis, lumbar region M43.16 ; Primary insomnia F51.01 ; Pain in right knee M25.561 and Pain in left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
--- OUTSIDE RECORDS SUMMARY | 2025-09-09 09:59 | XMS_ITS | Clinical Summary ---
Author Organization [facility] Address [address] [place] [address] Phone Care Team Providers Care Collet Making Machine Operator Name Role Phone Ren Armas MD Primary Care Provider [phone] Allergies Active Allergy Reactions Criticality Noted Date [...] RIGHT SIDE; Surgeon: Hector Lara MD; Location: [facility] MAIN OR; Service: Neurosurgery Medical devices [...] this topic Medical Devices Implanted Type Area Bogger Operator Device Identifier Shelf Expiration Date Model / Serial / Lot Cardiac Stents Kt Graft 2.8ml Infs Sm Valentin Matrx 2-Tn Bnd 5ml Strl H2o - [id number] Implanted:Qty: 1 on 10/24/2021 by Hector Lara MD at [facility] Right: Spine Lumbar [employer]:SOFAM OR DANEK 05/10/2023 [id number] / / [id number] Cage Capstone 8mm X 22mm Vertestak - [id number] Implanted:Qty: 1 on 10/24/2021 by Hector Lara MD at [facility] Right: Spine Lumbar [employer]:SOFAM OR DANEK 02/10/2029 [id number] / / [id number] Screw Voyager Solera 6.5 X 35mm - 5.5/6.0 - [id number] Implanted:Qty: 2 on 10/24/2021 by Hector Lara MD at [facility] Right: Spine Lumbar [employer]:SOFAM OR DANEK [id number] / / Screw Voyager Solera 6.5 X 40mm - 5.5/6.0 - [id number] Implanted:Qty: 2 on 10/24/2021 by Hector Lara MD at [facility] Right: Spine Lumbar [employer]:SOFAM OR DANEK [id number] / / Set Screw 5.5/6.0 Solera Voyager - [id number] Implanted:Qty: 4 on 10/24/2021 by Hector Lara MD at [facility] Right: Spine Lumbar [employer]:SOFAM OR DANEK [id number] / / Xu Percutaneous 5.5mm X 35mm - [id number] Implanted:Qty: 1 on 10/24/2021 by Hector Lara MD at [facility] Right: Spine Lumbar [employer]:SOFAM OR DANEK [id number] / / Xu Percutaneous 5.5mm X 40mm - [id number] Implanted:Qty: 1 on 10/24/2021 by Hector Lara MD at [facility] Right: Spine Lumbar [employer]:SOFAM OR DANEK [id number] / / Cage Capstone 8mm X 22mm Vertestak - [id number] Implanted:Qty: 1 on 10/24/2021 by Hector Lara MD at [facility] Right: Spine Lumbar [employer]:JEFF OR JAYJAY [id number] / / Insurance MEDICARE [place] PART A AND B SUPPLEMENTAL MEDICARE [place] PART A AND B SUPPLEMENTAL Advance Directives For more information, please contact: [phone] * Full Code (Latest Code Status on File) Date Activated Date Inactivated Comments 10/24/2021 1:57 PM 10/25/2021 7:16 PM Care Teams Collet Making Machine Operator Relationship Specialty Start Date End Date Ren Armas MD [address] [place] [id number] PCP - General Internal Medicine-Adolescent Medicine 07/20/21
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
--- OUTSIDE RECORDS SUMMARY | 2025-09-09 10:00 | XMS_ITS | Clinical Summary ---
Author Organization [facility] Address [address] [place] [address] Care Team Providers Care Infection Control Specialist Name Role Phone Provider, No Known Primary [...] COVID-19 Vaccine (2023- season) 2025 Care Teams Infection Control Specialist Relationship Specialty Start Date End Date Provider, [place] [address] PCP - General 04/22/15
[2025-09-09 10:01] LABS: Clostridium Difficile A/B, PCR Not Detected (NotDetected); Cyclospora Cayetanesis Not Detected (NotDetected); Salmonella, PCR Not Detected (NotDetected); Shiga-like toxin E coli Not Detected (NotDetected); Shigella Enterovasive E coli Not Detected (NotDetected); Vibrio, PCR Not Detected (NotDetected); Yersinia Entercolitica, PCR Not Detected (NotDetected)
== END 2025-09-09 23:59 | disposition home or self-care (01) ==
LOC: LAB 09:56
PROVIDERS: PCP Internal Medicine Adolescent Medicine; Visit Provider Nurse Practitioner Family
DX: A09 Infectious gastroenteritis and colitis, unspecified (principal); K59.9 Functional intestinal disorder, unspecified; K58.0 Irritable bowel syndrome with diarrhea; K63.89 Other specified diseases of intestine
CPT/HCPCS: 87506